=== PATIENT | female | born 1960 ===

== ENCOUNTER 2025-01-16 10:44 | Outpatient (REF) | payer OTHER, SELFPAY ==
--- OUTSIDE RECORDS SUMMARY | 2024-12-30 03:36 | XMS_ITS | Encounter Summary ---
Author Organization [facility] Address [address], [address] [place] [address] Care Team Providers Care Label Machine Operator Name Role Phone Omar Murrell ADVERTISING OPERATIONS COORDINATOR - SHEEP SORTER Primary Care Provider Reason for Visit * Auth/CertSpecialtyDiagnoses / ProceduresReferred By ContactReferred To Contact Diagnoses Abdominal pain [facility] [address] [place] [address] [facility] [address] [place] [address] Referral IDStatusReasonStart DateExpiration DateVisits RequestedVisits [id number] Encounter Details DateTypeDepartmentCare Team (Latest Contact Info)Wglrkvozccv16/14/2025 3:36 AM EDT - 01/12/2025 6:01 PM EDTHospital Encounter [facility] [address] [place] [address] Benton Edouard MD [address] [place] [address] Anish Georges MD [address] [place] [address] Rina Fritz MD [address] [place] [address] Narciso Weiss MD [address] [place] [address] Chadd Fung MD [address] [id number] Kiara Harper MD [address] [place] [address] Acute kidney injury superimposed on stage 3b chronic kidney disease (HCC) (Primary Dx); Abdominal pain, unspecified abdominal location; Essential hypertension; Intussusception of small intestine (HCC); Chronic renal impairment, stage 4 (severe) Discharge Disposition: Home or Self Care Social History Tobacco UseTypesPacks/DayYears UsedDateSmoking Tobacco: Every UffPflkznweej890.8 Started: 03/19/1979mokeless Tobacco: NeverAlcohol UseStandard Drinks/Week CommentsNot Currently0 (1 standard drink = 0.6 oz pure alcohol)AUDIT-CAnswerDate RecordedQ1: How often do you have a drink containing alcohol?Never09/29/2024Q2: How many drinks containing alcohol do you have on a typical day when you are drinking?Patient does not drink09/29/2024Q3: How often do you have six or more drinks on one occasion?Never09/29/2024PHQ-2AnswerDate RecordedPHQ-9 Total Score 1308PRAPARE - TransportationAnswerDate RecordedIn the past 12 months, has lack of transportation kept you from medical appointments or from getting medications?No09/29/2024In the past 12 months, has lack of transportation kept you from meetings, work, or from getting things needed for daily living?No 09/29/2024Housing Stability Vital SignAnswerDate RecordedIn the last 12 months, was there a time when you were not able to pay the mortgage or rent on time?No 12/30/2024In the past 12 months, how many times have you moved where you were living?t any time in the past 12 months, were you homeless or living in a half-way (including now)?No12/30/2024UDIT-CAnswerDate RecordedQ1: How often do you have a drink containing alcohol?Never12/10/2024Q2: How many drinks containing alcohol do you have on a typical day when you are drinking?Patient does not drink12/10/2024Q3: How often do you have six or more drinks on one occasion?Never12/10/2024Hunger Vital SignAnswerDate RecordedWithin the past 12 months, you worried that your food would run out before you got the money to buy more.Never true12/30/2024Within the past 12 months, the food you bought just didn't last and you didn't have money to get more.Never true12/30/2024PRAPARE - TransportationAnswerDate RecordedIn the past 12 months, has lack of transportation kept you from medical appointments or from getting medications?No 12/30/2024In the past 12 months, has lack of transportation kept you from meetings, work, or from getting things needed for daily living?No12/30/2024HC UtilitiesAnswerDate RecordedIn the past 12 months has the [employer], gas, oil, or water company threatened to shut off services in your home?No12/30/2024 Interpersonal Safety Domain Source: IP Abuse ScreeningAnswerDate Recorded Physical mmcikDqldmn20/14/2025Verbal wspicUqmjmh31/14/2025Emotional abuseDenies 12/30/2024Financial hidjaXfltjb00/14/2025Sexual ivnoqVnjfnf40/14/2025 CommentsNoSex and Gender InformationValueDate RecordedSex Assigned at BirthNot on fileLegal RanRhfnzu66/10/2013 4:15 PM ESTGender IdentityNot on fileSexual OrientationNot on filedocumented as of this encounter Last Filed Vital Signs Vital SignReadingTime TakenCommentsBlood Irldzzcs224/8201/12/2025 2:15 PM EDT Lybns486301/12/2025 2:15 PM JEYDcqutjegjfc00.7 ??C (98 ??F)01/12/2025 2:15 PM EDT Respiratory Rahy5108 2:15 PM EDTOxygen Alpfdduvqh61%01/12/2025 2:15 PM EDTInhaled Oxygen Concentration--Aeiubi41 kg (94 lb 12.8 oz)01/12/2025 5:37 AM NTZVdyjiz507.6 cm (5' 4 )12/30/2024 3:30 AM EDTBody Mass Index16.271 3:30 AM EDTdocumented in this encounter Discharge Summaries * Bianka Christiansen MD - 01/12/2025 6:00 PM EDT Images from the original note were not included. Resident Discharge Summary (Hospitalist) Patient: Maria Elena Garner 64 y.o. female : 1960 Account: [id number] Patient's PCP: Omar Murrell APRN - CNP Admit Date: 12/30/2024 Discharge Date: 01/12/2025 Admitting Physician: No admitting provider for patient encounter. Discharge Physician: Bianka Christiansen MD Outpatient Follow-up Rec's: Follow-up with your appointment with your primary care provider after discharge from the hospital To slate picker your oxygen and COPD supplies from home health Follow-up with nephrology at your appointment in [facility] on February 05 Start taking your Cardura at your new dose of 8 mg 3 times daily continue taking your Coreg at yournew dose of 25 mg twice daily Try to use as little of your pain medication as possible follow-up with primary for management of pain Hospital Course: Maria Elena Garner is a 64 y.o. female with PMHx COPD, hypertension, GERD, recent colectomy and end colostomy, PATRICK on CKD stage III on temporary hemodialysis admitted to [facility] on 12/30/2024 for abdominal pain. Patient was recently hospitalized for colectomy with left sided colostomyhad ATN postoperatively requiring hemodialysis Sunday on outpatient follow-up x-ray was notable for SBO patient did not immediately come to the hospital for care try to waited out athome. Was admitted for bowel obstruction and was taken to surgery for small bowel resection of the intestines intussusception. Patient completed a course of antibiotics for gram-negative bacteria ciprofloxacin and doxycycline, infectious disease nephrology and general surgery were consulted, the patient's renal function was improved was stable for discharge per nephrology and infectious disease and general surgery patient required large doses of oral and IV pain killers was weaned down to oral regimen and was discharged with a short 5-day course of oral pain killers with instructions to minimize her oral intake of pain medication. Patient is to follow-up with nephrology within 1 month and with primary care Discharge Diagnoses: Small bowel resection status post intussusception PATRICK on CKD stage III secondary to initial surgical procedure patient was given a course of IV fluids nephrology was consulted optimized for discharge Microcytic anemia secondary to chronic kidney disease received injection of erythropoietin while inpatient is to follow-up with nephrology outpatient Bilateral pleural effusions transudative secondary to hypertension Hypertension patient required increased antihypertensive while inpatient Cardura was increased 8 mg3 times daily Coreg was increased to 25 mg twice daily patient is to follow-up with primary care provider to titrate antihypertensives after discharge from hospital COPD not in acute exacerbation on baseline home O2 GERD continue home Pepcid HFpEF not in acute exacerbation Pericardial effusion no evidence of tamponade The patient was seen and examined on day of discharge and this discharge summary is in conjunction with any daily progress note from day of discharge. The patient is discharged in stable condition. Exam: Vitals: Vitals: 01/12/25 0604 01/12/25 0800 01/12/25 0942 01/12/25 1415 BP: (!) 159/77 (!) 143/82 Pulse: 72 72 Resp: 17 18 18 Temp: 98 ??F (36.7 ??C) 98 ??F (36.7 ??C) TempSrc: Oral Oral SpO2: 95% 95% 94% Weight: Height: Weight: Weight - Scale: 43 kg (94 lb 12.8 oz) General appearance: No apparent distress, well developed, appears stated age. Eyes: Pupils equal, round, and reactive to light. Conjunctivae/corneas clear. HENT: Head normal in appearance. External nares normal. Oral mucosa moist without lesions. Hearing grossly intact. Neck: Supple, with full range of motion. Trachea midline. No gross JVD appreciated. Respiratory: Normal respiratory effort. Clear to auscultation, bilaterally without rales or wheezesor rhonchi. Cardiovascular: Normal rate, regular rhythm with normal S1/S2 without murmurs. No lower extremity edema. Abdomen: Soft, non-tender, non-distended with normal bowel sounds. Musculoskeletal: There is no joint swelling or tenderness. Normal tone. No abnormal movements. Skin: Warm and dry. No rashes or lesions. Neurologic: No focal sensory/motor deficits in the upper and lower extremities. Cranial nerves: grossly non-focal 2-12. Psychiatric: Alert and oriented, normal insight and thought content. Capillary Refill: Brisk,< 3 seconds. Peripheral Pulses: +2 palpable, equal bilaterally. Labs: For convenience the most recent labs are provided: CBC: Lab Results Component Value Date/Time WBC 10.7 01/12/2025 06:18 AM HGB 8.7 01/12/2025 06:18 AM HCT 26.8 01/12/2025 06:18 AM PLT 342 01/12/2025 06:18 AM Renal: Lab Results Component Value Date/Time NA 137 01/12/2025 06:18 AM K 3.6 01/12/2025 06:18 AM CL 103 01/12/2025 06:18 AM CO2 23 01/12/2025 06:18 AM BUN 50 01/12/2025 06:18 AM CREATININE 1.9 01/12/2025 06:18 AM CALCIUM 8.8 01/12/2025 06:18 AM Liver: Lab Results Component Value Date/Time AST 20 01/07/2025 05:26 AM ALT 12 01/07/2025 05:26 AM Significant Diagnostic Studies Radiology: XR CHEST PORTABLE Final Result Stable small bilateral pleural effusions with under aeration of the left lung base. This report has been created using voice recognition software. It may contain minor errors which are inherent in voice recognition technology. Electronically signed by Dr. Bertha Montgomery XR ABDOMEN (KUB) (SINGLE AP VIEW) Final Result No acute abdominal disease. This report has been created using voice recognition software. It may contain minor errors which are inherent in voice recognition technology. Electronically signed by Dr. Frederick Gonzales XR CHEST PORTABLE Final Result 1. Small bilateral left or the right pleural effusions are seen. Dependent bibasilar left greater than right airspace opacities are also present which may present atelectasis or pneumonia. This report has been created using voice recognition software. It may contain minor errors which are inherent in voice recognition technology. Electronically signed by Dr. Pedro Diallo US THORACENTESIS Which side should the procedure be performed? Radiologist Recommendation (Bilateral) Final Result Status post right thoracentesis This report has been created using voice recognition software. It may contain minor errors which are inherent in voice recognition technology. Electronically signed by Dr. Pedro Diallo XR CHEST 1 VIEW Final Result 1. The heart size is borderline mildly enlarged. 2. There is improved aeration at the right lung following right-sided thoracentesis with no evidence for pneumothorax. Mild dependent right basilar airspace opacities are present which represent mild atelectasis or infiltrate. 3. There is a small left pleural effusion again seen with mild dependent left basilar airspace opacities. This report has been created using voice recognition software. It may contain minor errors which are inherent in voice recognition technology. Electronically signed by Dr. Pedro Diallo US RENAL LIMITED Final Result 1. Minimal pelviectasis on the right which appears improved from prior CT examination dated 01/04/2025 allowing for differences in imaging modality. This report has been created using voice recognition software. It may contain minor errors which are inherent in voice recognition technology. Electronically signed by Dr. Pedro Diallo CT ABDOMEN PELVIS WO CONTRAST Additional Contrast? Radiologist Recommendation Final Result 1. Moderate bilateral pleural effusions. Diffuse body wall edema. 2. Mild to moderate right hydronephrosis. 3. Large amount of ascites with pneumoperitoneum noted. The pertinent finding(s) was called to patient's nurse at 1414 hours on 01/04/[address] Gil. Verbal acknowledgment and readback was given. 4. Dilated and fluid-filled small bowel loops are seen. Findings can relate to ileus versus small bowel obstruction. This report has been created using voice recognition software. It may contain minor errors which are inherent in voice recognition technology. Electronically signed by Dr. Nerissa Gil IR FLUORO GUIDED CVA DEVICE PLMT/REPLACE/REMOVAL Final Result Status post successful tunneled Dialysis catheter removal. This report has been created using voice recognition software. It may contain minor errors which are inherent in voice recognition technology. Electronically signed by Dr. Frederick Gonzales XR NECK SOFT TISSUE Final Result No acute findings. This document has been electronically signed by: Noah Ricketts MD on 12/31/2024 11:08 PM Consults: IP CONSULT TO GENERAL SURGERY IP CONSULT TO NEPHROLOGY IP CONSULT TO SOCIAL WORK IP CONSULT TO INFECTIOUS DISEASES IP CONSULT TO HOME CARE NEEDS Disposition: Home Condition at Discharge: Stable Code Status: Full Code Patient Instructions: Discharge lab work: Weekly CBCs BMP 1 week after discharge Activity: activity as tolerated Diet: ADULT ORAL NUTRITION SUPPLEMENT; Breakfast, Lunch, Dinner; Standard High Calorie/High ProteinOral Supplement ADULT DIET; Regular; Low Sodium (2 gm); 2000 ml Follow-up visits: [facility] by [address] [facility] [id number] Omar Murrell, ADVERTISING OPERATIONS COORDINATOR - SHEEP SORTER [address] [place] [address] [address] [place] [phone] Go on 01/20/2025 post hospital follow up-Appt is at 2:40pm. Trish Kim DO [address] [place], [place] [id number] Schedule an appointment as soon as possible for a visit on 02/05/2025 Appointment is at 11am. Discharge Medications: Medication List PAUSE taking these medications furosemide 40 MG tablet Wait to take this until your doctor or other care provider tells you to start again. Commonly known as: LASIX Take 1 tablet by mouth daily START taking these medications chlorthalidone 50 MG tablet Commonly known as: HYGROTEN Take 1 tablet by mouth daily oxyCODONE-acetaminophen 5-325 MG per tablet Commonly known as: PERCOCET Take 1 tablet by mouth every 6 hours as needed for Pain for up to 5 days. Max Daily Amount: 4 tablets CHANGE how you take these medications carvedilol 25 MG tablet Commonly known as: COREG Take 1 tablet by mouth 2 times daily (with meals) What changed: how much to take doxazosin 2 MG tablet Commonly known as: CARDURA Take 4 tablets by mouth 2 times daily Hold if BP <110mmHg or HR <65 What changed: how much to take when to take this additional instructions CONTINUE taking these medications Acetaminophen Extra Strength 500 MG Tabs TAKE 1 TABLET BY MOUTH EVERY 6 HOURS NEEDED FOR PAIN albuterol sulfate HFA 108 (90 Base) MCG/ACT inhaler Commonly known as: PROVENTIL;VENTOLIN;PROAIR Inhale 2 puffs into the lungs every 6 hours as needed for Wheezing amLODIPine 10 MG tablet Commonly known as: NORVASC Take 1 tablet by mouth daily aspirin 81 MG EC tablet Commonly known as: Aspirin Low Dose Take 1 tablet by mouth daily atorvastatin 20 MG tablet Commonly known as: LIPITOR Take 1 tablet by mouth daily buPROPion 150 MG extended release tablet Commonly known as: WELLBUTRIN XL Take 1 tablet by mouth every morning cloNIDine 0.3 MG tablet Commonly known as: CATAPRES Take 1 tablet by mouth 3 times daily Compressor/Nebulizer Misc Use to give medication as directed docusate 100 MG Caps Commonly known as: COLACE, DULCOLAX Take 100 mg by mouth 2 times daily famotidine 20 MG tablet Commonly known as: PEPCID Take 1 tablet by mouth 2 times daily Handicap Placard Misc by Does not apply route Trouble walking more than 200ft. Need- 5 years lactulose 10 GM/15ML solution Commonly known as: CHRONULAC Take 15 mLs by mouth every evening ondansetron 4 MG disintegrating tablet Commonly known as: ZOFRAN-ODT Take 1 tablet by mouth 3 times daily as needed for Nausea or Vomiting polyethylene glycol 17 g packet Commonly known as: GLYCOLAX Take 1 packet by mouth daily senna 8.6 MG Tabs tablet Commonly known as: SENOKOT TAKE 2 TABLETS BY MOUTH NIGHTLY simethicone 80 MG chewable tablet Commonly known as: MYLICON Take 1 tablet by mouth 4 times daily as needed for Flatulence Symbicort 160-4.5 MCG/ACT Aero Generic drug: budesonide-formoterol Inhale 2 puffs into the lungs 2 times daily tiotropium 2.5 MCG/ACT Aers inhaler Commonly known as: Spiriva Respimat Inhale 2 puffs into the lungs daily traZODone 100 MG tablet Commonly known as: DESYREL Take 0.5 tablets by mouth nightly as needed for Sleep ASK your doctor about these medications hydrALAZINE 100 MG tablet Commonly known as: APRESOLINE Take 1 tablet by mouth every 8 hours losartan 50 MG tablet Commonly known as: COZAAR Take 1 tablet by mouth daily Where to Get Your Medications These medications were sent to [facility] - [place], [place] - [address] [phone] - F [phone] [place] [address] chlorthalidone 50 MG tablet You can get these medications from any pharmacy Bring a paper prescription for each of these medications oxyCODONE-acetaminophen 5-325 MG per tablet Information about where to get these medications is not yet available Ask your nurse or doctor about these medications carvedilol 25 MG tablet doxazosin 2 MG tablet Time Spent on discharge is 45 minutes in the examination, evaluation, counseling and review of medications and discharge plan. Thank you Omar Murrell, PARAMJIT - [employer] for the opportunity to be involved in this patient's care. Signed: Case was discussed with Attending, Dr. Harper Cosigned by Kiara Harper MD at 01/14/2025 7:08 PM EDT Associated attestation - Kiara Harper MD - 01/14/2025 7:08 PM EDT I saw and evaluated the patient independently of the medical record retrieval specialist and discussed with Dr. Christiansen. I agree with the findings and plan as documented in the following note. I agree with the Resident's physical exam, assessment and plan for treatment, with any exceptions listed below. Below is additional information based on my encounter and recommendations if any. Time Spent on discharge is more than 30 minutes in the examination, evaluation, counseling and review of medications and discharge plan. DOS 01/12/25 Electronically signed by Kiara Harper MD 01/14/2025 documented in this encounter Discharge Instructions * Discharge Instructions* Bianka Christiansen MD - 01/12/2025 12:15 PM EDT Please return to the ER or call you PCP if you experience any of the following: Abdominal pain chest pain, shortness of breath, fevers, chills, lightheadedness, or any other concerning symptoms. * Attachments The following attachments cannot be sent through Care Everywhere. * Bowel Obstruction (Hungarian) * Abdominal Pain (Hungarian) documented in this encounter Medications at Time of Discharge MedicationSigDispense QuantityRefillsLast FilledStart DateEnd Date doxazosin (CARDURA) 2 MG tablet Indications:Essential hypertensionTake 4 tablets by mouth 2 times daily Hold if BP <110mmHg or HR <65 720 tablet 01/12/2025 carvedilol (COREG) 25 MG tablet Take 1 tablet by mouth 2 times daily (with meals) 60 tablet chlorthalidone (HYGROTEN) 50 MG tablet Take 1 tablet by mouth daily 30 tablet oxyCODONE-acetaminophen (PERCOCET) 5-325 MG per tablet Indications:Intussusception of small intestine (HCC)Take 1 tablet by mouth every 6 hours as needed for Pain for up to 5 days. Max Daily Amount: 4 tablets 20 tablet simethicone (MYLICON) 80 MG chewable tablet Indications:Abdominal distensionTake 1 tablet by mouth 4 times daily as needed for Flatulence 180 tablet ondansetron (ZOFRAN-ODT) 4 MG disintegrating tablet Indications:Abdominal distensionTake 1 tablet by mouth 3 times daily as needed for Nausea or Vomiting 21 tablet 12/23/2024 polyethylene glycol (GLYCOLAX) 17 g packet Indications:Constipation, unspecified constipation typeTake 1 packet by mouth daily 527 g amLODIPine (NORVASC) 10 MG tablet Indications:Essential hypertensionTake 1 tablet by mouth daily 90 tablet 12/09/2024 aspirin (ASPIRIN LOW DOSE) 81 MG EC tablet Indications:Essential hypertensionTake 1 tablet by mouth daily 90 tablet 12/09/2024 atorvastatin (LIPITOR) 20 MG tablet Indications:DyslipidemiaTake 1 tablet by mouth daily 90 tablet 12/09/2024 buPROPion (WELLBUTRIN XL) 150 MG extended release tablet Indications:Chronic anxietyTake 1 tablet by mouth every morning 90 tablet 12/09/2024 famotidine (PEPCID) 20 MG tablet Indications:Gastroesophageal reflux disease, unspecified whether esophagitis presentTake 1 tablet by mouth 2 times daily 180 tablet 12/09/2024 lactulose (CHRONULAC) 10 GM/15ML solution Indications:Slow transit constipationTake 15 mLs by mouth every evening 473 mL albuterol sulfate HFA (PROVENTIL;VENTOLIN;PROAIR) 108 (90 Base) MCG/ACT inhaler Indications:COPD, mild (HCC),Dyspnea on exertionInhale 2 puffs into the lungs every 6 hours as needed for Wheezing 18 g losartan (COZAAR) 50 MG tablet Indications:Chronic obstructive pulmonary disease, unspecified COPD type (HCC), Shortness of breathTake 1 tablet by mouth daily 90 tablet senna (SENOKOT) 8.6 MG TABS tablet Indications:Constipation, unspecified constipation typeTAKE 2 TABLETS BY MOUTH NIGHTLY 60 tablet 11/18/2024 furosemide (LASIX) 40 MG tablet Take 1 tablet by mouth daily 90 tablet 11/03/2024 docusate (COLACE, DULCOLAX) 100 MG CAPS Indications:Constipation, unspecified constipation typeTake 100 mg by mouth 2 times daily 60 capsule traZODone (DESYREL) 100 MG tablet Take 0.5 tablets by mouth nightly as needed for Sleep 30 tablet 10/01/2024 cloNIDine (CATAPRES) 0.3 MG tablet Take 1 tablet by mouth 3 times daily 60 tablet tiotropium (SPIRIVA RESPIMAT) 2.5 MCG/ACT AERS inhaler Indications:COPD, mild (HCC)Inhale 2 puffs into the lungs daily 4 g SYMBICORT 160-4.5 MCG/ACT AERO Indications:COPD, mild (HCC)Inhale 2 puffs into the lungs 2 times daily 10.2 g hydrALAZINE (APRESOLINE) 100 MG tablet Take 1 tablet by mouth every 8 hours 90 tablet Acetaminophen Extra Strength 500 MG TABS TAKE 1 TABLET BY MOUTH EVERY 6 HOURS NEEDED FOR PAIN 120 tablet Handicap Placard MISC by Does not apply route Trouble walking more than 200ft. Need- 5 years 1 each 03/17/2024 Nebulizers (COMPRESSOR/NEBULIZER) MISC Indications:COPD, mild (HCC)Use to give medication as directed 1 each 4documented as of this encounter Progress Notes * Fallon Mack RN - 01/12/2025 5:57 PM EDT All discharge instructions given to patient and family with no further questions at this time. Patient discharged off unit via wheelchair. Chart contents placed in yellow bin. * Yeny Fischer OTA - 01/12/2025 2:23 PM EDT [facility] OCCUPATIONAL THERAPY MISSED TREATMENT NOTE STR ONC MED 5K [id number] Date: 01/12/2025 Patient Name: Maria Elena Garner CSN: [id number] : 1960 (64 y.o.) Gender: female Referring Practitioner: Chadd Fung MD Diagnosis: Intussusception of Small Intestine REASON FOR MISSED TREATMENT: Attempt 1: patient politely declined requesting PM, Attempt 2: patientdeclines at this time. Education provided regarding activity to return home and benefits however patient continues to decline. Will attempt next available time. Cosigned by Cathie Kim OT at 01/13/2025 6:24 AM EDT * Trish Kim DO - 01/12/2025 10:42 AM EDT [facility] Nephrology progress note 01/12/2025, 10:42 AM Pt Name: Maria Elena Garner Birthdate: 1960 Admit Date: 12/30/2024 3:36 AM Chief Complaint: Nephrology following for PATRICK secondary to ATN Subjective: Patient seen and examined. Feels ok. Bp improving. Objective: 24HR INTAKE/OUTPUT: Intake/Output Summary (Last 24 hours) at 01/12/2025 1042 Last data filed at 01/12/2025 0643 Gross per 24 hour Intake 310 ml Output 900 ml Net -590 ml Admission weight: 44.3 kg (97 lb 10.6 oz) Wt Readings from Last 3 Encounters: 01/12/25 43 kg (94 lb 12.8 oz) 12/19/24 41.6 kg (91 lb 11.4 oz) 12/13/24 44.5 kg (98 lb 1.7 oz) Vitals : Vitals: 01/12/25 0537 01/12/25 0604 01/12/25 0800 01/12/25 0942 BP: (!) 159/77 Pulse: 72 Resp: 17 18 Temp: 98 ??F (36.7 ??C) TempSrc: Oral SpO2: 95% 95% Weight: 43 kg (94 lb 12.8 oz) Height: Physical examination General Appearance: Well developed. No distress Mouth/Throat: Oral mucosa moist Neck: Supple, no JVD Lungs: Breath sounds: clear Heart:: S1,S2 heard Abdomen: Soft, non - tender Musculoskeletal:improved ankle edema Medications: Infusion: sodium chloride Meds: chlorthalidone 50 mg Oral Daily doxazosin 8 mg Oral 2 times per day hydrALAZINE 100 mg Oral 3 times per day polyethylene glycol 17 g Oral Daily cloNIDine 0.3 mg Oral TID nicotine 1 patch TransDERmal Q24H carvedilol 25 mg Oral BID WC epoetin kamryn-epbx 6,000 Units SubCUTAneous Once per day on Sunday sodium chloride flush 5-40 mL IntraVENous 2 times per day amLODIPine 10 mg Oral Daily atorvastatin 20 mg Oral Daily famotidine 20 mg Oral Daily budesonide-formoterol 2 puff Inhalation BID tiotropium 2 puff Inhalation Daily RT albuterol 2.5 mg Nebulization TID heparin (porcine) 5,000 Units SubCUTAneous BID naloxegol 12.5 mg Oral QAM AC Lab Data : CBC: Recent Labs 01/11/25 0547 01/12/25 0618 WBC 9.7 10.7 HGB 8.6* 8.7* HCT 26.6* 26.8* PLT 367 342 CMP: Recent Labs 01/10/25 0533 01/11/25 0547 01/12/25 0618 NA 133* 135 137 K 4.1 3.9 3.6 CL 100 100 103 CO2 22 23 23 BUN 48* 50* 50* CREATININE 2.4* 2.2* 1.9* GLUCOSE 102 111* 106 CALCIUM 8.3* 8.6 8.8 Hepatic: No results for input(s): LABALBU , AST , ALT , BILITOT , ALKPHOS in the last 72 hours. Invalid input(s): ALB Assessment and Plan: Renal -acute kidney injury secondary to ATN requiring dialysis Last HD was 12/26 creatinine had improved to 1.6. HD cath removed Creatinine fluctuating but overall stable At DC needs weekly bmps. See me 02/05 in [place] Renal fxn stable. Bp better Ok for DC From renal standpoint Mild hyponatremia : improved Essential hypertension:improving Small bowel intussusception s/p ex lap with small bowel resection Recent ischemic colitis s/p hartmans with end colostomy Anemia of renal dysfunction : BRYCE Acid-base status stable Pleural effusion s/p thoracentesis Meds reviewed and discussed with patient Trish Kim DO [facility] This report has been created using voice recognition software. It may contain minor errors which are inherent in voice recognition technology * Phylicia Green, RN - 01/12/2025 10:27 AM EDT Wound ostomy consulted for LLQ ostomy . Attempted to call primary RN for clarification of consult,no answer. Spoke to staff last week regarding consult stating patient wanted to by seen by ostomy nurse inpatient instead of outpatient since she was here . Explained that we cannot provide the outpatient services and that she should still keep appt with outpatient [facility] for ostomy follow up. Call wound ostomy if there is a different need for consult. Thank you. * Dilip Arias MD - 01/12/2025 9:38 AM EDT Progress note: Infectious diseases Patient - Maria Elena Garner, Age - 64 y.o. - 1960 Room Number - 5K-[id number] N - [id number] Date of Admission - 12/30/2024 3:36 AM SUBJECTIVE: She wants to go home. Denies any nausea or vomiting. OBJECTIVE VITALS height is 1.626 m (5' 4 ) and weight is 43 kg (94 lb 12.8 oz). Her oral temperature is 98 ??F (36.7??C). Her blood pressure is 159/77 (abnormal) and her pulse is 72. Her respiration is 18 and oxygensaturation is 95%. Wt Readings from Last 3 Encounters: 01/12/25 43 kg (94 lb 12.8 oz) 12/19/24 41.6 kg (91 lb 11.4 oz) 12/13/24 44.5 kg (98 lb 1.7 oz) I/O (24 Hours) Intake/Output Summary (Last 24 hours) at 01/12/2025 0938 Last data filed at 01/12/2025 0643 Gross per 24 hour Intake 310 ml Output 900 ml Net -590 ml General Appearance Awake, alert, oriented, chronically sick looking. HEENT - normocephalic, atraumatic, pale conjunctiva, anicteric sclera. Neck - Supple, no mass. Lungs - Bilateral air entry, Cardiovascular - Heart sounds are normal. Abdomen - soft, nontender, functioning colostomy Neurologic -oriented Skin - No bruising or bleeding Extremities - edema on both feet MEDICATIONS: chlorthalidone 50 mg Oral Daily doxazosin 8 mg Oral 2 times per day hydrALAZINE 100 mg Oral 3 times per day polyethylene glycol 17 g Oral Daily cloNIDine 0.3 mg Oral TID nicotine 1 patch TransDERmal Q24H carvedilol 25 mg Oral BID WC epoetin kamryn-epbx 6,000 Units SubCUTAneous Once per day on Sunday sodium chloride flush 5-40 mL IntraVENous 2 times per day amLODIPine 10 mg Oral Daily atorvastatin 20 mg Oral Daily famotidine 20 mg Oral Daily budesonide-formoterol 2 puff Inhalation BID tiotropium 2 puff Inhalation Daily RT albuterol 2.5 mg Nebulization TID heparin (porcine) 5,000 Units SubCUTAneous BID naloxegol 12.5 mg Oral QAM AC sodium chloride capsaicin, oxyCODONE-acetaminophen, mupirocin, sodium chloride flush, sodium chloride, ondansetron OR ondansetron, polyethylene glycol, traZODone LABS: CBC: Recent Labs 01/11/25 0547 01/12/25 0618 WBC 9.7 10.7 HGB 8.6* 8.7* PLT 367 342 BMP: Recent Labs 01/10/25 0533 01/11/25 0547 01/12/25 0618 NA 133* 135 137 K 4.1 3.9 3.6 CL 100 100 103 CO2 22 23 23 BUN 48* 50* 50* CREATININE 2.4* 2.2* 1.9* GLUCOSE 102 111* 106 Calcium: Recent Labs 01/12/25617 CALCIUM 8.8 CULTURES: UA: No results for input(s): SPECGRAV , PHUR , COLORU , CLARITYU , MUCUS , PROTEINU , BLOODU , RBCUA , WBCUA , BACTERIA , NITRU , GLUCOSEU , BILIRUBINUR , UROBILINOGEN , KETUA , LABCAST , LABCASTTY , AMORPHOS in the last 72 hours. Invalid input(s): CRYSTALS Micro: No results found for: BC Problem list of patient: Patient Active Problem List Diagnosis Code PAD (peripheral artery disease) I73.9 Chronic anxiety F41.9 Essential hypertension I10 Insomnia G47.00 COPD (chronic obstructive pulmonary disease) ([facility]) J44.9 Smoking greater than 30 pack years F17.210 Osteoarthritis of cervical spine M47.812 Dyslipidemia E78.5 Positive FIT (fecal immunochemical test) R19.5 Neuropathic pain M79.2 Chronic hip pain, bilateral M25.551, M25.552, G89.29 Fibromyalgia M79.7 Chest wall pain R07.89 Ruptured left breast implant T85.43XA Left upper arm pain M79.622 Axillary lymphadenopathy R59.0 Localized enlarged lymph nodes R59.0 Personal history of breast implant removal Z98.86 Dysthymia F34.1 Hypertensive emergency I16.1 Right otitis media H66.91 Acute renal insufficiency N28.9 Chronic diastolic HF (heart failure), NYHA class 3 ([facility]) I50.32 Hypertension I10 Uncontrolled hypertension I10 Chronic renal impairment N28.9 Severe malnutrition E43 Hypertensive urgency I16.0 Pericardial effusion, acute I30.9 Gastroesophageal reflux disease K21.9 Hyponatremia E87.1 Constipation K59.00 Abdominal discomfort R10.9 Hypervolemia E87.70 Abdominal distension R14.0 Generalized weakness R53.1 Congestive heart failure (HCC) I50.9 Intractable abdominal pain R10.9 Ischemic bowel disease K55.9 Leucocytosis D72.829 Smoker F17.200 PATRICK (acute kidney injury) N17.9 Acute ischemic colitis K55.039 Acute abdominal pain R10.9 Acute kidney injury superimposed on stage 3b chronic kidney disease (HCC) N17.9, N18.32 ATN (acute tubular necrosis) N17.0 S/P laparotomy Z98.890 S/P left colectomy Z90.49 Acute respiratory failure with hypoxia ([facility]) J96.01 Colostomy care ([facility]) Z43.3 Abdominal pain R10.9 Intussusception of small intestine ([facility]) K56.1 ASSESSMENT/PLAN Bowel intussusception s/p exploratory surgery and bowel resection. Pelvic abscess drained and treated She is feeling better and wants to go home Ok with discharge plan Call ID if there are issues. Will sign off Dilip Arias MD, 01/12/2025 9:38 AM * Bianka Christiansen MD - 01/11/2025 2:44 PM EDT Images from the original note were not included. Hospitalist Progress Note Internal Medicine Resident Patient: Maria Elena Garner 64 y.o. female Unit/Bed: [facility]04/004-A Admit Date: 12/30/2024 ASSESSMENT AND PLAN Active Problems SBO intussusception status post small bowel resection: NG tube removed 01/01, large amount of ascites with pneumoperitoneum noted on abdomen/pelvis, IV fluid culture showing Pseudomonas, Staph epidermidis, Klebsiella. General surgery has signed off. ID okay for discharge Pain control: oral Percocet for moderate and severe pain every 4 hours Regular diet Completed course of ciprofloxacin 500 mg daily and doxycycline 100 mg twice daily PATRICK on CKD: Creatinine 2.4. Baseline creatinine around 1.6 following HD. Secondary to ATN requiringhemodialysis. Nephrology following. Follow-up appointment February 05 Weekly BMP postdischarge until she can be seen by nephrology Chronic microcytic anemia: Secondary to chronic kidney disease. Hemoglobin 9.2. Near recent baseline. Nephrology following Retacrit MWF Continue to monitor daily CBC Transfuse if hemoglobin less than 7 Small bilateral lower pleural effusions: Incidental finding on CT abdomen/pelvis without scan on 01/04/2025 Diagnostic thoracentesis consistent with transudative process Seen to be smaller, stable on CXR 01/11 Mild hyponatremia: Sodium 133. Nephrology following. On fluid restriction. Hypertension: Resistant to multiple antihypertensive medications including Cardura, clonidine, amlodipine, carvedilol, hydralazine. Continue chlorthalidone 25 mg daily and Cardura 8 mg twice daily Disposition likely discharge in the morning Resolved Problems High anion gap metabolic acidosis Chronic Conditions (reviewed and stable unless otherwise stated) History of ischemic colitis: Secondary to colostomy 12/12/2024 Thrombocytosis: Platelets 399. Continue monitor daily CBC. COPD: Not in exacerbation. Continue home regimen. GERD continue Pepcid Heart failure with preserved ejection fraction: Not in acute exacerbation Chronic pericardial effusion with no evidence of tamponade LDA: []CVC / []PICC / []Midline / []Pittman / []Drains / []Mediport / [x]None Antibiotics: Ciprofloxacin, doxycycline Steroids: None Labs (still needed?): [x]Yes / []No IVF (still needed?): []Yes / [x]No Level of care: []Step Down / [x]Med-Surg Bed Status: [x]Inpatient / []Observation Telemetry: []Yes / [x]No PT/OT: [x]Yes / []No DVT Prophylaxis: [] Lovenox / [x] Heparin / [] SCDs / [] Already on Systemic Anticoagulation / [] None Expected discharge date: Pending Disposition: Home Code status: Full Code Chief Complaint: Abdominal pain Subjective (past 24 hours): Pain greatly improved on exam today HPI / Hospital Course: Maria Elena Garner is a 64 y.o. female with PMHx of COPD, hypertension, GERD, recent ischemic colitis s/p left colectomy and end colostomy, postop ATN with intrinsic PATRICK on CKD stage III on hemodialysis MWF who presents to [facility] as a direct admission from [facility] with a complaint of abdominal pain.Abdominal pain is localized to the lower abdomen, dull/achy in quality, initially rated 10/10 and improved with dilaudid while in patient.Patient was recently treated for ischemic colitis requiring left colectomy and left colostomy 12/11/2024 and subsequently developed postop ATN requiring hemodialysis MWF. She has been having worsening abdominal pain and distention since last week associated witha few bouts of nausea/vomiting nonbloody, nonbilious. As outpatient she had x-ray acute abdominal series completed 12/25 which revealed SBO and was instructed to come to ED for further evaluation Sunday on 12/26. Patient however not follow instructions, thinking it would pass on its own however now she has severe abdominal pain with bloating for which she presented to [facility], ED prior to admission to [facility]. Patient otherwise denies SOB, chest pain, fever/chills, headaches, vision changes. ED course: In the ED patient was hypertensive 166/89 and tachypneic 21. Labs revealed elevated creatinine 3.5, troponin 111->106, hemoglobin 11.2, lactate normal at 0.7. EKG revealed NSR. CXR revealed no acute cardiopulmonary process, small stable bilateral pleural effusions with bibasilar atelectasis. CT A/P revealed findings suggestive of pneumatosis intestinalis and pneumatosis coli, bowel ischemia cannot be excluded. Patient management pain meds including Dilaudid and antibiotics Zosyn, ultimately admitted for further management of pneumatosis intestinalis and pneumatosis coli with bowel ischemia not excluded. General Surgery Dr. Whitaker already following. 01/11: Patient transition to full oral pain control regimen tentative plans for discharge in the morning pending PT OT Active Medications: Infusion Medications sodium chloride Scheduled Medications chlorthalidone 50 mg Oral Daily doxazosin 8 mg Oral 2 times per day hydrALAZINE 100 mg Oral 3 times per day polyethylene glycol 17 g Oral Daily doxycycline hyclate 100 mg Oral 2 times per day cloNIDine 0.3 mg Oral TID nicotine 1 patch TransDERmal Q24H carvedilol 25 mg Oral BID epoetin kamryn-epbx 6,000 Units SubCUTAneous Once per day on Sunday sodium chloride flush 5-40 mL IntraVENous 2 times per day amLODIPine 10 mg Oral Daily atorvastatin 20 mg Oral Daily famotidine 20 mg Oral Daily budesonide-formoterol 2 puff Inhalation BID tiotropium 2 puff Inhalation Daily RT albuterol 2.5 mg Nebulization TID heparin (porcine) 5,000 Units SubCUTAneous BID naloxegol 12.5 mg Oral QAM AC PRN Meds: oxyCODONE-acetaminophen, mupirocin, sodium chloride flush, sodium chloride, ondansetron OR ondansetron, polyethylene glycol, traZODone Exam: BP (!) 160/90 Pulse 74 Temp 98.2 ??F (36.8 ??C) (Oral) Resp 15 Ht 1.626 m (5' 4 ) Wt 42 kg (92 lb 8 oz) SpO2 94% BMI 15.88 kg/m?? General: Chronically ill-appearing, thin Eyes: PERRL. Conjunctivae/corneas clear. HENT: Head normal appearing. Nares normal. Oral mucosa moist. Hearing intact. Neck: Supple, with full range of motion. Trachea midline. No gross JVD appreciated. Respiratory: Normal effort. Clear to auscultation, without rales or wheezes or rhonchi. Cardiovascular: Normal rate, regular rhythm with normal S1/S2 without murmurs. No lower extremity edema. Abdomen: Mild tenderness palpation in RLQ, left flank mildly edematous Musculoskeletal: No joint swelling or tenderness. Normal tone. No abnormal movements. Skin: Warm and dry. No rashes or lesions. Neurologic: No focal sensory/motor deficits in the upper or lower extremities. Psychiatric: Alert and oriented, normal insight and thought content. Capillary Refill: Brisk,< 3 seconds. Peripheral Pulses: +2 palpable, equal bilaterally. Labs/Radiology: See chart or assessment above. Case was discussed with Attending, Dr. Harper.. Cosigned by Kiara Harper MD at 01/14/2025 7:07 PM EDT Associated attestation - Kiara Harper MD - 01/14/2025 7:07 PM EDT I saw and evaluated the patient independently of the medical record retrieval specialist and discussed with Dr. Christiansen. I agree with the findings and plan as documented in the following note. I agree with the Resident's physical exam, assessment and plan for treatment, with any exceptions listed below. Below is additional information based on my encounter and recommendations if any. Time Spent is more than 35 minutes in the examination, evaluation, counseling and review of medications and plan. DOS 01/11/25 Electronically signed by Kiara Harper MD 01/14/2025 * Trish Kim DO - 01/11/2025 11:11 AM EDT [facility] Nephrology progress note 01/11/2025, 11:11 AM Pt Name: Maria Elena Garner Birthdate: 1960 Admit Date: 12/30/2024 3:36 AM Chief Complaint: Nephrology following for PATRICK secondary to ATN Subjective: Patient seen and examined. Feels ok. Still having bp issues. Objective: 24HR INTAKE/OUTPUT: Intake/Output Summary (Last 24 hours) at 01/11/2025 1111 Last data filed at 01/11/2025 0607 Gross per 24 hour Intake -- Output 1050 ml Net -1050 ml Admission weight: 44.3 kg (97 lb 10.6 oz) Wt Readings from Last 3 Encounters: 01/11/25 42 kg (92 lb 8 oz) 12/19/24 41.6 kg (91 lb 11.4 oz) 12/13/24 44.5 kg (98 lb 1.7 oz) Vitals : Vitals: 01/11/25 0406 01/11/25 0607 01/11/25 0830 01/11/25 0939 BP: (!) 160/90 Pulse: 74 76 Resp: 16 18 16 Temp: 98.2 ??F (36.8 ??C) TempSrc: Oral SpO2: 95% 94% Weight: 42 kg (92 lb 8 oz) Height: Physical examination General Appearance: Well developed. No distress Mouth/Throat: Oral mucosa moist Neck: Supple, no JVD Lungs: Breath sounds: clear Heart:: S1,S2 heard Abdomen: Soft, non - tender Musculoskeletal:ankle edema noted Medications: Infusion: sodium chloride Meds: chlorthalidone 50 mg Oral Daily doxazosin 8 mg Oral 2 times per day hydrALAZINE 100 mg Oral 3 times per day polyethylene glycol 17 g Oral Daily doxycycline hyclate 100 mg Oral 2 times per day cloNIDine 0.3 mg Oral TID nicotine 1 patch TransDERmal Q24H carvedilol 25 mg Oral BID WC epoetin kamryn-epbx 6,000 Units SubCUTAneous Once per day on Sunday sodium chloride flush 5-40 mL IntraVENous 2 times per day amLODIPine 10 mg Oral Daily atorvastatin 20 mg Oral Daily famotidine 20 mg Oral Daily budesonide-formoterol 2 puff Inhalation BID tiotropium 2 puff Inhalation Daily RT albuterol 2.5 mg Nebulization TID heparin (porcine) 5,000 Units SubCUTAneous BID naloxegol 12.5 mg Oral QAM AC Lab Data : CBC: Recent Labs 01/11/25 0547 WBC 9.7 HGB 8.6* HCT 26.6* PLT 367 CMP: Recent Labs 01/09/25 0722 01/10/25 0533 01/11/25 0547 NA 133* 133* 135 K 4.1 4.1 3.9 CL 102 100 100 CO2 20* 22 23 BUN 44* 48* 50* CREATININE 2.3* 2.4* 2.2* GLUCOSE 111* 102 111* CALCIUM 8.8 8.3* 8.6 Hepatic: No results for input(s): LABALBU , AST , ALT , BILITOT , ALKPHOS in the last 72 hours. Invalid input(s): ALB Assessment and Plan: Renal -acute kidney injury secondary to ATN requiring dialysis Last HD was 12/26 creatinine had improved to 1.6. HD cath removed Creatinine fluctuating but overall stable At DC needs weekly bmps. See me 02/05 in [place] Increase chlorthalidone to 50 mg daily Mild hyponatremia : improved Essential hypertension: remains elevated. Increase chlorthalidone to 50 mg daily. Cont low Na diet Small bowel intussusception s/p ex lap with small bowel resection Recent ischemic colitis s/p hartmans with end colostomy Anemia of renal dysfunction : BRYCE Acid-base status stable Pleural effusion s/p thoracentesis Meds reviewed and discussed with patient Trish Kim DO [facility] This report has been created using voice recognition software. It may contain minor errors which are inherent in voice recognition technology * Javier Mancini MD - 01/10/2025 4:10 PM EDT Images from the original note were not included. Hospitalist Progress Note Internal Medicine Resident Patient: Maria Elena Garner 64 y.o. female Unit/Bed: -04/004-A Admit Date: 12/30/2024 ASSESSMENT AND PLAN Active Problems SBO intussusception status post small bowel resection: NG tube removed 01/01, large amount of ascites with pneumoperitoneum noted on abdomen/pelvis, IV fluid culture showing Pseudomonas, Staph epidermidis, Klebsiella. General surgery has signed off. ID okay for discharge Pain control: 0.25 mg Dilaudid every 4 hours for severe pain and oral Percocet for moderate and severe pain every 4 hours Regular diet Ciprofloxacin 500 mg daily and doxycycline 100 mg twice daily per infectious disease, end date 01/11/2025 PATRICK on CKD: Creatinine 2.4. Baseline creatinine around 1.6 following HD. Secondary to ATN requiringhemodialysis. Nephrology following. Follow-up appointment February 05 Chronic microcytic anemia: Secondary to chronic kidney disease. Hemoglobin 9.2. Near recent baseline. Nephrology following Retacrit MWF Continue to monitor daily CBC Transfuse if hemoglobin less than 7 Small bilateral lower pleural effusions: Incidental finding on CT abdomen/pelvis without scan on 01/04/2025 Diagnostic thoracentesis consistent with transudative process Seen to be smaller, stable on CXR 01/11 Mild hyponatremia: Sodium 133. Nephrology following. On fluid restriction. Hypertension: Resistant to multiple antihypertensive medications including Cardura, clonidine, amlodipine, carvedilol, hydralazine. Continue chlorthalidone 25 mg daily and Cardura 8 mg twice daily Resolved Problems High anion gap metabolic acidosis Chronic Conditions (reviewed and stable unless otherwise stated) History of ischemic colitis: Secondary to colostomy 12/12/2024 Thrombocytosis: Platelets 399. Continue monitor daily CBC. COPD: Not in exacerbation. Continue home regimen. GERD continue Pepcid Heart failure with preserved ejection fraction: Not in acute exacerbation Chronic pericardial effusion with no evidence of tamponade LDA: []CVC / []PICC / []Midline / []Pittman / []Drains / []Mediport / [x]None Antibiotics: Ciprofloxacin, doxycycline Steroids: None Labs (still needed?): [x]Yes / []No IVF (still needed?): []Yes / [x]No Level of care: []Step Down / [x]Med-Surg Bed Status: [x]Inpatient / []Observation Telemetry: []Yes / [x]No PT/OT: [x]Yes / []No DVT Prophylaxis: [] Lovenox / [x] Heparin / [] SCDs / [] Already on Systemic Anticoagulation / [] None Expected discharge date: Pending Disposition: Pending Code status: Full Code Chief Complaint: Abdominal pain Subjective (past 24 hours): Patient was seen and evaluated at bedside. She complained of pain in the lower abdomen located primarily in the right lower quadrant with mild tenderness palpation. Will continue to monitor. CXR showing stable small bilateral pleural effusions. HPI / Hospital Course: Maria Elena Garner is a 64 y.o. female with PMHx of COPD, hypertension, GERD, recent ischemic colitis s/p left colectomy and end colostomy, postop ATN with intrinsic PATRICK on CKD stage III on hemodialysis MWF who presents to [facility] as a direct admission from [facility] with a complaint of abdominal pain.Abdominal pain is localized to the lower abdomen, dull/achy in quality, initially rated 10/10 and improved with dilaudid while in patient.Patient was recently treated for ischemic colitis requiring left colectomy and left colostomy 12/11/2024 and subsequently developed postop ATN requiring hemodialysis MWF. She has been having worsening abdominal pain and distention since last week associated witha few bouts of nausea/vomiting nonbloody, nonbilious. As outpatient she had x-ray acute abdominal series completed 12/25 which revealed SBO and was instructed to come to ED for further evaluation Sunday on 12/26. Patient however not follow instructions, thinking it would pass on its own however now she has severe abdominal pain with bloating for which she presented to [facility] ED prior to admission to [facility]. Patient otherwise denies SOB, chest pain, fever/chills, headaches, vision changes. ED course: In the ED patient was hypertensive 166/89 and tachypneic 21. Labs revealed elevated creatinine 3.5, troponin 111->106, hemoglobin 11.2, lactate normal at 0.7. EKG revealed NSR. CXR revealed no acute cardiopulmonary process, small stable bilateral pleural effusions with bibasilar atelectasis. CT A/P revealed findings suggestive of pneumatosis intestinalis and pneumatosis coli, bowel ischemia cannot be excluded. Patient management pain meds including Dilaudid and antibiotics Zosyn, ultimately admitted for further management of pneumatosis intestinalis and pneumatosis coli with bowel ischemia not excluded. General Surgery Dr. Whitaker already following. Active Medications: Infusion Medications sodium chloride Scheduled Medications doxazosin 8 mg Oral 2 times per day ciprofloxacin 500 mg Oral Daily chlorthalidone 25 mg Oral Daily hydrALAZINE 100 mg Oral 3 times per day polyethylene glycol 17 g Oral Daily doxycycline hyclate 100 mg Oral 2 times per day cloNIDine 0.3 mg Oral TID nicotine 1 patch TransDERmal Q24H carvedilol 25 mg Oral BID WC epoetin kamryn-epbx 6,000 Units SubCUTAneous Once per day on Sunday sodium chloride flush 5-40 mL IntraVENous 2 times per day amLODIPine 10 mg Oral Daily atorvastatin 20 mg Oral Daily famotidine 20 mg Oral Daily budesonide-formoterol 2 puff Inhalation BID tiotropium 2 puff Inhalation Daily RT albuterol 2.5 mg Nebulization TID heparin (porcine) 5,000 Units SubCUTAneous BID naloxegol 12.5 mg Oral QAM AC PRN Meds: HYDROmorphone, oxyCODONE-acetaminophen, mupirocin, sodium chloride flush, sodium chloride, ondansetron OR ondansetron, polyethylene glycol, traZODone Exam: BP (!) 164/76 Pulse 55 Temp 97.7 ??F (36.5 ??C) (Oral) Resp 12 Ht 1.626 m (5' 4 ) Wt 42.4kg (93 lb 8 oz) SpO2 100% BMI 16.05 kg/m?? General: Chronically ill-appearing, thin Eyes: PERRL. Conjunctivae/corneas clear. HENT: Head normal appearing. Nares normal. Oral mucosa moist. Hearing intact. Neck: Supple, with full range of motion. Trachea midline. No gross JVD appreciated. Respiratory: Normal effort. Clear to auscultation, without rales or wheezes or rhonchi. Cardiovascular: Normal rate, regular rhythm with normal S1/S2 without murmurs. No lower extremity edema. Abdomen: Mild tenderness palpation in RLQ, left flank mildly edematous Musculoskeletal: No joint swelling or tenderness. Normal tone. No abnormal movements. Skin: Warm and dry. No rashes or lesions. Neurologic: No focal sensory/motor deficits in the upper or lower extremities. Psychiatric: Alert and oriented, normal insight and thought content. Capillary Refill: Brisk,< 3 seconds. Peripheral Pulses: +2 palpable, equal bilaterally. Labs/Radiology: See chart or assessment above. Case was discussed with Attending, Dr. Harper.. Cosigned by Kiara Harper MD at 01/14/2025 7:06 PM EDT Associated attestation - Kiara Harper MD - 01/14/2025 7:06 PM EDT I saw and evaluated the patient independently of the medical record retrieval specialist and discussed with Dr. Mancini. I agree with the findings and plan as documented in the following note. I agree with the Resident's physical exam, assessment and plan for treatment, with any exceptions listed below. Below is additional information based on my encounter and recommendations if any. Will discontinue IV dilaudid. Discussed with the patient. Tolerating diet well. Time Spent is more than 45 minutes in the examination, evaluation, counseling and review of medications and plan. DOS 01/10/25 Electronically signed by Kiara Harper MD 01/14/2025 * Trish Kim DO - 01/10/2025 12:29 PM EDT [facility] Nephrology progress note 01/10/2025, 12:29 PM Pt Name: Maria Elena Garner Birthdate: 1960 Admit Date: 12/30/2024 3:36 AM Chief Complaint: Nephrology following for PATRICK secondary to ATN Subjective: Patient seen and examined. Bp remains elevated Objective: 24HR INTAKE/OUTPUT: Intake/Output Summary (Last 24 hours) at 01/10/2025 1229 Last data filed at 01/10/2025 1004 Gross per 24 hour Intake 300 ml Output 1075 ml Net -775 ml Admission weight: 44.3 kg (97 lb 10.6 oz) Wt Readings from Last 3 Encounters: 01/10/25 42.4 kg (93 lb 8 oz) 12/19/24 41.6 kg (91 lb 11.4 oz) 12/13/24 44.5 kg (98 lb 1.7 oz) Vitals : Vitals: 01/10/25 0544 01/10/25 0915 01/10/25 1001 01/10/25 1133 BP: (!) 191/90 (!) 179/85 Pulse: 83 81 Resp: 16 16 20 Temp: TempSrc: SpO2: 94% 94% Weight: Height: Physical examination General Appearance: Well developed. No distress Mouth/Throat: Oral mucosa moist Neck: Supple, no JVD Lungs: Breath sounds: clear Heart:: S1,S2 heard Abdomen: Soft, non - tender Musculoskeletal:ankle edema noted Medications: Infusion: sodium chloride Meds: doxazosin 8 mg Oral 2 times per day albumin human 25% 25 g IntraVENous Once ciprofloxacin 500 mg Oral Daily chlorthalidone 25 mg Oral Daily hydrALAZINE 100 mg Oral 3 times per day polyethylene glycol 17 g Oral Daily doxycycline hyclate 100 mg Oral 2 times per day cloNIDine 0.3 mg Oral TID nicotine 1 patch TransDERmal Q24H carvedilol 25 mg Oral BID WC epoetin kamryn-epbx 6,000 Units SubCUTAneous Once per day on Sunday sodium chloride flush 5-40 mL IntraVENous 2 times per day amLODIPine 10 mg Oral Daily atorvastatin 20 mg Oral Daily famotidine 20 mg Oral Daily budesonide-formoterol 2 puff Inhalation BID tiotropium 2 puff Inhalation Daily RT albuterol 2.5 mg Nebulization TID heparin (porcine) 5,000 Units SubCUTAneous BID naloxegol 12.5 mg Oral QAM AC Lab Data : CBC: Recent Labs 01/08/25 0456 WBC 8.7 HGB 9.2* HCT 28.4* PLT 399 CMP: Recent Labs 01/08/25 0456 01/09/25 0722 01/10/25 0533 NA 133* 133* 133* K 4.0 4.1 4.1 CL 99 102 100 CO2 21* 20* 22 BUN 40* 44* 48* CREATININE 2.2* 2.3* 2.4* GLUCOSE 104 111* 102 CALCIUM 8.3* 8.8 8.3* Hepatic: No results for input(s): LABALBU , AST , ALT , BILITOT , ALKPHOS in the last 72 hours. Invalid input(s): ALB Assessment and Plan: Renal -acute kidney injury secondary to ATN requiring dialysis Last HD was 12/26 creatinine had improved to 1.6. HD cath removed Creatinine fluctuating but overall stable At DC needs weekly bmps. See me 02/05 in [place] Mild hyponatremia : fluid restriction Essential hypertension: remains elevated. Chlorthalidone added yesterday. Increase Carduta to 8 mg bid. Add low sodium diet. If not improving will consider changing hydralazine to minoxidil Small bowel intussusception s/p ex lap with small bowel resection Recent ischemic colitis s/p hartmans with end colostomy Anemia of renal dysfunction : BRYCE Acid-base status stable Pleural effusion s/p thoracentesis Meds reviewed and discussed with patient Trish Kim DO [facility] This report has been created using voice recognition software. It may contain minor errors which are inherent in voice recognition technology * Bianka Christiansen MD - 01/09/2025 6:36 PM EDT Images from the original note were not included. Hospitalist Progress Note Internal Medicine Resident Patient: Maria Elena Garner 64 y.o. female Unit/Bed: [facility] Admit Date: 12/30/2024 ASSESSMENT AND PLAN Active Problems SBO intussusception status post small bowel resection: NGT removed 01/01, large amount of ascites with pneumoperitoneum noted on CT abdomen pelvis, culture of body fluid grew Pseudomonas, Staph epidermidis, Klebsiella. General surgery has signed off Pain control regimen titrated for anticipation of discharge on 0.25 mg Dilaudid every 4 hours for severe pain and oral Percocet for moderate and severe pain every 4 hours On adult diet, good stool per ostomy Patient has been transition to oral ciprofloxacin 500 mg twice daily per infectious disease Microcytic anemia: H&H holding stable Space CBC every 48 hours Bilateral lower thorax effusions: Incidental finding on CT abdomen and pelvis without scan on 01/04/2025 Diagnostic thoracentesis consistent with transudative process Hypertension: Patient's blood pressure remains elevated on multiple antihypertensive agents including Cardura, clonidine, amlodipine, carvedilol, hydralazine Blood pressure elevated today on exam on hypertensive regimen chlorthalidone 25 mg daily added and Cardura titrated to 4 mg twice daily PATRICK on CKD: Secondary to ATN required hemodialysis hemodialysis discontinued on 12/26 baseline creatinine 1.6, last HD 12/26 Patient is stable for discharge per nephrology to follow-up at her appointment February 05 Resolved Problems Hagma Chronic Conditions (reviewed and stable unless otherwise stated) History of ischemic colitis secondary to colon ostomy 12/12/2024 Thrombocytosis: Continue to monitor COPD no acute exacerbation continue home regimen GERD continue Pepcid Heart failure with preserved ejection fraction no acute exacerbation Chronic pericardial effusion no evidence of tamponade LDA: []CVC / []PICC / []Midline / [][place] / []Drains / []Mediport / [x]None Antibiotics: Yes Steroids: No Labs (still needed?): [x]Yes / []No IVF (still needed?): []Yes / [x]No Level of care: []Step Down / [x]Med-Surg Bed Status: [x]Inpatient / []Observation Telemetry: []Yes / [x]No PT/OT: [x]Yes / []No DVT Prophylaxis: [] Lovenox / [x] Heparin / [] SCDs / [] Already on Systemic Anticoagulation / [] None Expected discharge date: TBD Disposition: TBD Code status: Full Code Chief Complaint: Abdominal pain Subjective (past 24 hours): Blood pressures elevated overnight secondary to pain HPI / Hospital Course: Patient is a 64-year-old lady with past medical history significant for COPD, hypertension, ischemic colitis status post colectomy and colostomy, CKD stage III formally on hemodialysis. Patient presented to [facility] as a direct admission from [facility] with complaint of abdominal pain. Abdominal pain was localized to lower abdomen, described as dull aching in quality rated 10 out of 10 improved with opioid pain medication. Patient was treated initially for ischemic colitis requiring left colectomy and left colostomy on 12/11/2024. She subsequently developed postoperative ATN requiring hemodialysis. Since then she has been having worsening abdominal pain and distention with bouts of nausea vomiting. Outpatient abdominal x-ray on 1009 notable for SBO and was sent to the ED. However patient did not seek care at that time thinking it would pass on its own. 12/29 ex lap performed with general surgery with small bowel resection secondary to intussusception. 01/04: Patient elected to pursue conservative management rather than more surgery CT abdomen with contrast ordered 01/05: Patient remained hypertensive despite increased antihypertensive medications patient's Cardura increased to 3 mg twice daily 01/06: General surgery is signing off patient stable to advance diet as tolerated per their recommendations. Patient was advanced to a normal adult diet. Patient had an PATRICK and was started on IV fluids per nephrology recommendations. 01/07: Infectious disease okay for oral regimen of antibiotics, oral antibiotics are currently being held for concern of renal function will transition to oral antibiotics as renal status improves. Patient no longer on IV fluids per nephrology recommendation. 01/08 patient is status post diagnostic thoracentesis consistent with transudative process patient's blood pressure medication was uptitrated renal function is stable patient will be transitioned to oral antibiotics in anticipation for discharge tomorrow 01/09 patient's blood pressure continued to be elevated antihypertensive medication titrated patient's analgesics continue to be down titrated is not currently stable for discharge will reassess in the morning Active Medications: Infusion Medications sodium chloride Scheduled Medications ciprofloxacin 500 mg Oral Daily chlorthalidone 25 mg Oral Daily doxazosin 4 mg Oral 2 times per day hydrALAZINE 100 mg Oral 3 times per day polyethylene glycol 17 g Oral Daily doxycycline hyclate 100 mg Oral 2 times per day cloNIDine 0.3 mg Oral TID nicotine 1 patch TransDERmal Q24H carvedilol 25 mg Oral BID WC epoetin kamryn-epbx 6,000 Units SubCUTAneous Once per day on Sunday sodium chloride flush 5-40 mL IntraVENous 2 times per day amLODIPine 10 mg Oral Daily atorvastatin 20 mg Oral Daily famotidine 20 mg Oral Daily budesonide-formoterol 2 puff Inhalation BID tiotropium 2 puff Inhalation Daily RT albuterol 2.5 mg Nebulization TID heparin (porcine) 5,000 Units SubCUTAneous BID naloxegol 12.5 mg Oral QAM AC PRN Meds: HYDROmorphone, oxyCODONE-acetaminophen, mupirocin, sodium chloride flush, sodium chloride, ondansetron OR ondansetron, polyethylene glycol, traZODone Exam: BP (!) 172/81 Pulse 70 Temp 97.8 ??F (36.6 ??C) (Oral) Resp 16 Ht 1.626 m (5' 4 ) Wt 42.1kg (92 lb 14.4 oz) SpO2 96% BMI 15.95 kg/m?? General: No distress, appears stated age. Eyes: PERRL. Conjunctivae/corneas clear. HENT: Head normal appearing. Nares normal. Oral mucosa moist. Hearing intact. Neck: Supple, with full range of motion. Trachea midline. No gross JVD appreciated. Respiratory: Normal effort. Clear to auscultation, without rales or wheezes or rhonchi. Cardiovascular: Normal rate, regular rhythm with normal S1/S2 without murmurs. No lower extremity edema. Abdomen: Soft, non-tender, non-distended with normal bowel sounds. Musculoskeletal: No joint swelling or tenderness. Normal tone. No abnormal movements. Skin: Warm and dry. No rashes or lesions. Neurologic: No focal sensory/motor deficits in the upper or lower extremities. Cranial nerves: grossly non-focal 2-12. Psychiatric: Alert and oriented, normal insight and thought content. Capillary Refill: Brisk,< 3 seconds. Peripheral Pulses: +2 palpable, equal bilaterally. Labs/Radiology: See chart or assessment above. Case was discussed with Attending, Dr. Harper. Cosigned by Kiara Harper MD at 01/14/2025 7:04 PM EDT Associated attestation - Kiara Harper MD - 01/14/2025 7:04 PM EDT I saw and evaluated the patient independently of the medical record retrieval specialist and discussed with Dr. Christiansen. I agree with the findings and plan as documented in the following note. I agree with the Resident's physical exam, assessment and plan for treatment, with any exceptions listed below. Below is additional information based on my encounter and recommendations if any. Time Spent is more than 45 minutes in the examination, evaluation, counseling and review of medications and plan. DOS 01/09/25 Electronically signed by Kiara Harper MD 01/14/2025 * Cathie Kim OT - 01/09/2025 2:25 PM EDT [facility] INPATIENT OCCUPATIONAL THERAPY STRZ ONC MED 5K EVALUATION Discharge Recommendations: (Home with assist from daughter and home health) Equipment Recommendations: No continue to monitor pending progress Time In: 1425 Time Out: 1448 Timed Code Treatment Minutes: 13 Minutes Minutes: 23 Date: 01/09/2025 Patient Name: Maria Elena Garner, Gender: female : 1960 (64 y.o.) Referring Practitioner: Chadd Fung MD Diagnosis: Intussusception of small intestine (HCC) Additional Pertinent Hx: Per H & P: 64 y.o. female with PMHx of COPD, hypertension, GERD, recent ischemic colitis s/p left colectomy and end colostomy, postop ATN with intrinsic PATRICK on CKD stage III on hemodialysis MWF who presents to [facility] as a direct admission from [facility] with a complaint of abdominal pain. Abdominal pain is localized to the lower abdomen, dull/achy in quality, initially rated 10/10 and improved with dilaudid while in patient.Patient was recently treated for ischemic colitis requiring left colectomy and left colostomy 12/11/2024 and subsequently developed postop ATN requiring hemodialysis MWF. She has been having worsening abdominal pain and distention since last week associated with a few bouts of nausea/vomiting nonbloody, nonbilious. As outpatient she had x-ray acute abdominal series completed 12/25 which revealed SBO and was instructed to come to ED for further evaluation Sunday on 12/26. Patient however not follow instructions, thinking it would pass on its own however now she has severe abdominal pain with bloating for which she presented to [facility], ED prior to admission to [facility]. s/p EXPLORATORY LAPAROTOMY SMALL BOWEL RESECTION on 12/30/24. Restrictions/Precautions: Restrictions/Precautions: General Precautions, Fall Risk Position Activity Restriction Other Position/Activity Restrictions: colostomy Subjective Chart Reviewed: Yes, Orders, Progress Notes, History and Physical, Operative Notes Patient assessed for rehabilitation services?: Yes Family / Caregiver Present: Yes (daughter) Subjective: RN approved OT session. patient resting in bed with daughter present. patient hesitant to engage in therapy but agreeable with further explaination of OT role and benefit. at end of session patient refusing to not have oxygen although nurse okayed titration and oxygen maintaining above 90% at rest. RN made aware. patient also refusing gait belt with ambulation Pain: 09/25: abdominal pain Vitals: Oxygen: 1L at rest 96%, room air for session per nurse okay and maintained 90% and above but requested oxygen on at end of session Heart Rate: 70's Social/Functional History: Lives With: Daughter, Family (daughter and GI) Type of Home: House Home Layout: Two level, Able to Live on Main level with bedroom/bathroom Home Access: Stairs to enter with rails Entrance Stairs - Number of Steps: 1 Entrance Stairs - Rails: Both Home Equipment: Walker - Rolling Bathroom Shower/Tub: Tub/Shower unit Bathroom Toilet: Standard Bathroom Equipment: Grab bars in shower, Shower chair Receives Help From: Family, Home health (Anna Schrader ) Prior Level of Assist for ADLs: Independent Prior Level of Assist for Homemaking: Independent Homemaking Responsibilities: No Prior Level of Assist for Transfers: Independent Prior Level of Assist for Ambulation: Independent household ambulator, with or without device Has the patient had two or more falls in the past year or any fall with injury in the past year?: No Active Quality Nurse: No Patient's Quality Nurse Info: daughter has been driving since surgery Occupation: Retired Additional Comments: prior to hospialization patient independent and has been using walker. moved in with daughter recently and plans to retun to daughters home VISION:WNL HEARING: WNL COGNITION: Slow Processing, Decreased Insight, Decreased Problem Solving, and Decreased Safety Awareness RANGE OF MOTION: Bilateral Upper Extremity: WNL STRENGTH: Bilateral Upper Extremity: Impaired - deferred due to recent abdominal sx and patient reporting pain. Through functional tasks appears to be overall deconditioned Hand Dominance: Right SENSATION: WFL ADL: Footwear Management: Moderate Assistance, X 1, with set-up, with verbal cues , and with increased time for completion. Jose slipper socks EOB with figure four position, noted to have limited tolerance with activity due to pain and fatigue. Quickly terminated tasks. . Refused all additional ADLs IADL: Not Tested BALANCE: Sitting Balance: Stand By Assistance. Tolerated EOB for 4 minutes prior to ambulation Standing Balance: Contact Guard Assistance. Tolerated additional 3 minutes standing BED MOBILITY: Rolling to Left: Contact Guard Assistance, X 1 Supine to Sit: Minimal Assistance, X 1 Sit to Supine: Contact Guard Assistance, X 1 Scooting: Contact Guard Assistance, X 1 Initially patient requesting to use therapist hand, encouraged patient to complete task as independently as possible. TRANSFERS: Sit to Stand: Minimal Assistance, X 1, with increased time for completion, cues for hand placement,with verbal cues. Stand to Sit: Minimal Assistance, X 1, with increased time for completion, cues for hand placement,with verbal cues. Required encouragement to complete task as independently as possible. Attempted to educate on proper hand placement to improve ease in standing however patient not receptive to information provided and continued with her previous technique FUNCTIONAL MOBILITY: Assistive Device: Rolling Walker Assist Level: Contact Guard Assistance and X 1. Distance: to nurses station and back Required cues for walker placement and required several standing rest breaks with cues for deep breathing ADDITIONAL ACTIVITIES: Education: the benefits of improving functional ambulation and mobility, as well as encouragement for completing daily tasks as independent as possible Activity Tolerance: Patient tolerance of treatment: Fair treatment tolerance Functional Outcome Measures: None completed. AM-PAC Inpatient Daily Activity Raw Score: 16 AM-PAC Inpatient ADL T-Scale Score : 35.96 Modified [place]: Premorbid Functional Status: Not Applicable Current Functional Status: Not Applicable Education: Learners: Patient Plan of Care, Role of OT,ADL's, Energy Conservation, Home Safety, Importance of Increasing Activity, Fall Prevention, Assistive Device Safety, Pursed Lip Breathing, OT POC, Role of OT, and Education Related to Potential Risks and Complications Due to Impairment/Illness/Injury Assessment: Assessment: Maria Elena Garner is a 64 y.o. female that presents with below new performance deficits secondary to intussusception of small intestine . Pt is requiring increased assistance for ADLs, functional mobility, ADL transfers compared to baseline level of function. Skilled OT services is warranted to improve below performance deficits and progress pt towards PLOF. Without OT pt is at risk for falls, further decline in functional abilities, increased caregiver burden, increased risk for medical complication as a result of reduce mobility and inability to return to prior level of living. Performance deficits / Impairments: Decreased functional mobility , Decreased high-level IADLs, Decreased ADL status, Decreased endurance, Decreased strength, Decreased balance, Decreased safe awareness Prognosis: Fair REQUIRES OT FOLLOW-UP: Yes Decision Making: Medium Complexity Treatment Initiated: Treatment and education initiated within context of evaluation. Evaluation time included review of current medical information, gathering information related to past medical, social and functional history, completion of standardized testing, formal and informal observation of tasks, assessment of data and development of plan of care and goals. Treatment time included skilled education and facilitation of tasks to increase safety and independence with ADL's for improved functional independence and quality of life. Plan: Times Per Week: 5x Current Treatment Recommendations: Strengthening, Balance training, Functional mobility training, Endurance training, Patient/Caregiver education & training, Safety education & training, Equipment evaluation, education, & procurement, Self-Care / ADL. See long-term goal time frame for expected duration of plan of care. If no long-term goals established, a short length of stay is anticipated. Goals: Patient goals : go back home with daughter Short Term Goals Time Frame for Short Term Goals: until discharge Short Term Goal 1: patient will safely complete various functional transfers with supervision and LRAD to improve ease in toileting routine Short Term Goal 2: patient will complete full body dressing with superviison Short Term Goal 3: Patient will tolerate 6-9 minutes with no UE support while reaching OBS to complete sink side grooming with SBA Short Term Goal 4: Patient will demonstrate functional ambulation to household distances with item transportation in prep for showering. Shelter Goals Time Frame for Shelter Goals : none due to ELOS Following session, patient left in safe position in bed, with alarm, and call light within reach * Alie Avila RD, LD - 01/09/2025 1:43 PM EDT Nutrition Assessment Assessment Type: Reassess Initial Reason for visit: Length of Stay Malnutrition Screening Tool Score: 0 Unintentional weight loss FLOWER SHOP MANAGER: 0 to 1 pound (0 points) Eating poorly due to decreased appetite: No (0 points) Nutrition Intervention: Food and/or Nutrient Delivery: Recommend continue current diet as tolerated. Continue Ensure Plus TID (drinks Boost ONS service captain) - monitor renal function. Encouraged po, good nutrition at best efforts to promote healing. Encouraged small, frequent meals.Discussed ostomy/nutrition guidelines - education provided 12/18/24 admit; 01/07/25. Malnutrition Assessment: Academy/A.S.P.E.N Clinical Malnutrition Criteria Malnutrition Status: Severe malnutrition Context: Chronic Illness Findings of clinical characteristics of malnutrition: Energy Intake: 75% or less estimated energy requirements for 1 month or longer Weight Loss: No weight loss (per available EMR; ? 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 Strength: Not Performed Nutrition Assessment: Admission Diagnosis/ Nutrition Course: Admit w/ intussusception of small intestine; colostomy 12/11, ex lap w/ SB resection 12/30; receivedHD during recent admission - last HD 12/26- catheter removed Patient has a past medical history of Anxiety, Carpal tunnel syndrome, Chronic pain, CKD (chronic kidney disease), COPD (chronic obstructive pulmonary disease) (HCC), Depression, DJD (degenerative joint disease), Epilepsy (HCC), Fibromyalgia, Hypercholesteremia, Hyperlipidemia, Hypertension, Left upper arm pain, Lung mass, Osteoarthritis, Osteopenia, Rheumatoid arthritis (HCC), and Ruptured left breast implant. Patient has a past surgical history that includes Hysterectomy; Breast enhancement surgery; Cholecystectomy; Colonoscopy; Carpal tunnel release (Left, 04/02/2017); pr neuroplasty &/transpos median nrv carpal tunne (Left, 04/02/2017); Breast enhancement surgery (Bilateral, 10/19/2021); Breast surgery (Right, 07/18/2022); laparotomy (N/A, 12/11/2024); and laparotomy (N/A, 12/30/2024). Nutrition Related Findings: Pt. Report: 01/09-pt. Seen - reports good appetite and intake; acceptance of Ensures; denies any nausea; reports some belly discomfort belly is hard - states d/t all of this ; ostomy functioning-appears applesauce consistency; Renal following - will f/u as OP 01/07- pt. Seen - states eating ok during LOS; denies any nausea, reports some abdominal pain but no worse w/ eating; reports consuming ~2 meals/day and consumes 2 Boost ONS/day; note - decreased intake during past month or so d/t hospitalizations, surgeries; denies any trouble tolerating current texture of diet; received nutrition therapy for ostomy diet education 12/18/24; denies any questions -reinforced some basics; discussed use of ONS GI Status: 300 ml ostomy output Wound: Surgical Incision (12/11 ex lap, colostomy; 12/30/24: ex lap, SB resection) Pertinent Medications: Movantik, Glycolax, Pepcid, Zofran, Doxy, Cipro Pertinent Labs: Lab Results Component Value Date LABA1C 5.7 08/15/2021 LABA1C 5.2 11/17/2015 Recent Labs 01/07/25 0526 01/08/25 0456 01/09/25 0722 NA 135 133* 133* K 4.3 4.0 4.1 CL 104 99 102 GLUCOSE 107 104 111* BUN 36* 40* 44* CREATININE 2.2* 2.2* 2.3* Current Nutrition Intake & Therapies: Recent PO intake: 26-50%, 51-75% Recent Supplement Intake: (states acceptance) ADULT DIET; Regular ADULT ORAL NUTRITION SUPPLEMENT; Breakfast, Lunch, Dinner; Standard High Calorie/High Protein Oral Supplement Anthropometric Measures: Height: 162.6 cm (5' 4 ) [place] Body Weight (IBW): 120 lbs Admission Body Kayleen: 44.3 kg (97 lb 10.6 oz) (12/30 +1 edema) Current Body Weight: 42.1 kg (92 lb 14.4 oz) (01/09 +1 edema, standing scale) Current BMI: Body mass index is 15.95 kg/m??. Usual Body Weight: (per pt ~97#; per EMR: 09/10/24: 89# 5 oz, 10/07/24: 88# 10 oz, 12/09/24: 87# 6 oz) BMI Categories: Underweight (BMI less than 18.5) Estimated Daily Nutrient Needs: Energy (kcal/day): 3070-9098 kcals (30-35) Weight Used for energy calculation: Other (44) (44 kg) Protein (g/day): ~44 grams (1/kgm) -CKD - adjust as renal function allows Weight Used for protein calculation: Other (44) (44 kg) Nutrition Diagnosis: Severe malnutrition related to altered GI function, inadequate protein-energy intake as evidenced by criteria as identified in malnutrition assessment Nutrition Goal(s): Goal: PO intake 75% or greater, by next RD assessment Type of Goal: Type of Goal: Continue current goal Nutrition Monitoring/ Evaluation & Education: Will monitor nutritional needs during LOS & through interdisciplinary communication Nutrition Education/Counseling: Education/Counseling initiated Discharge Planning: Continue Oral Nutrition Supplement Alie Avila RD, LD * Trish Kim DO - 01/09/2025 9:17 AM EDT [facility] Nephrology progress note 01/09/2025, 9:18 AM Pt Name: Maria Elena Garner Birthdate: 1960 Admit Date: 12/30/2024 3:36 AM Chief Complaint: Nephrology following for PATRICK secondary to ATN Subjective: Patient seen and examined. Feels ok. Bp has been higher. Had some CP yesterday which has resolved. Objective: 24HR INTAKE/OUTPUT: Intake/Output Summary (Last 24 hours) at 01/09/2025 0918 Last data filed at 01/09/2025 0614 Gross per 24 hour Intake 537.12 ml Output 1125 ml Net -587.88 ml Admission weight: 44.3 kg (97 lb 10.6 oz) Wt Readings from Last 3 Encounters: 01/09/25 42.1 kg (92 lb 14.4 oz) 12/19/24 41.6 kg (91 lb 11.4 oz) 12/13/24 44.5 kg (98 lb 1.7 oz) Vitals : Vitals: 01/09/25 0314 01/09/25 0555 01/09/25 0600 01/09/25 0843 BP: (!) 170/83 (!) 171/84 Pulse: 65 Resp: 16 Temp: 97.5 ??F (36.4 ??C) TempSrc: Oral SpO2: 95% 95% Weight: 42.1 kg (92 lb 14.4 oz) Height: Physical examination General Appearance: Well developed. No distress Mouth/Throat: Oral mucosa moist Neck: Supple, no JVD Lungs: Breath sounds: clear Heart:: S1,S2 heard Abdomen: Soft, non - tender Musculoskeletal:ankle edema noted Medications: Infusion: sodium chloride Meds: ciprofloxacin 500 mg Oral Daily chlorthalidone 25 mg Oral Daily doxazosin 6 mg Oral Daily hydrALAZINE 100 mg Oral 3 times per day polyethylene glycol 17 g Oral Daily doxycycline hyclate 100 mg Oral 2 times per day cloNIDine 0.3 mg Oral TID nicotine 1 patch TransDERmal Q24H carvedilol 25 mg Oral BID epoetin kamryn-epbx 6,000 Units SubCUTAneous Once per day on Sunday sodium chloride flush 5-40 mL IntraVENous 2 times per day amLODIPine 10 mg Oral Daily atorvastatin 20 mg Oral Daily famotidine 20 mg Oral Daily budesonide-formoterol 2 puff Inhalation BID tiotropium 2 puff Inhalation Daily RT albuterol 2.5 mg Nebulization TID heparin (porcine) 5,000 Units SubCUTAneous BID naloxegol 12.5 mg Oral QAM AC Lab Data : CBC: Recent Labs 01/07/25 0526 01/08/25 0456 WBC 9.1 8.7 HGB 8.7* 9.2* HCT 27.6* 28.4* PLT 381 399 CMP: Recent Labs 01/07/25 0526 01/08/25 0456 01/09/25 0722 NA 135 133* 133* K 4.3 4.0 4.1 CL 104 99 102 CO2 22 21* 20* BUN 36* 40* 44* CREATININE 2.2* 2.2* 2.3* GLUCOSE 107 104 111* CALCIUM 8.5 8.3* 8.8 Hepatic: Recent Labs 01/07/25 0526 AST 20 ALT 12 BILITOT <0.2* ALKPHOS 80 Assessment and Plan: Renal -acute kidney injury secondary to ATN requiring dialysis Last HD was 12/26 creatinine had improved to 1.6. HD cath removed Creatinine fluctuating but overall stable Ok for DC from renal standpoint. Check weekly bmps. See me 02/05 in [place] Add chlorthalidone for bp Mild hyponatremia : fluid restriction Essential hypertension: add chlorthalidone Small bowel intussusception s/p ex lap with small bowel resection Recent ischemic colitis s/p hartmans with end colostomy Anemia of renal dysfunction : BRYCE Acid-base status stable Pleural effusion s/p thoracentesis Meds reviewed and discussed with patient Trish Kim DO [facility] This report has been created using voice recognition software. It may contain minor errors which are inherent in voice recognition technology * Dilip Arias MD - 01/09/2025 9:08 AM EDT Progress note: Infectious diseases Patient - Maria Elena Garner, Age - 64 y.o. - 1960 Room Number - 5K-04/[id number] [id number] - [id number] Date of Admission - 12/30/2024 3:36 AM SUBJECTIVE: No new issues OBJECTIVE VITALS height is 1.626 m (5' 4 ) and weight is 42.1 kg (92 lb 14.4 oz). Her oral temperature is 97.5 ??F (36.4 ??C). Her blood pressure is 171/84 (abnormal) and her pulse is 65. Her respiration is 16 and oxygen saturation is 95%. Wt Readings from Last 3 Encounters: 01/09/25 42.1 kg (92 lb 14.4 oz) 12/19/24 41.6 kg (91 lb 11.4 oz) 12/13/24 44.5 kg (98 lb 1.7 oz) I/O (24 Hours) Intake/Output Summary (Last 24 hours) at 01/09/2025 0908 Last data filed at 01/09/2025 0614 Gross per 24 hour Intake 537.12 ml Output 1125 ml Net -587.88 ml General Appearance Awake, alert, oriented, chronically sick looking. HEENT - normocephalic, atraumatic, pale conjunctiva, anicteric sclera Neck - Supple, no mass Lungs - Bilateral air entry, Cardiovascular - Heart sounds are normal. Abdomen - soft, distended, nontender, functioning colostomy Neurologic -oriented Skin - No bruising or bleeding Extremities - edema on both feet MEDICATIONS: doxazosin 6 mg Oral Daily hydrALAZINE 100 mg Oral 3 times per day polyethylene glycol 17 g Oral Daily doxycycline hyclate 100 mg Oral 2 times per day cefepime 1,000 mg IntraVENous Q24H cloNIDine 0.3 mg Oral TID nicotine 1 patch TransDERmal Q24H carvedilol 25 mg Oral BID epoetin kamryn-epbx 6,000 Units SubCUTAneous Once per day on Sunday sodium chloride flush 5-40 mL IntraVENous 2 times per day amLODIPine 10 mg Oral Daily atorvastatin 20 mg Oral Daily famotidine 20 mg Oral Daily budesonide-formoterol 2 puff Inhalation BID tiotropium 2 puff Inhalation Daily RT albuterol 2.5 mg Nebulization TID heparin (porcine) 5,000 Units SubCUTAneous BID naloxegol 12.5 mg Oral QAM AC sodium chloride HYDROmorphone, oxyCODONE-acetaminophen, mupirocin, sodium chloride flush, sodium chloride, ondansetron OR ondansetron, polyethylene glycol, traZODone LABS: CBC: Recent Labs 01/07/25 0526 01/08/25 0456 WBC 9.1 8.7 HGB 8.7* 9.2* PLT 381 399 BMP: Recent Labs 01/07/25 0526 01/08/25 0456 01/09/25 0722 NA 135 133* 133* K 4.3 4.0 4.1 CL 104 99 102 CO2 22 21* 20* BUN 36* 40* 44* CREATININE 2.2* 2.2* 2.3* GLUCOSE 107 104 111* Calcium: Recent Labs 01/09/25 0722 CALCIUM 8.8 CULTURES: UA: Recent Labs 01/07/25 1605 COLORU YELLOW Micro: No results found for: BC Problem list of patient: Patient Active Problem List Diagnosis Code PAD (peripheral artery disease) I73.9 Chronic anxiety F41.9 Essential hypertension I10 Insomnia G47.00 COPD (chronic obstructive pulmonary disease) ([facility]) J44.9 Smoking greater than 30 pack years F17.210 Osteoarthritis of cervical spine M47.812 Dyslipidemia E78.5 Positive FIT (fecal immunochemical test) R19.5 Neuropathic pain M79.2 Chronic hip pain, bilateral M25.551, M25.552, G89.29 Fibromyalgia M79.7 Chest wall pain R07.89 Ruptured left breast implant T85.43XA Left upper arm pain M79.622 Axillary lymphadenopathy R59.0 Localized enlarged lymph nodes R59.0 Personal history of breast implant removal Z98.86 Dysthymia F34.1 Hypertensive emergency I16.1 Right otitis media H66.91 Acute renal insufficiency N28.9 Chronic diastolic HF (heart failure), NYHA class 3 ([facility]) I50.32 Hypertension I10 Uncontrolled hypertension I10 Chronic renal impairment N28.9 Severe malnutrition E43 Hypertensive urgency I16.0 Pericardial effusion, acute I30.9 Gastroesophageal reflux disease K21.9 Hyponatremia E87.1 Constipation K59.00 Abdominal discomfort R10.9 Hypervolemia E87.70 Abdominal distension R14.0 Generalized weakness R53.1 Congestive heart failure (HCC) I50.9 Intractable abdominal pain R10.9 Ischemic bowel disease K55.9 Leucocytosis D72.829 Smoker F17.200 PATRICK (acute kidney injury) N17.9 Acute ischemic colitis K55.039 Acute abdominal pain R10.9 Acute kidney injury superimposed on stage 3b chronic kidney disease (HCC) N17.9, N18.32 ATN (acute tubular necrosis) N17.0 S/P laparotomy Z98.890 S/P left colectomy Z90.49 Acute respiratory failure with hypoxia (HCC) J96.01 Colostomy care ([facility]) Z43.3 Abdominal pain R10.9 Intussusception of small intestine ([facility]) K56.1 ASSESSMENT/PLAN Bowel intussusception s/p exploratory surgery and bowel resection. Pelvic abscess will change antibiotic to oral cipro. Already on oral doxycyline Ok with discharge plan Dilip Arias MD, 01/09/2025 9:08 AM * Chadd Fung MD - 01/08/2025 5:12 PM EDT Physician Progress Note PATIENT: MARIA ELENA GARNER CSN #: [id number] : 1960 ADMIT DATE: 12/30/2024 3:36 AM DISCH DATE: RESPONDING PROVIDER #: Chadd Fung MD QUERY TEXT: Please clarify the patient?s nutritional status: The clinical indicators include: -per H&P 12/30 direct admission from [facility] with a complaint of abdominal pain. -per IM PN 12/31 Small bowel intussusception -per Senior Product Integrity Engineer PN 01/07 Malnutrition Assessment: Academy/A.S.P.E.N Clinical Malnutrition Criteria Malnutrition Status: Severe malnutrition Context: Chronic Illness Findings of clinical characteristics of malnutrition: Energy Intake: 75% or less estimated energy requirements for 1 month or longer Weight Loss: No weight loss (per available EMR; ? if bedscale zeroed) Body Fat Loss: Severe body fat loss Triceps, Buccal region Muscle Mass Loss: Severe muscle mass loss Clavicles (pectoralis & deltoids) -per Senior Product Integrity Engineer PN 01/07 Send Ensure Plus TID (drinks Boost ONS service captain) Options provided: -- Protein calorie malnutrition severe -- Other - I will add my own diagnosis -- Disagree - Not applicable / Not valid -- Refer to Clinical Documentation Reviewer PROVIDER RESPONSE TEXT: This patient has severe protein calorie malnutrition. Query created by: Gómez Eddy on 01/08/2025 3:54 PM Electronically signed by: Chadd Fung MD 01/08/2025 5:10 PM * Bianka Christiansen MD - 01/08/2025 4:01 PM EDT Images from the original note were not included. Hospitalist Progress Note Internal Medicine Resident Patient: Maria Elena Garner 64 y.o. female Unit/Bed: [id number] Admit Date: 12/30/2024 ASSESSMENT AND PLAN Active Problems SBO intussusception status post small bowel resection: NGT removed 01/01, large amount of ascites with pneumoperitoneum noted on CT abdomen pelvis, culture of body fluid grew Pseudomonas, Staph epidermidis, Klebsiella. General surgery has signed off Pain control regimen titrated for anticipation of discharge on 0.25 mg Dilaudid every 4 hours for severe pain and oral Percocet for moderate and severe pain every 4 hours On adult diet, good stool per ostomy Tentative plan to transition to oral Cipro when renal status improves Microcytic anemia: H&H holding stable Space CBC every 48 hours Bilateral lower thorax effusions: Incidental finding on CT abdomen and pelvis without scan on 01/04/2025 Diagnostic thoracentesis consistent with transudative process Hypertension: Patient's blood pressure remains elevated on multiple antihypertensive agents including Cardura, clonidine, amlodipine, carvedilol, hydralazine Blood pressure elevated today on exam secondary to pain patient's Cardura uptitrated to 6 mg daily PATRICK on CKD: Secondary to ATN required hemodialysis hemodialysis discontinued on 12/26 baseline creatinine 1.6, last HD 12/26 Patient is stable for discharge per nephrology to follow-up at her appointment February 05 Resolved Problems Hagma Chronic Conditions (reviewed and stable unless otherwise stated) History of ischemic colitis secondary to colon ostomy 12/12/2024 Thrombocytosis: Continue to monitor COPD no acute exacerbation continue home regimen GERD continue Pepcid Heart failure with preserved ejection fraction no acute exacerbation Chronic pericardial effusion no evidence of tamponade LDA: []CVC / []PICC / []Midline / [][place] / []Drains / []Mediport / [x]None Antibiotics: Yes Steroids: No Labs (still needed?): [x]Yes / []No IVF (still needed?): []Yes / [x]No Level of care: []Step Down / [x]Med-Surg Bed Status: [x]Inpatient / []Observation Telemetry: []Yes / [x]No PT/OT: [x]Yes / []No DVT Prophylaxis: [] Lovenox / [x] Heparin / [] SCDs / [] Already on Systemic Anticoagulation / [] None Expected discharge date: TBD Disposition: TBD Code status: Full Code Chief Complaint: Abdominal pain Subjective (past 24 hours): Blood pressures elevated overnight secondary to pain HPI / Hospital Course: Patient is a 64-year-old lady with past medical history significant for COPD, hypertension, ischemic colitis status post colectomy and colostomy, CKD stage III formally on hemodialysis. Patient presented to [facility] as a direct admission from [facility] with complaint of abdominal pain. Abdominal pain was localized to lower abdomen, described as dull aching in quality rated 10 out of 10 improved with opioid pain medication. Patient was treated initially for ischemic colitis requiring left colectomy and left colostomy on 12/11/2024. She subsequently developed postoperative ATN requiring hemodialysis. Since then she has been having worsening abdominal pain and distention with bouts of nausea vomiting. Outpatient abdominal x-ray on 1009 notable for SBO and was sent to the ED. However patient did not seek care at that time thinking it would pass on its own. 12/29 ex lap performed with general surgery with small bowel resection secondary to intussusception. 01/04: Patient elected to pursue conservative management rather than more surgery CT abdomen with contrast ordered 01/05: Patient remained hypertensive despite increased antihypertensive medications patient's Cardura increased to 3 mg twice daily 01/06: General surgery is signing off patient stable to advance diet as tolerated per their recommendations. Patient was advanced to a normal adult diet. Patient had an PATRICK and was started on IV fluids per nephrology recommendations. 01/07: Infectious disease okay for oral regimen of antibiotics, oral antibiotics are currently being held for concern of renal function will transition to oral antibiotics as renal status improves. Patient no longer on IV fluids per nephrology recommendation. 01/08 patient is status post diagnostic thoracentesis consistent with transudative process patient's blood pressure medication was uptitrated renal function is stable patient will be transitioned to oral antibiotics in anticipation for discharge tomorrow Active Medications: Infusion Medications sodium chloride Scheduled Medications [START ON 01/09/2025] doxazosin 6 mg Oral Daily hydrALAZINE 100 mg Oral 3 times per day polyethylene glycol 17 g Oral Daily doxycycline hyclate 100 mg Oral 2 times per day cefepime 1,000 mg IntraVENous Q24H cloNIDine 0.3 mg Oral TID nicotine 1 patch TransDERmal Q24H carvedilol 25 mg Oral BID WC epoetin kamryn-epbx 6,000 Units SubCUTAneous Once per day on Sunday sodium chloride flush 5-40 mL IntraVENous 2 times per day amLODIPine 10 mg Oral Daily atorvastatin 20 mg Oral Daily famotidine 20 mg Oral Daily budesonide-formoterol 2 puff Inhalation BID tiotropium 2 puff Inhalation Daily RT albuterol 2.5 mg Nebulization TID heparin (porcine) 5,000 Units SubCUTAneous BID naloxegol 12.5 mg Oral QAM AC PRN Meds: HYDROmorphone, oxyCODONE-acetaminophen, mupirocin, sodium chloride flush, sodium chloride, ondansetron OR ondansetron, polyethylene glycol, traZODone Exam: BP (!) 165/87 Pulse 71 Temp 98 ??F (36.7 ??C) (Oral) Resp 16 Ht 1.626 m (5' 4 ) Wt 46.1 kg (101 lb 10.1 oz) SpO2 96% BMI 17.45 kg/m?? General: No distress, appears stated age. Eyes: PERRL. Conjunctivae/corneas clear. HENT: Head normal appearing. Nares normal. Oral mucosa moist. Hearing intact. Neck: Supple, with full range of motion. Trachea midline. No gross JVD appreciated. Respiratory: Normal effort. Clear to auscultation, without rales or wheezes or rhonchi. Cardiovascular: Normal rate, regular rhythm with normal S1/S2 without murmurs. No lower extremity edema. Abdomen: Soft, non-tender, non-distended with normal bowel sounds. Musculoskeletal: No joint swelling or tenderness. Normal tone. No abnormal movements. Skin: Warm and dry. No rashes or lesions. Neurologic: No focal sensory/motor deficits in the upper or lower extremities. Cranial nerves: grossly non-focal 2-12. Psychiatric: Alert and oriented, normal insight and thought content. Capillary Refill: Brisk,< 3 seconds. Peripheral Pulses: +2 palpable, equal bilaterally. Labs/Radiology: See chart or assessment above. Case was discussed with Attending, Dr. Fung. Cosigned by Chadd Fung MD at 01/08/2025 4:52 PM EDT Associated attestation - Chadd Fung MD - 01/08/2025 4:52 PM EDT I have examined and assessed the patient independently and discussed the findings and my opinion with the treating trainee. I have thoroughly read the note. I agree with the physical exam, assessmentand plan for treatment, with any exceptions listed below. EXCEPTIONS/ADDITIONAL COMMENTS: None; agree with details of exam and plan. Signed By: Chadd Fung M.D. ATTESTATION * Mae Smith - 01/08/2025 2:44 PM EDT Reported off to primary RN. Output charted by this student nurse under I&Os. Patient was drinking water out of her tumbler, therefore unable to measure intake accurately. Family is currently visiting with patient at this time. Call light is in reach, bed is in lowest position. Cosigned by Huong Coats RN at 01/08/2025 3:52 PM EDT * Lindsay Romero, FLOWER SHOP MANAGER - 01/08/2025 1:27 PM EDT [facility] INPATIENT PHYSICAL THERAPY DAILY NOTE [facility] ONC MED 5K - 5K-04/004-A Discharge Recommendations: Home. Outpatient PT recommended. Equipment Recommendations: No Time In: 1144 Time Out: 1154 Timed Code Treatment Minutes: 10 Minutes Minutes: 10 Date: 01/08/2025 Patient Name: Maria Elena Garner, Gender: female : 1960 (64 y.o.) Referring Practitioner: Chadd Fung MD Diagnosis: Intussusception of small intestine (HCC) Additional Pertinent Hx: 64-year-old female with past medical history of COPD, hypertension, recentischemic colitis status post left colectomy and colostomy, postop ATN with intrinsic PATRICK on CKD stage III on hemodialysis Sunday presents to [facility] as a direct admission from [facility] with a complaint of abdominal pain 01/03. Patient was recently treated for ischemic colitis requi ring left colectomy and left colostomy 12/11/2024 and subsequently developed postop ATN requiring hemodialysis Sunday. Since then, she has been having worsening abdominal pain and distention since last week and few bouts of nausea/vomiting nonbloody nonbilious. She had an outpatientabdominal x- ray completed 12/26 which revealed SBO and was instructed to come to ED for further evaluation on Sunday on 12/26. Patient did not follow instructions thinking it would pass on its own however now she has severe abdominal pain with bloating for which she presented to [facility] ED prior to admission to [facility]. EXPLORATORY LAPAROTOMY SMALL BOWEL RESECTION; 12/[address] Whitaker. Prior Level of Function: Lives With: Daughter, Family (daughter and GI) Type of Home: House Home Layout: Two level, Able to Live on Main level with bedroom/bathroom Home Access: Stairs to enter with rails Entrance Stairs - Number of Steps: 1 Entrance Stairs - Rails: Both Home Equipment: Walker - Rolling Receives Help From: Family, Home health (Anna Schrader ) Prior Level of Assist for ADLs: Independent Prior Level of Assist for Homemaking: Independent Prior Level of Assist for Transfers: Independent Active Quality Nurse: No Prior Level of Assist for Ambulation: Independent household ambulator, with or without device Has the patient had two or more falls in the past year or any fall with injury in the past year?: No Restrictions/Precautions: Restrictions/Precautions: General Precautions, Fall Risk SUBJECTIVE: RN approved session. Patient requesting to use BR upon arrival. When this therapist attempts to jose gait belt, pt states I don't need that. Pt impulsively removes O2 while sitting EOB.When instructed in standing from EOB, pt notes this doesn't help, I just need your hand. Pt not receptive of education this date and dictating care with session concluded following return from BR. PAIN: 10/26: notes pain in lungs from IR drain Vitals: Vitals not assessed per clinical judgement, see nursing flowsheet OBJECTIVE: Bed Mobility: Supine to Sit: Contact Guard Assistance, with head of bed raised, with rail Sit to Supine: Contact Guard Assistance, with head of bed raised, with rail Transfers: Sit to Stand: Contact Guard Assistance, cues for hand placement, with verbal cues Stand to Sit:Contact Guard Assistance, cues for hand placement, with verbal cues Ambulation: Contact Guard Assistance Distance: 10' x2 Surface: Level Tile Device: Rolling Walker Gait Deviations: Forward Flexed Posture, Slow Carine, Decreased Step Length Bilaterally, DecreasedGait Speed, Decreased Heel Strike Bilaterally, Decreased Foot Clearance Right, Decreased Foot Clearance Left, and Increased reliance on assistive device Stairs: Not Tested Balance: Dynamic Sitting Balance: Contact Guard Assistance Exercise: None Functional Outcome Measures: [facility] (6 CLICK) BASIC MOBILITY AM-PAC Inpatient Mobility Raw Score : 18 AM-PAC Inpatient T-Scale Score : 43.63 Modified [place]: Current Functional Status: Not Applicable ASSESSMENT: Assessment: Patient continues to demonstrate deficits in Strength, Endurance, and insight and wouldbenefit from continued skilled PT to address these impairments and return to PLOF. Body Structures, Functions, Activity Limitations Requiring Skilled Therapeutic Intervention: Decreased functional mobility , Decreased strength, Decreased endurance, Decreased balance, Increased pain Activity Tolerance: Patient tolerance of treatment:Fair. Plan: Current Treatment Recommendations: Strengthening, Balance training, Functional mobility training, Transfer training, Endurance training, Gait training, Stair training, Neuromuscular re-education, Safety education & training, Patient/Caregiver education & training, Therapeutic activities General Plan: (3-5x, GM) Education: Learners: Patient Patient Education: Plan of Care, Education Related to Diagnosis, Bed Mobility, Equipment Education,Transfers, Reviewed Prior Education, Gait, Use of Gait Belt, Up in Chair for All Meals, - Patient Requires Continued Education Goals: Patient Goals : Want to get walking again to return to OF Short Term Goals Time Frame for Short Term Goals: by discharge Short Term Goal 1: Pt will perform bed mobility with HOB flat and no rail with mod I to be able to get into/out of bed. Short Term Goal 2: Pt will perform prt-tv-[id number] transfer on varying surfaces with least-restricted assistive device for proper functional mobility. Short Term Goal 3: Pt will ambulate 200' feet with least restricted assistance device to improve ability to walk within home Short Term Goal 4: Pt will ascend/descend 1 step with least-restricted AD to be able to access homesafely. 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 She is oriented to self, time, place, and situation without the need of cues. Patient with clear and appropriate speech. No complaints of headache, nausea, numbness, or tingling. Bilateral tab builder with moderate strength. Pedal push/pull with moderate strength. No arm drift bilaterally. She wears eyeglasses at baseline, states glasses are at home. No complaints of vision changes. Face symmetrical. Mucous membranes pink, moist and intact. Patient is missing teeth and states upper & lower dentures are at home. Patientstates she currently lives with her daughter and other family members who help take care of her. She expresses happiness that she is able to be with her daughter and family often. Upon cardiac assessment, S1, S2 present, rhythm is regular. Patient is not currently on telemetry monitoring. No pacemaker. She does complain of shortness of breath, denies chest pain or back pain. Patient reports intermittent dizziness while resting in bed and during ambulation. She also states she has been having weakness and feeling generally fatigued. Respirations are equal and unlabored. Patient is tachypneic during my assessment with a respiration rate of 20. She complains of shortness of breath at rest and during ambulation. Patient is currently supported with 1L per minute of supplemental oxygen via nasal cannula. Patient states she is having discomfort in my left lung behind my breast . Right lung sounds are clear throughout, Left lung sounds are clear throughout on inspiration and diminished in left lower lobe on expiration. No wheezes or crackles heard from auscultation. Encouraged pt to breathe deeply in through her nose and exhale through her mouth. HOB is currently elevated to semi-fowlersposition per patient comfort level. Skin appears pale, warm and dry. Epidermis thin with loss of subcutaneous tissue. Skin in bilateral lower extremities is dry and flaky. Scab to left elbow that is open to air without drainage. Patient states she has been told that there is some redness on her sacrum. This nurse did not assess her posterior side due to returning to bed with PT/OT just prior to this student nurse coming into the room for assessment. This student nurse advised patient to press her call button when she would like to ambulate and this student nurse will plan to assess posterior side of patient at that time. Patient has a midline abdominal incision that is covered with an aquacel dressing. No shadow drainage visualized from abdominal dressing. Patient has a colostomy in the LLQ. Stoma is beefy red and producing stool. Colostomy bag burped and emptied by this student nurse. 50mL of soft brown stool was obtained from colostomy bag. Bowel sounds are hypoactive but present atthis time. Patient's abdomen is rounded and bloated, with tenderness on palpation around abdominal surgical sight. Patient appears more bloated on the right side compared to left. Patient is continent of urine, 275mL of non-odorous, clear yellow urine emptied out of hat in toilet. Patient has +3 bilateral lower extremity edema above the ankles. No weeping edema. Pedal pulses moderate (+2). Bilateral radial pulses strong (+3). Bed is in lowest position and call light in reach. Cosigned by Huong Coats, RN at 01/08/2025 3:52 PM EDT * Dilip Arias MD - 01/08/2025 10:08 AM EDT Progress note: Infectious diseases Patient - Maria Elena Garner, Age - 64 y.o. - 1960 Room Number - 5K-04/004-A N - [id number] [facility] # - [id number] Date of Admission - 12/30/2024 3:36 AM SUBJECTIVE: She had nausea OBJECTIVE VITALS height is 1.626 m (5' 4 ) and weight is 46.1 kg (101 lb 10.1 oz). Her oral temperature is 99 ??F (37.2 ??C). Her blood pressure is 185/90 (abnormal) and her pulse is 76. Her respiration is 16 and oxygen saturation is 95%. Wt Readings from Last 3 Encounters: 01/08/25 46.1 kg (101 lb 10.1 oz) 12/19/24 41.6 kg (91 lb 11.4 oz) 12/13/24 44.5 kg (98 lb 1.7 oz) I/O (24 Hours) Intake/Output Summary (Last 24 hours) at 01/08/2025 1008 Last data filed at 01/08/2025 0559 Gross per 24 hour Intake 607.52 ml Output 850 ml Net -242.48 ml General Appearance Awake, alert, oriented, chronically sick looking. HEENT - normocephalic, atraumatic, pale conjunctiva, anicteric sclera Neck - Supple, no mass Lungs - Bilateral air entry, Cardiovascular - Heart sounds are normal. Abdomen - soft, distended, nontender, functioning colostomy Neurologic -oriented Skin - No bruising or bleeding Extremities - edema on both feet MEDICATIONS: hydrALAZINE 100 mg Oral 3 times per day polyethylene glycol 17 g Oral Daily doxazosin 3 mg Oral Daily doxycycline hyclate 100 mg Oral 2 times per day cefepime 1,000 mg IntraVENous Q24H cloNIDine 0.3 mg Oral TID nicotine 1 patch TransDERmal Q24H carvedilol 25 mg Oral BID WC epoetin kamryn-epbx 6,000 Units SubCUTAneous Once per day on Sunday sodium chloride flush 5-40 mL IntraVENous 2 times per day amLODIPine 10 mg Oral Daily atorvastatin 20 mg Oral Daily famotidine 20 mg Oral Daily budesonide-formoterol 2 puff Inhalation BID tiotropium 2 puff Inhalation Daily RT albuterol 2.5 mg Nebulization TID heparin (porcine) 5,000 Units SubCUTAneous BID naloxegol 12.5 mg Oral QAM AC sodium chloride oxyCODONE-acetaminophen, HYDROmorphone OR HYDROmorphone, mupirocin, sodium chloride flush, sodium chloride, ondansetron OR ondansetron, polyethylene glycol, traZODone LABS: CBC: Recent Labs 01/06/25 0540 01/07/25 0526 01/08/25 0456 WBC 10.1 9.1 8.7 HGB 9.4* 8.7* 9.2* PLT 412* 381 399 BMP: Recent Labs 01/06/25 0540 01/07/25 0526 01/08/25 0456 NA 134* 135 133* K 4.3 4.3 4.0 CL 100 104 99 CO2 * BUN 34* 36* 40* CREATININE 2.5* 2.2* 2.2* GLUCOSE 93 107 104 Calcium: Recent Labs 01/08/25 0456 CALCIUM 8.3* CULTURES: UA: Recent Labs 01/07/25 1605 COLORU YELLOW Micro: No results found for: BC Problem list of patient: Patient Active Problem List Diagnosis Code PAD (peripheral artery disease) I73.9 Chronic anxiety F41.9 Essential hypertension I10 Insomnia G47.00 COPD (chronic obstructive pulmonary disease) ([facility]) J44.9 Smoking greater than 30 pack years F17.210 Osteoarthritis of cervical spine M47.812 Dyslipidemia E78.5 Positive FIT (fecal immunochemical test) R19.5 Neuropathic pain M79.2 Chronic hip pain, bilateral M25.551, M25.552, G89.29 Fibromyalgia M79.7 Chest wall pain R07.89 Ruptured left breast implant T85.43XA Left upper arm pain M79.622 Axillary lymphadenopathy R59.0 Localized enlarged lymph nodes R59.0 Personal history of breast implant removal Z98.86 Dysthymia F34.1 Hypertensive emergency I16.1 Right otitis media H66.91 Acute renal insufficiency N28.9 Chronic diastolic HF (heart failure), NYHA class 3 ([facility]) I50.32 Hypertension I10 Uncontrolled hypertension I10 Chronic renal impairment N28.9 Severe malnutrition E43 Hypertensive urgency I16.0 Pericardial effusion, acute I30.9 Gastroesophageal reflux disease K21.9 Hyponatremia E87.1 Constipation K59.00 Abdominal discomfort R10.9 Hypervolemia E87.70 Abdominal distension R14.0 Generalized weakness R53.1 Congestive heart failure (HCC) I50.9 Intractable abdominal pain R10.9 Ischemic bowel disease K55.9 Leucocytosis D72.829 Smoker F17.200 PATRICK (acute kidney injury) N17.9 Acute ischemic colitis K55.039 Acute abdominal pain R10.9 Acute kidney injury superimposed on stage 3b chronic kidney disease ([facility]) N17.9, N18.32 ATN (acute tubular necrosis) N17.0 S/P laparotomy Z98.890 S/P left colectomy Z90.49 Acute respiratory failure with hypoxia ([facility]) J96.01 Colostomy care ([facility]) Z43.3 Abdominal pain R10.9 Intussusception of small intestine ([facility]) K56.1 ASSESSMENT/PLAN Bowel intussusception s/p exploratory surgery and bowel resection. Pelvic abscess likely related to the previous surgery on treatment Pleural effusion s/p thoracentesis Continue current treatment. On cefepime and doxycyline Dilip Arias MD, 01/08/2025 10:08 AM * Emely Warner OT - 01/08/2025 10:02 AM EDT [facility] OCCUPATIONAL THERAPY MISSED TREATMENT NOTE [facility] ONC MED 5K 5K-04/004-A Date: 01/08/2025 Patient Name: Maria Elena Garner CSN: [id number] : 1960 (64 y.o.) Gender: female Referring Practitioner: Chadd Sierra MD REASON FOR MISSED TREATMENT: Patient Refused. ; RN approved session, patient seated up in bed upon OT arrival and just finished with RT and requesting to be allowed to pain and stated, I don't feel like it when edu on purpose/benefits of OT. OT to check back as able and time allows. * Trish Kim DO - 01/08/2025 7:38 AM EDT [facility] Nephrology progress note 01/08/2025, 7:38 AM Pt Name: Maria Elena Garner Birthdate: 1960 Admit Date: 12/30/2024 3:36 AM Chief Complaint: Nephrology following for PATRICK secondary to ATN Subjective: Patient seen and examined. She feels ok. No complaints. Objective: 24HR INTAKE/OUTPUT: Intake/Output Summary (Last 24 hours) at 01/08/2025 0738 Last data filed at 01/08/2025 0559 Gross per 24 hour Intake 617.52 ml Output 850 ml Net -232.48 ml Admission weight: 44.3 kg (97 lb 10.6 oz) Wt Readings from Last 3 Encounters: 01/07/25 44 kg (97 lb) 12/19/24 41.6 kg (91 lb 11.4 oz) 12/13/24 44.5 kg (98 lb 1.7 oz) Vitals : Vitals: 01/08/25 0100 01/08/25 0359 01/08/25 0411 01/08/25 0429 BP: (!) 163/74 (!) 189/91 Pulse: 64 73 Resp: 18 18 20 18 Temp: 97.9 ??F (36.6 ??C) 97.8 ??F (36.6 ??C) TempSrc: Oral Oral SpO2: 92% 93% Weight: Height: Physical examination General Appearance: Well developed. No distress Mouth/Throat: Oral mucosa moist Neck: Supple, no JVD Lungs: Breath sounds: clear Heart:: S1,S2 heard Abdomen: Soft, non - tender Musculoskeletal:ankle edema noted Medications: Infusion: sodium chloride Meds: hydrALAZINE 100 mg Oral 3 times per day polyethylene glycol 17 g Oral Daily doxazosin 3 mg Oral Daily doxycycline hyclate 100 mg Oral 2 times per day cefepime 1,000 mg IntraVENous Q24H cloNIDine 0.3 mg Oral TID nicotine 1 patch TransDERmal Q24H carvedilol 25 mg Oral BID WC epoetin kamryn-epbx 6,000 Units SubCUTAneous Once per day on Sunday sodium chloride flush 5-40 mL IntraVENous 2 times per day amLODIPine 10 mg Oral Daily atorvastatin 20 mg Oral Daily famotidine 20 mg Oral Daily budesonide-formoterol 2 puff Inhalation BID tiotropium 2 puff Inhalation Daily RT albuterol 2.5 mg Nebulization TID heparin (porcine) 5,000 Units SubCUTAneous BID naloxegol 12.5 mg Oral QAM AC Lab Data : CBC: Recent Labs 01/06/2540 01/07/2552501/08/25455 WBC 10.1 9.1 8.7 HGB 9.4* 8.7* 9.2* HCT 29.0* 27.6* 28.4* PLT 412* 381 399 CMP: Recent Labs 01/06/25 0540 01/07/25 0501/08/25455 NA 134* 135 133* K 4.3 4.3 4.0 CL 100 104 99 CO2 * BUN 34* 36* 40* CREATININE 2.5* 2.2* 2.2* GLUCOSE 93 107 104 CALCIUM 8.5 8.5 8.3* Hepatic: Recent Labs 01/07/25525 AST 20 ALT 12 BILITOT <0.2* ALKPHOS 80 Assessment and Plan: Renal -acute kidney injury secondary to ATN requiring dialysis Last HD was 12/26 creatinine had improved to 1.6. HD cath removed Creatinine stable at 2.2 Ok for DC From renal standpoint Placed order for weekly bmp See me in [place] office at discharge Feb 05 Mild hyponatremia Essential hypertension Small bowel intussusception s/p ex lap with small bowel resection Recent ischemic colitis s/p hartmans with end colostomy Anemia of renal dysfunction : BRYCE Acid-base status stable Pleural effusion s/p thoracentesis Meds reviewed and discussed with patient Trish Kim DO [facility] This report has been created using voice recognition software. It may contain minor errors which are inherent in voice recognition technology * Bianka Christiansen MD - 01/07/2025 3:51 PM EDT Images from the original note were not included. Hospitalist Progress Note Internal Medicine Resident Patient: Maria Elena Garner 64 y.o. female Unit/Bed: [address] [place] [address] Admit Date: 12/30/2024 ASSESSMENT AND PLAN Active Problems SBO intussusception status post small bowel resection: NGT removed 01/01, large amount of ascites with pneumoperitoneum noted on CT abdomen pelvis, culture of body fluid grew Pseudomonas, Staph epidermidis, Klebsiella. General surgery has signed off Pain control regimen hydromorphone, oxycodone, acetaminophen On adult diet, good stool per ostomy Tentative plan to transition to oral Cipro when renal status improves Microcytic anemia: H&H holding stable Space CBC every 48 hours Bilateral lower thorax effusions: Incidental finding on CT abdomen and pelvis without scan on 01/04/2025 Diagnostic thoracentesis per interventional radiology additional management pending results Hypertension: Patient's blood pressure remains elevated on multiple antihypertensive agents including Cardura, clonidine, amlodipine, carvedilol, hydralazine Blood pressure improved on exam today we will continue to monitor PATRICK on CKD: Secondary to ATN required hemodialysis hemodialysis discontinued on 12/26 baseline creatinine 1.6, last HD 12/26 IV fluids held per nephrology recommendation Continue to monitor electrolytes with morning labs Resolved Problems Hagma Chronic Conditions (reviewed and stable unless otherwise stated) History of ischemic colitis secondary to colon ostomy 12/12/2024 Thrombocytosis: Continue to monitor COPD no acute exacerbation continue home regimen GERD continue Pepcid Heart failure with preserved ejection fraction no acute exacerbation Chronic pericardial effusion no evidence of tamponade LDA: []CVC / []PICC / []Midline / []P[place]man / []Drains / []Mediport / [x]None Antibiotics: Yes Steroids: No Labs (still needed?): [x]Yes / []No IVF (still needed?): []Yes / [x]No Level of care: []Step Down / [x]Med-Surg Bed Status: [x]Inpatient / []Observation Telemetry: []Yes / [x]No PT/OT: [x]Yes / []No DVT Prophylaxis: [] Lovenox / [x] Heparin / [] SCDs / [] Already on Systemic Anticoagulation / [] None Expected discharge date: TBD Disposition: TBD Code status: Full Code Chief Complaint: Abdominal pain Subjective (past 24 hours): Good stool output per ostomy patient's pain control well-managed going for procedure with interventional radiology HPI / Hospital Course: Patient is a 64-year-old lady with past medical history significant for COPD, hypertension, ischemic colitis status post colectomy and colostomy, CKD stage III formally on hemodialysis. Patient presented to [facility] as a direct admission from [facility] with complaint of abdominal pain. Abdominal pain was localized to lower abdomen, described as dull aching in quality rated 10 out of 10 improved with opioid pain medication. Patient was treated initially for ischemic colitis requiring left colectomy and left colostomy on 12/11/2024. She subsequently developed postoperative ATN requiring hemodialysis. Since then she has been having worsening abdominal pain and distention with bouts of nausea vomiting. Outpatient abdominal x-ray on 1010 notable for SBO and was sent to the ED. However patient did not seek care at that time thinking it would pass on its own. 12/29 ex lap performed with general surgery with small bowel resection secondary to intussusception. 01/04: Patient elected to pursue conservative management rather than more surgery CT abdomen with contrast ordered 01/05: Patient remained hypertensive despite increased antihypertensive medications patient's Cardura increased to 3 mg twice daily 01/06: General surgery is signing off patient stable to advance diet as tolerated per their recommendations. Patient was advanced to a normal adult diet. Patient had an PATRICK and was started on IV fluids per nephrology recommendations. 01/07: Infectious disease okay for oral regimen of antibiotics, oral antibiotics are currently being held for concern of renal function will transition to oral antibiotics as renal status improves. Patient no longer on IV fluids per nephrology recommendation. Active Medications: Infusion Medications sodium chloride Scheduled Medications hydrALAZINE 100 mg Oral 3 times per day polyethylene glycol 17 g Oral Daily doxazosin 3 mg Oral Daily doxycycline hyclate 100 mg Oral 2 times per day cefepime 1,000 mg IntraVENous Q24H cloNIDine 0.3 mg Oral TID nicotine 1 patch TransDERmal Q24H carvedilol 25 mg Oral BID WC epoetin kamryn-epbx 6,000 Units SubCUTAneous Once per day on Sunday sodium chloride flush 5-40 mL IntraVENous 2 times per day amLODIPine 10 mg Oral Daily atorvastatin 20 mg Oral Daily famotidine 20 mg Oral Daily budesonide-formoterol 2 puff Inhalation BID tiotropium 2 puff Inhalation Daily RT albuterol 2.5 mg Nebulization TID heparin (porcine) 5,000 Units SubCUTAneous BID naloxegol 12.5 mg Oral QAM AC PRN Meds: oxyCODONE-acetaminophen, HYDROmorphone OR HYDROmorphone, mupirocin, sodium chloride flush, sodium chloride, ondansetron OR ondansetron, polyethylene glycol, traZODone Exam: BP (!) 151/75 Pulse 71 Temp 97.8 ??F (36.6 ??C) (Oral) Resp 18 Ht 1.626 m (5' 4 ) Wt 44 kg (97 lb) SpO2 92% BMI 16.65 kg/m?? General: No distress, appears stated age. Eyes: PERRL. Conjunctivae/corneas clear. HENT: Head normal appearing. Nares normal. Oral mucosa moist. Hearing intact. Neck: Supple, with full range of motion. Trachea midline. No gross JVD appreciated. Respiratory: Normal effort. Clear to auscultation, without rales or wheezes or rhonchi. Cardiovascular: Normal rate, regular rhythm with normal S1/S2 without murmurs. No lower extremity edema. Abdomen: Soft, non-tender, non-distended with normal bowel sounds. Musculoskeletal: No joint swelling or tenderness. Normal tone. No abnormal movements. Skin: Warm and dry. No rashes or lesions. Neurologic: No focal sensory/motor deficits in the upper or lower extremities. Cranial nerves: grossly non-focal 2-12. Psychiatric: Alert and oriented, normal insight and thought content. Capillary Refill: Brisk,< 3 seconds. Peripheral Pulses: +2 palpable, equal bilaterally. Labs/Radiology: See chart or assessment above. Case was discussed with Attending, Dr. Fung. Cosigned by Chadd Fung MD at 01/07/2025 4:24 PM EDT Associated attestation - Chadd Fung MD - 01/07/2025 4:24 PM EDT I have examined and assessed the patient independently and discussed the findings and my opinion with the treating trainee. I have thoroughly read the note. I agree with the physical exam, assessmentand plan for treatment, with any exceptions listed below. EXCEPTIONS/ADDITIONAL COMMENTS: None; agree with details of exam and plan. Pt encouraged to use po pain meds rather than dilaudid. Signed By: Chadd Fung M.D. ATTESTATION * Romulo Martinez Richardson - 01/07/2025 2:02 PM EDT Spiritual Health Progress Note [facility] Room # 5K-04/004-A Name: Maria Elena Garner Age: 64 y.o. Gender: female Jainism: Denominational Preferred Language: Hungarian Date: 01/07/25 Visit Time: Begin Time: (P) 0940 End Time : (P) 0950 Complexity of Encounter: (P) Moderate Visit Summary: The Display Designer Outside had an encounter with the 64 yr old patient, while rounding the unit 5K, I provided spiritual care to patient through conversation, I also came to assess the patient's spiritual needs present. The pt was admitted due to intussusception of small intestine. The Display Designer Outside provided prayer, emotional support and words of comfort. Display Designer Outside provided a listeningpresence and encouraged pt to share their beliefs and how they support him during their hospitalization. The patient was encouraged and didn't share any further spiritual needs at this time. Referral/Consult From: (P) Rounding Encounter Overview/Reason: (P) Spiritual/Emotional Needs Encounter Code: Crisis (if applicable): Service Provided For: (P) Patient Patient was available. Camelia, Belief, Meaning: Patient identifies as spiritual Family/Friends identifies as spiritual Rituals (if applicable) Importance and Influence: Patient has spiritual/personal beliefs that influence decisions regarding their health Family/Friends has spiritual/personal beliefs that influence decisions regarding the patient's health Community: Patient is connected with a spiritual community Family/Friends is connected with a spiritual community Assessment and Plan of Care: Emotions Expressed by Patient: Assessment: (P) Coping Interventions by Display Designer Outside: Intervention: (P) Prayer (assurance of)/Roland Result/ Response by Patient: Outcome: (P) Encouraged Patient Plan of Care: Chaplains are available upon request. Electronically signed by . Dr. Romulo Martinez, [facility] To reach a trestle mainternance laborer, please call- [phone] * iDlip Arias MD - 01/07/2025 12:26 PM EDT Progress note: Infectious diseases Patient - Maria Elena Garner, Age - 64 y.o. - 1960 Room Number - 5K-04/004-A Date of Admission - 12/30/2024 3:36 AM SUBJECTIVE: No new issues. She is tolerating oral feeding. OBJECTIVE VITALS height is 1.626 m (5' 4 ) and weight is 44 kg (97 lb). Her oral temperature is 98.2 ??F (36.8 ??C).Her blood pressure is 136/78 and her pulse is 74. Her respiration is 20 and oxygen saturation is 92%. Wt Readings from Last 3 Encounters: 01/07/25 44 kg (97 lb) 12/19/24 41.6 kg (91 lb 11.4 oz) 12/13/24 44.5 kg (98 lb 1.7 oz) I/O (24 Hours) Intake/Output Summary (Last 24 hours) at 01/07/2025 1226 Last data filed at 01/07/2025 1023 Gross per 24 hour Intake 10 ml Output 1050 ml Net -1040 ml General Appearance Awake, alert, oriented, chronically sick looking. HEENT - normocephalic, atraumatic, pale conjunctiva, anicteric sclera Neck - Supple, no mass Lungs - Bilateral air entry, no rhonchi, no wheeze Cardiovascular - Heart sounds are normal. Abdomen - soft, distended, nontender, functioning colostomy Neurologic -oriented Skin - No bruising or bleeding Extremities - No edema, no cyanosis, clubbing MEDICATIONS: hydrALAZINE 100 mg Oral 3 times per day polyethylene glycol 17 g Oral Daily doxazosin 3 mg Oral Daily doxycycline hyclate 100 mg Oral 2 times per day cefepime 1,000 mg IntraVENous Q24H cloNIDine 0.3 mg Oral TID nicotine 1 patch TransDERmal Q24H carvedilol 25 mg Oral BID WC epoetin kamryn-epbx 6,000 Units SubCUTAneous Once per day on Sunday sodium chloride flush 5-40 mL IntraVENous 2 times per day amLODIPine 10 mg Oral Daily atorvastatin 20 mg Oral Daily famotidine 20 mg Oral Daily budesonide-formoterol 2 puff Inhalation BID tiotropium 2 puff Inhalation Daily RT albuterol 2.5 mg Nebulization TID heparin (porcine) 5,000 Units SubCUTAneous BID naloxegol 12.5 mg Oral QAM AC sodium chloride oxyCODONE-acetaminophen, HYDROmorphone OR HYDROmorphone, mupirocin, sodium chloride flush, sodium chloride, ondansetron OR ondansetron, polyethylene glycol, traZODone LABS: CBC: Recent Labs 01/05/2562101/06/25 0540 01/07/25 0526 WBC 9.5 10.1 9.1 HGB 9.4* 9.4* 8.7* PLT 403* 412* 381 BMP: Recent Labs 01/05/25 0601/06/25 0540 01/07/25 05 NA 132* 134* 135 K 3.9 4.3 4.3 CL 99 100 104 CO2 BUN 31* 34* 36* CREATININE 2.1* 2.5* 2.2* GLUCOSE 99 93 107 Calcium: Recent Labs 01/07/25525 CALCIUM 8.5 Recent Labs 01/05/25621 LACTA 0.6 Lactic Acid: Recent Labs 01/05/25621 LACTA 0.6 Troponin: No results for input(s): CKTOTAL , CKMB , TROPONINI in the last 72 hours. BNP: No results for input(s): BNP in the last 72 hours. CULTURES: UA: Recent Labs 01/04/25 1315 PHUR 8.0 COLORU YELLOW PROTEINU 300* BLOODU TRACE* RBCUA 6-10* WBCUA 21-50* BACTERIA None Seen NITRU NEGATIVE GLUCOSEU 100* BILIRUBINUR NEGATIVE UROBILINOGEN 0.2 KETUA NEGATIVE Micro: No results found for: BC Problem list of patient: Patient Active Problem List Diagnosis Code PAD (peripheral artery disease) I73.9 Chronic anxiety F41.9 Essential hypertension I10 Insomnia G47.00 COPD (chronic obstructive pulmonary disease) ([facility]) J44.9 Smoking greater than 30 pack years F17.210 Osteoarthritis of cervical spine M47.812 Dyslipidemia E78.5 Positive FIT (fecal immunochemical test) R19.5 Neuropathic pain M79.2 Chronic hip pain, bilateral M25.551, M25.552, G89.29 Fibromyalgia M79.7 Chest wall pain R07.89 Ruptured left breast implant T85.43XA Left upper arm pain M79.622 Axillary lymphadenopathy R59.0 Localized enlarged lymph nodes R59.0 Personal history of breast implant removal Z98.86 Dysthymia F34.1 Hypertensive emergency I16.1 Right otitis media H66.91 Acute renal insufficiency N28.9 Chronic diastolic HF (heart failure), NYHA class 3 ([facility]) I50.32 Hypertension I10 Uncontrolled hypertension I10 Chronic renal impairment N28.9 Severe malnutrition E43 Hypertensive urgency I16.0 Pericardial effusion, acute I30.9 Gastroesophageal reflux disease K21.9 Hyponatremia E87.1 Constipation K59.00 Abdominal discomfort R10.9 Hypervolemia E87.70 Abdominal distension R14.0 Generalized weakness R53.1 Congestive heart failure (HCC) I50.9 Intractable abdominal pain R10.9 Ischemic bowel disease K55.9 Leucocytosis D72.829 Smoker F17.200 PATRICK (acute kidney injury) N17.9 Acute ischemic colitis K55.039 Acute abdominal pain R10.9 Acute kidney injury superimposed on stage 3b chronic kidney disease ([facility]) N17.9, N18.32 ATN (acute tubular necrosis) N17.0 S/P laparotomy Z98.890 S/P left colectomy Z90.49 Acute respiratory failure with hypoxia ([facility]) J96.01 Colostomy care ([facility]) Z43.3 Abdominal pain R10.9 Intussusception of small intestine ([facility]) K56.1 ASSESSMENT/PLAN Bowel intussusception s/p exploratory surgery and bowel resection. Pelvic abscess likely related to the previous surgery on treatment Continue current treatment. Okay with discharge plan. 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 Send Ensure Plus TID (drinks Boost ONS service captain) - monitor renal function. Encouraged po, good nutrition at best efforts to promote healing. Encouraged small, frequent meals.Discussed ostomy/nutrition guidelines - education provided 12/18/24 admit. Malnutrition Assessment: Academy/A.S.P.E.N Clinical Malnutrition Criteria Malnutrition Status: Severe malnutrition Context: Chronic Illness Findings of clinical characteristics of malnutrition: Energy Intake: 75% or less estimated energy requirements for 1 month or longer Weight Loss: No weight loss (per available EMR; ? 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 Strength: Not Performed Nutrition Assessment: Admission Diagnosis/ Nutrition Course: Admit w/ intussusception of small intestine; colostomy 12/11, ex lap w/ SB resection 12/30; receivedHD during recent admission - last HD 12/26- catheter removed Patient has a past medical history of Anxiety, Carpal tunnel syndrome, Chronic pain, CKD (chronic kidney disease), COPD (chronic obstructive pulmonary disease) ([facility]), Depression, DJD (degenerative joint disease), Epilepsy ([facility]), Fibromyalgia, Hypercholesteremia, Hyperlipidemia, Hypertension, Left upper arm pain, Lung mass, Osteoarthritis, Osteopenia, Rheumatoid arthritis (HCC), and Ruptured left breast implant. Patient has a past surgical history that includes Hysterectomy; Breast enhancement surgery; Cholecystectomy; Colonoscopy; Carpal tunnel release (Left, 04/02/2017); pr neuroplasty &/transpos median nrv carpal tunne (Left, 04/02/2017); Breast enhancement surgery (Bilateral, 10/19/2021); Breast surgery (Right, 07/18/2022); laparotomy (N/A, 12/11/2024); and laparotomy (N/A, 12/30/2024). Nutrition Related Findings: Pt. Report: 01/07- pt. Seen - states eating ok during LOS; denies any nausea, reports some abdominal pain but no worse w/ eating; reports consuming ~2 meals/day and consumes 2 Boost ONS/day; note - decreased intake during past month or so d/t hospitalizations, surgeries; denies any trouble tolerating current texture of diet; received nutrition therapy for ostomy diet education 12/18/24; denies any questions -reinforced some basics; discussed use of ONS GI Status: 450 ml ostomy output Wound: Surgical Incision (12/11 ex lap, colostomy; 12/30/24: ex lap, SB resection) Pertinent Medications: Movantik, Glycolax, Pepcid, Zofran, Doxy Pertinent Labs: Lab Results Component Value Date LABA1C 5.7 08/15/2021 LABA1C 5.2 11/17/2015 Recent Labs 01/05/25 0622 01/06/25 0540 01/07/25 0526 NA 132* 134* 135 K 3.9 4.3 4.3 CL 99 100 104 GLUCOSE 99 93 107 BUN 31* 34* 36* CREATININE 2.1* 2.5* 2.2* Current Nutrition Intake & Therapies: Recent PO intake: 0%, 51-75%, 76-100% Recent Supplement Intake: (initiated) ADULT DIET; Regular ADULT ORAL NUTRITION SUPPLEMENT; Breakfast, Lunch, Dinner; Standard High Calorie/High Protein Oral Supplement Anthropometric Measures: Height: 162.6 cm (5' 4 ) [place] Body Weight (IBW): 120 lbs Admission Body Kayleen: 44.3 kg (97 lb 10.6 oz) (12/30 +1 edema) Current Body Weight: 44 kg (97 lb) (01/07 bedscale, no edema) Current BMI: Body mass index is 16.65 kg/m??. Usual Body Weight: (per pt ~97#; per EMR: 09/10/24: 89# 5 oz, 10/07/24: 88# 10 oz, 12/09/24: 87# 6 oz) BMI Categories: Underweight (BMI less than 18.5) Estimated Daily Nutrient Needs: Energy (kcal/day): 0090-8987 kcals (30-35) Weight Used for energy calculation: Other (44) (44 kg) Protein (g/day): ~44 grams (1/kgm) -CKD - adjust as renal function allows Weight Used for protein calculation: Other (44) (44 kg) Nutrition Diagnosis: Severe malnutrition related to altered GI function, inadequate protein-energy intake as evidenced by criteria as identified in malnutrition assessment Nutrition Goal(s): Goal: PO intake 75% or greater, by next RD assessment Type of Goal: Type of Goal: New goal Nutrition Monitoring/ Evaluation & Education: Will monitor nutritional needs during LOS & through interdisciplinary communication Nutrition Education/Counseling: Education/Counseling initiated Discharge Planning: Continue Oral Nutrition Supplement Alie Avila RD, LD * Trish Kim DO - 01/07/2025 8:39 AM EDT [facility] Nephrology progress note 01/07/2025, 8:39 AM Pt Name: Maria Elena Garner Birthdate: 1960 Admit Date: 12/30/2024 3:36 AM Chief Complaint: Nephrology following for PATRICK secondary to ATN Subjective: Patient seen and examined. Feeling ok today. Going for thoracentesis Objective: 24HR INTAKE/OUTPUT: Intake/Output Summary (Last 24 hours) at 01/07/2025 0839 Last data filed at 01/07/2025 0829 Gross per 24 hour Intake 10 ml Output 950 ml Net -940 ml Admission weight: 44.3 kg (97 lb 10.6 oz) Wt Readings from Last 3 Encounters: 01/07/25 44 kg (97 lb) 12/19/24 41.6 kg (91 lb 11.4 oz) 12/13/24 44.5 kg (98 lb 1.7 oz) Vitals : Vitals: 01/07/25 0300 01/07/25 0446 01/07/25 0633 01/07/25 0815 BP: (!) 148/75 (!) 177/83 Pulse: 70 81 Resp: 18 18 20 Temp: 98.7 ??F (37.1 ??C) 98.2 ??F (36.8 ??C) TempSrc: Oral Oral SpO2: 92% 90% Weight: 44 kg (97 lb) Height: Physical examination General Appearance: Well developed. No distress Mouth/Throat: Oral mucosa moist Neck: Supple, no JVD Lungs: Breath sounds: clear Heart:: S1,S2 heard Abdomen: Soft, non - tender Musculoskeletal:ankle edema noted Medications: Infusion: sodium chloride Meds: hydrALAZINE 100 mg Oral 3 times per day polyethylene glycol 17 g Oral Daily doxazosin 3 mg Oral Daily doxycycline hyclate 100 mg Oral 2 times per day cefepime 1,000 mg IntraVENous Q24H cloNIDine 0.3 mg Oral TID nicotine 1 patch TransDERmal Q24H carvedilol 25 mg Oral BID WC epoetin kamryn-epbx 6,000 Units SubCUTAneous Once per day on Sunday sodium chloride flush 5-40 mL IntraVENous 2 times per day amLODIPine 10 mg Oral Daily atorvastatin 20 mg Oral Daily famotidine 20 mg Oral Daily budesonide-formoterol 2 puff Inhalation BID tiotropium 2 puff Inhalation Daily RT albuterol 2.5 mg Nebulization TID heparin (porcine) 5,000 Units SubCUTAneous BID naloxegol 12.5 mg Oral QAM AC Lab Data : CBC: Recent Labs 01/05/2562101/06/2553901/07/25525 WBC 9.5 10.1 9.1 HGB 9.4* 9.4* 8.7* HCT 28.5* 29.0* 27.6* PLT 403* 412* 381 CMP: Recent Labs 01/05/2562101/06/2553901/07/25525 NA 132* 134* 135 K 3.9 4.3 4.3 CL 99 100 104 CO2 BUN 31* 34* 36* CREATININE 2.1* 2.5* 2.2* GLUCOSE 99 93 107 CALCIUM 8.0* 8.5 8.5 Hepatic: Recent Labs 01/07/25525 AST 20 ALT 12 BILITOT <0.2* ALKPHOS 80 Assessment and Plan: Renal -acute kidney injury secondary to ATN requiring dialysis Last HD was 12/26 creatinine had improved to 1.6. HD cath removed Creatinine trended up some. Better today s/p IV fluids. Has some increased ankle swelling will stopIV fluids. Going for thoracentesis today Lytes: stable Essential hypertension:labile. Increase hydralazine to 10 mg tid Small bowel intussusception s/p ex lap with small bowel resection Recent ischemic colitis s/p hartmans with end colostomy Anemia of renal dysfunction : BRYCE Acid-base status stable Pleural effusion having thoracentesis today Meds reviewed and discussed with patient Trish Kim DO [facility] This report has been created using voice recognition software. It may contain minor errors which are inherent in voice recognition technology * Lainey Lentz RN - 01/06/2025 7:40 PM EDT 1330 - Patient encouraged to ambulate multiple times throughout shift. This RN has offered to help patient up and into chair. Patient declines at this time stating, maybe later. 1745 - This RN assisted patient to the bathroom. Patient stating she may take a walk later after dinner. This RN asked if she could assist patient in taking a walk after she goes to the bathroom while she is already getting up. Patient continues to decline at this time, stating maybe after dinner. * Lainey Lentz RN - 01/06/2025 6:45 PM EDT Patient educated in depth on importance of using oral pain medication instead of IV. Patient educated that she will not be able to go home on IV pain medication and that we need to start trying to wean down on the IV pain medication usage. Patient voices understanding. However, throughout this shift still utilizing IV dilaudid frequently. Patient consistently rating pain 8-9/10 despite pain medica tion administration. * Lainey Lentz RN - 01/06/2025 6:40 PM EDT Patient urinated approximately 150ml of clear yellow urine. This RN then bladder scanned patient toassess post void residual which showed approximately 64mL of urine in bladder. * Emily Whitaker MD - 01/06/2025 1:30 PM EDT Images from the original note were not included. Emily Whitaker MD for Dr. Radhames Walton covering for Dr. Emily Whitaker MD [facility] General Surgery Daily Progress Note Pt Name: Maria Elena Garner Date of 1960 Today's Date: 01/06/2025 ASSESSMENT Hospital day # 7 POD#6 Exp lap, small bowel resection for intussusception Intra abdoinal fluid postive to pseudomonas- present on admission History ischemic bowel PATRICK required dialysis has a past medical history of Anxiety, Carpal tunnel syndrome, Chronic pain, CKD (chronic kidney disease), COPD (chronic obstructive pulmonary disease) ([facility]), Depression, DJD (degenerative joint disease), Epilepsy ([facility]), Fibromyalgia, Hypercholesteremia, Hyperlipidemia, Hypertension, Left upper armpain, Lung mass, Osteoarthritis, Osteopenia, Rheumatoid arthritis ([facility]), and Ruptured left breast implant. PLAN CT imaging ordered per hospitalist. Will await results. Continue soft diet Nephrology following.Creatinine greater than 2.- Medical management per hospitalist. UA ordered. Bladder scan PRN. Pain & nausea control as needed - adjustments made per attending Pathology reviewed. Benign findings. Infectious disease following. Antibiotics per their recommendations. OK to advance diet as tolerated from surgical perspective. From surgical perspective patient doing well. Surgery to sign off, call if anything changes SUBJECTIVE Patient feels overall well, no complaints. Tolerating a diet and ostomy functioning CURRENT MEDICATIONS Scheduled Meds: polyethylene glycol 17 g Oral Daily [START ON 01/07/2025] doxazosin 3 mg Oral Daily doxycycline hyclate 100 mg Oral 2 times per day hydrALAZINE 75 mg Oral 3 times per day cefepime 1,000 mg IntraVENous Q24H cloNIDine 0.3 mg Oral TID nicotine 1 patch TransDERmal Q24H carvedilol 25 mg Oral BID WC epoetin kamryn-epbx 6,000 Units SubCUTAneous Once per day on Sunday sodium chloride flush 5-40 mL IntraVENous 2 times per day amLODIPine 10 mg Oral Daily atorvastatin 20 mg Oral Daily famotidine 20 mg Oral Daily budesonide-formoterol 2 puff Inhalation BID tiotropium 2 puff Inhalation Daily RT albuterol 2.5 mg Nebulization TID heparin (porcine) 5,000 Units SubCUTAneous BID naloxegol 12.5 mg Oral QAM AC Continuous Infusions: sodium chloride 75 mL/hr at 01/06/25 0824 sodium chloride PRN Meds:.oxyCODONE-acetaminophen, HYDROmorphone OR HYDROmorphone, mupirocin, sodium chloride flush, sodium chloride, ondansetron OR ondansetron, polyethylene glycol, traZODone OBJECTIVE CURRENT VITALS: height is 1.626 m (5' 4 ) and weight is 43.6 kg (96 lb 1.9 oz). Her oral temperature is 98.7 ??F (37.1 ??C). Her blood pressure is 167/88 (abnormal) and her pulse is 74. Her respiration is 18 and oxygen saturation is 92%. Temperature Range (24h):Temp: 98.7 ??F (37.1 ??C) Temp Av.3 ??F (36.8 ??C) Min: 97.5 ??F (36.4??C) Max: 99 ??F (37.2 ??C) BP Range (24h): Systolic (24hrs), Av , Min:134 , Max:167 Diastolic (24hrs), Av, Min:79, Max:88 Pulse Range (24h): Pulse Av.9 Min: 64 Max: 74 Respiration Range (24h): Resp Av.8 Min: 16 Max: 18 Current Pulse Ox (24h): SpO2: 92 % Pulse Ox Range (24h): SpO2 Av.1 % Min: 90 % Max: 96 % Oxygen Amount and Delivery: O2 Flow Rate (L/min): 1 L/min Incentive Spirometry Tx: Maximum Achieved Volume (mL): 2000 mL Physical Exam Constitutional: Appearance: Normal appearance. She is not ill-appearing (chronically). Eyes: Pupils: Pupils are equal, round, and reactive to light. Cardiovascular: Rate and Rhythm: Normal rate. Pulses: Normal pulses. Abdominal: Palpations: There is no mass. Tenderness: There is no abdominal tenderness. Hernia: No hernia is present. Comments: Decreased distension, incision clean and intact. Ostomy functioning. Neurological: Mental Status: She is alert and oriented to person, place, and time. In: 250 [P.O.:240; I.V.:10] Out: 200 [Urine:100] Date 01/06/25 0000 - 01/06/25 2359 Shift 0505-2633 [id number] 0789-1164 24 Hour Total INTAKE P.O.(mL/kg/hr) 240 240 Shift Total(mL/kg) 240(5.5) 240(5.5) OUTPUT Urine(mL/kg/hr) 100 100 Shift Total(mL/kg) 100(2.3) 100(2.3) Weight (kg) 43.6 43.6 43.6 43.6 LABS Recent Labs 01/04/25 0450 01/04/25205801/05/25 0622 01/06/25 0540 WBC 8.2 8.4 9.5 10.1 HGB 10.2* 8.8* 9.4* 9.4* HCT 31.1* 26.9* 28.5* 29.0* PLT 460* 390 403* 412* NA 134* -- 132* 134* K 3.6 -- 3.9 4.3 CL 98 -- 99 100 CO2 24 -- 24 25 BUN 30* -- 31* 34* CREATININE 1.6* -- 2.1* 2.5* CALCIUM 7.8* -- 8.0* 8.5 PATHOLOGY REPORT FINAL DIAGNOSIS: Part A: Small bowel, implant, biopsy: Benign simple cyst, compatible with mesothelial cyst. No evidence of malignancy present. Part B: Small bowel, excision: Gross findings compatible with intussusception. Benign small bowel mucosa with mild edema and focal mild acute serositis. No evidence of dysplasia or malignancy identified. * Trish Kim DO - 01/06/2025 1:10 PM EDT [facility] Nephrology progress note 01/06/2025, 1:10 PM Pt Name: Maria Elena Garner Birthdate: 1960 Admit Date: 12/30/2024 3:36 AM Chief Complaint: Nephrology following for PATRICK secondary to ATN Subjective: Patient seen and examined. She denied complaints. States she is voiding ok. Creatinine trending up. Objective: 24HR INTAKE/OUTPUT: Intake/Output Summary (Last 24 hours) at 01/06/2025 1310 Last data filed at 01/06/2025 0941 Gross per 24 hour Intake 240 ml Output 100 ml Net 140 ml Admission weight: 44.3 kg (97 lb 10.6 oz) Wt Readings from Last 3 Encounters: 01/06/25 43.6 kg (96 lb 1.9 oz) 12/19/24 41.6 kg (91 lb 11.4 oz) 12/13/24 44.5 kg (98 lb 1.7 oz) Vitals : Vitals: 01/06/25 0527 01/06/25 0730 01/06/25 0800 01/06/25 0802 BP: (!) 167/88 Pulse: 74 Resp: 18 18 Temp: 98.7 ??F (37.1 ??C) TempSrc: Oral SpO2: 95% 92% Weight: 43.6 kg (96 lb 1.9 oz) Height: Physical examination General Appearance: Well developed. No distress Mouth/Throat: Oral mucosa moist Neck: Supple, no JVD Lungs: Breath sounds: clear Heart:: S1,S2 heard Abdomen: Soft, non - tender Musculoskeletal: Edema -mild ankle edema Medications: Infusion: sodium chloride 75 mL/hr at 01/06/25 0824 sodium chloride Meds: polyethylene glycol 17 g Oral Daily [START ON 01/07/2025] doxazosin 3 mg Oral Daily doxycycline hyclate 100 mg Oral 2 times per day hydrALAZINE 75 mg Oral 3 times per day cefepime 1,000 mg IntraVENous Q24H cloNIDine 0.3 mg Oral TID nicotine 1 patch TransDERmal Q24H carvedilol 25 mg Oral BID WC epoetin kamryn-epbx 6,000 Units SubCUTAneous Once per day on Sunday sodium chloride flush 5-40 mL IntraVENous 2 times per day amLODIPine 10 mg Oral Daily atorvastatin 20 mg Oral Daily famotidine 20 mg Oral Daily budesonide-formoterol 2 puff Inhalation BID tiotropium 2 puff Inhalation Daily RT albuterol 2.5 mg Nebulization TID heparin (porcine) 5,000 Units SubCUTAneous BID naloxegol 12.5 mg Oral QAM AC Lab Data : CBC: Recent Labs 01/04/259 01/05/25 0622 01/06/25 0540 WBC 8.4 9.5 10.1 HGB 8.8* 9.4* 9.4* HCT 26.9* 28.5* 29.0* PLT 390 403* 412* CMP: Recent Labs 01/04/25 0450 01/05/25 0622 01/06/25 0540 NA 134* 132* 134* K 3.6 3.9 4.3 CL 98 99 100 CO2 24 24 25 BUN 30* 31* 34* CREATININE 1.6* 2.1* 2.5* GLUCOSE 118* 99 93 CALCIUM 7.8* 8.0* 8.5 Hepatic: No results for input(s): LABALBU , AST , ALT , BILITOT , ALKPHOS in the last 72 hours. Invalid input(s): ALB Assessment and Plan: Renal -acute kidney injury secondary to ATN requiring dialysis Last HD was 12/26 creatinine had improved to 1.6. HD cath removed Creatinine trending up Check PVR IVF started Renal US shows no hydronephrosis Mild hyponatremia :stable Essential hypertension: stable Small bowel intussusception s/p ex lap with small bowel resection Recent ischemic colitis s/p hartmans with end colostomy Anemia of renal dysfunction : BRYCE Acid-base status stable Meds reviewed and discussed with patient Trish Kim DO [facility] This report has been created using voice recognition software. It may contain minor errors which are inherent in voice recognition technology * Jaydon Orozco SPT - 01/06/2025 12:05 PM EDT [facility] INPATIENT PHYSICAL THERAPY EVALUATION [facility] MED 5K - 5K-04/004-A Discharge Recommendations: Outpatient PT Equipment Recommendations: No Time In: 1159 Time Out: 1228 Timed Code Treatment Minutes: 20 Minutes Minutes: 29 Date: 01/06/2025 Patient Name: Maria Elena Garner, Gender: female : 1960 (64 y.o.) Referring Practitioner: Chadd Fung MD Diagnosis: Intussusception of small intestine (HCC) Additional Pertinent Hx: 64-year-old female with past medical history of COPD, hypertension, recentischemic colitis status post left colectomy and colostomy, postop ATN with intrinsic PATRICK on CKD stage III on hemodialysis Sunday presents to [facility] as a direct admission from [facility] with a complaint of abdominal pain 01/03. Patient was recently treated for ischemic colitis requi ring left colectomy and left colostomy 12/11/2024 and subsequently developed postop ATN requiring hemodialysis Sunday. Since then, she has been having worsening abdominal pain and distention since last week and few bouts of nausea/vomiting nonbloody nonbilious. She had an outpatientabdominal x- ray completed 12/26 which revealed SBO and was instructed to come to ED for further evaluation on Sunday on 12/26. Patient did not follow instructions thinking it would pass on its own however now she has severe abdominal pain with bloating for which she presented to [facility] ED prior to admission to [facility]. EXPLORATORY LAPAROTOMY SMALL BOWEL RESECTION; 12/[address] Whitaker. Restrictions/Precautions: Restrictions/Precautions: General Precautions, Fall Risk Subjective: Chart Reviewed: Yes Patient assessed for rehabilitation services?: Yes Subjective: RN approved session. Pt pleasant and agreeable to therapy. General: Overall Orientation Status: Within Normal Limits Vision: Within Functional Limits Hearing: Within Functional Limits Pain: 10/26: R>L lower abdomen Vitals: Oxygen: assessed during ambulation; 83% following cessation of ambulation. Upon sitting, O2sat checked after 5 minutes and back up to 93% Social/Functional History: Lives With: Daughter, Family (daughter and GI) Type of Home: House Home Layout: Two level, Able to Live on Main level with bedroom/bathroom Home Access: Stairs to enter with rails Entrance Stairs - Number of Steps: 1 Entrance Stairs - Rails: Both Home Equipment: Walker - Rolling Receives Help From: Family, Home health ([facility] ) Prior Level of Assist for ADLs: Independent Prior Level of Assist for Homemaking: Independent Prior Level of Assist for Transfers: Independent Prior Level of Assist for Ambulation: Independent household ambulator, with or without device Has the patient had two or more falls in the past year or any fall with injury in the past year?: No Active Quality Nurse: No Occupation: Retired OBJECTIVE: Range of Motion: Bilateral Lower Extremity: WFL Strength: Bilateral Lower Extremity: Impaired - grossly deconditioned Balance: Static Sitting Balance: Stand By Assistance Static Standing Balance: Contact Guard Assistance, increased time in static standing before initiating ambulation Bed Mobility: Rolling to Left: Contact Guard Assistance, with head of bed raised, with rail, with verbal cues Supine to Sit: Contact Guard Assistance, with head of bed raised, with rail, with increased time for completion Transfers: Sit to Stand: Stand By Assistance, cues for hand placement, cues for alignment to surface and for safety with assistive device Stand to Sit:Stand By Assistance, cues for hand placement, to/from chair with arms, cues for alignment to surface and for safety with assistive device Ambulation: Stand By Assistance, with cues for safety Distance: 80' Surface: Level Tile Device: Rolling Walker Gait Deviations: Slow Carine, Decreased Step Length Bilaterally, Decreased Gait Speed, and Cues for proximity to assistive device Stairs: Not Tested Exercise: None Functional Outcome Measures: [facility] (6 CLICK) BASIC MOBILITY AM-[facility] Inpatient Mobility Raw Score : 18 AM-[facility] Inpatient T-Scale Score : 43.63 Modified [place]: Premorbid Functional Status: Not Applicable Current Functional Status: Not Applicable ASSESSMENT: Activity Tolerance: Patient tolerance of treatment:Good. Treatment Initiated: Treatment and education initiated within context of evaluation. Evaluation time included review of current medical information, gathering information related to past medical, social and functional history, completion of standardized testing, formal and informal observation of tasks, assessment of data and development of plan of care and goals. Treatment time included skilled education and facilitation of tasks to increase safety and independence with functional mobility forimproved independence and quality of life. Assessment: Body Structures, Functions, Activity Limitations Requiring Skilled Therapeutic Intervention: Decreased functional mobility , Decreased strength, Decreased endurance, Decreased balance, Increased pain Assessment: Pt presents to hospital s/p recent ischemic colitis status post left colectomy and colostomy and complaints of abdominal pain. At baseline, pt is independent with all ADLs with the use ofa RW. During eval, pt requires SBA with bed mobility, transfers, and ambulation. Pt notes fatigue with ambulation. Checked O2 sat during ambulation and read 83%. Upon sitting for 5 minutes, O2 sat improved to 93%. Pt requires cont. skilled PT to improve functional mobility, strength, endurance, balance, safety, reduce fall risk, and return to PLOF. Therapy Prognosis: Good Requires PT Follow-Up: Yes Patient Education: . Patient Education Education Given To: Patient Education Provided: Role of Therapy, Plan of Care, Mobility Training, Transfer Training Education Method: Verbal Barriers to Learning: None Education Outcome: Verbalized understanding, Demonstrated understanding Plan: Current Treatment Recommendations: Strengthening, Balance training, Functional mobility training, Transfer training, Endurance training, Gait training, Stair training, Neuromuscular re-education, Safety education & training, Patient/Caregiver education & training, Therapeutic activities General Plan: (3-5x, GM) Goals: Patient Goals : Want to get walking again to return to PLOF Short Term Goals Time Frame for Short Term Goals: by discharge Short Term Goal 1: Pt will perform bed mobility with HOB flat and no rail with mod I to be able to get into/out of bed. Short Term Goal 2: Pt will perform fmg-cr-mysih transfer on varying surfaces with least-restricted assistive device for proper functional mobility. Short Term Goal 3: Pt will ambulate 200' feet with least restricted assistance device to improve ability to walk within home Short Term Goal 4: Pt will ascend/descend 1 step with least-restricted AD to be able to access homesafely. Dusting And Brushing Machine Operator Goals Time Frame for Dusting And Brushing Machine Operator Goals : NA d/t short ELOS Following session, patient left in safe position in bed, with alarm, and call light within reach Tacos Johnson, licensed Therapist was present and directly responsible for all treatments provided by, Naseem Orozco SPT Cosigned by Tacos Johnson PT at 01/06/2025 2:45 PM EDT * Dorita Donovan OT - 01/06/2025 9:52 AM EDT [facility] OCCUPATIONAL THERAPY MISSED TREATMENT NOTE [facility] ONC MED 5K -A Date: 01/06/2025 Patient Name: Maria Elena Garner CSN: [id number] : 1960 (64 y.o.) Gender: female Referring Practitioner: Chadd Sierra MD REASON FOR MISSED TREATMENT: Pt requested later session reporting that she is getting ready to takea nap. Will check back in pm as time allows. * Bianka Christiansen MD - 01/06/2025 7:05 AM EDT Images from the original note were not included. Hospitalist Progress Note Internal Medicine Resident Patient: Maria Elena Garner 64 y.o. female Unit/Bed: [facility] Admit Date: 12/30/2024 ASSESSMENT AND PLAN Active Problems SBO intussusception status post small bowel resection: NGT removed 01/01, large amount of ascites with pneumoperitoneum noted on CT abdomen pelvis, culture of body fluid grew Pseudomonas, Staph epidermidis, Klebsiella. General surgery has signed off Pain control regimen hydromorphone, oxycodone, acetaminophen Advance diet as tolerated Tentative plan to transition to oral Cipro when renal status improves Microcytic anemia: H&H holding stable Daily CBC Hypertension: Patient's blood pressure remains elevated on multiple antihypertensive agents including Cardura, clonidine, amlodipine, carvedilol, hydralazine Plan increase Cardura to 3 mg reassess blood pressure in the morning PATRICK on CKD: Baseline creatinine 1.6, last HD 12/26 Plan continue IV fluids per nephrology recommendation Resolved Problems Hagma Chronic Conditions (reviewed and stable unless otherwise stated) History of ischemic colitis secondary to colon ostomy 12/12/2024 Thrombocytosis: Continue to monitor COPD no acute exacerbation continue home regimen GERD continue Pepcid Heart failure with preserved ejection fraction no acute exacerbation Chronic pericardial effusion no evidence of tamponade LDA: []CVC / []PICC / []Midline / []Pittman / []Drains / []Mediport / [x]None Antibiotics: Yes Steroids: No Labs (still needed?): [x]Yes / []No IVF (still needed?): []Yes / [x]No Level of care: []Step Down / [x]Med-Surg Bed Status: [x]Inpatient / []Observation Telemetry: []Yes / [x]No PT/OT: [x]Yes / []No DVT Prophylaxis: [] Lovenox / [x] Heparin / [] SCDs / [] Already on Systemic Anticoagulation / [] None Expected discharge date: TBD Disposition: TBD Code status: Full Code Chief Complaint: Abdominal pain Subjective (past 24 hours): Patient still has diffuse abdominal pain, is making stool per ostomy HPI / Hospital Course: Patient is a 64-year-old lady with past medical history significant for COPD, hypertension, ischemic colitis status post colectomy and colostomy, CKD stage III Active Medications: Infusion Medications sodium chloride sodium chloride Scheduled Medications polyethylene glycol 17 g Oral Daily doxycycline hyclate 100 mg Oral 2 times per day hydrALAZINE 75 mg Oral 3 times per day cefepime 1,000 mg IntraVENous Q24H doxazosin 2 mg Oral Daily cloNIDine 0.3 mg Oral TID nicotine 1 patch TransDERmal Q24H carvedilol 25 mg Oral BID WC epoetin kamryn-epbx 6,000 Units SubCUTAneous Once per day on Sunday sodium chloride flush 5-40 mL IntraVENous 2 times per day amLODIPine 10 mg Oral Daily atorvastatin 20 mg Oral Daily famotidine 20 mg Oral Daily budesonide-formoterol 2 puff Inhalation BID tiotropium 2 puff Inhalation Daily RT albuterol 2.5 mg Nebulization TID heparin (porcine) 5,000 Units SubCUTAneous BID naloxegol 12.5 mg Oral QAM AC PRN Meds: oxyCODONE-acetaminophen, HYDROmorphone OR HYDROmorphone, mupirocin, sodium chloride flush, sodium chloride, ondansetron OR ondansetron, polyethylene glycol, traZODone Exam: BP 134/79 Pulse 72 Temp 99 ??F (37.2 ??C) (Oral) Resp 18 Ht 1.626 m (5' 4 ) Wt 38 kg (83 lb 12.8 oz) SpO2 92% BMI 14.38 kg/m?? General: No distress, appears stated age. Eyes: PERRL. Conjunctivae/corneas clear. HENT: Head normal appearing. Nares normal. Oral mucosa moist. Hearing intact. Neck: Supple, with full range of motion. Trachea midline. No gross JVD appreciated. Respiratory: Normal effort. Clear to auscultation, without rales or wheezes or rhonchi. Cardiovascular: Normal rate, regular rhythm with normal S1/S2 without murmurs. No lower extremity edema. Abdomen: Soft, non-tender, non-distended with normal bowel sounds. Musculoskeletal: No joint swelling or tenderness. Normal tone. No abnormal movements. Skin: Warm and dry. No rashes or lesions. Neurologic: No focal sensory/motor deficits in the upper or lower extremities. Cranial nerves: grossly non-focal 2-12. Psychiatric: Alert and oriented, normal insight and thought content. Capillary Refill: Brisk,< 3 seconds. Peripheral Pulses: +2 palpable, equal bilaterally. Labs/Radiology: See chart or assessment above. Case was discussed with Attending, Dr. Fung. Cosigned by Chadd Fung MD at 01/06/2025 4:46 PM EDT Associated attestation - Chadd Fung MD - 01/06/2025 4:46 PM EDT I have examined and assessed the patient independently and discussed the findings and my opinion with the treating trainee. I have thoroughly read the note. I agree with the physical exam, assessmentand plan for treatment, with any exceptions listed below. EXCEPTIONS/ADDITIONAL COMMENTS: None; agree with details of exam and plan. Continue to monitor renal fx. Fluids started again. Nephrology following. Signed By: Chadd Fung M.D. ATTESTATION * Chadd Gray RPH - 01/05/2025 3:33 PM EDT Images from the original note were not included. Pharmacy Renal Adjustment Pharmacy renally adjusted the following medication(s) per P&T approved policy: cefepime Recent Labs 01/04/25 0450 01/05/25 0622 BUN 30* 31* CREATININE 1.6* 2.1* eGFR: Recent Labs 01/03/25 0733 01/04/25 0450 01/05/25 0622 LABGLOM 36* 36* 26* Estimated Creatinine Clearance: 16 mL/min (A) (based on SCr of 2.1 mg/dL (H)). Assessment: PATRICK Plan: Increase cefepime from 500 mg to 1000 mh q24h Last HD was 12/26. Dosing off of residual renal function. Pharmacy will continue to follow. Please call pharmacy with any questions. Chadd Gray RPH * Ruel Caldera DO - 01/05/2025 2:32 PM EDT Images from the original note were not included. Hospitalist Progress Note Internal Medicine Resident Patient: Maria Elena Garner 64 y.o. female Unit/Bed: [address] [place] [address] Admit Date: 12/30/2024 ASSESSMENT AND PLAN Active Problems Small bowel intussusception status post small bowel resection: Postop day 5. Sudden onset of acute severe abdominal pain at OSH. 01/01 NGT removed, 01/04 CT A/P: Large amount of ascites with pneumoperitoneum noted. Dilated and fluid- filled small bowel loops are seen. 01/04 body fluid culture grew Pseudomonas aeruginosa, Staph epidermidis, Klebsiella oxytoca Patient wishes to proceed with conservative treatment at this time per conversation with general surgery: Pain control 0.5, 1 mg hydromorphone, oxycodone acetaminophen 5-325 mg Consider transitioning IV to oral for pain meds Continue dysphagia soft diet Antibiotics per ID: Cefepime 500 mg, linezolid 600 mg first dose 01/03 for both Plan to transition to ciprofloxacin oral at discharge likely plan 10-day total course given poor Zosyn susceptibility Microcytic anemia: Mild decline in H&H following surgery. H&H remains largely stable with prior trend Trend CBC HTN: Norvasc, Coreg continued. Patient home Cardura 1mg daily, clonidine 0.3mg Amlodipine 10, carvedilol 25 twice daily, clonidine 0.3 3 times daily, doxazosin/Cardura 2 mg, hydralazine 50 3 times daily Resolved Problems PATRICK on CKD: Baseline creatinine 1.6, Last HD was 12/26 currently creatinine is improving Hemodialysis per nephro HAGMA Chronic Conditions (reviewed and stable unless otherwise stated) Elevated troponin: Troponin downtrending, suspect demand ischemia in setting of above. EKG without acute ST/T wave changes. Noted. History of ischemic colitis: Status post prior Gómez's/end colostomy placement 12/12/2024 Thrombocytosis: Continue to monitor Chronic hypoxic respiratory failure: On 1L nc baseline on previous discharge. Iso COPD, ESRD with volume overload. Weaned to RA COPD: Not acutely exacerbated Continue Symbicort, spiriva GERD: Pepcid Chronic diastolic heart failure: ECHO 12/01/24 with EF 65-70%, G2DD. PATRICK requiring HD per above. Nephrology following Dialysis per nephrology Chronic pericardial effusion: Noted on previous ECHO 12/01/24, no evidence of tamponade physiology LDA: []CVC / []PICC / []Midline / []Pittman / []Drains / []Mediport / [x]None Antibiotics: Cefepime 500 mg, linezolid 600 mg Steroids: None Labs (still needed?): [x]Yes / []No IVF (still needed?): []Yes / [x]No Level of care: []Step Down / [x]Med-Surg Bed Status: [x]Inpatient / []Observation Telemetry: []Yes / [x]No PT/OT: [x]Yes / []No DVT Prophylaxis: [] Lovenox / [x] Heparin / [] SCDs / [] Already on Systemic Anticoagulation / [] None Expected discharge date: TBD Disposition: TBD Code status: Full Code Chief Complaint: Abdominal pain Subjective (past 24 hours): Patient still complaining of a lot of abdominal pain. Rates 10 out of 10 this morning. Hydromorphone given as needed. HPI / Hospital Course: 64-year-old female with past medical history of COPD, hypertension, recent ischemic colitis status post left colectomy and colostomy, postop ATN with intrinsic PATRICK on CKD stage III on hemodialysis Sunday presents to [facility] as a direct admission from [facility] with a complaint of abdominal pain 01/03. Abdominal pain is localized to lower abdomen, dull/aching in quality initially rated a 10 out of 10 and improved with Dilaudid. Patient was recently treated for ischemic colitis requiring left colectomy and left colostomy 12/11/2024 and subsequently developed postop ATN requiringhemodialysis Sunday. Since then, she has been having worsening abdominal pain and d istention since last week and few bouts of nausea/vomiting nonbloody nonbilious. She had an outpatient abdominal x-ray completed 12/26 which revealed SBO and was instructed to come to ED for further evaluation on Sunday on 12/26. Patient did not follow instructions thinking it would pass on its ownhowever now she has severe abdominal pain with bloating for which she presented to [facility] ED prior to admission to [facility]. Patient otherwise denies shortness of breath, chest pain, headaches. ED course: In the ED patient was hypertensive 166/89 and tachypneic 21. Labs revealed elevated creatinine to 3.5, troponin 111->106, hemoglobin 11.2, lactate normal at 0.7. EKG revealed normal sinus rhythm. Chest x-ray showed revealed no acute cardiopulmonary process, small stable bilateral pleural effusions with right bilateral basilar atelectasis. CT abdomen pelvis reveals findings suggestive pneumotosis intestinalis and pneumatosis coli. Patient management including Dilaudid, and antibiotics including Zosyn were administered. Ultimately admitted for further management of pneumointestinalis and pneumatosis coli. General surgery is following. 12/29: Ex lap performed with small bowel resection secondary to intussusception 01/04: After talking with general surgery, patient decided to pursue conservative management ratherthan more surgery. Bladder scan revealed 10 cc of output. Repeat bladder scan in process. CT abdomen w/o contrast performed. Doxazosin/Cardura increased to 2 mg from 1 mg Active Medications: Infusion Medications sodium chloride Scheduled Medications doxycycline hyclate 100 mg Oral 2 times per day hydrALAZINE 75 mg Oral 3 times per day doxazosin 2 mg Oral Daily cefepime 500 mg IntraVENous Q24H cloNIDine 0.3 mg Oral TID nicotine 1 patch TransDERmal Q24H carvedilol 25 mg Oral BID WC epoetin kamryn-epbx 6,000 Units SubCUTAneous Once per day on Sunday sodium chloride flush 5-40 mL IntraVENous 2 times per day amLODIPine 10 mg Oral Daily atorvastatin 20 mg Oral Daily famotidine 20 mg Oral Daily budesonide-formoterol 2 puff Inhalation BID tiotropium 2 puff Inhalation Daily RT albuterol 2.5 mg Nebulization TID heparin (porcine) 5,000 Units SubCUTAneous BID naloxegol 12.5 mg Oral QAM AC PRN Meds: oxyCODONE-acetaminophen, HYDROmorphone OR HYDROmorphone, mupirocin, sodium chloride flush, sodium chloride, ondansetron OR ondansetron, polyethylene glycol, traZODone Exam: BP (!) 155/80 Pulse 63 Temp 97.5 ??F (36.4 ??C) (Oral) Resp 18 Ht 1.626 m (5' 4 ) Wt 38 kg (83 lb 12.8 oz) SpO2 92% BMI 14.38 kg/m?? General: No distress, appears stated age. Eyes: PERRL. Conjunctivae/corneas clear. HENT: Head normal appearing. Nares normal. Oral mucosa moist. Hearing intact. Neck: Supple, with full range of motion. Trachea midline. No gross JVD appreciated. Respiratory: Normal effort. Clear to auscultation, without rales or wheezes or rhonchi. Cardiovascular: Normal rate, regular rhythm with normal S1/S2 without murmurs. BLE edema 2+ Abdomen: Distention - mildly improved, ostomy without surrounding erythema/drainage Musculoskeletal: No joint swelling or tenderness. Normal tone. No abnormal movements. Skin: Warm and dry. No rashes or lesions. Neurologic: No focal sensory/motor deficits in the upper or lower extremities. Cranial nerves: grossly non-focal 2-12. Psychiatric: Alert and oriented, normal insight and thought content. Capillary Refill: Brisk,< 3 seconds. Peripheral Pulses: +2 palpable, equal bilaterally. Labs/Radiology: See chart or assessment above. Case was discussed with Attending, Chadd Naylor MD . Cosigned by Chadd Fung MD at 01/05/2025 3:10 PM EDT Associated attestation - Chadd Fung MD - 01/05/2025 3:10 PM EDT I have examined and assessed the patient independently and discussed the findings and my opinion with the treating trainee. I have thoroughly read the note. I agree with the physical exam, assessmentand plan for treatment, with any exceptions listed below. EXCEPTIONS/ADDITIONAL COMMENTS: None; agree with details of exam and plan. Creatinine appears to be trending up again; continue to monitor. Bilateral pleural effusions; consider thoracentesis. Signed By: Chadd Fung M.D. ATTESTATION * Emily Whitaker MD - 01/05/2025 1:27 PM EDT Images from the original note were not included. Emily Whitaker MD for Dr. Radhames Walton covering for Dr. Emily Whitaker MD [facility] General Surgery Daily Progress Note Pt Name: Maria Elena Garner Date of 1960 Today's Date: 01/05/2025 ASSESSMENT Hospital day # 6 POD#5 Exp lap, small bowel resection for intussusception Intra abdoinal fluid postive to pseudomonas- present on admission History ischemic bowel PATRICK required dialysis has a past medical history of Anxiety, Carpal tunnel syndrome, Chronic pain, CKD (chronic kidney disease), COPD (chronic obstructive pulmonary disease) ([facility]), Depression, DJD (degenerative joint disease), Epilepsy ([facility]), Fibromyalgia, Hypercholesteremia, Hyperlipidemia, Hypertension, Left upper armpain, Lung mass, Osteoarthritis, Osteopenia, Rheumatoid arthritis ([facility]), and Ruptured left breast implant. PLAN CT imaging ordered per hospitalist. Will await results. Continue soft diet Nephrology following. Last HD 12/26. Creat improving. Dialysis catheter removed 01/02. Medical management per hospitalist. UA ordered. Bladder scan PRN. Pain & nausea control as needed - adjustments made per attending Pathology reviewed. Benign findings. Infectious disease following. Antibiotics per their recommendations. Labs reviewed. Creat stable. WBC wnl. Ostomy functioning. Will await CT imaging for further evaluation and plan. SUBJECTIVE Patient seen she feels much better today, her ostomy continues to work, she continues to have regular bowel function and tolerating a diet. Denies any abdominal pain today. Patient states she wants to go home. She went and got ultrasound of her kidneys today for worsening renal failure. Hydronephrosis seen on the right side on imaging. CURRENT MEDICATIONS Scheduled Meds: doxycycline hyclate 100 mg Oral 2 times per day hydrALAZINE 75 mg Oral 3 times per day doxazosin 2 mg Oral Daily cefepime 500 mg IntraVENous Q24H cloNIDine 0.3 mg Oral TID nicotine 1 patch TransDERmal Q24H carvedilol 25 mg Oral BID epoetin kamryn-epbx 6,000 Units SubCUTAneous Once per day on Sunday sodium chloride flush 5-40 mL IntraVENous 2 times per day amLODIPine 10 mg Oral Daily atorvastatin 20 mg Oral Daily famotidine 20 mg Oral Daily budesonide-formoterol 2 puff Inhalation BID tiotropium 2 puff Inhalation Daily RT albuterol 2.5 mg Nebulization TID heparin (porcine) 5,000 Units SubCUTAneous BID naloxegol 12.5 mg Oral QAM AC Continuous Infusions: sodium chloride PRN Meds:.oxyCODONE-acetaminophen, HYDROmorphone OR HYDROmorphone, mupirocin, sodium chloride flush, sodium chloride, ondansetron OR ondansetron, polyethylene glycol, traZODone OBJECTIVE CURRENT VITALS: height is 1.626 m (5' 4 ) and weight is 38 kg (83 lb 12.8 oz). Her oral temperatureis 97.5 ??F (36.4 ??C). Her blood pressure is 155/80 (abnormal) and her pulse is 63. Her respiration is 18 and oxygen saturation is 92%. Temperature Range (24h):Temp: 97.5 ??F (36.4 ??C) Temp Av.9 ??F (36.6 ??C) Min: 97.5 ??F (36.4??C) Max: 98.4 ??F (36.9 ??C) BP Range (24h): Systolic (24hrs), Av , Min:141 , Max:159 Diastolic (24hrs), Av, Min:75, Max:81 Pulse Range (24h): Pulse Av.6 Min: 62 Max: 72 Respiration Range (24h): Resp Av.6 Min: 16 Max: 20 Current Pulse Ox (24h): SpO2: 92 % Pulse Ox Range (24h): SpO2 Av.9 % Min: 92 % Max: 94 % Oxygen Amount and Delivery: O2 Flow Rate (L/min): 1 L/min Incentive Spirometry Tx: Maximum Achieved Volume (mL): 2000 mL Physical Exam Constitutional: Appearance: Normal appearance. She is not ill-appearing (chronically). Eyes: Pupils: Pupils are equal, round, and reactive to light. Cardiovascular: Rate and Rhythm: Normal rate. Pulses: Normal pulses. Abdominal: Palpations: There is no mass. Tenderness: There is no abdominal tenderness. Hernia: No hernia is present. Comments: Decreased distension, incision clean and intact. Ostomy functioning. Neurological: Mental Status: She is alert and oriented to person, place, and time. In: 1226.1 [I.V.:10] Out: 200 Date 01/05/25 0000 - 01/05/25 2359 Shift 9660-6405 5477-6800 3420-5744 24 Hour Total INTAKE I.V.(mL/kg) 10(0.3) 10(0.3) IV Piggyback(mL/kg) 1216.1(32) 1216.1(32) Shift Total(mL/kg) 1216.1(32) 10(0.3) 1226.1(32.3) OUTPUT Stool(mL/kg) 100(2.6) 100(2.6) Shift Total(mL/kg) 100(2.6) 100(2.6) Weight (kg) 38 38 38 38 LABS Recent Labs 01/03/25 0733 01/04/25 0450 01/04/25205801/05/25 0622 WBC 8.1 8.2 8.4 9.5 HGB 10.0* 10.2* 8.8* 9.4* HCT 30.2* 31.1* 26.9* 28.5* PLT 491* 460* 390 403* NA 135 134* -- 132* K 4.1 3.6 -- 3.9 CL 100 98 -- 99 CO2 26 24 -- 24 BUN 32* 30* -- 31* CREATININE 1.6* 1.6* -- 2.1* CALCIUM 8.2* 7.8* -- 8.0* PATHOLOGY REPORT FINAL DIAGNOSIS: Part A: Small bowel, implant, biopsy: Benign simple cyst, compatible with mesothelial cyst. No evidence of malignancy present. Part B: Small bowel, excision: Gross findings compatible with intussusception. Benign small bowel mucosa with mild edema and focal mild acute serositis. No evidence of dysplasia or malignancy identified. * Trish Kim DO - 01/05/2025 10:06 AM EDT [facility] Nephrology progress note 01/05/2025, 10:06 AM Pt Name: Maria Elena Garner Birthdate: 1960 Admit Date: 12/30/2024 3:36 AM Chief Complaint: Nephrology following for PATRICK secondary to ATN Subjective: Patient seen and examined. She states her belly feels better. Imaging reviewed. Objective: 24HR INTAKE/OUTPUT: Intake/Output Summary (Last 24 hours) at 01/05/2025 1006 Last data filed at 01/05/2025 0949 Gross per 24 hour Intake 1226.12 ml Output 100 ml Net 1126.12 ml Admission weight: 44.3 kg (97 lb 10.6 oz) Wt Readings from Last 3 Encounters: 01/02/25 38 kg (83 lb 12.8 oz) 12/19/24 41.6 kg (91 lb 11.4 oz) 12/13/24 44.5 kg (98 lb 1.7 oz) Vitals : Vitals: 01/05/25 0650 01/05/25 0800 01/05/25 0921 01/05/25 0931 BP: (!) 158/78 (!) 159/81 Pulse: 62 62 67 Resp: Temp: 98.4 ??F (36.9 ??C) 97.5 ??F (36.4 ??C) TempSrc: Oral Oral SpO2: 93% 92% 94% Weight: Height: Physical examination General Appearance: Well developed. No distress Mouth/Throat: Oral mucosa moist Neck: Supple, no JVD Lungs: Breath sounds: clear Heart:: S1,S2 heard Abdomen: Soft, non - tender Musculoskeletal: Edema -mild ankle edema Medications: Infusion: sodium chloride Meds: doxycycline hyclate 100 mg Oral 2 times per day doxazosin 2 mg Oral Daily hydrALAZINE 50 mg Oral 3 times per day cefepime 500 mg IntraVENous Q24H cloNIDine 0.3 mg Oral TID nicotine 1 patch TransDERmal Q24H carvedilol 25 mg Oral BID epoetin kamryn-epbx 6,000 Units SubCUTAneous Once per day on Sunday sodium chloride flush 5-40 mL IntraVENous 2 times per day amLODIPine 10 mg Oral Daily atorvastatin 20 mg Oral Daily famotidine 20 mg Oral Daily budesonide-formoterol 2 puff Inhalation BID tiotropium 2 puff Inhalation Daily RT albuterol 2.5 mg Nebulization TID heparin (porcine) 5,000 Units SubCUTAneous BID naloxegol 12.5 mg Oral QAM AC Lab Data : CBC: Recent Labs 01/04/25 0450 01/04/25205801/05/25 06 WBC 8.2 8.4 9.5 HGB 10.2* 8.8* 9.4* HCT 31.1* 26.9* 28.5* PLT 460* 390 403* CMP: Recent Labs 01/03/25 0733 01/04/25 0450 01/05/25 0622 NA 135 134* 132* K 4.1 3.6 3.9 CL 100 98 99 CO2 26 24 24 BUN 32* 30* 31* CREATININE 1.6* 1.6* 2.1* GLUCOSE 114* 118* 99 CALCIUM 8.2* 7.8* 8.0* Hepatic: No results for input(s): LABALBU , AST , ALT , BILITOT , ALKPHOS in the last 72 hours. Invalid input(s): ALB Assessment and Plan: Renal -acute kidney injury secondary to ATN requiring dialysis Last HD was 12/26 creatinine has improved, HD cath removed. Creat 2.1 from 1.6 today Has anasarca noted on imaging with pleural effusions, ascites will give dose of bumex 1 mg IV Mild-moderate right hydronephrosis noted. ? Related to urinary retention. She is voiding ok now. Check renal US Mild hyponatremia :stable Essential hypertension: increase hydralazine to 75 mg tid Small bowel intussusception s/p ex lap with small bowel resection Recent ischemic colitis s/p hartmans with end colostomy Anemia of renal dysfunction : BRYCE Acid-base status stable Meds reviewed and discussed with patient Trish Kim DO [facility] This report has been created using voice recognition software. It may contain minor errors which are inherent in voice recognition technology * Dilip Arias MD - 01/05/2025 9:18 AM EDT Progress note: Infectious diseases Patient - Maria Elena Garner, Age - 64 y.o. - 1960 Room Number - 5K-04/004-A N - [id number] [facility] - [id number] Date of Admission - 12/30/2024 3:36 AM SUBJECTIVE: She is feeling better, no nausea or vomiting. OBJECTIVE VITALS height is 1.626 m (5' 4 ) and weight is 38 kg (83 lb 12.8 oz). Her oral temperature is 98.4 ??F (36.9 ??C). Her blood pressure is 158/78 (abnormal) and her pulse is 62. Her respiration is 16 and oxygen saturation is 93%. Wt Readings from Last 3 Encounters: 01/02/25 38 kg (83 lb 12.8 oz) 12/19/24 41.6 kg (91 lb 11.4 oz) 12/13/24 44.5 kg (98 lb 1.7 oz) I/O (24 Hours) Intake/Output Summary (Last 24 hours) at 01/05/2025 0918 Last data filed at 01/05/2025 0606 Gross per 24 hour Intake 1216.12 ml Output 100 ml Net 1116.12 ml General Appearance Awake, alert, oriented, not In acute distress HEENT - normocephalic, atraumatic, pale conjunctiva, anicteric sclera Neck - Supple, no mass Lungs - Bilateral good air entry, no rhonchi, no wheeze Cardiovascular - Heart sounds are normal. Abdomen - soft, distended, nontender, functioning colostomy Neurologic -oriented Skin - No bruising or bleeding Extremities - No edema, no cyanosis, clubbing MEDICATIONS: bumetanide 1 mg IntraVENous Once doxazosin 2 mg Oral Daily linezolid 600 mg IntraVENous Q12H hydrALAZINE 50 mg Oral 3 times per day cefepime 500 mg IntraVENous Q24H cloNIDine 0.3 mg Oral TID nicotine 1 patch TransDERmal Q24H carvedilol 25 mg Oral BID WC epoetin kamryn-epbx 6,000 Units SubCUTAneous Once per day on Sunday sodium chloride flush 5-40 mL IntraVENous 2 times per day amLODIPine 10 mg Oral Daily atorvastatin 20 mg Oral Daily famotidine 20 mg Oral Daily budesonide-formoterol 2 puff Inhalation BID tiotropium 2 puff Inhalation Daily RT albuterol 2.5 mg Nebulization TID heparin (porcine) 5,000 Units SubCUTAneous BID naloxegol 12.5 mg Oral QAM AC sodium chloride oxyCODONE-acetaminophen, HYDROmorphone OR HYDROmorphone, mupirocin, sodium chloride flush, sodium chloride, ondansetron OR ondansetron, polyethylene glycol, traZODone LABS: CBC: Recent Labs 01/04/25 0450 01/04/25 2059 01/05/25 0622 WBC 8.2 8.4 9.5 HGB 10.2* 8.8* 9.4* PLT 460* 390 403* BMP: Recent Labs 01/03/25 0733 01/04/25 0450 01/05/25 0622 NA 135 134* 132* K 4.1 3.6 3.9 CL 100 98 99 CO2 26 24 24 BUN 32* 30* 31* CREATININE 1.6* 1.6* 2.1* GLUCOSE 114* 118* 99 Calcium: Recent Labs 01/05/25 06 CALCIUM 8.0* Recent Labs 01/05/25 06 LACTA 0.6 Lactic Acid: Recent Labs 01/05/25 06 LACTA 0.6 Troponin: No results for input(s): CKTOTAL , CKMB , TROPONINI in the last 72 hours. BNP: No results for input(s): BNP in the last 72 hours. CULTURES: UA: Recent Labs 01/04/25 1315 PHUR 8.0 COLORU YELLOW PROTEINU 300* BLOODU TRACE* RBCUA 6-10* WBCUA 21-50* BACTERIA None Seen NITRU NEGATIVE GLUCOSEU 100* BILIRUBINUR NEGATIVE UROBILINOGEN 0.2 KETUA NEGATIVE Micro: No results found for: BC Problem list of patient: Patient Active Problem List Diagnosis Code PAD (peripheral artery disease) I73.9 Chronic anxiety F41.9 Essential hypertension I10 Insomnia G47.00 COPD (chronic obstructive pulmonary disease) ([facility]) J44.9 Smoking greater than 30 pack years F17.210 Osteoarthritis of cervical spine M47.812 Dyslipidemia E78.5 Positive FIT (fecal immunochemical test) R19.5 Neuropathic pain M79.2 Chronic hip pain, bilateral M25.551, M25.552, G89.29 Fibromyalgia M79.7 Chest wall pain R07.89 Ruptured left breast implant T85.43XA Left upper arm pain M79.622 Axillary lymphadenopathy R59.0 Localized enlarged lymph nodes R59.0 Personal history of breast implant removal Z98.86 Dysthymia F34.1 Hypertensive emergency I16.1 Right otitis media H66.91 Acute renal insufficiency N28.9 Chronic diastolic HF (heart failure), NYHA class 3 ([facility]) I50.32 Hypertension I10 Uncontrolled hypertension I10 Chronic renal impairment N28.9 Severe malnutrition E43 Hypertensive urgency I16.0 Pericardial effusion, acute I30.9 Gastroesophageal reflux disease K21.9 Hyponatremia E87.1 Constipation K59.00 Abdominal discomfort R10.9 Hypervolemia E87.70 Abdominal distension R14.0 Generalized weakness R53.1 Congestive heart failure (HCC) I50.9 Intractable abdominal pain R10.9 Ischemic bowel disease K55.9 Leucocytosis D72.829 Smoker F17.200 PATRICK (acute kidney injury) N17.9 Acute ischemic colitis K55.039 Acute abdominal pain R10.9 Acute kidney injury superimposed on stage 3b chronic kidney disease ([facility]) N17.9, N18.32 ATN (acute tubular necrosis) N17.0 S/P laparotomy Z98.890 S/P left colectomy Z90.49 Acute respiratory failure with hypoxia ([facility]) J96.01 Colostomy care ([facility]) Z43.3 Abdominal pain R10.9 Colonic intussusception ([facility]) K56.1 ASSESSMENT/PLAN Bowel intussusception s/p exploratory surgery and bowel resection Pelvic abscess likely related to the previous surgery Antibiotic can be transitioned to oral cipro and doxy for one wk Dilip Arias MD, 01/05/2025 9:18 AM * Shara Huddleston, LADONNA - 01/05/2025 3:40 AM EDT Patient educated on how to use incentive spirometer. Patient verbalized understanding and demonstrated proper use. Emphasized importance and usage of device, with coughing and deep breathing every 2 hours while awake. * Ruel Caldera DO - 01/04/2025 6:01 PM EDT Images from the original note were not included. Hospitalist Progress Note Internal Medicine Resident Patient: Maria Elena Garner 64 y.o. female Unit/Bed: -004-A Admit Date: 12/30/2024 ASSESSMENT AND PLAN Active Problems Small bowel intussusception status post small bowel resection: Postop day 5. Sudden onset of acute severe abdominal pain at OSH. 01/01 NGT removed, 01/04 CT A/P: Large amount of ascites with pneumoperitoneum noted. Dilated and fluid- filled small bowel loops are seen. 01/04 body fluid culture grew Pseudomonas aeruginosa, Staph epidermidis, Klebsiella oxytoca Patient wishes to proceed with conservative treatment at this time per conversation with general surgery: Pain control 0.5, 1 mg hydromorphone, oxycodone acetaminophen 5-325 mg Continue dysphagia soft diet Antibiotics per ID: Cefepime 500 mg, linezolid 600 mg first dose 01/03 for both Plan to transition to ciprofloxacin oral at discharge likely plan 10-day total course given poor Zosyn susceptibility Microcytic anemia: Mild decline in H&H following surgery. H&H remains largely stable with prior trend Trend CBC HTN: Norvasc, Coreg continued. Patient home Cardura 1mg daily, clonidine 0.3mg Amlodipine 10, carvedilol 25 twice daily, clonidine 0.3 3 times daily, doxazosin/Cardura 2 mg, hydralazine 50 3 times daily Resolved Problems PATRICK on CKD: Baseline creatinine 1.6, Last HD was 12/26 currently creatinine is improving Hemodialysis per nephro HAGMA Chronic Conditions (reviewed and stable unless otherwise stated) Elevated troponin: Troponin downtrending, suspect demand ischemia in setting of above. EKG without acute ST/T wave changes. Noted. History of ischemic colitis: Status post prior Gómez's/end colostomy placement 12/12/2024 Thrombocytosis: Continue to monitor Chronic hypoxic respiratory failure: On 1L nc baseline on previous discharge. Iso COPD, ESRD with volume overload. Weaned to RA COPD: Not acutely exacerbated Continue Symbicort, spiriva GERD: Pepcid Chronic diastolic heart failure: ECHO 12/01/24 with EF 65-70%, G2DD. PATRICK requiring HD per above. Nephrology following Dialysis per nephrology Chronic pericardial effusion: Noted on previous ECHO 12/01/24, no evidence of tamponade physiology LDA: []CVC / []PICC / []Midline / []P[place]man / []Drains / []Mediport / [x]None Antibiotics: Cefepime 500 mg, linezolid 600 mg Steroids: None Labs (still needed?): [x]Yes / []No IVF (still needed?): []Yes / [x]No Level of care: []Step Down / [x]Med-Surg Bed Status: [x]Inpatient / []Observation Telemetry: []Yes / [x]No PT/OT: [x]Yes / []No DVT Prophylaxis: [] Lovenox / [x] Heparin / [] SCDs / [] Already on Systemic Anticoagulation / [] None Expected discharge date: TBD Disposition: TBD Code status: Full Code Chief Complaint: Abdominal pain Subjective (past 24 hours): Patient is experiencing a lot of abdominal pain, worsening yesterday evening. Continued bloating and pain in lower abdomen. Having difficulty with urination. HPI / Hospital Course: 64-year-old female with past medical history of COPD, hypertension, recent ischemic colitis status post left colectomy and colostomy, postop ATN with intrinsic PATRICK on CKD stage III on hemodialysis Sunday presents to [facility] as a direct admission from [facility] with a complaint of abdominal pain 01/03. Abdominal pain is localized to lower abdomen, dull/aching in quality initially rated a 10 out of 10 and improved with Dilaudid. Patient was recently treated for ischemic colitis requiring left colectomy and left colostomy 12/11/2024 and subsequently developed postop ATN requiringhemodialysis Sunday. Since then, she has been having worsening abdominal pain and d istention since last week and few bouts of nausea/vomiting nonbloody nonbilious. She had an outpatient abdominal x-ray completed 12/26 which revealed SBO and was instructed to come to ED for further evaluation on Sunday on 12/26. Patient did not follow instructions thinking it would pass on its ownhowever now she has severe abdominal pain with bloating for which she presented to [facility] ED prior to admission to [facility]. Patient otherwise denies shortness of breath, chest pain, headaches. ED course: In the ED patient was hypertensive 166/89 and tachypneic 21. Labs revealed elevated creatinine to 3.5, troponin 111->106, hemoglobin 11.2, lactate normal at 0.7. EKG revealed normal sinus rhythm. Chest x-ray showed revealed no acute cardiopulmonary process, small stable bilateral pleural effusions with right bilateral basilar atelectasis. CT abdomen pelvis reveals findings suggestive pneumotosis intestinalis and pneumatosis coli. Patient management including Dilaudid, and antibiotics including Zosyn were administered. Ultimately admitted for further management of pneumointestinalis and pneumatosis coli. General surgery is following. 12/29: Ex lap performed with small bowel resection secondary to intussusception 01/04: After talking with general surgery, patient decided to pursue conservative management ratherthan more surgery. Bladder scan revealed 10 cc of output. Repeat bladder scan in process. CT abdomen w/o contrast performed. Doxazosin/Cardura increased to 2 mg from 1 mg Active Medications: Infusion Medications sodium chloride Scheduled Medications [START ON 01/05/2025] doxazosin 2 mg Oral Daily linezolid 600 mg IntraVENous Q12H hydrALAZINE 50 mg Oral 3 times per day cefepime 500 mg IntraVENous Q24H cloNIDine 0.3 mg Oral TID nicotine 1 patch TransDERmal Q24H carvedilol 25 mg Oral BID epoetin kamryn-epbx 6,000 Units SubCUTAneous Once per day on Sunday sodium chloride flush 5-40 mL IntraVENous 2 times per day amLODIPine 10 mg Oral Daily atorvastatin 20 mg Oral Daily famotidine 20 mg Oral Daily budesonide-formoterol 2 puff Inhalation BID tiotropium 2 puff Inhalation Daily RT albuterol 2.5 mg Nebulization TID heparin (porcine) 5,000 Units SubCUTAneous BID naloxegol 12.5 mg Oral QAM AC PRN Meds: oxyCODONE-acetaminophen, HYDROmorphone OR HYDROmorphone, mupirocin, sodium chloride flush, sodium chloride, ondansetron OR ondansetron, polyethylene glycol, traZODone Exam: BP (!) 142/80 Pulse 72 Temp 98 ??F (36.7 ??C) (Oral) Resp 16 Ht 1.626 m (5' 4 ) Wt 38 kg (83 lb 12.8 oz) SpO2 93% BMI 14.38 kg/m?? General: No distress, appears stated age. Eyes: PERRL. Conjunctivae/corneas clear. HENT: Head normal appearing. Nares normal. Oral mucosa moist. Hearing intact. Neck: Supple, with full range of motion. Trachea midline. No gross JVD appreciated. Respiratory: Normal effort. Clear to auscultation, without rales or wheezes or rhonchi. Cardiovascular: Normal rate, regular rhythm with normal S1/S2 without murmurs. BLE edema 2+ Abdomen: Distention - mildly improved, ostomy without surrounding erythema/drainage Musculoskeletal: No joint swelling or tenderness. Normal tone. No abnormal movements. Skin: Warm and dry. No rashes or lesions. Neurologic: No focal sensory/motor deficits in the upper or lower extremities. Cranial nerves: grossly non-focal 2-12. Psychiatric: Alert and oriented, normal insight and thought content. Capillary Refill: Brisk,< 3 seconds. Peripheral Pulses: +2 palpable, equal bilaterally. Labs/Radiology: See chart or assessment above. Case was discussed with Attending, Narciso Middleton MD . Cosigned by Narciso Weiss MD at 01/05/2025 7:19 AM EDT * Evon Cardenas, ADVERTISING OPERATIONS COORDINATOR - SHEEP SORTER - 01/04/2025 3:17 PM EDT Per chart, patient with history of recent ischemic colitis with exploratory laparotomy with Gómez's procedure with end colostomy completed by Dr. Jefferson on 12/11/24 however subsequently transferred to [facility] for dialysis requirement with discharge on 12/19/2024. Unfortunately patient came back to the hospital on 12/29 secondary to abdominal bloating after dialysis with CT scan revealing pneumatosis intestinalis. She was then taken to the operating room with Dr. Whitaker for exploratory laparotomy with small bowel resection secondary to intussusception. Today, patient was evaluated by surgical team however secondary to worsening abdominal pain, CT imaging was ordered per hospitalist. She reports that her abdominal pain has worsened since yesterday evening. She reports continued bloating and pain to lower abdomen. She reports some nausea however novomiting. CT abdomen pelvis was completed per medicine team revealing bilateral moderate pleural effusions, large amount of ascites/fluid intra-abdominally as well as pneumoperitoneum. To room to evaluate patient, nurse at bedside obtaining vital signs which are temperature of 98, pulse 72, respirations 16, BP 142/80, SpO2 93% on room air. She reports 10 out of 10 abdominal pain. She has Aquacel dressing overlying midline incision and end colostomy to her left abdomen. Some mild gas, stool within the ostomy pouch. Abdomen is soft however lower abdominal tenderness with some mild guarding however would not classify any concerns for peritoneal signs. Discussed CT imaging with patient and concerns. Discussed with patient that Dr. Walton, general surgeon to review imaging and further evaluate patient. Above discussed with Dr. Radhames Walton DO. * Evgeny Glasgow MD - 01/04/2025 12:41 PM EDT [facility] Nephrology progress note 01/04/2025, 12:41 PM Pt Name: Maria Elena Garner Birthdate: 1960 Admit Date: 12/30/2024 3:36 AM Chief Complaint: Nephrology following for PATRICK secondary to ATN Subjective: Patient seen and examined No chest pain or shortness of breath Feels okay Objective: 24HR INTAKE/OUTPUT: Intake/Output Summary (Last 24 hours) at 01/04/2025 1241 Last data filed at 01/04/2025 0610 Gross per 24 hour Intake 240 ml Output 950 ml Net -710 ml Admission weight: 44.3 kg (97 lb 10.6 oz) Wt Readings from Last 3 Encounters: 01/02/25 38 kg (83 lb 12.8 oz) 12/19/24 41.6 kg (91 lb 11.4 oz) 12/13/24 44.5 kg (98 lb 1.7 oz) Vitals : Vitals: 01/04/25 1041 01/04/25 1111 01/04/25 1145 01/04/25 1157 BP: (!) 145/72 Pulse: 71 Resp: 16 16 16 Temp: TempSrc: SpO2: Weight: Height: Physical examination General Appearance: Well developed. No distress Mouth/Throat: Oral mucosa moist Neck: Supple, no JVD Lungs: Breath sounds: clear Heart:: S1,S2 heard Abdomen: Soft, non - tender Musculoskeletal: Edema -no significant edema Medications: Infusion: sodium chloride Meds: [START ON 01/05/2025] doxazosin 2 mg Oral Daily doxazosin 1 mg Oral NOW linezolid 600 mg IntraVENous Q12H hydrALAZINE 50 mg Oral 3 times per day cefepime 500 mg IntraVENous Q24H cloNIDine 0.3 mg Oral TID nicotine 1 patch TransDERmal Q24H carvedilol 25 mg Oral BID WC epoetin kamryn-epbx 6,000 Units SubCUTAneous Once per day on Sunday sodium chloride flush 5-40 mL IntraVENous 2 times per day amLODIPine 10 mg Oral Daily atorvastatin 20 mg Oral Daily famotidine 20 mg Oral Daily budesonide-formoterol 2 puff Inhalation BID tiotropium 2 puff Inhalation Daily RT albuterol 2.5 mg Nebulization TID heparin (porcine) 5,000 Units SubCUTAneous BID naloxegol 12.5 mg Oral QAM AC Lab Data : CBC: Recent Labs 01/02/25 0531 01/03/25 0733 01/04/25 0450 WBC 8.5 8.1 8.2 HGB 9.4* 10.0* 10.2* HCT 28.7* 30.2* 31.1* PLT 442* 491* 460* CMP: Recent Labs 01/02/25 0531 01/03/25 0733 01/04/25 0450 NA 133* 135 134* K 3.4* 4.1 3.6 CL 97* 100 98 CO2 25 26 24 BUN 32* 32* 30* CREATININE 1.9* 1.6* 1.6* GLUCOSE 76 114* 118* CALCIUM 8.1* 8.2* 7.8* MG 1.6 -- -- Hepatic: No results for input(s): LABALBU , AST , ALT , BILITOT , ALKPHOS in the last 72 hours. Invalid input(s): ALB Assessment and Plan: Renal -acute kidney injury secondary to ATN requiring dialysis Last HD was 12/26 currently creatinine is improving making urine dialysis catheter is removed Creatinine stable around 1.6 may be developing a new baseline Mild hyponatremia and hypokalemia appears to be better Essential hypertension Patient ischemic colitis Anemia of renal dysfunction stable show anticipate further improvement Acid-base status stable Meds reviewed and discussed with patient Evgeny Glasgow MD [facility] This report has been created using voice recognition software. It may contain minor errors which are inherent in voice recognition technology * Tacos Shannon APRN - CNP - 01/04/2025 11:10 AM EDT Images from the original note were not included. PARAMJIT NIEVES SHEEP SORTER for Dr. Radhames Walton covering for MD MACKENZIE Vieyra DR GENERAL SURGERY General Surgery Daily Progress Note Pt Name: Maria Elena Garner Date of 1960 Today's Date: 01/04/2025 ASSESSMENT Hospital day # 5 POD#5 Exp lap, small bowel resection for intussusception Intra abdoinal fluid postive to pseudomonas- present on admission History ischemic bowel PATRICK required dialysis has a past medical history of Anxiety, Carpal tunnel syndrome, Chronic pain, CKD (chronic kidney disease), COPD (chronic obstructive pulmonary disease) ([facility]), Depression, DJD (degenerative joint disease), Epilepsy ([facility]), Fibromyalgia, Hypercholesteremia, Hyperlipidemia, Hypertension, Left upper armpain, Lung mass, Osteoarthritis, Osteopenia, Rheumatoid arthritis (HCC), and Ruptured left breast implant. PLAN CT imaging ordered per hospitalist. Will await results. Continue soft diet Nephrology following. Last HD 12/26. Creat improving. Dialysis catheter removed 01/02. Medical management per hospitalist. UA ordered. Bladder scan PRN. Pain & nausea control as needed - adjustments made per attending Pathology reviewed. Benign findings. Infectious disease following. Antibiotics per their recommendations. Labs reviewed. Creat stable. WBC wnl. Ostomy functioning. Will await CT imaging for further evaluation and plan. SUBJECTIVE Patient seen. Resting in bed. Going down for CT imaging. VS reviewed. No fevers. On room air. States lower abdominal pain. Having trouble urinating. Bladder scan demonstrated 300 cc but straight cathonly provided 10 mls. Has tolerated diet. Some nausea but no vomiting. Taking Dilaudid for pain. CURRENT MEDICATIONS Scheduled Meds: linezolid 600 mg IntraVENous Q12H hydrALAZINE 50 mg Oral 3 times per day cefepime 500 mg IntraVENous Q24H cloNIDine 0.3 mg Oral TID doxazosin 1 mg Oral Daily nicotine 1 patch TransDERmal Q24H carvedilol 25 mg Oral BID WC epoetin kamryn-epbx 6,000 Units SubCUTAneous Once per day on Sunday sodium chloride flush 5-40 mL IntraVENous 2 times per day amLODIPine 10 mg Oral Daily atorvastatin 20 mg Oral Daily famotidine 20 mg Oral Daily budesonide-formoterol 2 puff Inhalation BID tiotropium 2 puff Inhalation Daily RT albuterol 2.5 mg Nebulization TID heparin (porcine) 5,000 Units SubCUTAneous BID naloxegol 12.5 mg Oral QAM AC Continuous Infusions: sodium chloride PRN Meds:.oxyCODONE-acetaminophen, mupirocin, sodium chloride flush, sodium chloride, ondansetron OR ondansetron, polyethylene glycol, traZODone, HYDROmorphone OR HYDROmorphone OBJECTIVE CURRENT VITALS: height is 1.626 m (5' 4 ) and weight is 38 kg (83 lb 12.8 oz). Her oral temperatureis 98.8 ??F (37.1 ??C). Her blood pressure is 178/89 (abnormal) and her pulse is 85. Her respiration is 16 and oxygen saturation is 95%. Temperature Range (24h):Temp: 98.8 ??F (37.1 ??C) Temp Av.4 ??F (36.9 ??C) Min: 98 ??F (36.7 ??C) Max: 98.8 ??F (37.1 ??C) BP Range (24h): Systolic (24hrs), Av , Min:148 , Max:183 Diastolic (24hrs), Av, Min:65, Max:89 Pulse Range (24h): Pulse Av.6 Min: 70 Max: 85 Respiration Range (24h): Resp Av.8 Min: 12 Max: 22 Current Pulse Ox (24h): SpO2: 95 % Pulse Ox Range (24h): SpO2 Av.3 % Min: 93 % Max: 100 % Oxygen Amount and Delivery: O2 Flow Rate (L/min): 1 L/min Incentive Spirometry Tx: Physical Exam Constitutional: Appearance: Normal appearance. She is ill-appearing (chronically). Eyes: Pupils: Pupils are equal, round, and reactive to light. Cardiovascular: Rate and Rhythm: Normal rate. Pulses: Normal pulses. Abdominal: Palpations: There is no mass. Tenderness: There is abdominal tenderness in the suprapubic area. Hernia: No hernia is present. Comments: Decreased distension, incision clean and intact. Ostomy functioning. Neurological: Mental Status: She is alert and oriented to person, place, and time. In: 480 [P.O.:480] Out: 950 [Urine:750] Date 01/04/25 0000 - 01/04/252358 Shift 3182-3594 4239-2659 1070-7544 24 Hour Total INTAKE Shift Total(mL/kg) OUTPUT Urine(mL/kg/hr) 600(2) 600 Shift Total(mL/kg) 600(15.8) 600(15.8) Weight (kg) 38 38 38 38 LABS Recent Labs 01/02/25 0531 01/03/25 0733 01/04/25 0450 WBC 8.5 8.1 8.2 HGB 9.4* 10.0* 10.2* HCT 28.7* 30.2* 31.1* PLT 442* 491* 460* NA 133* 135 134* K 3.4* 4.1 3.6 CL 97* 100 98 CO2 25 26 24 BUN 32* 32* 30* CREATININE 1.9* 1.6* 1.6* MG 1.6 -- -- CALCIUM 8.1* 8.2* 7.8* PATHOLOGY REPORT FINAL DIAGNOSIS: Part A: Small bowel, implant, biopsy: Benign simple cyst, compatible with mesothelial cyst. No evidence of malignancy present. Part B: Small bowel, excision: Gross findings compatible with intussusception. Benign small bowel mucosa with mild edema and focal mild acute serositis. No evidence of dysplasia or malignancy identified. * Radhames Rey RN - 01/04/2025 7:08 AM EDT Patient complained of increasing pressure in bladder. Straight cath per order. Only 10 ml output. Possibly scanning the fluid collection instead of bladder. * Balbir Larson DO - 01/03/2025 12:59 PM EDT Images from the original note were not included. Balbir Larson DO for MD MACKENZIE Cordero DR GENERAL SURGERY General Surgery Daily Progress Note Pt Name: Maria Elena Garner Date of 1960 Today's Date: 01/03/2025 Chief complaint: feeling better ASSESSMENT Hospital day # 4 POD 4 ex lap, small bowel resection for intussusception Intra abdoinal fluid postive to pseudomonas- present on admission History ischemic bowel ESRD on dialysis has a past medical history of Anxiety, Carpal tunnel syndrome, Chronic pain, CKD (chronic kidney disease), COPD (chronic obstructive pulmonary disease) ([facility]), Depression, DJD (degenerative joint disease), Epilepsy ([facility]), Fibromyalgia, Hypercholesteremia, Hyperlipidemia, Hypertension, Left upper armpain, Lung mass, Osteoarthritis, Osteopenia, Rheumatoid arthritis ([facility]), and Ruptured left breast implant. PLAN IV hydration NG tube has been discontinued Continue soft diet Pathology pending Infectious disease has been consulted for pelvic abscesses. Currently on Cefepime, they added Zyvox Hopeful discharge home tomorrow SUBJECTIVE Patient seen and examined. No acute events overnight. Has tolerated diet. + Flatus, + BM CURRENT MEDICATIONS Scheduled Meds: linezolid 600 mg IntraVENous Q12H hydrALAZINE 50 mg Oral 3 times per day cefepime 500 mg IntraVENous Q24H cloNIDine 0.3 mg Oral TID doxazosin 1 mg Oral Daily nicotine 1 patch TransDERmal Q24H carvedilol 25 mg Oral BID WC epoetin kamryn-epbx 6,000 Units SubCUTAneous Once per day on Sunday sodium chloride flush 5-40 mL IntraVENous 2 times per day amLODIPine 10 mg Oral Daily atorvastatin 20 mg Oral Daily famotidine 20 mg Oral Daily budesonide-formoterol 2 puff Inhalation BID tiotropium 2 puff Inhalation Daily RT albuterol 2.5 mg Nebulization TID heparin (porcine) 5,000 Units SubCUTAneous BID naloxegol 12.5 mg Oral QAM AC Continuous Infusions: sodium chloride PRN Meds:.HYDROcodone 5 mg - acetaminophen, mupirocin, sodium chloride flush, sodium chloride, ondansetron OR ondansetron, polyethylene glycol, traZODone, HYDROmorphone OR HYDROmorphone OBJECTIVE CURRENT VITALS: height is 1.626 m (5' 4 ) and weight is 38 kg (83 lb 12.8 oz). Her oral temperatureis 97.9 ??F (36.6 ??C). Her blood pressure is 150/76 (abnormal) and her pulse is 76. Her respiration is 18 and oxygen saturation is 93%. Temperature Range (24h):Temp: 97.9 ??F (36.6 ??C) Temp Av.3 ??F (36.8 ??C) Min: 97.7 ??F (36.5??C) Max: 99.2 ??F (37.3 ??C) BP Range (24h): Systolic (24hrs), Av , Min:140 , Max:173 Diastolic (24hrs), Av, Min:76, Max:94 Pulse Range (24h): Pulse Av.8 Min: 72 Max: 88 Respiration Range (24h): Resp Av.8 Min: 16 Max: 20 Current Pulse Ox (24h): SpO2: 93 % Pulse Ox Range (24h): SpO2 Av.1 % Min: 90 % Max: 95 % Oxygen Amount and Delivery: O2 Flow Rate (L/min): 1 L/min Incentive Spirometry Tx: Physical Exam Constitutional: Appearance: Normal appearance. Eyes: Pupils: Pupils are equal, round, and reactive to light. Cardiovascular: Rate and Rhythm: Normal rate. Pulses: Normal pulses. Abdominal: Palpations: There is no mass. Hernia: No hernia is present. Comments: Decreased distension, incision clean and intact. Neurological: Mental Status: She is alert and oriented to person, place, and time. In: 766.4 [P.O.:720; I.V.:5] Out: 500 [Urine:200] LABS Recent Labs 01/01/25 0515 01/02/25 0531 01/03/25 0733 WBC 9.4 8.5 8.1 HGB 9.4* 9.4* 10.0* HCT 29.4* 28.7* 30.2* PLT 453* 442* 491* NA 134* 133* 135 K 3.6 3.4* 4.1 CL 96* 97* 100 CO2 23 25 26 BUN 35* 32* 32* CREATININE 2.6* 1.9* 1.6* MG -- 1.6 -- CALCIUM 8.1* 8.1* 8.2* No results for input(s): INR in the last 72 hours. Invalid input(s): PT , PTT No results for input(s): AST , ALT , BILITOT , BILIDIR , AMYLASE , LIPASE , LDH , LACTA inthe last 72 hours. No results for input(s): TROPONINT in the last 72 hours. * Evgeny Glasgow MD - 01/03/2025 12:06 PM EDT [facility] Nephrology progress note 01/03/2025, 12:06 PM Pt Name: Maria Elena Garner Birthdate: 1960 Admit Date: 12/30/2024 3:36 AM Chief Complaint: Nephrology following for PATRICK secondary to ATN Subjective: Patient seen and examined No chest pain or shortness of breath Feels okay Objective: 24HR INTAKE/OUTPUT: Intake/Output Summary (Last 24 hours) at 01/03/2025 1206 Last data filed at 01/02/20252045 Gross per 24 hour Intake 5 ml Output 300 ml Net -295 ml Admission weight: 44.3 kg (97 lb 10.6 oz) Wt Readings from Last 3 Encounters: 01/02/25 38 kg (83 lb 12.8 oz) 12/19/24 41.6 kg (91 lb 11.4 oz) 12/13/24 44.5 kg (98 lb 1.7 oz) Vitals : Vitals: 01/03/25 0412 01/03/25 0745 01/03/25 0832 01/03/25 0908 BP: (!) 173/94 Pulse: 88 Resp: Temp: 97.9 ??F (36.6 ??C) TempSrc: Oral SpO2: 95% 93% Weight: Height: Physical examination General Appearance: Well developed. No distress Mouth/Throat: Oral mucosa moist Neck: Supple, no JVD Lungs: Breath sounds: clear Heart:: S1,S2 heard Abdomen: Soft, non - tender Musculoskeletal: Edema -no significant edema Medications: Infusion: sodium chloride Meds: linezolid 600 mg IntraVENous Q12H hydrALAZINE 50 mg Oral 3 times per day cefepime 500 mg IntraVENous Q24H cloNIDine 0.3 mg Oral TID doxazosin 1 mg Oral Daily nicotine 1 patch TransDERmal Q24H carvedilol 25 mg Oral BID WC epoetin kamryn-epbx 6,000 Units SubCUTAneous Once per day on Sunday sodium chloride flush 5-40 mL IntraVENous 2 times per day amLODIPine 10 mg Oral Daily atorvastatin 20 mg Oral Daily famotidine 20 mg Oral Daily budesonide-formoterol 2 puff Inhalation BID tiotropium 2 puff Inhalation Daily RT albuterol 2.5 mg Nebulization TID heparin (porcine) 5,000 Units SubCUTAneous BID naloxegol 12.5 mg Oral QAM AC Lab Data : CBC: Recent Labs 01/01/25 0515 01/02/25 0531 01/03/25 0733 WBC 9.4 8.5 8.1 HGB 9.4* 9.4* 10.0* HCT 29.4* 28.7* 30.2* PLT 453* 442* 491* CMP: Recent Labs 01/01/25 0515 01/02/25 0531 01/03/25 0733 NA 134* 133* 135 K 3.6 3.4* 4.1 CL 96* 97* 100 CO2 23 25 26 BUN 35* 32* 32* CREATININE 2.6* 1.9* 1.6* GLUCOSE 79 76 114* CALCIUM 8.1* 8.1* 8.2* MG -- 1.6 -- Hepatic: No results for input(s): LABALBU , AST , ALT , BILITOT , ALKPHOS in the last 72 hours. Invalid input(s): ALB Assessment and Plan: Renal -acute kidney injury secondary to ATN requiring dialysis Last HD was 12/26 currently creatinine is improving making urine dialysis catheter is removed Closely monitor Mild hyponatremia and hypokalemia appears to be better Essential hypertension Patient ischemic colitis Anemia of renal dysfunction stable show anticipate further improvement Acid-base status stable Meds reviewed and discussed with patient Evgeny Glasgow MD [facility] This report has been created using voice recognition software. It may contain minor errors which are inherent in voice recognition technology * Narciso Weiss MD - 01/03/2025 7:30 AM EDT [place] Hospitalist PROGRESS NOTE dictated by Narciso Weiss MD on 01/03/2025 Patient ID: Maria Elena Garner is 64 y.o. and presently in room 5K-04/004-A : 1960 Admit date: 12/30/2024 Primary Care Physician: Omar Murrell APRN - CNP Patient Care Team: Omar Murrell APRN - CNP as PCP - General (Family Medicine) Omar Murrell APRN - CNP as PCP - Empaneled Provider Admitting Physician: Anish Georges MD Code Status: Full Code Maria Elena Garner is a 64 y.o. female who presented with No chief complaint on file. Room: [address] [place] [address]A Admit date: 12/30/2024 Chief Complaint: Abdominal pain History Of Present Illness: Maria Elena Garner is a 64 y.o. female with PMHx of COPD, hypertension, GERD, recent ischemic colitis s/p left colectomy and end colostomy, postop ATN with intrinsic PATRICK on CKD stage III on hemodialysis MWF who presents to [facility] as a direct admission from [facility] with a complaint of abdominal pain. Abdominal pain is localized to the lower abdomen, dull/achy in quality,initially rated 10/10 and improved with dilaudid while in patient.Patient was recently treated for ischemic colitis requiring left colectomy and left colostomy 12/11/2024 and subsequently developed postop ATN requiring hemodialysis MWF. She has been having worsening abdominal pain and distention since last week associated with a few bouts of nausea/vomiting nonbloody, nonbilious. [facility] which revealed SBO and was instructed to come to EDfor further evaluation Sunday on 12/26. Patient however not follow instructions, thinking it would pass on its own however now she has severe abdominal pain with bloating for which she presented to [facility] ED prior to admission to [facility]. Patient otherwise denies SOB, chest pain, fever/chills, headaches, vision changes. ED course: In the ED patient was hypertensive 166/89 and tachypneic 21. Labs revealed elevated creatinine 3.5, troponin 111->106, hemoglobin 11.2, lactate normal at 0.7. EKG revealed NSR. CXR revealed no acute cardiopulmonary process, small stable bilateral pleural effusions with bibasilar atelectasis. CT A/P revealed findings suggestive of pneumatosis intestinalis and pneumatosis coli, bowel ischemia cannot be excluded. Patient management pain meds including Dilaudid and antibiotics Zosyn, ultimately admitted for further management of pneumatosis intestinalis and pneumatosis coli with bowel ischemia not excluded. General Surgery Dr. Whitakre already following. 01/03/2025: Patient with history of chronic respiratory failure on 1 L O2 nasal cannula tolerating diet post small bowel resection for small bowel intussusception. Patient has some postop abdominal discomfort. Denies chest pain, shortness of breath or cough. Presently on cefepime. Body fluid from abdomen positive for Pseudomonas aeruginosa, Staphylococcus epidermidis and Klebsiella oxytoca. Dr. Salas, ID consulted added Zyvox pending culture report forthe pelvic abscess. WBC normal at 8.1. Hemoglobin stable at 10.1. GFR improved at 36, BUN 32 and creatinine 1.6. Potassium normalized at 4.1. Per Sandra Martinez RN patient thinks Percocet causing stomach upset so changed to [place]. Disposition: [] Home with [facility] (Home Health Care) Assessment: Principal Problem: Abdominal pain Active Problems: Ischemic bowel disease PATRICK (acute kidney injury) ATN (acute tubular necrosis) Colonic intussusception (HCC) Resolved Problems: * No resolved hospital problems. * Elevated troponins 107/106 on 12/30 Small bowel intussusception: post ex-lap/small bowel resection. Sudden onset of acute severe abdominal pain at OSH. CTAP performed consistent with pneumatosis concerning for ischemic bowel. Transferred to [facility] due to dialysis need. NGT removed 01/01/25 Hx ischemic colitis: S/p prior Gómez's/end colostomy placement 12/12/24 OSH Elevated troponin: Suspect demand ischemia iso above. EKG without acute ST/T wave changes. No CP. Microcytic anemia: Noted, mild decline in H&H following surgery. #PATRICK on CKD: Secondary to post-op ATN. Requiring HD, though last 12/26/24. TDC removal 01/02/25 HAGMA: Resolved. Bicarb tabs stopped per nephrology Chronic hypoxic respiratory failure: 1L nc baseline on previous discharge. COPD: Not acutely exacerbated #GERD: Pepcid Chronic diastolic heart failure: ECHO 12/01/24 with EF 65-70%. G2 DD. Chronic pericardial effusion: Noted on previous ECHO 12/01/24, no evidence of tamponade HTN Exploratory lap with small bowel resection 12/30/2024. Plan: On cefepime and Zyvox per ID. ID consulted. Nephrology following. Surgery following. ADULT DIET; Dysphagia - Soft and Bite Sized Continuous Infusions: sodium chloride linezolid, 600 mg, Q12H hydrALAZINE, 50 mg, 3 times per day cefepime, 500 mg, Q24H cloNIDine, 0.3 mg, TID doxazosin, 1 mg, Daily nicotine, 1 patch, Q24H carvedilol, 25 mg, BID WC epoetin kamryn-epbx, 6,000 Units, Once per day on Sunday sodium chloride flush, 5-40 mL, 2 times per day amLODIPine, 10 mg, Daily atorvastatin, 20 mg, Daily famotidine, 20 mg, Daily budesonide-formoterol, 2 puff, BID tiotropium, 2 puff, Daily RT albuterol, 2.5 mg, TID heparin (porcine), 5,000 Units, BID naloxegol, 12.5 mg, QAM AC Code Status: Full Code Heparin sc for pharmacologic DVT prophylaxis. IP CONSULT TO GENERAL SURGERY IP CONSULT TO NEPHROLOGY IP CONSULT TO SOCIAL WORK IP CONSULT TO INFECTIOUS DISEASES /O (24Hr): Intake/Output Summary (Last 24 hours) at 01/03/2025 1305 Last data filed at 01/02/2025 2046 Gross per 24 hour Intake 5 ml Output 300 ml Net -295 ml Patient Vitals for the past 96 hrs (Last 3 readings): Weight 01/02/25 0400 38 kg (83 lb 12.8 oz) 01/02/25 0255 38 kg (83 lb 12.8 oz) 01/01/25 0400 37.6 kg (83 lb) Admission weight: 44.3 kg (97 lb 10.6 oz) Wt Readings from Last 3 Encounters: 01/02/25 38 kg (83 lb 12.8 oz) 12/19/24 41.6 kg (91 lb 11.4 oz) 12/13/24 44.5 kg (98 lb 1.7 oz) (encounters) Vitals: 01/03/25 0745 01/03/25 0832 01/03/25 0908 01/03/25 1251 BP: (!) 173/94 (!) 150/76 Pulse: 88 76 Resp: 18 18 Temp: 97.9 ??F (36.6 ??C) TempSrc: Oral SpO2: 95% 93% Weight: Height: CBC: Recent Labs 01/01/25 0515 01/02/25 0531 01/03/25 0733 WBC 9.4 8.5 8.1 RBC 3.68* 3.66* 3.86* HGB 9.4* 9.4* 10.0* HCT 29.4* 28.7* 30.2* MCV 79.9* 78.4* 78.2* MCH 25.5* 25.7* 25.9* MCHC 32.0* 32.8 33.1 PLT 453* 442* 491* MPV 8.9* 8.6* 8.9* MAG: Recent Labs 01/02/25 0531 MG 1.6 CMP: Recent Labs 01/01/25 0515 01/02/25 0531 01/03/25 0733 NA 134* 133* 135 K 3.6 3.4* 4.1 CL 96* 97* 100 CO2 23 25 26 BUN 35* 32* 32* CREATININE 2.6* 1.9* 1.6* GLUCOSE 79 76 114* CALCIUM 8.1* 8.1* 8.2* No results for input(s): LIPASE , AMYLASE in the last 72 hours. Phosphorus: No results for input(s): PHOS in the last 72 hours. Folate and B12: Lab Results Component Value Date [id number] > 2000 (H) 12/31/2024 , Lab Results Component Value Date FOLATE 15.4 12/31/2024 Thyroid Studies: Lab Results Component Value Date TSH 0.55 09/10/2024 D-Dimer: Lab Results Component Value Date DDIMER 0.83 (H) 05/17/2022 Lactic acid: No components found for: LACT Troponin T No results for input(s): TROPHS in the last 72 hours. Patient Active Problem List Diagnosis PAD (peripheral artery disease) Chronic anxiety Essential hypertension Insomnia COPD (chronic obstructive pulmonary disease) ([facility]) Smoking greater than 30 pack years Osteoarthritis of cervical spine Dyslipidemia Positive FIT (fecal immunochemical test) Neuropathic pain Chronic hip pain, bilateral Fibromyalgia Chest wall pain Ruptured left breast implant Left upper arm pain Axillary lymphadenopathy Localized enlarged lymph nodes Personal history of breast implant removal Dysthymia Hypertensive emergency Right otitis media Acute renal insufficiency Chronic diastolic HF (heart failure), NYHA class 3 ([facility]) Hypertension Uncontrolled hypertension Chronic renal impairment Severe malnutrition Hypertensive urgency Pericardial effusion, acute Gastroesophageal reflux disease Hyponatremia Constipation Abdominal discomfort Hypervolemia Abdominal distension Generalized weakness Congestive heart failure (HCC) Intractable abdominal pain Ischemic bowel disease Leucocytosis Smoker PATRICK (acute kidney injury) Acute ischemic colitis Acute abdominal pain Acute kidney injury superimposed on stage 3b chronic kidney disease (HCC) ATN (acute tubular necrosis) S/P laparotomy S/P left colectomy Acute respiratory failure with hypoxia (HCC) Colostomy care (HCC) Abdominal pain Colonic intussusception (HCC) PAST MEDICAL HISTORY has a past medical history of Anxiety, Carpal tunnel syndrome, Chronic pain, CKD (chronic kidney disease), COPD (chronic obstructive pulmonary disease) (HCC), Depression, DJD (degenerative joint disease), Epilepsy (HCC), Fibromyalgia, Hypercholesteremia, Hyperlipidemia, Hypertension, Left upper armpain, Lung mass, Osteoarthritis, Osteopenia, Rheumatoid arthritis (HCC), and Ruptured left breast implant. SURGICAL HISTORY has a past surgical history that includes Hysterectomy; Breast enhancement surgery; Cholecystectomy; Colonoscopy; Carpal tunnel release (Left, 04/02/2017); pr neuroplasty &/transpos median nrv carpal tunne (Left, 04/02/2017); Breast enhancement surgery (Bilateral, 10/19/2021); Breast surgery (Right, 07/18/2022); laparotomy (N/A, 12/11/2024); and laparotomy (N/A, 12/30/2024). CURRENT MEDICATIONS linezolid, 600 mg, Q12H hydrALAZINE, 50 mg, 3 times per day cefepime, 500 mg, Q24H cloNIDine, 0.3 mg, TID doxazosin, 1 mg, Daily nicotine, 1 patch, Q24H carvedilol, 25 mg, BID WC epoetin kamryn-epbx, 6,000 Units, Once per day on Sunday sodium chloride flush, 5-40 mL, 2 times per day amLODIPine, 10 mg, Daily atorvastatin, 20 mg, Daily famotidine, 20 mg, Daily budesonide-formoterol, 2 puff, BID tiotropium, 2 puff, Daily RT albuterol, 2.5 mg, TID heparin (porcine), 5,000 Units, BID naloxegol, 12.5 mg, QAM AC Continuous Infusions: sodium chloride PRN: HYDROcodone 5 mg - acetaminophen, 1 tablet, Q4H PRN mupirocin, , PRN sodium chloride flush, 5-40 mL, PRN sodium chloride, , PRN ondansetron, 4 mg, Q8H PRN Or ondansetron, 4 mg, Q6H PRN polyethylene glycol, 17 g, Daily PRN traZODone, 50 mg, Nightly PRN HYDROmorphone, 0.5 mg, Q3H PRN Or HYDROmorphone, 1 mg, Q3H PRN HOME MEDICATIONS Medications Prior to Admission: simethicone (MYLICON) 80 MG chewable tablet, Take 1 tablet by mouth4 times daily as needed for Flatulence ondansetron (ZOFRAN-ODT) 4 MG disintegrating tablet, Take 1 tablet by mouth 3 times daily as neededfor Nausea or Vomiting carvedilol (COREG) 25 MG tablet, Take 0.5 tablets by mouth 2 times daily (with meals) polyethylene glycol (GLYCOLAX) 17 g packet, Take 1 packet by mouth daily doxazosin (CARDURA) 2 MG tablet, Take 0.5 tablets by mouth daily amLODIPine (NORVASC) 10 MG tablet, Take 1 tablet by mouth daily aspirin (ASPIRIN LOW DOSE) 81 MG EC tablet, Take 1 tablet by mouth daily atorvastatin (LIPITOR) 20 MG tablet, Take 1 tablet by mouth daily buPROPion (WELLBUTRIN XL) 150 MG extended release tablet, Take 1 tablet by mouth every morning famotidine (PEPCID) 20 MG tablet, Take 1 tablet by mouth 2 times daily lactulose (CHRONULAC) 10 GM/15ML solution, Take 15 mLs by mouth every evening albuterol sulfate HFA (PROVENTIL;VENTOLIN;PROAIR) 108 (90 Base) MCG/ACT inhaler, Inhale 2 puffs into the lungs every 6 hours as needed for Wheezing senna (SENOKOT) 8.6 MG TABS tablet, TAKE 2 TABLETS BY MOUTH NIGHTLY docusate (COLACE, DULCOLAX) 100 MG CAPS, Take 100 mg by mouth 2 times daily traZODone (DESYREL) 100 MG tablet, Take 0.5 tablets by mouth nightly as needed for Sleep cloNIDine (CATAPRES) 0.3 MG tablet, Take 1 tablet by mouth 3 times daily tiotropium (SPIRIVA RESPIMAT) 2.5 MCG/ACT AERS inhaler, Inhale 2 puffs into the lungs daily SYMBICORT 160-4.5 MCG/ACT AERO, Inhale 2 puffs into the lungs 2 times daily Acetaminophen Extra Strength 500 MG TABS, TAKE 1 TABLET BY MOUTH EVERY 6 HOURS NEEDED FOR PAIN Handicap Placard MISC, by Does not apply route Trouble walking more than 200ft. Need- 5 years [Paused] losartan (COZAAR) 50 MG tablet, Take 1 tablet by mouth daily (Patient not taking: No sig reported) [Paused] furosemide (LASIX) 40 MG tablet, Take 1 tablet by mouth daily (Patient not taking: No sig reported) [Paused] hydrALAZINE (APRESOLINE) 100 MG tablet, Take 1 tablet by mouth every 8 hours (Patient not taking: No sig reported) Nebulizers (COMPRESSOR/NEBULIZER) MISC, Use to give medication as directed ALLERGIES is allergic to environmental/seasonal. Allergies Allergen Reactions Environmental/Seasonal Cough SOCIAL HISTORY reports that she has been smoking cigarettes. She started smoking about 45 years ago. She has a 45.2 pack-year smoking history. She has never used smokeless tobacco. She reports that she does not currently use alcohol. She reports that she does not use drugs. Body mass index is 14.38 kg/m??. Pulse Ox: SpO2 Av.1 % Min: 90 % Max: 95 % Supplemental O2: O2 Flow Rate (L/min): 1 L/min Oxygen Therapy SpO2: 93 % Pulse Oximeter Device Mode: Intermittent Pulse Oximeter Device Location: Right, Finger Oximetry Probe Site Changed: Yes O2 Device: None (Room air) O2 Flow Rate (L/min): 1 L/min FiO2 : 24 % Skin Assessment: Clean, dry, & intact Vitals reviewed. H&N: normocephalic, anicteric, no conjunctivitis, no exophthalmos, nose and ears appear normal,trachea mid line, no stridor, Chest: fairly good air entry, no wheezes, Heart: normal heart sounds, regular rate and rhythm, no gallops or rubs, Abdomen: BS present, non-tender, no masses or organomegaly detected, Extremities: no peripheral edema, no cyanosis. no oncholysis. Skin: no rash, no jaundice, [employer]: grossly normal without cranial nerve deficits, no abnormal coordination or tone, Psychiatric: LABS: ABGs: No results for input(s): PHART , PO2ART , [id number] , EXC6FOD , BEART , [id number] , [id number] in the last 72 hours. CBC: Recent Labs 01/01/2551401/02/2553001/03/2533 WBC 9.4 8.5 8.1 RBC 3.68* 3.66* 3.86* HGB 9.4* 9.4* 10.0* HCT 29.4* 28.7* 30.2* MCV 79.9* 78.4* 78.2* MCH 25.5* 25.7* 25.9* MCHC 32.0* 32.8 33.1 PLT 453* 442* 491* MPV 8.9* 8.6* 8.9* MAG: Recent Labs 01/02/25530 MG 1.6 CMP: Recent Labs 01/01/2551401/02/2553001/03/2533 NA 134* 133* 135 K 3.6 3.4* 4.1 CL 96* 97* 100 CO2 23 25 26 BUN 35* 32* 32* CREATININE 2.6* 1.9* 1.6* GLUCOSE 79 76 114* CALCIUM 8.1* 8.1* 8.2* No results for input(s): LIPASE , AMYLASE in the last 72 hours. Phosphorus: No results for input(s): PHOS in the last 72 hours. Albumin: No results for input(s): LABALBU in the last 72 hours. UA:No results for input(s): SPECGRAV , PHUR , COLORU , CLARITYU , MUCUS , PROTEINU , BLOODU , RBCUA , WBCUA , BACTERIA , NITRU , GLUCOSEU , BILIRUBINUR , UROBILINOGEN , KETUA , LABCAST , LABCASTTY , AMORPHOS in the last 72 hours. Invalid input(s): CRYSTALS Micro: No results found for: BC No results for input(s): INR in the last 72 hours. Lab Results Component Value Date DDIMER 0.83 (H) 05/17/2022 No results found for: BNP troponins Lab Results Component Value Date TROPONINI NOT REPORTED 08/26/2013 D Dimer: No results for input(s): DDIMER in the last 72 hours. Troponin T No results for input(s): TROPONINT in the last 72 hours. ProBNP No results found for requested labs within last 30 days. ProBNP Invalid input(s): PRO-BNP Lactic acid:Invalid input(s): LACTIC ACID PT/INR: No results for input(s): PROTIME , INR in the last 72 hours. APTT: No results for input(s): APTT in the last 72 hours. ESR: Lab Results Component Value Date SEDRATE 23 09/12/2024 CRP: Lab Results Component Value Date CRP <3.0 02/15/2022 Folate and B12: Lab Results Component Value Date [id number] > 2000 (H) 12/31/2024 , Lab Results Component Value Date FOLATE 15.4 12/31/2024 Thyroid Studies: Lab Results Component Value Date TSH 0.55 09/10/2024 D-Dimer: Lab Results Component Value Date DDIMER 0.83 (H) 05/17/2022 Lactic acid: No components found for: LACT Troponin T No results for input(s): TROPHS in the last 72 hours. Troponins: No components found for: TROP Lab Results Component Value Date TROPONINI NOT REPORTED 08/26/2013 No results found for requested labs within last 30 days. Cardiac Enzymes: No results found for requested labs within last 30 days. Lab Results Component Value Date CKMB 1.6 01/15/2016 ProBNP: No components found for: NTBNP Urine Sodium: No components found for: MICHEL Urine Potassium: Lab Results Component Value Date/Time KUR 30.2 12/13/2024 10:08 AM Urine Chloride: Lab Results Component Value Date/Time CLUR 69 12/13/2024 10:08 AM Urine Osmolarity: Lab Results Component Value Date/Time OSMOU 359 09/29/2024 07:48 PM Urine Protein: No results found for: TPU Urine Creatinine: No results found for: LABCREA Urine Eosinophils: No components found for: UEOS Thyroid Studies: No results found for: T4 No results found for: T3 Lab Results Component Value Date/Time TSH 0.55 09/10/2024 03:53 PM Lab Results Component Value Date TSH 0.55 09/10/2024 HbA1c No components found for: [facility]1CC Lipids: Lab Results Component Value Date HDL 84 08/15/2021 LDL 81 08/15/2021 VLDL NOT REPORTED 03/15/2020 CRP: Lab Results Component Value Date CRP <3.0 02/15/2022 ESR: Lab Results Component Value Date SEDRATE 23 09/12/2024 Folate and B12: Lab Results Component Value Date ALYWLPKN23 > 2000 (H) 12/31/2024 , Lab Results Component Value Date FOLATE 15.4 12/31/2024 Blood Culture: No results for input(s): BC , BLOODCULT2 , ORG in the last 72 hours. GRAM STAIN No results for input(s): LABGRAM , LABANAE , ORG , WNDABS in the last 72 hours. Resp Culture Brief : No results found for: CULTRESP Body Fluid : No results found for: BFCX MRSA : No results found for: MRSAC Urine Culture Brief : Lab Results Component Value Date/Time LABURIN No growth-preliminary No growth 12/14/2024 03:00 AM Organism Brief : Lab Results Component Value Date/Time ORG Pseudomonas aeruginosa 12/30/2024 01:35 PM ORG Staphylococcus epidermidis 12/30/2024 01:35 PM ORG Klebsiella oxytoca 12/30/2024 01:35 PM IR FLUORO GUIDED CVA DEVICE PLMT/REPLACE/REMOVAL Result Date: 01/02/2025 TUNNELED DIALYSIS CATHETER REMOVAL: CLINICAL INFORMATION: Renal function improved. No longer needs dialysis. PERFORMED BY: Specials technologist Mima Cutler CATHETER: 15.5 Haitian Titan, tunneled dialysis catheter, 28 CM. INSERTION SITE: Right internal jugular vein ESTIMATED BLOOD LOSS: Minimal TE CHNIQUE: Signed informed consent was obtained prior to performing this procedure. The exposed portion of the catheter and surrounding skin were prepped and draped in sterile fashion. Following local anesthesia and utilizing aseptic technique, the cuff of the catheter was released from the subcutaneous tunnel by blunt dissection. The catheter was then removed and hemostasis was obtained with manual pressure. A small amount of antibiotic ointment was applied to the wound site along with a sterileOpSite dressing. The patient tolerated the procedure well. Status post successful tunneled Dialysis catheter removal. This report has been created using voice recognition software. It may contain minor errors which are inherent in voice recognition technology. Electronically signed by Dr. Frederick LORA NECK SOFT TISSUE Result Date: 12/31/2024 1 views soft tissue neck Comparison: None provided Findings No acute fractures or dislocation. Normal epiglottis. Prevertebral soft tissues within normal limits. No definite radiodense foreign body identified. Presumed nasogastric tube is in place. Extensive multilevel cervical spine arthropathy. No acute findings. This document has been electronically signed by: Noah Ricketts MD on 12/31/2024 11:[address] ABDOMEN PELVIS WO CONTRAST Additional Contrast? None Result Date: 12/29/2024 EXAMINATION: CT OF THE ABDOMEN AND PELVIS WITHOUT CONTRAST 12/29/2024 9:34 pm TECHNIQUE: CT of the abdomen and pelvis was performed without the administration of intravenous contrast. Multiplanar reformatted images are provided for review. Automated exposure control, iterative reconstruction, and/or weight based adjustment of the mA/kV was utilized to reduce the radiation dose to as low as reasonably achievable. COMPARISON: None. HISTORY: ORDERING SYSTEM PROVIDED HISTORY: Abdominal pain TECHNOLOGIST PROVIDED HISTORY: Abdominal pain Decision Support Exception - unselect if not a suspected or confirmed emergency medical condition->Emergency Medical Condition (MA) FINDINGS: Lower Chest: Karla re emphysematous lung bases. Subsegmental atelectasis and scarring within the lung bases. Small bilateral pleural effusions. Moderate pericardial effusion. Central line tip terminating within the right atrium. Liver: Unremarkable. Gallbladder and biliary system: Postsurgical change of cholecystectomy. Spleen: Unremarkable. Pancreas: Unremarkable. Adrenal glands: Unremarkable. : Advanced a symmetric atrophy of the left kidney. Unremarkable urinary bladder. Presumed postsurgical change of sigmoidectomy with Christen's pouch in the left lower quadrant ileostomy. Multiple fluid-filled dilated small bowel loops throughout the abdomen containing air-fluid level and moderate appearance of the bowel some of which demonstrates curvilinear lucency along the wall. Findings are suspicious for pneumatosis intestinalis. Linear lucency is also present within the right and transverse colon, suggestive of pneumatosis coli. GI/Bowel: Visualized lower esophagus is unremarkable. Moderate distended stomach containing air-fluid level. Small bowel is unremarkable. Large bowel is unremarkable. Aorta and major vessels: Severe atherosclerotic calcification of the tortuous infrarenal aorta and bilateral common iliac arteries Mesentery and retroperitoneum: Unremarkable. Lymph nodes: Unremarkable. Ascites: None. Bones/Soft Tissues: No aggressive bone lesions. No acute fracture or malalignment. Findings suggestive of pneumatosis intestinalis and pneumatosis coli. Bowel ischemia cannot be excluded. XR CHEST 1 VIEW Result Date: 12/29/2024 EXAM: 1 VIEW(S) XRAY OF THE CHEST 12/29/2024 09:33:39 PM COMPARISON: 12/25/2024 CLINICAL HISTORY: chest pain. FINDINGS: LINES, TUBES AND DEVICES: Right dialysis catheter in place. LUNGS AND PLEURA: Bibasilar atelectasis. Small stable bilateral pleural effusions. No pulmonary edema. No pneumothorax.HEART AND MEDIASTINUM: No acute abnormality of the cardiac and mediastinal silhouettes. BONES AND SOFT TISSUES: Surgical clips in right axillary region. No acute osseous abnormality. 1. No acute cardiopulmonary process. 2. Small stable bilateral pleural effusions with bibasilar atelectasis. XR ACUTE ABD SERIES CHEST 1 VW Result Date: 12/25/2024 EXAM: UPRIGHT AND SUPINE XRAY VIEWS OF THE ABDOMEN AND SUPINE AND ERECT VIEW(S) OF THE CHEST 12/25/2024 05:18:42 PM COMPARISON: None available. CLINICAL HISTORY: Abdominal distension. FINDINGS: LUNGSAND PLEURA: Small bilateral pleural effusions. No consolidation or pulmonary edema. No pneumothorax. HEART AND MEDIASTINUM: Right-sided dual-lumen central venous catheter. No acute abnormality of thecardiac and mediastinal silhouettes. BOWEL: Dilated small bowel with multiple air-fluid levels. No bowel obstruction. PERITONEUM AND SOFT TISSUES: Right axillary surgical clips. Cholecystectomy clips. No abnormal calcifications. No free air. BONES: No acute osseous abnormality. 1. Small bowel obstruction. 2. Small bilateral pleural effusions. IR FLUORO GUIDED CVA DEVICE PLMT/REPLACE/REMOVAL Result Date: 12/18/2024 TEMPORARY TO TUNNELED DIALYSIS CATHETER EXCHANGE: PERFORMED BY: Frederick Gonzales M.D. CLINICAL INFORMATION: Renal failure. APPROACH: Right internal jugular vein. INDWELLING CATHETER: 14 Haitian Hemo-Cath, non-tunneled dialysis catheter, 20 CM. NEW CATHETER:. 15.5 Haitian Titan tunneled dialysis catheter, 28 CM CATHETER TIP: Right atrium. SEDATION: Versed 1 mg; dilaudid 1 mg, IV; the patient was sedated during this procedure, and monitored with EKG and pulse ox monitoring devices by a registered nurse. [id number] time with patient 30 minutes. ESTIMATED BLOOD LOSS: Minimal FLUOROSCOPY TIME: 10seconds FLUOROSCOPIC IMAGES: 2 REFERENCE AIR KERMA: 1 mGy PROCEDURE: Signed informed consent was obt ained prior to performing this procedure. The patient was sedated, as indicated above. The patient came to the department with a temporary non-tunneled dialysis catheter in place. The exposed portionof the catheter and the surrounding skin were prepped and draped in a sterile fashion, utilizing MAXIMAL STERILE BARRIER TECHNIQUE. The skin was infiltrated along the anterior chest wall in preparation for formation of a subcutaneous tunnel. A small 1.5 CM skin incision was then made at the inferior end of the tunnel and a new dialysis catheter was passed through the tunnel, attached to a tunneling device with the exit point being the entrance site of the indwelling temporary dialysis catheter.The temporary dialysis catheter was then removed over a stiff angled Glidewire, with fluoroscopic guidance, and replaced with a 16 Haitian peel-away sheath the new dialysis catheter was then passed through the peel-away sheath which was then removed. . The skin was closed with interrupted Vicryl suture. An antibacterial Biopatch was inserted at the catheter exit site followed by application of a st erile OpSite dressing. The hub of the catheter was sutured to the skin with 2-0 Vicryl suture and afluoroscopic spot film of the chest was obtained to document appropriate catheter position. The lumens of the catheter were flushed with saline and positive pressure catheter were applied. Status post removal of the indwelling non-tunneled dialysis catheter and replacement with a new tunneled dialysis catheter, as outlined above. This report has been created using voice recognition software. It may contain minor errors which are inherent in voice recognition technology. Electronically signed by Dr. Frederick Gonzales XR ABDOMEN (KUB) (SINGLE AP VIEW) Result Date: 12/14/2024 PROCEDURE: XR ABDOMEN (KUB) (SINGLE AP VIEW) CLINICAL INFORMATION: Postoperative ileus TECHNIQUE: Mobile AP supine abdominal radiograph COMPARISON: None FINDINGS: Bowel gas pattern is nonobstructive.A nasogastric tube overlies the left abdomen, likely in the stomach. There are metallic clips in the right upper abdomen. Phleboliths are noted in the pelvis. Degenerative changes in the thoracolumbar spine are poorly visualized. There are metallic skin rani. Nonobstructive bowel gas pattern. This report has been created using voice recognition software. It may contain minor errors which are inherent in voice recognition technology. Electronically signed by Dr. Samuel Lentz XR CHEST PORTABLE Result Date: 12/14/2024 PROCEDURE: XR CHEST PORTABLE CLINICAL INFORMATION: Hypoxia, pleural effusions TECHNIQUE: Mobile AP chest radiograph. COMPARISON: None FINDINGS: A nasogastric tube courses into the left upper abdomen.The tip is not visible on the submitted image. There is mild enlargement of the cardiac silhouette.Atherosclerotic calcifications are present in the thoracic aorta. The bilateral costophrenic anglesare blunted. Hazy opacities are present at the bilateral lung bases. Bones are osteopenic. Degenerative and scoliotic changes in the thoracic spine are poorly visualized. There are metallic clips in the right axilla. 1. Small bilateral pleural effusions with adjacent atelectasis/infiltrate. 2. Mild cardiomegaly. This report has been created using voice recognition software. It may contain minor errors which areinherent in voice recognition technology. Electronically signed by Dr. Samuel Lentz IR FLUORO GUIDED CVA DEVICE PLMT/REPLACE/REMOVAL Result Date: 12/14/2024 NON-TUNNELED DIALYSIS CATHETER INSERTION: CLINICAL INFORMATION: Renal failure PERFORMED BY: Rishi Ignacio M.D. APPROACH : Right Internal Jugular Vein, ultrasound guidance, micropuncture technique. DIALYSIS CATHETER: 14 Haitian Hemocath, 20 cm in length. DIALYSIS CATHETER TIP: Right Atrium FLUOROSCOPY TIME: 0.1 minutes FLUOROSCOPIC IMAGES: 1 PROCEDURE: Signed informed consent was obtained prior to performing this procedure. The patient was not sedated during this procedure but was monitored with EKG and pulse-ox monitoring devices by a registered nurse. Following local anesthesia and utilizing MAXIMAL STERILE BARRIER TECHNIQUE, the vein listed above was punctured with a micropuncture ne edle, utilizing ultrasound guidance, an image was obtained confirming needle position and vessel patency.. A .018 wire was passed through this needle, followed by insertion of a 4 Haitian dilator. Following guide wire and catheter exchange, a percutaneous tract was dilated to a 14 Haitian size. Then,the temporary dialysis catheter was advanced over an .035 guide wire, with fluoroscopic guidance, with the tip at the location as specified above. This was all performed with fluoroscopic guidance. The hub of the catheter was then sutured to the skin with 3-0 silk suture. An antibacterial Biopatch was applied to the catheter exit site along with a sterile OpSite dressing. Status post successful nontunneled dialysis catheter insertion. This report has been created using voice recognition software. It may contain minor errors which are inherent in voice recognition technology. Electronically signed by Dr Rishi Ignacio CT ABDOMEN PELVIS WO CONTRAST Additional Contrast? None Result Date: 12/12/2024 EXAMINATION: CT OF THE ABDOMEN AND PELVIS WITHOUT CONTRAST 12/12/2024 8:53 pm TECHNIQUE: CT of the abdomen and pelvis was performed without the administration of intravenous contrast. Multiplanar reformatted images are provided for review. Automated exposure control, iterative reconstruction, and/orweight based adjustment of the mA/kV was utilized to reduce the radiation dose to as low as reasonably achievable. COMPARISON: Renal ultrasound from today. CT abdomen December 09, 2024. HISTORY: ORDERING SYSTEM PROVIDED HISTORY: renal ultrasound results. TECHNOLOGIST PROVIDED HISTORY: renal ultrasound results. FINDINGS: Lower Chest: Moderate bilateral pleural effusions. Cardiomegaly and calcific coronary artery disease. Moderate pericardial effusion. Bibasilar airspace disease. Organs: Midlineskin rani anterior abdominal wall incision. Left lower quadrant ostomy.. Subcutaneous gas anterior pelvic wall and abdominal wall. The liver, spleen, pancreas, and adrenals appear normal. Gallbladder surgically absent. Moderate ascites especially in the pelvis. Kidneys appear normal. Bladder decompressed with a Pittman catheter. GI/Bowel: Enteric tube in the stomach. Air-fluid levels small and large bowel. Appendix normal. Pelvis: Moderate free fluid. Peritoneum/Retroperitoneum: The abdominal aorta and iliac arteries are normal in caliber. There is no pathologic adenopathy. Calcified plaque along the aorta and its branches. Bones/Soft Tissues: Moderate levoconvex scoliosis. Spondylosis. 1. Moderate bilateral pleural effusions. 2. Cardiomegaly and calcific coronary artery disease. 3. Moderate pericardial effusion. 4. Bibasilar airspace disease. 5. Moderate ascites especially in the pelvis. 6. Air-fluid levels small and large bowel. 7. Left lower quadrant ostomy. 8. Subcutaneous gasanterior pelvic wall and abdominal wall. 9. Moderate levoconvex scoliosis. 10. Spondylosis. 11. Cholecystectomy. 12. Enteric tube in the stomach. 13. Bladder decompressed with a Pittman catheter. 14. Calcified plaque along the aorta and its branches. US RENAL LIMITED Result Date: 12/12/2024 EXAMINATION: ULTRASOUND OF THE KIDNEYS 12/12/2024 2:46 pm COMPARISON: CT scan abdomen pelvis dated December 09, 2024 HISTORY: ORDERING SYSTEM PROVIDED HISTORY: PATRICK post-op TECHNOLOGIST PROVIDED HISTORY: PATRICK post-op FINDINGS: The right kidney measures 9 x 4 x 4.9 cm and the left kidney measures 8 x 3.8 x 3.1 cm. The right kidney demonstrates normal echogenicity. Left kidney is hyperechoic in appearance, with poor differentiation of the corticomedullary parenchyma. Small amount of left perinephric fluid is present. Previously noted left intrarenal calculus is not well visualized. No hydronephrosis is present. Abdominal ascites is incidentally noted, noted previously. Relatively small left kidney compared to the right, with hyperechoic left renal parenchyma, and poor corticomedullary differentiation. Small amount of left perinephric fluid. Findings may be related to pyelonephritis or hemorrhage. Dedicated CT imaging of the kidneys recommended for further evaluation, as this does appear to be an interval change compared to the recent CT scan. No hydronephrosis is present. Report was marked to be called urgently to the healthcare provider XR ABDOMEN FOR NG/OG/NE TUBE PLACEMENT Result Date: 12/11/2024 EXAMINATION: ONE SUPINE XRAY VIEW(S) OF THE ABDOMEN 12/11/2024 9:36 pm COMPARISON: KUB 12/11/2024. HISTORY: ORDERING SYSTEM PROVIDED HISTORY: NG PLACEMENT, PATIENT IN RECOVERY TECHNOLOGIST PROVIDED HISTORY: NG PLACEMENT, PATIENT IN RECOVERY Portable?->Yes FINDINGS: The tip and side port of the ent chadd tube are in the gastric body. Status post cholecystectomy. Interval laparotomy. Mild bibasilaratelectasis. No acute osseous abnormality identified. The tip and side port of the enteric tube are in the gastric body. XR ABDOMEN (KUB) (SINGLE AP VIEW) Result Date: 12/11/2024 EXAMINATION: ONE SUPINE XRAY VIEW(S) OF THE ABDOMEN 12/11/2024 2:26 am COMPARISON: 12/10/2024, 12/09/2024 HISTORY: ORDERING SYSTEM PROVIDED HISTORY: abdominal pain, decreased bowel sounds TECHNOLOGISTPROVIDED HISTORY: abdominal pain, decreased bowel sounds FINDINGS: Small bowel distension and moderate gaseous distension the colon again noted. Overall findings appear without significant change. Noacute findings identified in the lung bases. No significant change in small bowel distension and moderate gaseous distension of the colon. XR ABDOMEN (2 VIEWS) Result Date: 12/10/2024 EXAMINATION: TWO XRAY VIEWS OF THE ABDOMEN 12/10/2024 8:47 am COMPARISON: Abdominal radiographs performed 12/08/2024. HISTORY: ORDERING SYSTEM PROVIDED HISTORY: abdominal pain TECHNOLOGIST PROVIDED HISTORY: abdominal pain FINDINGS: There is a dilated air-filled colon. There is no free air. There areno suspicious calcifications. There is no acute osseous abnormality. The surrounding soft tissues are unremarkable. Dilated air-filled colon of uncertain etiology. A degree of obstruction cannot be excluded. CT ABDOMEN PELVIS WO CONTRAST Additional Contrast? None Result Date: 12/09/2024 EXAMINATION: CT OF THE ABDOMEN AND PELVIS WITHOUT CONTRAST 12/09/2024 8:42 pm TECHNIQUE: CT of the abdomen and pelvis was performed without the administration of intravenous contrast. Multiplanar reformatted images are provided for review. Automated exposure control, iterative reconstruction, and/orweight based adjustment of the mA/kV was utilized to reduce the radiation dose to as low as reasonably achievable. COMPARISON: 09/18/2019 HISTORY: ORDERING SYSTEM PROVIDED HISTORY: abd pain and distension, hx of chronic constipation, no stool in rectal vault on KATHARINA, concern for obstruction TECHNOLOGIST PROVIDED HISTORY: abd pain and distension, hx of chronic constipation, no stool in rectal vaulton KATHARINA, concern for obstruction Decision Support Exception - unselect if not a suspected or confirmed emergency medical condition->Emergency Medical Condition (MA) FINDINGS: Lower Chest: Small pericardial effusion. Small hiatal hernia. Organs: The liver, gallbladder, spleen, adrenals, and right kidney are unremarkable. There is a punctate nonobstructing left renal calculus. GI/Bowel: There is d istension of the colon with air-fluid levels. Featureless sigmoid colon. Pelvis: The urinary bladder is partially filled. The uterus is absent. Peritoneum/Retroperitoneum: Small volume free fluid. Noextraluminal gas. No evidence of lymphadenopathy. Aorta is normal in caliber. Bones/Soft Tissues: No acute abnormality of the visualized osseous structures. There is multilevel degenerative disc disease with vacuum phenomenon. Diffuse decreased bone density. 1. Distended colon with air-fluid levels and featureless sigmoid colon. Findings are concerning forcolitis. 2. Small volume free fluid. 3. Small pericardial effusion. 4. Small hiatal hernia. 5. Punctate nonobstructing left renal calculus. XR ABDOMEN (KUB) (SINGLE AP VIEW) Result Date: 12/09/2024 EXAM: 1 VIEW XRAY OF THE ABDOMEN 12/08/2024 01:13:00 PM COMPARISON: 10/27/2024 CLINICAL HISTORY: Slow transit constipation. Recent history of ileus. FINDINGS: BOWEL: Nonobstructive bowel gas pattern.Large amount of stool within rectum and sigmoid colon. SOFT TISSUES: Surgical clips in right upper quadrant from cholecystectomy. Atherosclerosis of abdominal aorta and iliac arteries. No opaque urinary calculi. BONES: Levoscoliosis and degenerative changes in lumbar spine. 1. Large stool burden in the rectum and sigmoid colon, consistent with constipation. This note was dictated using M*Modal Fluency Direct so please excuse any grammatical or syntax errors as no guarantees can be provided that every mistake has been identified and corrected by editing. * Emily Whitaker MD - 01/02/2025 1:08 PM EDT Images from the original note were not included. Emily Whitaker MD [facility] General Surgery Daily Progress Note Pt Name: Maria Elena Garner Date of 1960 Today's Date: 01/02/2025 Chief complaint: feeling better ASSESSMENT Hospital day # 3 POD 3 ex lap, small bowel resection for intussusception Intra abdoinal fluid postive to pseudomonas- present on admission History ischemic bowel ESRD on dialysis has a past medical history of Anxiety, Carpal tunnel syndrome, Chronic pain, CKD (chronic kidney disease), COPD (chronic obstructive pulmonary disease) ([facility]), Depression, DJD (degenerative joint disease), Epilepsy ([facility]), Fibromyalgia, Hypercholesteremia, Hyperlipidemia, Hypertension, Left upper armpain, Lung mass, Osteoarthritis, Osteopenia, Rheumatoid arthritis ([facility]), and Ruptured left breast implant. PLAN IV hydration Clamp NG today Soft diet today Pathology pending Hopeful to d/c this weekend SUBJECTIVE Maria Elena is doing ok, overall she is feeling much better. Pain controlled and ostomy working CURRENT MEDICATIONS Scheduled Meds: hydrALAZINE 50 mg Oral 3 times per day cloNIDine 0.3 mg Oral TID doxazosin 1 mg Oral Daily nicotine 1 patch TransDERmal Q24H carvedilol 25 mg Oral BID WC epoetin [id number] 6,000 Units SubCUTAneous Once per day on Sunday sodium chloride flush 5-40 mL IntraVENous 2 times per day piperacillin-tazobactam 3,375 mg IntraVENous Q12H amLODIPine 10 mg Oral Daily atorvastatin 20 mg Oral Daily famotidine 20 mg Oral Daily budesonide-formoterol 2 puff Inhalation BID tiotropium 2 puff Inhalation Daily RT albuterol 2.5 mg Nebulization TID heparin (porcine) 5,000 Units SubCUTAneous BID naloxegol 12.5 mg Oral QAM AC Continuous Infusions: sodium chloride PRN Meds:.mupirocin, oxyCODONE-acetaminophen OR oxyCODONE-acetaminophen, sodium chloride flush,sodium chloride, ondansetron OR ondansetron, polyethylene glycol, acetaminophen OR acetaminophen, traZODone, HYDROmorphone OR HYDROmorphone OBJECTIVE CURRENT VITALS: height is 1.626 m (5' 4 ) and weight is 38 kg (83 lb 12.8 oz). Her oral temperatureis 98.6 ??F (37 ??C). Her blood pressure is 141/84 (abnormal) and her pulse is 72. Her respiration is 16 and oxygen saturation is 93%. Temperature Range (24h):Temp: 98.6 ??F (37 ??C) Temp Av ??F (36.7 ??C) Min: 97.7 ??F (36.5 ??C) Max: 98.6 ??F (37 ??C) BP Range (24h): Systolic (24hrs), Av , Min:134 , Max:175 Diastolic (24hrs), Av, Min:72, Max:90 Pulse Range (24h): Pulse Av.9 Min: 70 Max: 78 Respiration Range (24h): Resp Av.9 Min: 16 Max: 18 Current Pulse Ox (24h): SpO2: 93 % Pulse Ox Range (24h): SpO2 Av.4 % Min: 88 % Max: 99 % Oxygen Amount and Delivery: O2 Flow Rate (L/min): 1 L/min Incentive Spirometry Tx: Physical Exam Constitutional: Appearance: Normal appearance. Eyes: Pupils: Pupils are equal, round, and reactive to light. Cardiovascular: Rate and Rhythm: Normal rate. Pulses: Normal pulses. Abdominal: Palpations: There is no mass. Hernia: No hernia is present. Comments: Decreased distension, incision clean and intact. Neurological: Mental Status: She is alert and oriented to person, place, and time. In: 2184.7 [P.O.:2020] Out: 1450 [Urine:1200] Date 01/02/25 0000 - 01/02/252358 Shift 5389-1955 3799-2267 6117-9347 24 Hour Total INTAKE P.O.(mL/kg/hr) 500(1.6) 720 1220 IV Piggyback(mL/kg) 38.8(1) 41.4(1.1) 80.2(2.1) Shift Total(mL/kg) 538.8(14.2) 761.4(20) 1300.2(34.2) OUTPUT Urine(mL/kg/hr) 250(0.8) 200 450 Emesis/NG output(mL/kg) 0(0) 0(0) Other(mL/kg) 0(0) 0(0) Stool(mL/kg) 150(3.9) 150(3.9) Blood(mL/kg) 0(0) 0(0) Shift Total(mL/kg) 400(10.5) 200(5.3) 600(15.8) Weight (kg) 38 38 38 38 LABS Recent Labs 12/31/24 0430 01/01/25 0515 01/02/25 0531 WBC 10.4 9.4 8.5 HGB 9.2* 9.4* 9.4* HCT 28.7* 29.4* 28.7* PLT 404* 453* 442* NA 135 134* 133* K 4.7 3.6 3.4* CL 101 96* 97* CO2 16* 23 25 BUN 32* 35* 32* CREATININE 3.2* 2.6* 1.9* MG -- -- 1.6 CALCIUM 7.8* 8.1* 8.1* No results for input(s): INR in the last 72 hours. Invalid input(s): PT , PTT No results for input(s): AST , ALT , BILITOT , BILIDIR , AMYLASE , LIPASE , LDH , LACTA inthe last 72 hours. No results for input(s): TROPONINT in the last 72 hours. * Rina Fritz MD - 01/02/2025 12:41 PM EDT Images from the original note were not included. Hospitalist Progress Note Patient: Maria Elena Garner 64 y.o. female : 1960 Unit/Bed:[address] [place] [address]A Date of Admission: 12/30/2024 ASSESSMENT AND PLAN Active Problems #Small bowel intussusception: POD2 ex-lap/small bowel resection. Sudden onset of acute severe abdominal pain at OSH. CTAP performed consistent with pneumatosis concerning for ischemic bowel. Prior surgical history noted per below. Transferred to [facility] due to dialysis need. -General surgery following -Pain control per surgical service -Empiric abx continued - likely plan on 7-10 day course - will discuss with surgery -Cx: pseudomonas, Klebsiella, staph epidermidis -Sensitivity to Zosyn intermediate, will transition to Cefepime with renal dosing -Plan transition to ciprofloxacin PO at discharge - likely plan 10 day total course given poor Zosyn susceptibility -NGT removed 01/01/25 -Continued with diet advancement - soft/bite-sized #Hx ischemic colitis: S/p prior Gómez's/end colostomy placement 12/12/24 OSH #Elevated troponin: Suspect demand ischemia iso above. EKG without acute ST/T wave changes. No CP on exam #Microcytic anemia: Noted, mild decline in H&H following surgery. H&H largely remains stable with prior trend. -Trend CBC #PATRICK on CKD: Secondary to post-op ATN. Requiring iHD, though last 12/26/24 -Nephrology consulted/following -Loop diuretics per nephro for augmentation -TDC removal 01/02/25 #HAGMA: Resolved. Bicarb tabs stopped per nephrology #Thrombocytosis: noted, suspect reactive iso above -Monitor #Chronic hypoxic respiratory failure: On 1L nc baseline on previous discharge. Iso COPD, ESRD with volume overload. -Weaned to RA #COPD: Not acutely exacerbated -Continue Symbicort, spiriva #GERD: Pepcid #Chronic diastolic heart failure: ECHO 12/01/24 with EF 65-70%, G2DD. PATRICK requiring HD per above. Nephrology following -Dialysis per nephrology -IV Bumex started per nephrology #Chronic pericardial effusion: Noted on previous ECHO 12/01/24, no evidence of tamponade physiology #HTN: Norvasc, Coreg continued. Patient home Cardura 1mg daily, clonidine 0.3mg tid held on admission -Continued on Coreg 25mg bid, Norvasc 10mg daily -Home clonidine 0.3mg tid, Cardura 1mg daily re-started LDA: []CVC / []PICC / []Midline / []Pittman / []Drains / []Mediport / []None Antibiotics: Zosyn Steroids: No Labs (still needed?): []Yes / []No IVF (still needed?): []Yes / []No Level of care: [x]Step Down / []Med-Surg Bed Status: [x]Inpatient / []Observation Telemetry: [x]Yes / []No PT/OT: [x]Yes / []No DVT Prophylaxis: [] Lovenox / [x] Heparin / [] SCDs / [] Already on Systemic Anticoagulation / [] None Expected discharge date: TBD Disposition: TBD Code status: Full Code Chief Complaint: Abdominal pain Subjective (past 24 hours): Patient seen and examined this AM. NAEON. Doing well overall. Denies significant CP, SOB. Abdominal pain remains. Medications: Infusion Medications sodium chloride Scheduled Medications hydrALAZINE 50 mg Oral 3 times per day cloNIDine 0.3 mg Oral TID doxazosin 1 mg Oral Daily nicotine 1 patch TransDERmal Q24H carvedilol 25 mg Oral BID WC epoetin kamryn-epbx 6,000 Units SubCUTAneous Once per day on Sunday sodium chloride flush 5-40 mL IntraVENous 2 times per day piperacillin-tazobactam 3,375 mg IntraVENous Q12H amLODIPine 10 mg Oral Daily atorvastatin 20 mg Oral Daily famotidine 20 mg Oral Daily budesonide-formoterol 2 puff Inhalation BID tiotropium 2 puff Inhalation Daily RT albuterol 2.5 mg Nebulization TID heparin (porcine) 5,000 Units SubCUTAneous BID naloxegol 12.5 mg Oral QAM AC PRN Meds: mupirocin, oxyCODONE-acetaminophen OR oxyCODONE-acetaminophen, sodium chloride flush,sodium chloride, ondansetron OR ondansetron, polyethylene glycol, acetaminophen OR acetaminophen, traZODone, HYDROmorphone OR HYDROmorphone Exam: BP (!) 141/84 Pulse 72 Temp 98.6 ??F (37 ??C) (Oral) Resp 16 Ht 1.626 m (5' 4 ) Wt 38 kg (83 lb 12.8 oz) SpO2 93% BMI 14.38 kg/m?? General: No distress, appears stated age. Eyes: PERRL. Conjunctivae/corneas clear. HENT: Head normal appearing. Nares normal. Oral mucosa moist. Hearing intact. Neck: Supple, with full range of motion. Trachea midline. No gross JVD appreciated. Respiratory: Normal effort. Clear to auscultation, without rales or wheezes or rhonchi. Cardiovascular: Normal rate, regular rhythm with normal S1/S2 without murmurs. BLE edema improving Abdomen: Soft - significantly improved distention, ostomy without surrounding erythema/drainage Musculoskeletal: No joint swelling or tenderness. Normal tone. No abnormal movements. Skin: Warm and dry. No rashes or lesions. Neurologic: No focal sensory/motor deficits in the upper or lower extremities. Cranial nerves: grossly non-focal 2-12. Psychiatric: Alert and oriented, normal insight and thought content. Capillary Refill: Brisk,< 3 seconds. Peripheral Pulses: +2 palpable, equal bilaterally. Labs/Radiology: See chart or assessment above. * Leona Briones RN - 01/02/2025 9:52 AM EDT 1025 Pt in specials radiology for tunneled dialysis catheter removal. Discussed procedure with pt and pt verbalizes understanding. 1031 Right neck/chest prepped and draped. 1038 Tunneled dialysis catheter removed and pressure applied till bleeding stopped. 1041 Incision right chest approximated with suture. 1043 Bactroban ointment applied to site on right chest with 4 x 4 and op-site dressing. Site without redness, swelling or hematoma. 1046 Report called to Oumou DOUGHERTY. 1059 Pt transferred to 3B per bed. * Trish Kim DO - 01/02/2025 9:32 AM EDT [facility] Nephrology progress note 01/02/2025, 9:32 AM Pt Name: Maria Elena Garner Birthdate: 1960 Admit Date: 12/30/2024 3:36 AM Chief Complaint: Nephrology following for ATN - on dialysis. Subjective: Patient was seen and examined this morning. No complaints. Bp improving. On clear liquids. Objective: 24HR INTAKE/OUTPUT: Intake/Output Summary (Last 24 hours) at 01/02/2025 0932 Last data filed at 01/02/2025 0841 Gross per 24 hour Intake 1903.23 ml Output 1050 ml Net 853.23 ml I/O last 3 completed shifts: In: 1523.2 [P.O.:1400; IV Piggyback:123.2] Out: 2375 [Urine:1625; Emesis/NG output:500; Stool:250] I/O this shift: In: 480 [P.O.:480] Out: - Admission weight: 44.3 kg (97 lb 10.6 oz) Wt Readings from Last 3 Encounters: 01/02/25 38 kg (83 lb 12.8 oz) 12/19/24 41.6 kg (91 lb 11.4 oz) 12/13/24 44.5 kg (98 lb 1.7 oz) Vitals : Vitals: 01/02/25 0400 01/02/25 0540 01/02/25 0640 01/02/25 0900 BP: (!) 144/78 (!) 164/83 (!) 167/85 Pulse: 78 Resp: Temp: 98.3 ??F (36.8 ??C) TempSrc: Oral SpO2: 94% Weight: 38 kg (83 lb 12.8 oz) Height: Physical examination General Appearance: alert and cooperative with exam, appears comfortable, no distress Mouth/Throat: Oral mucosa moist Neck: No JVD Lungs: diminished, no rales Heart: S1, S2 heard GI: soft, +ostomy Extremities: improved leg edema Medications: Infusion: sodium chloride Meds: cloNIDine 0.3 mg Oral TID doxazosin 1 mg Oral Daily hydrALAZINE 25 mg Oral 3 times per day nicotine 1 patch TransDERmal Q24H carvedilol 25 mg Oral BID WC epoetin kamryn-epbx 6,000 Units SubCUTAneous Once per day on Sunday sodium chloride flush 5-40 mL IntraVENous 2 times per day piperacillin-tazobactam 3,375 mg IntraVENous Q12H amLODIPine 10 mg Oral Daily atorvastatin 20 mg Oral Daily famotidine 20 mg Oral Daily budesonide-formoterol 2 puff Inhalation BID tiotropium 2 puff Inhalation Daily RT albuterol 2.5 mg Nebulization TID heparin (porcine) 5,000 Units SubCUTAneous BID naloxegol 12.5 mg Oral QAM AC Meds prn: oxyCODONE-acetaminophen OR oxyCODONE-acetaminophen, sodium chloride flush, sodium chloride, ondansetron OR ondansetron, polyethylene glycol, acetaminophen OR acetaminophen, traZODone, HYDROmorphone OR HYDROmorphone Lab Data : CBC: Recent Labs 12/31/24 0430 01/01/25 0515 01/02/25 0531 WBC 10.4 9.4 8.5 HGB 9.2* 9.4* 9.4* HCT 28.7* 29.4* 28.7* PLT 404* 453* 442* CMP: Recent Labs 12/31/24 0430 01/01/25 0515 01/02/25 0531 NA 135 134* 133* K 4.7 3.6 3.4* CL 101 96* 97* CO2 16* 23 25 BUN 32* 35* 32* CREATININE 3.2* 2.6* 1.9* GLUCOSE 68* 79 76 CALCIUM 7.8* 8.1* 8.1* MG -- -- 1.6 Hepatic: No results for input(s): LABALBU , AST , ALT , BILITOT , ALKPHOS in the last 72 hours. Invalid input(s): ALB Assessment and Plan: PATRICK due to post-op ATN. Last HD was Tuesday 12/26 Creatinine improving. Urine output improved Renal fxn recovering. Will hold HD. Can remove TDC when able. Metabolic acidosis: better.will stop bicarb HTN: increase hydralazine to 50 mg tid Small bowel intussusception s/p ex lap with small bowel resection Recent ischemic colitis s/p hartmans with end colostomy Anemia in CKD: BRYCE COPD Tobacco use D/W patient and RN Trish Kim DO [facility] This report has been created using voice recognition software. It may contain minor errors which are inherent in voice recognition technology * Emily Whitaker MD - 01/01/2025 5:14 PM EDT Images from the original note were not included. Emily Whitaker MD [facility] General Surgery Daily Progress Note Pt Name: Maria Elena Garner Date of 1960 Today's Date: 01/01/2025 Chief complaint: feeling better ASSESSMENT Hospital day # 2 POD 2 ex lap, small bowel resection for intussusception Intra abdoinal fluid postive to pseudomonas- present on admission History ischemic bowel ESRD on dialysis has a past medical history of Anxiety, Carpal tunnel syndrome, Chronic pain, CKD (chronic kidney disease), COPD (chronic obstructive pulmonary disease) (HCC), Depression, DJD (degenerative joint disease), Epilepsy (HCC), Fibromyalgia, Hypercholesteremia, Hyperlipidemia, Hypertension, Left upper armpain, Lung mass, Osteoarthritis, Osteopenia, Rheumatoid arthritis (HCC), and Ruptured left breast implant. PLAN IV hydration Clamp NG today Clears today Pathology pending SUBJECTIVE Maria Elena is doing ok, she states she feels better. Having flatus and bowel function thru stoma CURRENT MEDICATIONS Scheduled Meds: cloNIDine 0.3 mg Oral TID doxazosin 1 mg Oral Daily hydrALAZINE 25 mg Oral 3 times per day sodium bicarbonate 650 mg Oral BID carvedilol 25 mg Oral BID WC epoetin kamryn-epbx 6,000 Units SubCUTAneous Once per day on Sunday sodium chloride flush 5-40 mL IntraVENous 2 times per day piperacillin-tazobactam 3,375 mg IntraVENous Q12H amLODIPine 10 mg Oral Daily atorvastatin 20 mg Oral Daily famotidine 20 mg Oral Daily budesonide-formoterol 2 puff Inhalation BID tiotropium 2 puff Inhalation Daily RT albuterol 2.5 mg Nebulization TID heparin (porcine) 5,000 Units SubCUTAneous BID naloxegol 12.5 mg Oral QAM AC Continuous Infusions: sodium chloride PRN Meds:.oxyCODONE-acetaminophen OR oxyCODONE-acetaminophen, sodium chloride flush, sodium chloride, ondansetron OR ondansetron, polyethylene glycol, acetaminophen OR acetaminophen, traZODone, HYDROmorphone OR HYDROmorphone OBJECTIVE CURRENT VITALS: height is 1.626 m (5' 4 ) and weight is 37.6 kg (83 lb). Her oral temperature is 97.8 ??F (36.6 ??C). Her blood pressure is 143/72 (abnormal) and her pulse is 70. Her respiration is 16 and oxygen saturation is 90%. Temperature Range (24h):Temp: 97.8 ??F (36.6 ??C) Temp Av.9 ??F (36.6 ??C) Min: 97.5 ??F (36.4??C) Max: 98.4 ??F (36.9 ??C) BP Range (24h): Systolic (24hrs), Av , Min:134 , Max:180 Diastolic (24hrs), Av, Min:72, Max:100 Pulse Range (24h): Pulse Av.1 Min: 70 Max: 93 Respiration Range (24h): Resp Av.7 Min: 16 Max: 20 Current Pulse Ox (24h): SpO2: 90 % Pulse Ox Range (24h): SpO2 Av % Min: 88 % Max: 97 % Oxygen Amount and Delivery: O2 Flow Rate (L/min): 1 L/min Incentive Spirometry Tx: Physical Exam Constitutional: Appearance: Normal appearance. Eyes: Pupils: Pupils are equal, round, and reactive to light. Cardiovascular: Rate and Rhythm: Normal rate. Pulses: Normal pulses. Abdominal: Palpations: There is no mass. Hernia: No hernia is present. Comments: Decreased distension, incision clean and intact. Neurological: Mental Status: She is alert and oriented to person, place, and time. In: 382.8 [P.O.:250] Out: 4850 [Urine:2100] Date 01/01/25 0000 - 01/01/252358 Shift [id number] 0406-7435 24 Hour Total INTAKE P.O.(mL/kg/hr) 100(0.3) 150(0.5) 250 IV Piggyback(mL/kg) 83.6(2.2) 83.6(2.2) Shift Total(mL/kg) 100(2.7) 233.6(6.2) 333.6(8.9) OUTPUT Urine(mL/kg/hr) 550(1.8) 400(1.3) 950 Emesis/NG output(mL/kg) 500(13.3) 500(13.3) Stool(mL/kg) 0(0) 0(0) Shift Total(mL/kg) 1050(27.9) 400(10.6) 1450(38.5) Weight (kg) 37.6 37.6 37.6 37.6 LABS Recent Labs 12/30/24 0738 12/31/24 0430 01/01/25 0515 WBC 7.8 10.4 9.4 HGB 9.8* 9.2* 9.4* HCT 31.2* 28.7* 29.4* PLT 413* 404* 453* NA 134* 135 134* K 4.7 4.7 3.6 CL 96* 101 96* CO2 23 16* 23 BUN 28* 32* 35* CREATININE 3.7* 3.2* 2.6* CALCIUM 8.7 7.8* 8.1* Recent Labs 12/29/24 2200 INR 1.0 Recent Labs 12/29/24 2200 AST 18 ALT 11 BILITOT 0.4 LIPASE 33 LACTA 0.7 No results for input(s): TROPONINT in the last 72 hours. * Frank Dubon - 01/01/2025 2:29 PM EDT Spiritual Health Progress Note [facility] Room # [id number] Name: Maria Elena Garner Age: 64 y.o. Gender: female Jainism: Denominational Preferred Language: Hungarian Date: 01/01/25 Visit Time: Begin Time: (P) 1137 End Time : (P) 1144 Complexity of Encounter: (P) Moderate Visit Summary: Display Designer Outside met with patient (Maria Elena), a 64 year old female admitted to for abdominal pain.This visit is in response to IDT spiritual rounds to provide spiritual support. Patient shared with me she had surgery and came down with some infection. Receiving medication to clear infection which seems to be working. Patient is spiritual and said her Episcopalian camelia is giving her hope and strength. Patient also shared with me that her social support include her two daughters and son. She said her grandchildren give her meanings and purpose. Patient is hopeful to get welland return home. Patient asked for trestle mainternance laborer to pray for her speedy recovery and prayer is offered in response. Display Designer Outside plan of care include a follow up for continue support or per patient's request. Referral/Consult From: (P) Rounding Encounter Overview/Reason: (P) Initial Encounter Encounter Code: Crisis (if applicable): Service Provided For: (P) Patient Patient was available. Camelia, Belief, Meaning: Patient identifies as spiritual is connected with a camelia tradition or spiritual practice has beliefs or practices that help with coping during difficult times camelia/ spirituality is a source of strength Family/Friends No family/friends present Rituals (if applicable) Importance and Influence: Patient has spiritual/personal beliefs that influence decisions regarding their health Family/Friends No family/friends present Community: Patient indicated that they feel well-supported Family/Friends is connected with a spiritual community Assessment and Plan of Care: Emotions Expressed by Patient: Assessment: (P) Calm, Coping, Hopeful Interventions by Display Designer Outside: Intervention: (P) Nurtured Hope, Active listening, Discussed meaning/purpose, Discussed illness injury and it???s impact, Discussed relationship with God, Prayer (assurance of)/Roland Result/ Response by Patient: Outcome: (P) Encouraged, Engaged in conversation, Expressed Gratitude Patient Plan of Care: Emotions Expressed by Spouse/Family/Friends: calm hopeful relieved gratitude Display Designer Outside Interventions with Spouse/ Family/Friends include: active listening explored meaning/ purpose prayer provided ministry of presence Spouse/Family/Friends Plan of Care: Spiritual care available upon referral. Electronically signed by .Rev. Frank Dubon M.Div., D.Div., [place], [place] (o) [phone] (cell) * Sofya Sadler - 01/01/2025 11:46 AM EDT Patient resting comfortably in bed. Patient expresses she would like to be left along for a little bit to take a nap. Call light in reach. Reported off to LADONNA Johnson. Viktoriya EPSTEIN, RSC Cosigned by Flor Winston, LADONNA at 01/01/2025 11:49 AM EDT * Trish Kim DO - 01/01/2025 11:30 AM EDT [facility] Nephrology progress note 01/01/2025, 11:30 AM Pt Name: Maria Elena Garner Birthdate: 1960 Admit Date: 12/30/2024 3:36 AM Chief Complaint: Nephrology following for ATN - on dialysis. Subjective: Patient was seen and examined this morning. She had 1500 mL urine output past 24 hours. Bp has been a bit higher. Objective: 24HR INTAKE/OUTPUT: Intake/Output Summary (Last 24 hours) at 01/01/2025 1130 Last data filed at 01/01/2025 1057 Gross per 24 hour Intake 187.8 ml Output 3075 ml Net -2887.2 ml I/O last 3 completed shifts: In: 176 [P.O.:100; IV Piggyback:76] Out: 4700 [Urine:1650; Emesis/NG output:3050] I/O this shift: In: 83.6 [IV Piggyback:83.6] Out: 400 [Urine:400] Admission weight: 44.3 kg (97 lb 10.6 oz) Wt Readings from Last 3 Encounters: 01/01/25 37.6 kg (83 lb) 12/19/24 41.6 kg (91 lb 11.4 oz) 12/13/24 44.5 kg (98 lb 1.7 oz) Vitals : Vitals: 01/01/25 0835 01/01/25 1016 01/01/25 1046 01/01/25 1100 BP: (!) 147/85 Pulse: 77 Resp: Temp: 97.5 ??F (36.4 ??C) TempSrc: Oral SpO2: 95% Weight: Height: Physical examination General Appearance: alert and cooperative with exam, appears comfortable, no distress Mouth/Throat: Oral mucosa moist Neck: No JVD Lungs: diminished, no rales Heart: S1, S2 heard GI: soft, +ostomy Extremities: 1+ leg edema Medications: Infusion: sodium chloride Meds: cloNIDine 0.3 mg Oral TID doxazosin 1 mg Oral Daily hydrALAZINE 25 mg Oral 3 times per day bumetanide 1 mg IntraVENous Once sodium bicarbonate 650 mg Oral BID potassium chloride 20 mEq Oral Once carvedilol 25 mg Oral BID WC epoetin kamryn-epbx 6,000 Units SubCUTAneous Once per day on Sunday sodium chloride flush 5-40 mL IntraVENous 2 times per day piperacillin-tazobactam 3,375 mg IntraVENous Q12H amLODIPine 10 mg Oral Daily atorvastatin 20 mg Oral Daily famotidine 20 mg Oral Daily budesonide-formoterol 2 puff Inhalation BID tiotropium 2 puff Inhalation Daily RT albuterol 2.5 mg Nebulization TID heparin (porcine) 5,000 Units SubCUTAneous BID naloxegol 12.5 mg Oral QAM AC Meds prn: oxyCODONE-acetaminophen OR oxyCODONE-acetaminophen, sodium chloride flush, sodium chloride, ondansetron OR ondansetron, polyethylene glycol, acetaminophen OR acetaminophen, traZODone, HYDROmorphone OR HYDROmorphone Lab Data : CBC: Recent Labs 12/30/24 0738 12/31/24 0430 01/01/25 0515 WBC 7.8 10.4 9.4 HGB 9.8* 9.2* 9.4* HCT 31.2* 28.7* 29.4* PLT 413* 404* 453* CMP: Recent Labs 12/30/24 0738 12/31/24 0430 01/01/25 0515 NA 134* 135 134* K 4.7 4.7 3.6 CL 96* 101 96* CO2 23 16* 23 BUN 28* 32* 35* CREATININE 3.7* 3.2* 2.6* GLUCOSE 93 68* 79 CALCIUM 8.7 7.8* 8.1* Hepatic: Recent Labs 12/29/24 2200 AST 18 ALT 11 BILITOT 0.4 ALKPHOS 100 Assessment and Plan: PATRICK due to post-op ATN. Last HD was Sunday Her creatinine is improving. Seems to be recovering from her ATN. Will continue to hold HD and monitor Give another dose of bumex today with kcl 20 meq Metabolic acidosis: better. On bicarb will reduce dose HTN: add po hydralazine Small bowel intussusception s/p ex lap with small bowel resection Recent ischemic colitis s/p hartmans with end colostomy Anemia in CKD: BRYCE COPD Tobacco use D/W patient and RN Trish Kim DO [facility] This report has been created using voice recognition software. It may contain minor errors which are inherent in voice recognition technology * Sofya Sadler - 01/01/2025 10:27 AM EDT Patient refused to ambulate and get cleaned up this morning. Patient stated she wanted to wait for her daughter to come before she got cleaned up. Blaise Sadler , [facility] Cosigned by Flor Winston RN at 01/01/2025 11:49 AM EDT * Loulou De La O RN - 01/01/2025 8:35 AM EDT 0835: This Rn at bedside for medication administration. Patient is upset with this nurse because this nurse will not give her IV dilaudid and oral oxycodone at the same time. Education provided to this patient why these medications cannot be given at once. Patient continues to be upset. Rn addressed she will discuss with providers regarding more options for pain control. 0939: Hospitalist at bedside. Orders given to remove pittman. Updates were given to the hospitalist regarding pain control, urine output., NG clamping, and bowel sounds. Orders pending at this time. 1022: This Rn is at bedside to reassess pain. Patient is upset at this time because You were weresupposed to be here 5 minutes ago with my pain medications . This Rn explained to this patient these medications are not scheduled, the are PRN. This nurse also re addressed per the provider these med ications are to be staggered and not administered at the same time. Ambulation and Ice have also been offered. Patient states I dont need a lecture. Just give me my pain medications and get out . 1200: Spoke with Dr. Whitaker. Patient may advance to a clear liquid diet. NG tube may come out if the patient is able to tolerate clear liquids with no nausea or vomiting. Notified nutrition of dietorder change. * Sofya Sadler - 01/01/2025 8:12 AM EDT Report taken from LADONNA Sue. Patient stated pain 11/26, will inform primary RN. Otherwise, pt comfortable with call light in reach. Blaise Sadler , [facility] Cosigned by Flor Winston RN at 01/01/2025 8:42 AM EDT * Rina Fritz MD - 01/01/2025 7:13 AM EDT Images from the original note were not included. Hospitalist Progress Note Patient: Maria Elena Garner 64 y.o. female : 1960 Unit/Bed:[address] [place] [address]-A Date of Admission: 12/30/2024 ASSESSMENT AND PLAN Active Problems #Small bowel intussusception: POD2 ex-lap/small bowel resection. Sudden onset of acute severe abdominal pain at OSH. CTAP performed consistent with pneumatosis concerning for ischemic bowel. Prior surgical history noted per below. Transferred to [facility] due to dialysis need. -General surgery following -Pain control -Empiric abx continued #Hx ischemic colitis: S/p prior Gómez's/end colostomy placement 12/12/24 OSH #Elevated troponin: Suspect demand ischemia iso above. EKG without acute ST/T wave changes. No CP on exam #Microcytic anemia: Noted, mild decline in H&H following surgery. H&H largely remains stable with prior trend. -Trend CBC #PATRICK on CKD: Secondary to post-op ATN. Requiring iHD, though last 12/26/24 -Nephrology consulted/following -Loop diuretics per nephro for augmentation #HAGMA: Bicarb tabs started per nephrology #Thrombocytosis: noted, suspect reactive iso above -Monitor #Chronic hypoxic respiratory failure: On 1L nc baseline on previous discharge. Iso COPD, ESRD with volume overload. -Currently, patient maintained on home 1L nc #COPD: Not acutely exacerbated -Continue Symbicort, spiriva #GERD: Pepcid #Chronic diastolic heart failure: ECHO 12/01/24 with EF 65-70%, G2DD. PATRICK requiring HD per above. Nephrology following -Dialysis per nephrology -IV Bumex started per nephrology #Chronic pericardial effusion: Noted on previous ECHO 12/01/24, no evidence of tamponade physiology #HTN: Norvasc, Coreg continued. Patient home Cardura 1mg daily, clonidine 0.3mg tid held on admission -Continued on Coreg 25mg bid, Norvasc 10mg daily -Home clonidine 0.3mg tid, Cardura 1mg daily re-started LDA: []CVC / []PICC / []Midline / []Pittman / []Drains / []Mediport / []None Antibiotics: Zosyn Steroids: No Labs (still needed?): []Yes / []No IVF (still needed?): []Yes / []No Level of care: [x]Step Down / []Med-Surg Bed Status: [x]Inpatient / []Observation Telemetry: [x]Yes / []No PT/OT: [x]Yes / []No DVT Prophylaxis: [] Lovenox / [x] Heparin / [] SCDs / [] Already on Systemic Anticoagulation / [] None Expected discharge date: TBD Disposition: TBD Code status: Full Code Chief Complaint: Abdominal pain Subjective (past 24 hours): Patient seen and examined this AM. Doing well overall. Afebrile. UOP improved. NAEON Medications: Infusion Medications sodium chloride sodium chloride Scheduled Medications cloNIDine 0.3 mg Oral TID doxazosin 1 mg Oral Daily hydrALAZINE 25 mg Oral 3 times per day sodium bicarbonate 1,300 mg Oral BID carvedilol 25 mg Oral BID WC epoetin kamryn-epbx 6,000 Units SubCUTAneous Once per day on Sunday sodium chloride flush 5-40 mL IntraVENous 2 times per day piperacillin-tazobactam 3,375 mg IntraVENous Q12H amLODIPine 10 mg Oral Daily atorvastatin 20 mg Oral Daily famotidine 20 mg Oral Daily budesonide-formoterol 2 puff Inhalation BID tiotropium 2 puff Inhalation Daily RT albuterol 2.5 mg Nebulization TID sodium chloride flush 5-40 mL IntraVENous 2 times per day heparin (porcine) 5,000 Units SubCUTAneous BID naloxegol 12.5 mg Oral QAM AC PRN Meds: oxyCODONE-acetaminophen OR oxyCODONE-acetaminophen, sodium chloride flush, sodium chloride, ondansetron OR ondansetron, polyethylene glycol, acetaminophen OR acetaminophen, traZODone, sodium chloride flush, sodium chloride, HYDROmorphone OR HYDROmorphone Exam: BP (!) 180/100 Pulse 87 Temp 98.1 ??F (36.7 ??C) (Oral) Resp 19 Ht 1.626 m (5' 4 ) Wt 37.6 kg (83 lb) SpO2 96% BMI 14.25 kg/m?? General: No distress, appears stated age. Eyes: PERRL. Conjunctivae/corneas clear. HENT: Head normal appearing. Nares normal. Oral mucosa moist. Hearing intact. Neck: Supple, with full range of motion. Trachea midline. No gross JVD appreciated. Respiratory: Normal effort. Clear to auscultation, without rales or wheezes or rhonchi. Cardiovascular: Normal rate, regular rhythm with normal S1/S2 without murmurs. BLE edema 2+ Abdomen: Distention - mildly improved, ostomy without surrounding erythema/drainage Musculoskeletal: No joint swelling or tenderness. Normal tone. No abnormal movements. Skin: Warm and dry. No rashes or lesions. Neurologic: No focal sensory/motor deficits in the upper or lower extremities. Cranial nerves: grossly non-focal 2-12. Psychiatric: Alert and oriented, normal insight and thought content. Capillary Refill: Brisk,< 3 seconds. Peripheral Pulses: +2 palpable, equal bilaterally. Labs/Radiology: See chart or assessment above. * Loulou De La O RN - 12/31/2024 6:55 PM EDT Patient is tearful at this time. She is upset regarding her NPO status. Hospitalist did allow ice chips today, however patient is still upset regarding POC. This nurse messaged the Sx electronic resources librarian who recommends not to advance diet at this time. Patient continues to have hypoactive bowel sounds, she is not passing gas, no stool in her colostomy, and she continues to have moderate output through the NGtube. Patient also has c/o continuing abdominal pain and nausea with pain medications, clamping, and unclamping NG tube. Sx team updated with these observations. * Emily Whitaker MD - 12/31/2024 1:24 PM EDT Images from the original note were not included. Emily Whitaker MD [facility] General Surgery Daily Progress Note Pt Name: Maria Elena Garner Date of 1960 Today's Date: 12/31/2024 Chief complaint: feeling better ASSESSMENT Hospital day # 1 POD 1 ex lap, small bowel resection for intussusception History ischemic bowel ESRD on dialysis has a past medical history of Anxiety, Carpal tunnel syndrome, Chronic pain, CKD (chronic kidney disease), COPD (chronic obstructive pulmonary disease) ([facility]), Depression, DJD (degenerative joint disease), Epilepsy ([facility]), Fibromyalgia, Hypercholesteremia, Hyperlipidemia, Hypertension, Left upper armpain, Lung mass, Osteoarthritis, Osteopenia, Rheumatoid arthritis (HCC), and Ruptured left breast implant. PLAN IV hydration Clamp NG today Wait for return of bowel fucntion Pathology pending SUBJECTIVE Maria Elena is doing ok, she states she feels better. No flatus or bowel function. CURRENT MEDICATIONS Scheduled Meds: sodium bicarbonate 1,300 mg Oral BID carvedilol 25 mg Oral BID WC epoetin kamryn-epbx 6,000 Units SubCUTAneous Once per day on Sunday sodium chloride flush 5-40 mL IntraVENous 2 times per day piperacillin-tazobactam 3,375 mg IntraVENous Q12H amLODIPine 10 mg Oral Daily atorvastatin 20 mg Oral Daily famotidine 20 mg Oral Daily budesonide-formoterol 2 puff Inhalation BID tiotropium 2 puff Inhalation Daily RT albuterol 2.5 mg Nebulization TID sodium chloride flush 5-40 mL IntraVENous 2 times per day heparin (porcine) 5,000 Units SubCUTAneous BID naloxegol 12.5 mg Oral QAM AC Continuous Infusions: sodium chloride sodium chloride PRN Meds:.sodium chloride flush, sodium chloride, ondansetron OR ondansetron, polyethylene glycol, acetaminophen OR acetaminophen, traZODone, sodium chloride flush, sodium chloride, HYDROmorphone OR HYDROmorphone OBJECTIVE CURRENT VITALS: height is 1.626 m (5' 4 ) and weight is 49.9 kg (110 lb 0.2 oz). Her oral temperature is 99.4 ??F (37.4 ??C). Her blood pressure is 175/83 (abnormal) and her pulse is 96. Her respiration is 16 and oxygen saturation is 94%. Temperature Range (24h):Temp: 99.4 ??F (37.4 ??C) Temp Av.3 ??F (36.8 ??C) Min: 97.4 ??F (36.3??C) Max: 99.4 ??F (37.4 ??C) BP Range (24h): Systolic (24hrs), Av , Min:139 , Max:175 Diastolic (24hrs), Av, Min:65, Max:92 Pulse Range (24h): Pulse Av.7 Min: 69 Max: 96 Respiration Range (24h): Resp Av.1 Min: 14 Max: 20 Current Pulse Ox (24h): SpO2: 94 % Pulse Ox Range (24h): SpO2 Av.5 % Min: 93 % Max: 98 % Oxygen Amount and Delivery: O2 Flow Rate (L/min): 1 L/min (wears 1 lpm at home) Incentive Spirometry Tx: Physical Exam Constitutional: Appearance: Normal appearance. Eyes: Pupils: Pupils are equal, round, and reactive to light. Cardiovascular: Rate and Rhythm: Normal rate. Pulses: Normal pulses. Abdominal: Palpations: There is no mass. Hernia: No hernia is present. Comments: Decreased distension, incision clean and intact. Neurological: Mental Status: She is alert and oriented to person, place, and time. In: 1284.2 [I.V.:1000] Out: 5355 [Urine:605] Date 12/31/24 - 12/31/242358 Shift [id number] 9321-2468 1262-9947 24 Hour Total INTAKE P.O.(mL/kg/hr) 0 0 IV Piggyback(mL/kg) 4.4(0.1) 45.9(0.9) 50.4(1) Shift Total(mL/kg) 4.4(0.1) 45.9(0.9) 50.4(1) OUTPUT Urine(mL/kg/hr) 150(0.4) 325 475 Emesis/NG output(mL/kg) 300(6) 1250(25.1) 1550(31.1) Other(mL/kg) 0(0) 0(0) Stool(mL/kg) 0(0) 0(0) Blood(mL/kg) 0(0) 0(0) Shift Total(mL/kg) 450(9) 1575(31.6) 2025(40.6) Weight (kg) 49.9 49.9 49.9 49.9 LABS Recent Labs 12/29/24 2200 12/30/24 0738 12/31/24 0430 WBC 7.7 7.8 10.4 HGB 11.2* 9.8* 9.2* HCT 34.2* 31.2* 28.7* PLT 389 413* 404* NA 133* 134* 135 K 4.4 4.7 4.7 CL 97* 96* 101 CO2 21 23 16* BUN 23 28* 32* CREATININE 3.5* 3.7* 3.2* CALCIUM 9.2 8.7 7.8* Recent Labs 12/29/242199 INR 1.0 Recent Labs 12/29/242199 AST 18 ALT 11 BILITOT 0.4 LIPASE 33 LACTA 0.7 No results for input(s): TROPONINT in the last 72 hours. * Trish Kim, DO - 12/31/2024 12:13 PM EDT [facility] Nephrology progress note 12/31/2024, 12:13 PM Pt Name: Maria Elena Garner Birthdate: 1960 Admit Date: 12/30/2024 3:36 AM Chief Complaint: Nephrology following for ATN - on dialysis. Subjective: Patient was seen and examined this morning. She is s/p ex lap with small bowel resection due to intussusception. Feels better today. She has pittman in place, had 150 mL urine output overnight. Objective: 24HR INTAKE/OUTPUT: Intake/Output Summary (Last 24 hours) at 12/31/2024 1213 Last data filed at 12/31/2024 1205 Gross per 24 hour Intake 1183.68 ml Output 5325 ml Net -4141.32 ml I/O last 3 completed shifts: In: 1238.2 [I.V.:1000; IV Piggyback:238.2] Out: 3780 [Urine:280; Emesis/NG output:300; Other:3200] I/O this shift: In: 45.9 [IV Piggyback:45.9] Out: 1575 [Urine:325; Emesis/NG output:1250] Admission weight: 44.3 kg (97 lb 10.6 oz) Wt Readings from Last 3 Encounters: 12/31/24 49.9 kg (110 lb 0.2 oz) 12/19/24 41.6 kg (91 lb 11.4 oz) 12/13/24 44.5 kg (98 lb 1.7 oz) Vitals : Vitals: 12/31/24 0400 12/31/24 0745 12/31/24 0936 12/31/24 1137 BP: (!) 175/84 (!) 175/83 Pulse: 89 96 Resp: 16 16 16 16 Temp: 98.7 ??F (37.1 ??C) 99.4 ??F (37.4 ??C) TempSrc: Oral Oral SpO2: 98% 94% Weight: Height: Physical examination General Appearance: alert and cooperative with exam, appears comfortable, no distress Mouth/Throat: Oral mucosa moist Neck: No JVD Lungs: diminished, no rales Heart: S1, S2 heard GI: soft, +ostomy Extremities: 1+ leg edema Medications: Infusion: sodium chloride sodium chloride Meds: sodium bicarbonate 1,300 mg Oral BID carvedilol 25 mg Oral BID WC sodium chloride flush 5-40 mL IntraVENous 2 times per day piperacillin-tazobactam 3,375 mg IntraVENous Q12H amLODIPine 10 mg Oral Daily atorvastatin 20 mg Oral Daily famotidine 20 mg Oral Daily budesonide-formoterol 2 puff Inhalation BID tiotropium 2 puff Inhalation Daily RT albuterol 2.5 mg Nebulization TID sodium chloride flush 5-40 mL IntraVENous 2 times per day heparin (porcine) 5,000 Units SubCUTAneous BID naloxegol 12.5 mg Oral QAM AC Meds prn: sodium chloride flush, sodium chloride, ondansetron OR ondansetron, polyethylene glycol, acetaminophen OR acetaminophen, traZODone, sodium chloride flush, sodium chloride, HYDROmorphone OR HYDROmorphone Lab Data : CBC: Recent Labs 12/29/24219912/30/24 0738 12/31/24 0430 WBC 7.7 7.8 10.4 HGB 11.2* 9.8* 9.2* HCT 34.2* 31.2* 28.7* PLT 389 413* 404* CMP: Recent Labs 12/29/24219912/30/24 0738 12/31/24 0430 NA 133* 134* 135 K 4.4 4.7 4.7 CL 97* 96* 101 CO2 21 23 16* BUN 23 28* 32* CREATININE 3.5* 3.7* 3.2* GLUCOSE 91 93 68* CALCIUM 9.2 8.7 7.8* Hepatic: Recent Labs 12/29/24 2200 AST 18 ALT 11 BILITOT 0.4 ALKPHOS 100 Assessment and Plan: PATRICK due to post-op ATN. Last HD was Sunday Her creatinine today is actually better. Will hold HD and monitor Add po bicarb. Give dose of bumex to augment urine output Metabolic acidosis: add po bicarb HTN: increase coreg to 25 mg bid Small bowel intussusception s/p ex lap with small bowel resection Recent ischemic colitis s/p hartmans with end colostomy Anemia in CKD: add BRYCE COPD Tobacco use D/W patient and RN Trish Kim DO [facility] This report has been created using voice recognition software. It may contain minor errors which are inherent in voice recognition technology * Rina Fritz MD - 12/31/2024 7:32 AM EDT Images from the original note were not included. Hospitalist Progress Note Patient: Maria Elena Garner 64 y.o. female : 1960 Unit/Bed:[address] [place] [address]-A Date of Admission: 12/30/2024 ASSESSMENT AND PLAN Active Problems #Small bowel intussusception: POD1 ex-lap/small bowel resection. Sudden onset of acute severe abdominal pain at OSH. CTAP performed consistent with pneumatosis concerning for ischemic bowel. Prior surgical history noted per below. Transferred to [facility] due to dialysis need. -General surgery following -Pain control -Empiric abx continued -NGT intermittent suction per surgery #Hx ischemic colitis: S/p prior Gómez's/end colostomy placement 12/12/24 OSH #Elevated troponin: Suspect demand ischemia iso above. EKG without acute ST/T wave changes. No CP on exam #Microcytic anemia: Noted, mild decline in H&H following surgery. H&H largely remains stable with prior trend. -Trend CBC #PATRICK on CKD: Secondary to post-op ATN. Currently on HD -Nephrology consulted/following #HAGMA: Bicarb tabs started per nephrology #Thrombocytosis: noted, suspect reactive iso above -Monitor #Chronic hypoxic respiratory failure: On 1L nc baseline on previous discharge. Iso COPD, ESRD with volume overload. -Currently, patient maintained on home 1L nc #COPD: Not acutely exacerbated -Continue Symbicort, spiriva #GERD: Pepcid #Chronic diastolic heart failure: ECHO 12/01/24 with EF 65-70%, G2DD. PATRICK requiring HD per above. Nephrology following -Dialysis per nephrology -IV Bumex started per nephrology #Chronic pericardial effusion: Noted on previous ECHO 12/01/24, no evidence of tamponade physiology #HTN: Norvasc, Coreg continued. Patient home Cardura 1mg daily, clonidine 0.3mg tid held on admission -Monitor pressures, re-institute home meds as needed LDA: []CVC / []PICC / []Midline / []Pittman / []Drains / []Mediport / []None Antibiotics: Zosyn Steroids: No Labs (still needed?): []Yes / []No IVF (still needed?): []Yes / []No Level of care: [x]Step Down / []Med-Surg Bed Status: [x]Inpatient / []Observation Telemetry: [x]Yes / []No PT/OT: [x]Yes / []No DVT Prophylaxis: [] Lovenox / [x] Heparin / [] SCDs / [] Already on Systemic Anticoagulation / [] None Expected discharge date: TBD Disposition: TBD Code status: Full Code Chief Complaint: Abdominal pain Subjective (past 24 hours): Patient seen and examined this AM. Doing well overall. Mild abdominal discomfort. NG remains in place. No HD today. Denies CP, SOB, fevers, chills. Medications: Infusion Medications sodium chloride sodium chloride Scheduled Medications sodium bicarbonate 1,300 mg Oral BID bumetanide 1 mg IntraVENous Once sodium chloride flush 5-40 mL IntraVENous 2 times per day piperacillin-tazobactam 3,375 mg IntraVENous Q12H amLODIPine 10 mg Oral Daily atorvastatin 20 mg Oral Daily carvedilol 12.5 mg Oral BID WC famotidine 20 mg Oral Daily budesonide-formoterol 2 puff Inhalation BID tiotropium 2 puff Inhalation Daily RT albuterol 2.5 mg Nebulization TID sodium chloride flush 5-40 mL IntraVENous 2 times per day heparin (porcine) 5,000 Units SubCUTAneous BID naloxegol 12.5 mg Oral QAM AC PRN Meds: sodium chloride flush, sodium chloride, ondansetron OR ondansetron, polyethylene glycol, acetaminophen OR acetaminophen, traZODone, sodium chloride flush, sodium chloride, HYDROmorphone OR HYDROmorphone Exam: BP (!) 158/87 Pulse 81 Temp 99 ??F (37.2 ??C) (Oral) Resp 16 Ht 1.626 m (5' 4 ) Wt 49.9 kg (110 lb 0.2 oz) SpO2 96% BMI 18.88 kg/m?? General: No distress, appears stated age. Eyes: PERRL. Conjunctivae/corneas clear. HENT: Head normal appearing. Nares normal. Oral mucosa moist. Hearing intact. Neck: Supple, with full range of motion. Trachea midline. No gross JVD appreciated. Respiratory: Normal effort. Clear to auscultation, without rales or wheezes or rhonchi. Cardiovascular: Normal rate, regular rhythm with normal S1/S2 without murmurs. BLE edema 2+ Abdomen: Distention, ostomy without surrounding erythema/drainage, mild TTP Musculoskeletal: No joint swelling or tenderness. Normal tone. No abnormal movements. Skin: Warm and dry. No rashes or lesions. Neurologic: No focal sensory/motor deficits in the upper or lower extremities. Cranial nerves: grossly non-focal 2-12. Psychiatric: Alert and oriented, normal insight and thought content. Capillary Refill: Brisk,< 3 seconds. Peripheral Pulses: +2 palpable, equal bilaterally. Labs/Radiology: See chart or assessment above. * Tacos Owens RN - 12/30/2024 2:19 PM EDT Patient was brought to PACU with tank top, underwear, and heart monitor at the end of the bed. Debby DOUGHERTY is aware of patient belongings at the end of patients bed. * Debby Soler RN - 12/30/2024 2:05 PM EDT 1405 Patient arrived to PACU. Patient arouses to voice and follows commands. Abdominal dressing CDIwith no drainage present. Ice pack applied. Colostomy bag intact. NG tube in right nare intact at 60 cm and verified by OR staff. Pittman catheter draining and patent. Patient complains of pain 8/10. Patient denies nausea. Respirations even and unlabored. VSS. 1407 Patient medicated by COMMERCIAL CREDIT ANALYST at this time. 1415 Patient complains of pain 8/10. Patient medicated with 0.5 mg of Dilaudid at this time. 1420 Patient complains of pain 8/10. Patient medicated with 0.5 mg of Dilaudid at this time. 1425 Patient complains of pain 8/10. Patient medicated with 0.5 mg of Dilaudid at this time. 1430 Patient complains of pain 8/10. Patient medicated with 0.5 mg of Dilaudid at this time. 1440 Patient complains of nausea. 0.625 mg of Droperidol given at this time. 1450 Patient complains of pain 8/10. Patient medicated with 50 mcg of Fentanyl at this time. 1455 Patient complains of pain 8/10. Patient medicated with 50 mcg of Fentanyl at this time. 1505 Patient resting in bed with eyes closed, but arouses to voice. Patient states pain still an 8/10, however, patient drifts back to sleep and appears in minimal distress. Patient not medicated at this time and educated on non- pharmaceutical pain interventions. Respirations even and unlabored. VSS. 1510 Report called to Sofya Weaver RN. 1515 Patient meets criteria to discharge from PACU at this time. 1520 RN called and updated patient's daughter, Aniya, at this time. 1525 Patient transported to [facility] in stable condition with all belongings. Patient's personal blanket, clothing, and 3B telemetry box and cords at the end of the patient's bed. * Laura Rome - 12/30/2024 11:35 AM EDT Report given back to primary Oumou DOUGHERTY. Patient is resting in bed, call light within reach. BPoly JIMENEZ/. Cosigned by Flor Winston RN at 12/30/2024 11:38 AM EDT * Laura Rome - 12/30/2024 7:30 AM EDT Received report from primary Oumou DOUGHERTY. Patient is resting in bed, call light and bedside table iswithin reach. B. Latricia JIMENEZ/. Cosigned by Flor Winston RN at 12/30/2024 11:01 AM EDT * Radha Fung [facility] - 12/30/2024 5:55 AM EDT Images from the original note were not included. Pharmacy Renal Adjustment Pharmacy renally adjusted the following medication(s) per P&T approved policy: famotidine Recent Labs 12/29/24 2200 BUN 23 CREATININE 3.5* eGFR: Recent Labs 12/29/24 2200 LABGLOM 14* Estimated Creatinine Clearance: 12 mL/min (A) (based on SCr of 3.5 mg/dL (H)). Assessment: ESRD on HD Plan: Decrease famotidine from 20mg BID to 20mg daily Please call pharmacy with any questions. Radha Fung [facility], BCPS, BCGP 12/30/2024 5:55 AM * Radha Fung [facility] - 12/30/2024 4:50 AM EDT Images from the original note were not included. Pharmacy Note - Extended Infusion Beta-Lactam Dose Adjustment Piperacillin/Tazobactam 3375 mg q6h intermittent infusion ordered for the treatment of Pneumatosis Coli/Intestinalis concern for perforation or translocation of bacteria. Per [facility] Extended Infusion Beta-Lactam Policy, this will be changed to 4500 mg loading dose followed by 3375 mg q12h extended inf usion Estimated Creatinine Clearance: Estimated Creatinine Clearance: 12 mL/min (A) (based on SCr of 3.5 mg/dL (H)). Dialysis Status, PATRICK, CKD: CKD stage 3 BMI: Body mass index is 16.76 kg/m??. Rationale for Adjustment: Dose adjusted per [facility] Extended Infusion Policy based on renal function and indication. The above medication is renally eliminated and demonstrates time-dependent effects onbacterial eradication. Extended-infusion dosing strategy aims to enhance microbiologic and clinicalefficacy. Pharmacy will monitor renal function daily and adjust dose as necessary. Please call with any questions. Thank you, Radha Fung [facility], BCPS, BCGP 12/30/2024 4:50 AM * Loulou Manrique RN - 12/30/2024 12:06 AM EDT Maria Elena Garner is a 64 y.o. female from [facility] ED with Dr Dalton requesting transfer. Maria Elena has a PMHx of COPD, GERD, HTN, post-op ATN resulting in hemodialysis. Maria Elena had bowel surgery 4 weeks ago due to bowel obstruction, resulting in a new colostomy. Patient arrived to [facility] ED with c/o severe abdominal pain, bloating, and not passing gas or stool as normally. Creatinine 3.5, Na+ 133, lactic 0.7, WBC 7.7, high sensitivity troponin 111. EKG reported as no acute findings. 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 Bowel ischemia cannot be excluded. Dr Emily Whitaker consulted, and asks that medicine admit. Most recent VS: 97.5F, HR 65, RR 22, BP 183/90, SpO2 93% 0.5L NC. Patient has received Dilaudid 1 mg, Dilaudid 0.5 mg, Morphine 4 mg, and Zofran. Accepted in transfer under Dorita Hickey NP/Dr Edouard, to a stepdown level of care. documented in this encounter Plan of Treatment DateTypeDepartmentCare Team (Latest Contact Info)Qzovnhfgebe30/04/2025 2:40 PM ESTOffice Visit [facility] [address] [place] [address] [address] [place] [address] Omar Murrell ADVERTISING OPERATIONS COORDINATOR - SHEEP [employer]TER [address] [place] [address] [address] [place] [address] d/c [facility] 10:00 AM ESTHospital Encounter [facility] [address] [facility] [address] [place] [address] Emily Silva ADVERTISING OPERATIONS COORDINATOR - SHEEP SORTER [address] [facility] [place], [place] [id number] 01/27/2025 11:20 AM ESTOffice Visit [facility] of [facility] [address] [place] [address] Mae Membreno, ADVERTISING OPERATIONS COORDINATOR - SHEEP SORTER [address] [place] [address] [place] [address] 6 week02/05/2025 11:00 AM ESTOffice Visit [facility] [address] [place] [address] Trish Kim, DO [address] [place] [address] Hospital follow up per Dr Kim10/29/2025 2:00 PM EDTOffice Visit [facility] [address] [place] [address] [address] [place] [address] Omar Murrell, ADVERTISING OPERATIONS COORDINATOR - SHEEP SORTER [address] [facility] [address] [place] [address] follow upNameTypePriorityAssociated DiagnosesDate/TimeSurgical PathologyLab Dghaawl9012/30/2024 1:36 PM EDTNameTypePriorityAssociated DiagnosesOrder Schedule Surgical PathologyLabRoutineOnce for 1 Occurrences starting 12/30/2024 until 12/30/2024asic Metabolic PanelLabRoutine Acute kidney injury superimposed on stage 3b chronic kidney disease (HCC) Once a week for 4 Occurrences starting 01/08/2025 until 01/08/2026BCLabRoutine Acute kidney injury superimposed on stage 3b chronic kidney disease (HCC) Expected: 01/15/2025, Expires: 01/08/2026Iron SaturationLabRoutine Acute kidney injury superimposed on stage 3b chronic kidney disease (HCC) Expected: 01/15/2025, Expires: 01/08/2026FerritinLabRoutine Acute kidney injury superimposed on stage 3b chronic kidney disease (HCC) Expected: 01/15/2025, Expires: 01/08/2026BCLabRoutine Chronic renal impairment, stage 4 (severe) Once a week for 5 Occurrences starting 01/12/2025 until 01/11/2026documented as of this encounter Procedures Procedure NamePriorityDate/TimeAssociated DiagnosisCommentsANION GAPRoutine 01/12/2025 6:18 AM EDT GLOMERULAR FILTRATION RATE, SDSDXXCUITftyozn58/27/2025 6:18 AM EDT CLRPiybesy58/27/2025 6:18 AM EDT BASIC METABOLIC EFZKEMgaddda69/27/2025 6:18 AM EDT IP WOUND CARE/OSTOMY NURSE EVAL AND WGXGDPihlqcx50/26/2025 9:46 PM EDTANION GAP Erayhzf7701/11/2025 5:47 AM EDT GLOMERULAR FILTRATION RATE, SQHQTVUMDIcvzpog92/26/2025 5:47 AM EDT CHFTpnbjpl44/26/2025 5:47 AM EDT BASIC METABOLIC UQQFDNsbilmo64/26/2025 5:47 AM EDT XR CHEST ADZECJKRBhhnusp01/25/2025 10:06 AM EDT ANION ZBHXiigdky70/25/2025 5:33 AM EDT GLOMERULAR FILTRATION RATE, GMNQRVIUPPpchbef15/25/2025 5:33 AM EDT BASIC METABOLIC VBMGSRbrumtx82/25/2025 5:33 AM EDT XR ABDOMEN (KUB) (SINGLE AP VIEW)Ygeaoqi1401/09/2025 3:57 PM EDT IP WOUND CARE/OSTOMY NURSE EVAL AND BVLTHCllxnmi11/24/2025 9:23 AM EDTANION GAP Ydoyhpq4801/09/2025 7:22 AM EDT GLOMERULAR FILTRATION RATE, OBXKNHDOTFhmzwwi57/24/2025 7:22 AM EDT BASIC METABOLIC PCTMCKcfufpv55/24/2025 7:22 AM EDT EKG 12-VGWELjeqzzk74/23/2025 10:10 PM EDT XR CHEST NMVCPHDAUgvdict36/23/2025 12:43 PM EDT ANION YFYPxpjogg12/23/2025 4:56 AM EDT GLOMERULAR FILTRATION RATE, JMXSROIUVDcvsewk39/23/2025 4:56 AM EDT DSLUnveqws00/23/2025 4:56 AM EDT BASIC METABOLIC XYZBLOzpmdai39/23/2025 4:56 AM EDT US OLSBXHWOBZNPKLjxvaqb20/22/2025 4:35 PM EDT XR CHEST 1 VZFYTXVL62/22/2025 4:32 PM EDT CULTURE, BODY FLUID (WITH GRAM STAIN)Pzpqvaz6401/07/2025 4:05 PM EDT CELL COUNT WITH DIFFERENTIAL, BODY VWVNYTauxpuf94/22/2025 4:05 PM EDT PROTEIN, BODY PFUMWOfnsgtn85/22/2025 4:05 PM EDT LACTATE DEHYDROGENASE, BODY OQYVABhlyiqs53/22/2025 4:05 PM EDT GLUCOSE, BODY QMDNGBkphlnx04/22/2025 4:05 PM EDT ALBUMIN, PIWTKUezyyex92/22/2025 4:05 PM EDT PH, BODY WSQGATzempma90/22/2025 4:05 PM EDT ANION TILDgietea39/22/2025 5:26 AM EDT GLOMERULAR FILTRATION RATE, JYVCMXPXKFhmhysn60/22/2025 5:26 AM EDT UNZWosqyos20/22/2025 5:26 AM EDT HEPATIC FUNCTION GZARMJavaqkn33/22/2025 5:26 AM EDT BASIC METABOLIC GQWLPRufuuus64/22/2025 5:26 AM EDT ANION OFVOwdcxqw05/21/2025 5:40 AM EDT GLOMERULAR FILTRATION RATE, ANEZGQDIFZkhwlzc90/21/2025 5:40 AM EDT CBC WITH AUTO YHHAPTPZXIZUOzufxiq28/21/2025 5:40 AM EDT PROTEIN, YJDFQHtzuvuw26/21/2025 5:40 AM EDT LACTATE DEHYDROGENASEAdd-On01/06/2025 5:40 AM EDT HGTODQWTzqiedg65/21/2025 5:40 AM EDT BASIC METABOLIC YMWDXQtaczlc53/21/2025 5:40 AM EDT US RENAL KXXPKJKNdmynpb39/20/2025 11:38 AM EDT ANION OOPMarruyh54/20/2025 6:22 AM EDT GLOMERULAR FILTRATION RATE, XNIRMHDHRAoynlyr83/20/2025 6:22 AM EDT BFACwfpygf55/20/2025 6:22 AM EDT LACTIC IXHJUquvnku37/20/2025 6:22 AM EDT BASIC METABOLIC FODGVLlqza19/20/2025 6:22 AM EDT EKG RHYTHM BLZLTUbquuog83/19/2025 9:20 PM EDT UGDKsszt16/19/2025 8:59 PM EDT LACTIC VLWRHzkyn26/19/2025 8:59 PM EDT LACTIC HRMGDAML47/19/2025 3:12 PM EDT CULTURE, REFLEXED, CCQZXNtfapyb24/19/2025 1:15 PM EDT URINE WITH REFLEXED CUAWVPziwisl41/19/2025 1:[address] ABDOMEN PELVIS WO AIRPMIZPTzdqflv87/19/2025 10:14 AM EDT ANION YBHMcdpcnn59/19/2025 4:50 AM EDT GLOMERULAR FILTRATION RATE, DNTZFGBIRZrewomx03/19/2025 4:50 AM EDT GZVKzgtlek91/19/2025 4:50 AM EDT BASIC METABOLIC PLNWXWxuhyhs15/19/2025 4:50 AM EDT ANION OYGBddtekj97/18/2025 7:33 AM EDT GLOMERULAR FILTRATION RATE, FRLEWBGCWQvguvqd71/18/2025 7:33 AM EDT PNKBsmvtve34/18/2025 7:33 AM EDT BASIC METABOLIC LWDFVAfnmifq79/18/2025 7:33 AM EDT IR FLUORO GUIDED CVA DEVICE PLACEMENT (AKA CVAD)Bwxpnns3301/02/2025 10:53 AM EDT EKG RHYTHM ZESHIMjavypf54/17/2025 7:57 AM EDT EKG RHYTHM KJJVTAhdrehg75/17/2025 7:03 AM EDT ANION CFUIvhgzoo34/17/2025 5:31 AM EDT GLOMERULAR FILTRATION RATE, MCEXONVCUEnxzoql01/17/2025 5:31 AM EDT YXIPciesyy51/17/2025 5:31 AM EDT WWRLHOFEQRfeipop50/17/2025 5:31 AM EDT CALCIUM, QNXPUJDChaexpu03/17/2025 5:31 AM EDT BASIC METABOLIC EVBUJTmuztqc80/17/2025 5:31 AM EDT EKG RHYTHM FAWSNUvdyghz51/16/2025 2:05 PM EDT EKG RHYTHM QOPKXVicngzf54/16/2025 8:03 AM EDT ANION KHZLgstlka81/16/2025 5:15 AM EDT GLOMERULAR FILTRATION RATE, BZFCPOSDHZtbzkia42/16/2025 5:15 AM EDT LDSWkszzrb20/16/2025 5:15 AM EDT BASIC METABOLIC HXTIQLteiieb99/16/2025 5:15 AM EDT EKG RHYTHM ZBTZHBcueycj12/16/2025 5:04 AM EDT XR NECK SOFT ADACDJPHHK44/15/2025 10:38 PM EDT VITAMIN B12 & FOLATEAdd-On12/31/2024 2:08 PM EDT EKG RHYTHM ENUKBVuptysn18/15/2025 2:03 PM EDT EKG RHYTHM PPGJDKaeidxs25/15/2025 7:59 AM EDT ANION XESYlbgvok52/15/2025 4:30 AM EDT GLOMERULAR FILTRATION RATE, LVXSNLCXFKwqztvz95/15/2025 4:30 AM EDT NIGTskqenj65/15/2025 4:30 AM EDT BASIC METABOLIC QYKWJPcyypxj45/15/2025 4:30 AM EDT EKG RHYTHM YVJXVWlzdfxy18/14/2025 8:00 PM EDT CULTURE, ANAEROBIC AND TRIEXYKYfriicd37/14/2025 1:35 PM EDT Abdominal pain, unspecified abdominal location LAPAROTOMY VTHDQOYOPEL00/14/2025 12:24 PM EDT Abdominal pain, unspecified abdominal location IQCSLLTBPdfni79/14/2025 9:02 AM EDT ANION NVZYsoulws47/14/2025 7:38 AM EDT GLOMERULAR FILTRATION RATE, VMTVAOZOJFbochwp35/14/2025 7:38 AM EDT XAZFBSALGpxhplc43/14/2025 7:38 AM EDT FUSXzvdmuw35/14/2025 7:38 AM EDT BASIC METABOLIC OMZJCYshbiwx51/14/2025 7:38 AM EDT SURGICAL JMZBVQXLJRwdxqhm59/14/2025 7:17 AM EDT Abdominal pain, unspecified abdominal location documented in this encounter Results * (ABNORMAL) Glomerular Filtration Rate, Estimated (01/12/2025 6:18 AM EDT) ComponentValueRef RangeTest MethodAnalysis TimePerformed AtPathologist SignatureEst, Glorichardson Filt Rate29(A)>60 ml/min/1.81m75301/12/2025 7:29 AM [facility] LABComment: Pediatric calculator link https://www.kidney.org/professionals/kdoqi/gfr_calculatorped Effective Dec 19, 2021 These results are not intended for use in patients <18 years of age. eGFR results are calculated without a race factor using the 2020 CKD-EPI equation. ??Careful clinical correlation is recommended, particularly when comparing to results calculated using previous equations. The CKD-EPI equation is less accurate in patients with extremes of muscle mass, extra-renal metabolism of creatinine, excessive creatine ingestion, or following therapy that affects renal tubular secretion. Performed at [facility] [address] [place] [address] Specimen (Source)Anatomical Location / LateralityCollection Method / Volume Collection TimeReceived Time01/12/2025 6:18 AM EDT1 6:18 AM EDT Narrative Authorizing ProviderResult TypeResult StatusNassim L Louail MDCHEMISTRY ORDERABLESFinal ResultPerforming OrganizationAddressCity/State/ZIP CodePhone Number [facility] [address] [place] [address], [facility] [phone] [facility] [address] [place] [address], [facility] [phone] * Anion Gap (01/12/2025 6:18 AM EDT)ComponentValueRef RangeTest MethodAnalysis TimePerformed AtPathologist SignatureAnion Gap11.08.0 - 16.0 meq/L1 7:29 AM [facility] LABComment: ANION GAP = Sodium -(Chloride + CO2) Performed at [facility] [address] [place] [address] Specimen (Source)Anatomical Location / LateralityCollection Method / Volume Collection TimeReceived Time01/12/2025 6:18 AM EDT1 6:56 AM EDT Narrative Authorizing ProviderResult TypeResult StatusNassim L Louail MDCHEMISTRY ORDERABLESFinal ResultPerforming OrganizationAddressty/State/ZIP CodePhone Number [facility] [address] [place] [address], [facility] [phone] [facility] [address] [place] [address], [facility] [phone] * (ABNORMAL) CBC (01/12/2025 6:18 AM EDT)ComponentValueRef RangeTest Method Analysis TimePerformed AtPathologist UhxrybchmZYC94.74.8 - 10.8 thou/mm3 01/12/2025 7:01 AM [facility] LABRBC3.29(L) 4.20 - 5.40 mill/mm301/12/2025 7:01 AM [facility] LABHemoglobin8.7(L)12.0 - 16.0 gm/dl01/12/2025 7:01 AM [facility] LRXNnyyxohcxc91.8(L)37.0 - 47.0 %01/12/2025 7:01 AM [facility] POATIY24.581.0 - 99.0 fL 01/12/2025 7:01 AM [facility] PTBVHA84.426.0 - 33.0 pg01/12/2025 7:01 AM [facility] MCHC32.532.2 - 35.5 gm/dl01/12/2025 7:01 AM [facility] LABRDW-CV21.0(H)11.5 - 14.5 %01/12/2025 7:01 AM [facility] LABRDW-SD50.4(H)35.0 - 45.0 fL01/12/2025 7:01 AM [facility] DFYBolyobzse404636 - 400 thou/mm3 01/12/2025 7:01 AM [facility] LABMPV8.7(L)9.4 - 12.4 fL01/12/2025 7:01 AM [facility] Comment:[place] [address] Specimen (Source)Anatomical Location / LateralityCollection Method / Volume Collection TimeReceived TimeBloodBLOOD SPECIMEN / Lnrwmhu5701/12/2025 6:18 AM EDT1 6:56 AM EDT Narrative Authorizing ProviderResult TypeResult StatusNassirichardson Mancini MDHEMATOLOGY ORDERABLESFinal ResultPerforming OrganizationAddressCity/State/ZIP CodePhone Number [facility] [address] [place] [address], [facility] [phone] [facility] [address] [place] [address], [facility] [phone] * (ABNORMAL) Basic Metabolic Panel (01/12/2025 6:18 AM EDT)ComponentValueRef RangeTest MethodAnalysis TimePerformed AtPathologist QwhpwgpdwLmjjef368982 - 145 meq/L1 7:17 AM [facility] Potassium3.63.5 - 5.2 meq/L1 7:17 AM [facility] GYTEichbqnf14553 - 111 meq/L1 7:17 AM [facility] HYBHT61174 - 29 meq/L1 7:29 AM [facility] LYTXxijhmo74352 - 109 mg/dL01/12/2025 7:29 AM [facility] WRRHAW79(H)8 - 23 mg/dL 01/12/2025 7:29 AM [facility] LABCreatinine 1.9(H)0.5 - 0.9 mg/dL01/12/2025 7:29 AM [facility] LABCalcium8.88.5 - 10.5 mg/dL01/12/2025 7:29 AM [facility] LABComment:Performed at [facility] [address] [place] [id number] (Source)Anatomical Location / Laterality Collection Method / VolumeCollection TimeReceived TimeBloodBLOOD SPECIMEN / Srqmjmw3201/12/2025 6:18 AM EDT1 6:56 AM EDT Narrative Authorizing ProviderResult TypeResult StatusNassim L Louail MDCHEMISTRY ORDERABLESFinal ResultPerforming OrganizationAddressCity/State/ZIP CodePhone Number [facility] [address] [place] [address], [facility] [phone] [facility] [address] [place] [address], [facility] [phone] * (ABNORMAL) Glomerular Filtration Rate, Estimated (01/11/2025 5:47 AM EDT) ComponentValueRef RangeTest MethodAnalysis TimePerformed AtPathologist SignatureEst, Glom Filt Rate25(A)>60 ml/min/1.61g80001/11/2025 6:59 AM [facility] LABComment: Pediatric calculator link https://www.kidney.org/professionals/kdoqi/gfr_calculatorped Effective Dec 19, 2021 These results are not intended for use in patients <18 years of age. eGFR results are calculated without a race factor using the 2020 CKD-EPI equation. ??Careful clinical correlation is recommended, particularly when comparing to results calculated using previous equations. The CKD-EPI equation is less accurate in patients with extremes of muscle mass, extra-renal metabolism of creatinine, excessive creatine ingestion, or following therapy that affects renal tubular secretion. Performed at [facility] [address] [place] [address] Specimen (Source)Anatomical Location / LateralityCollection Method / Volume Collection TimeReceived Time01/11/2025 5:47 AM EDT1 5:47 AM EDT Narrative Authorizing ProviderResult TypeResult StatusNassim L Louail MDCHEMISTRY ORDERABLESFinal ResultPerforming OrganizationAddressCity/State/ZIP CodePhone Number [facility] [address] [place] [address], [facility] [phone] [facility] [address] [place] [address], [facility] [phone] * Anion Gap (01/11/2025 5:47 AM EDT)ComponentValueRef RangeTest MethodAnalysis TimePerformed AtPathologist SignatureAnion Gap12.08.0 - 16.0 meq/L1 6:59 AM [facility] LABComment: ANION GAP = Sodium -(Chloride + CO2) Performed at [facility] [address] [place] [address] Specimen (Source)Anatomical Location / LateralityCollection Method / Volume Collection TimeReceived Time01/11/2025 5:47 AM EDT1 6:25 AM EDT Narrative Authorizing ProviderResult TypeResult StatusNassim L Louail MDCHEMISTRY ORDERABLESFinal ResultPerforming OrganizationAddressCity/State/ZIP CodePhone Number [facility] [address] [place] [address], [facility] [phone] [facility] [address] [place] [address], [facility] [phone] * (ABNORMAL) CBC (01/11/2025 5:47 AM EDT)ComponentValueRef RangeTest Method Analysis TimePerformed AtPathologist SignatureWBC9.74.8 - 10.8 thou/mm3 01/11/2025 6:29 AM [facility] LABRBC3.25(L) 4.20 - 5.40 mill/mm301/11/2025 6:29 AM [facility] LABHemoglobin8.6(L)12.0 - 16.0 gm/dl01/11/2025 6:29 AM [facility] NWBIbkzxaaeyv06.6(L)37.0 - 47.0 %01/11/2025 6:29 AM [facility] MJXODJ59.881.0 - 99.0 fL 01/11/2025 6:29 AM [facility] DROMNZ16.526.0 - 33.0 pg01/11/2025 6:29 AM [facility] MCHC32.332.2 - 35.5 gm/dl01/11/2025 6:29 AM [facility] LABRDW-CV20.2(H)11.5 - 14.5 %01/11/2025 6:29 AM [facility] LABRDW-SD50.4(H)35.0 - 45.0 fL01/11/2025 6:29 AM [facility] CWPNuswemosw046544 - 400 thou/mm3 01/11/2025 6:29 AM [facility] LABMPV9.1(L)9.4 - 12.4 fL01/11/2025 6:29 AM [facility] Comment:Performed at [facility] [address] [place] [address] Specimen (Source)Anatomical Location / LateralityCollection Method / Volume Collection TimeReceived TimeBloodBLOOD SPECIMEN / Tqojyzl7501/11/2025 5:47 AM EDT1 6:25 AM EDT Narrative Authorizing ProviderResult TypeResult StatusNasreal Mancini MDHEMATOLOGY ORDERABLESFinal ResultPerforming OrganizationAddressCity/State/ZIP CodePhone Number [facility] [address] [place] [address] [facility] [address] [place] [address] * (ABNORMAL) Basic Metabolic Panel (01/11/2025 5:47 AM EDT)ComponentValueRef RangeTest MethodAnalysis TimePerformed AtPathologist LkworespvPnyucw070873 - 145 meq/L1 6:48 AM [facility] Potassium3.93.5 - 5.2 meq/L1 6:48 AM [facility] CVQCfzbhzqn33189 - 111 meq/L1 6:48 AM [facility] FXWOP62373 - 29 meq/L1 6:59 AM [facility] XRGOzghzio243(H)74 - 109 mg/dL01/11/2025 6:59 AM [facility] ALUTEH99(H)8 - 23 mg/dL 01/11/2025 6:59 AM [facility] LABCreatinine 2.2(H)0.5 - 0.9 mg/dL01/11/2025 6:59 AM [facility] LABCalcium8.68.5 - 10.5 mg/dL01/11/2025 6:59 AM [facility] LABComment:Performed at [facility] [address] [place], [place] [address]Specimen (Source)Anatomical Location / Laterality Collection Method / VolumeCollection TimeReceived TimeBloodBLOOD SPECIMEN / Oftvuwj9101/11/2025 5:47 AM EDT1 6:25 AM EDT Narrative Authorizing ProviderResult TypeResult StatusNassim L Louail MDCHEMISTRY ORDERABLESFinal ResultPerforming OrganizationAddressCity/State/ZIP CodePhone Number [facility] [address] [place] [address], [facility] [phone] [facility] [address] [place] [address], [facility] [phone] * XR CHEST PORTABLE (01/10/2025 10:06 AM EDT)Anatomical RegionLateralityModality ChestComputed RadiographySpecimen (Source)Anatomical Location / Laterality Collection Method / VolumeCollection TimeReceived Time01/10/2025 12:20 PM EDT Impressions 01/10/2025 12:21 PM EDT Stable small bilateral pleural effusions with under aeration of the left lung base. This report has been created using voice recognition software. It may contain minor errors which are inherent in voice recognition technology. Electronically signed by Dr. Bertha Montgomery Narrative 01/10/2025 12:21 PM EDT PROCEDURE: XR CHEST PORTABLE CLINICAL INFORMATION: bilateral pleural effusions. COMPARISON: Chest x-ray 01/08/2025. TECHNIQUE: AP upright view of the chest. FINDINGS: The heart size is normal. The mediastinum is not widened. There is blunting of both costophrenic angles consistent with small bilateral pleural effusions. There is under aeration of the left lung base which can indicate left lower lobe atelectasis/partial collapse. The mid and upper lung zones are well inflated and appear unchanged. The pulmonary vascularity is normal. Procedure Note Bertha Montgomery MD - 01/10/2025 PROCEDURE: XR CHEST PORTABLE CLINICAL INFORMATION: bilateral pleural effusions. COMPARISON: Chest x-ray 01/08/2025. TECHNIQUE: AP upright view of the chest. FINDINGS: The heart size is normal. The mediastinum is not widened. There isblunting of both costophrenic angles consistent with small bilateral pleuraleffusions. There is under aeration of the left lung base which can indicate leftlower lobe atelectasis/partial collapse. The mid and upper lung zones are wellinflated and appear unchanged. The pulmonary vascularity is normal. IMPRESSION: Stable small bilateral pleural effusions with under aeration of the left lung base. This report has been created using voice recognition software. It maycontain minor errors which are inherent in voice recognition technology. Electronically signed by Dr. Bertha Montgomery Authorizing ProviderResult TypeResult StatusNassim Jody Mancini MDIMG DIAGNOSTIC IMAGING ORDERABLESFinal Result * (ABNORMAL) Glomerular Filtration Rate, Estimated (01/10/2025 5:33 AM EDT) ComponentValueRef RangeTest MethodAnalysis TimePerformed AtPathologist SignatureEst, Glom Filt Rate22(A)>60 ml/min/1.54h20701/10/2025 6:26 AM [facility] LABComment: Pediatric calculator link https://www.kidney.org/professionals/kdoqi/gfr_calculatorped Effective Dec 19, 2021 These results are not intended for use in patients <18 years of age. eGFR results are calculated without a race factor using the 2020 CKD-EPI equation. ??Careful clinical correlation is recommended, particularly when comparing to results calculated using previous equations. The CKD-EPI equation is less accurate in patients with extremes of muscle mass, extra-renal metabolism of creatinine, excessive creatine ingestion, or following therapy that affects renal tubular secretion. Performed at [facility] [address] [place] [address] Specimen (Source)Anatomical Location / LateralityCollection Method / Volume Collection TimeReceived Time01/10/2025 5:33 AM EDT1 5:33 AM EDT Narrative Authorizing ProviderResult TypeResult StatusBoone Helena Bazaritorstenn DOCHEMISTRY ORDERABLESFinal ResultPerforming OrganizationAddressCity/State/ZIP CodePhone Number [facility] [address] [place] [address], [facility] [phone] [facility] [address] [place] [address], [facility] [phone] * Anion Gap (01/10/2025 5:33 AM EDT)ComponentValueRef RangeTest MethodAnalysis TimePerformed AtPathologist SignatureAnion Gap11.08.0 - 16.0 meq/L1 6:26 AM [facility] LABComment: ANION GAP = Sodium -(Chloride + CO2) Performed at [facility] [address] [place] [address] Specimen (Source)Anatomical Location / LateralityCollection Method / Volume Collection TimeReceived Time01/10/2025 5:33 AM EDT1 5:52 AM EDT Narrative Authorizing ProviderResult TypeResult StatusBoone Helena Hemmelmayin DOCHEMISTRY ORDERABLESFinal ResultPerforming OrganizationAddressCity/State/ZIP CodePhone Number [facility] [address] [place] [address], [facility] [phone] [facility] [address] [place] [address], [facility] [phone] * (ABNORMAL) Basic Metabolic Panel (01/10/2025 5:33 AM EDT)ComponentValueRef RangeTest MethodAnalysis TimePerformed AtPathologist FxsxwhtyePspkcw083(L)135 - 145 meq/L1 6:15 AM [facility] Potassium4.13.5 - 5.2 meq/L1 6:15 AM [facility] OSTFqtldigi67490 - 111 meq/L1 6:15 AM [facility] EAISE85601 - 29 meq/L1 6:26 AM [facility] TFTBjuzirw40457 - 109 mg/dL01/10/2025 6:26 AM [facility] DAPRAO28(H)8 - 23 mg/dL 01/10/2025 6:26 AM [facility] LABCreatinine 2.4(H)0.5 - 0.9 mg/dL01/10/2025 6:26 AM [facility] LABCalcium8.3(L)8.5 - 10.5 mg/dL01/10/2025 6:26 AM [facility] LABComment:Performed at [facility] [address] [place], [place] [address]Specimen (Source)Anatomical Location / Laterality Collection Method / VolumeCollection TimeReceived TimeBloodBLOOD SPECIMEN / Rpspwwb4401/10/2025 5:33 AM EDT1 5:52 AM EDT Narrative Authorizing ProviderResult TypeResult StatusJill E Hemmelgarn DOCHEMISTRY ORDERABLESFinal ResultPerforming OrganizationAddressCity/State/ZIP CodePhone Number [facility] [address] [place] [address], [facility] [phone] [facility] [address] [place] [address] * XR ABDOMEN (KUB) (SINGLE AP VIEW) (01/09/2025 3:57 PM EDT)Anatomical Region LateralityModalityAbdomenComputed RadiographySpecimen (Source)Anatomical Location / LateralityCollection Method / VolumeCollection TimeReceived Time 01/09/2025 4:24 PM EDT Impressions 01/09/2025 4:25 PM EDT No acute abdominal disease. This report has been created using voice recognition software. ??It may contain minor errors which are inherent in voice recognition technology. Electronically signed by Dr. Frederick Gonzales Narrative 01/09/2025 4:25 PM EDT PROCEDURE: XR ABDOMEN (KUB) (SINGLE AP VIEW) CLINICAL INFORMATION: Abdominal distention COMPARISON: 12/14/2024 TECHNIQUE: A single supine image of the abdomen was obtained. FINDINGS: There is an ostomy in the left mid abdomen. No abnormally dilated bowel loops are seen. Suture lines are seen in the right lower quadrant from prior surgery. Also evidence for prior cholecystectomy. Moderate thoracolumbar levorotoscoliosis which has worsened since prior study, consistent with muscle spasm. There are a few phleboliths in the pelvis. Procedure Note Frederick Gonzales MD - 01/09/2025 PROCEDURE: XR ABDOMEN (KUB) (SINGLE AP VIEW) CLINICAL INFORMATION: Abdominal distention COMPARISON: 12/14/2024 TECHNIQUE: A single supine image of the abdomen was obtained. FINDINGS: There is an ostomy in the left mid abdomen. No abnormally dilated bowelloops are seen. Suture lines are seen in the right lower quadrant from priorsurgery. Also evidence for prior cholecystectomy. Moderate thoracolumbar levorotoscoliosis which has worsened since prior study, consistent withmuscle spasm. There are a few phleboliths in the pelvis. IMPRESSION: No acute abdominal disease. This report has been created using voice recognition software. It maycontain minor errors which are inherent in voice recognition technology. Electronically signed by Dr. Frederick Gonzales Authorizing ProviderResult TypeResult StatusKiara Harper MDPedro DIAGNOSTIC IMAGING ORDERABLESFinal Result * (ABNORMAL) Glomerular Filtration Rate, Estimated (01/09/2025 7:22 AM EDT) ComponentValueRef RangeTest MethodAnalysis TimePerformed AtPathologist SignatureEst, Glom Filt Rate23(A)>60 ml/min/1.19i93201/09/2025 8:21 AM [facility] LABComment: Pediatric calculator link https://www.kidney.org/professionals/kdoqi/gfr_calculatorped Effective Dec 19, 2021 These results are not intended for use in patients <18 years of age. eGFR results are calculated without a race factor using the 2020 CKD-EPI equation. ??Careful clinical correlation is recommended, particularly when comparing to results calculated using previous equations. The CKD-EPI equation is less accurate in patients with extremes of muscle mass, extra-renal metabolism of creatinine, excessive creatine ingestion, or following therapy that affects renal tubular secretion[place] [address] Specimen (Source)Anatomical Location / LateralityCollection Method / Volume Collection TimeReceived Time01/09/2025 7:22 AM EDT1 7:22 AM EDT Narrative Authorizing ProviderResult TypeResult StatusEric B Kenton MDCHEMISTRY ORDERABLES Final ResultPerforming OrganizationAddressCity/State/ZIP CodePhone Number [facility] [address] [place] [address], [facility] [phone] [facility] [address] [place] [address], [facility] [phone] * Anion Gap (01/09/2025 7:22 AM EDT)ComponentValueRef RangeTest MethodAnalysis TimePerformed AtPathologist SignatureAnion Gap11.08.0 - 16.0 meq/L1 8:21 AM [facility] LABComment: ANION GAP = Sodium -(Chloride + CO2) Performed at [facility] [address] [place] [address] Specimen (Source)Anatomical Location / LateralityCollection Method / Volume Collection TimeReceived Time01/09/2025 7:22 AM EDT1 7:46 AM EDT Narrative Authorizing ProviderResult TypeResult StatusEric B Kenton MDCHEMISTRY ORDERABLES Final ResultPerforming OrganizationAddressCity/State/ZIP CodePhone Number [facility] [address] [place] [address], [facility] [phone] [facility] [address] [place] [address], [facility] [phone] * (ABNORMAL) Basic Metabolic Panel (01/09/2025 7:22 AM EDT)ComponentValueRef RangeTest MethodAnalysis TimePerformed AtPathologist XlkqaoqpbUhrnmw618(L)135 - 145 meq/L1 8:13 AM [facility] Potassium4.13.5 - 5.2 meq/L1 8:13 AM [facility] PHPMbewlztc30738 - 111 meq/L1 8:13 AM [facility] JZFHF107(L)22 - 29 meq/L1 8:21 AM EDT [facility] ZEWFpispcw363(H)74 - 109 mg/dL 01/09/2025 8:21 AM [facility] QKCFTP45(H)8 - 23 mg/dL01/09/2025 8:22 AM [facility] Creatinine2.3(H)0.5 - 0.9 mg/dL01/09/2025 8:21 AM [facility] LABCalcium8.88.5 - 10.5 mg/dL01/09/2025 8:21 AM [facility] LABComment:Performed at [facility] [address] [place], [place] [address]Ezijgsod (Source)Anatomical Location / LateralityCollection Method / VolumeCollection TimeReceived TimeBLOOD SPECIMEN / Bwybnqw2001/09/2025 7:22 AM EDT1 7:46 AM EDT Narrative Authorizing ProviderResult TypeResult StatusEric B Fung MDCHEMISTRY ORDERABLES Final ResultPerforming OrganizationAddressCity/State/ZIP CodePhone Number [facility] [address] [place] [address], [facility] [phone] [facility] [address] [place] [address], [facility] [phone] * EKG 12 Lead (01/08/2025 10:10 PM EDT)ComponentValueRef RangeTest Method Analysis TimePerformed AtPathologist SignatureVentricular Ezph56ESSRIVX STR MUSEAtrial Lzne32UYSBEQP STR MUSEP-R Fqzspczj606srGHPW STR MUSEQRS Jbuwaoab806 msWCOH STR MUSEQ-T Wyupzydo642xoGNQH STR MUSEQTc Calculation (Bazett)444msWCOH STR MUSEP Ypyb16trrtqddJTQP STR MUSER Zlpd25xuapdbbIPWZ STR MUSET Axis75 degreesWCOH STR MUSESpecimen (Source)Anatomical Location / Laterality Collection Method / VolumeCollection TimeReceived Time01/08/2025 10:10 PM EDT 01/09/2025 5:15 PM EDT Narrative [facility] STR MUSE - 01/09/2025 5:15 PM EDT Normal sinus rhythm Minimal voltage criteria for LVH, may be normal variant ( Troy product ) Anteroseptal infarct , age undetermined Abnormal ECG No previous ECGs available Confirmed by DAMARI PERRIN ([id number]) on 01/09/2025 5:15:39 PM Procedure Note Unknown, Provider - 01/09/2025 Normal sinus rhythm Minimal voltage criteria for LVH, may be normal variant ( Troy product) Anteroseptal infarct , age undetermined Abnormal ECG No previous ECGs available Confirmed by DAMARI PERRIN ([id number]) on 01/09/2025 5:15:39 PM Authorizing ProviderResult TypeResult StatusEric B Kenton SANTILLANECPedro ORDERABLESFinal ResultPerforming OrganizationAddressCity/State/ZIP CodePhone Number [facility] STR MUSE * XR CHEST PORTABLE (01/08/2025 12:43 PM EDT)Anatomical RegionLateralityModality ChestComputed RadiographySpecimen (Source)Anatomical Location / Laterality Collection Method / VolumeCollection TimeReceived Time01/08/2025 12:51 PM EDT Impressions 01/08/2025 12:53 PM EDT 1. Small bilateral left or the right pleural effusions are seen. Dependent bibasilar left greater than right airspace opacities are also present which may present atelectasis or pneumonia. This report has been created using voice recognition software. ??It may contain minor errors which are inherent in voice recognition technology. Electronically signed by Dr. Pedro Diallo Narrative 01/08/2025 12:53 PM EDT PROCEDURE: XR CHEST PORTABLE CLINICAL INFORMATION: S/p R thoracentesis, L pleural effusion COMPARISON: 01/07/2025 TECHNIQUE: AP mobile chest FINDINGS: The heart size is normal. There are small bilateral left greater than right pleural effusions. Dependent bibasilar left greater than right airspace opacities are also present which may present mild compressive atelectasis or pneumonia. No pneumothorax is seen. No acute osseous findings are demonstrated. Procedure Note Lucio Diallo MD - 01/08/2025 PROCEDURE: XR CHEST PORTABLE CLINICAL INFORMATION: S/p R thoracentesis, L pleural effusion COMPARISON: 01/07/2025 TECHNIQUE: AP mobile chest FINDINGS: The heart size is normal. There are small bilateral left greater thanright pleural effusions. Dependent bibasilar left greater than right airspace opacities are also present which may present mild compressive atelectasisor pneumonia. No pneumothorax is seen. No acute osseous findings aredemonstrated. IMPRESSION: 1. Small bilateral left or the right pleural effusions are seen.Dependent bibasilar left greater than right airspace opacities are also presentwhich may present atelectasis or pneumonia. This report has been created using voice recognition software. It maycontain minor errors which are inherent in voice recognition technology. Electronically signed by Dr. Pedro Diallo Authorizing ProviderResult TypeResult StatusNassim Jody Mancini [facility] ORDERABLESFinal Result * (ABNORMAL) Glomerular Filtration Rate, Estimated (01/08/2025 4:56 AM EDT) ComponentValueRef RangeTest MethodAnalysis TimePerformed AtPathologist SignatureEst, Glom Filt Rate25(A)>60 ml/min/1.21c14801/08/2025 6:17 AM [facility] LABComment: Pediatric calculator link https://www.kidney.org/professionals/kdoqi/gfr_calculatorped Effective Dec 19, 2021 These results are not intended for use in patients <18 years of age. eGFR results are calculated without a race factor using the 2020 CKD-EPI equation. ??Careful clinical correlation is recommended, particularly when comparing to results calculated using previous equations. The CKD-EPI equation is less accurate in patients with extremes of muscle mass, extra-renal metabolism of creatinine, excessive creatine ingestion, or following therapy that affects renal tubular secretion[place] [address] Specimen (Source)Anatomical Location / LateralityCollection Method / Volume Collection TimeReceived Time01/08/2025 4:56 AM EDT1 4:56 AM EDT Narrative Authorizing ProviderResult TypeResult StatusEric B Kenton MDCHEMISTRY ORDERABLES Final ResultPerforming OrganizationAddressCity/State/ZIP CodePhone Number [facility] [address] [place] [address], [facility] [phone] [facility] [address] [place] [address], [facility] [phone] * Anion Gap (01/08/2025 4:56 AM EDT)ComponentValueRef RangeTest MethodAnalysis TimePerformed AtPathologist SignatureAnion Gap13.08.0 - 16.0 meq/L1 6:17 AM [facility] LABComment: ANION GAP = Sodium -(Chloride + CO2) Performed at [facility] [address] [place] [address] Specimen (Source)Anatomical Location / LateralityCollection Method / Volume Collection TimeReceived Time01/08/2025 4:56 AM EDT1 5:36 AM EDT Narrative Authorizing ProviderResult TypeResult StatusEric B Kenton MDCHEMISTRY ORDERABLES Final ResultPerforming OrganizationAddressCity/State/ZIP CodePhone Number [facility] [address] [place], [place] [address]R[place] [phone] [facility] [address] [place] [address], [facility] [phone] * (ABNORMAL) CBC (01/08/2025 4:56 AM EDT)ComponentValueRef RangeTest Method Analysis TimePerformed AtPathologist SignatureWBC8.74.8 - 10.8 thou/mm3 01/08/2025 6:01 AM [facility] LABRBC3.54(L) 4.20 - 5.40 mill/mm301/08/2025 6:01 AM [facility] LABHemoglobin9.2(L)12.0 - 16.0 gm/dl01/08/2025 6:01 AM [facility] YWCXqkhfkmxya28.4(L)37.0 - 47.0 %01/08/2025 6:01 AM [facility] SLWHAF45.2(L)81.0 - 99.0 fL 01/08/2025 6:01 AM [facility] AXURGZ68.026.0 - 33.0 pg01/08/2025 6:01 AM [facility] MCHC32.432.2 - 35.5 gm/dl01/08/2025 6:01 AM [facility] LABRDW-CV18.6(H)11.5 - 14.5 %01/08/2025 6:01 AM [facility] LABRDW-SD48.4(H)35.0 - 45.0 fL01/08/2025 6:01 AM [facility] LMDZqxbfgjmf198539 - 400 thou/mm3 01/08/2025 6:01 AM [facility] LABMPV8.8(L)9.4 - 12.4 fL01/08/2025 6:01 AM [facility] Comment:Performed at [facility] [address] [place] [address] Specimen (Source)Anatomical Location / LateralityCollection Method / Volume Collection TimeReceived TimeBloodBLOOD SPECIMEN / Gpndgmx3501/08/2025 4:56 AM EDT1 5:36 AM EDT Narrative Authorizing ProviderResult TypeResult StatusNadebi Christiansen MDHEMATOLOGY ORDERABLESFinal ResultPerforming OrganizationAddressCity/State/ZIP CodePhone Number [facility] [address] [place] [address], [facility] [phone] [facility] [address] [place] [address], [facility] [phone] * (ABNORMAL) Basic Metabolic Panel (01/08/2025 4:56 AM EDT)ComponentValueRef RangeTest MethodAnalysis TimePerformed AtPathologist PsslvduaiNfwhef749(L)135 - 145 meq/L1 6:05 AM [facility] Potassium4.03.5 - 5.2 meq/L1 6:05 AM [facility] BFHDnyulvjk9960 - 111 meq/L1 6:05 AM [facility] TELPD326(L)22 - 29 meq/L1 6:17 AM [facility] LOFEmgvfiw76867 - 109 mg/dL01/08/2025 6:17 AM [facility] TOCFAF80(H)8 - 23 mg/dL 01/08/2025 6:17 AM [facility] LABCreatinine 2.2(H)0.5 - 0.9 mg/dL01/08/2025 6:17 AM [facility] LABCalcium8.3(L)8.5 - 10.5 mg/dL01/08/2025 6:17 AM [facility] LABComment:Performed at [facility] [address] [place], [place] [address]Qjyargwz (Source)Anatomical Location / Laterality Collection Method / VolumeCollection TimeReceived TimeBLOOD SPECIMEN / Unknown 01/08/2025 4:56 AM EDT1 5:36 AM EDT Narrative Authorizing ProviderResult TypeResult StatusEric B Fung MDCHEMISTRY ORDERABLES Final ResultPerforming OrganizationAddressCity/State/ZIP CodePhone Number [facility] [address] [place] [address], [facility] [phone] [facility] [address] [place] [id number] [place] [address] * US THORACENTESIS Which side should the procedure be performed? Radiologist Recommendation (Bilateral) (01/07/2025 4:35 PM EDT)Anatomical RegionLaterality ModalityLungUltrasoundSpecimen (Source)Anatomical Location / Laterality Collection Method / VolumeCollection TimeReceived Time01/07/2025 4:44 PM EDT Impressions 01/07/2025 4:45 PM EDT Status post right thoracentesis This report has been created using voice recognition software. ??It may contain minor errors which are inherent in voice recognition technology. Electronically signed by Dr. Pedro Diallo Narrative 01/07/2025 4:45 PM EDT THORACENTESIS WITH ULTRASOUND GUIDANCE: PERFORMED BY: Lucio Diallo M.D. CLINICAL INFORMATION: Pleural effusion APPROACH: Right posterior intercostal PROCEDURE: Signed informed consent was obtained prior to performing this procedure. The thorax was initially evaluated sonographically to determine appropriate puncture site. The skin was marked, prepped, and draped in a sterile fashion. Following local anesthesia and utilizing aseptic technique, a 5 Haitian one-step catheter was successfully inserted into the pleural effusion at the position indicated above. Pleural fluid in the amount was above was then aspirated and the needle was removed. The patient tolerated the procedure well. A post procedure chest radiograph will be obtained. Physician performing procedure: Dr. Diallo Informed consent signed: yes Local Anesthetic: 2% lidocaine Specimen volume: 73 ml Catheter: 10 cm 5 Haitian catheter Aspirated pleural fluid volume: 0.3 liters Aspirated pleural fluid color: yellow Procedure Note Lucio Diallo MD - 01/07/2025 THORACENTESIS WITH ULTRASOUND GUIDANCE: PERFORMED BY: Lucio Diallo M.D. CLINICAL INFORMATION: Pleural effusion APPROACH: Right posterior intercostal PROCEDURE: Signed informed consent was obtained prior to performing this procedure. The thorax was initially evaluated sonographically to determineappropriate puncture site. The skin was marked, prepped, and draped in a sterilefashion. Following local anesthesia and utilizing aseptic technique, a 5 Frenchone-step catheter was successfully inserted into the pleural effusion at theposition indicated above. Pleural fluid in the amount was above was then aspiratedand the needle was removed. The patient tolerated the procedure well. A post procedure chest radiograph will be obtained. Physician performing procedure: Dr. Diallo Informed consent signed: yes Local Anesthetic: 2% lidocaine Specimen volume: 73 ml Catheter: 10 cm 5 Haitian catheter Aspirated pleural fluid volume: 0.3 liters Aspirated pleural fluid color: yellow IMPRESSION: Status post right thoracentesis This report has been created using voice recognition software. It maycontain minor errors which are inherent in voice recognition technology. Electronically signed by Dr. Pedro Diallo Authorizing ProviderResult TypeResult StatusNayeem Cande Christiansen [facility] ORDERABLES Final Result * XR CHEST 1 VIEW (01/07/2025 4:32 PM EDT)Anatomical RegionLateralityModality ChestComputed RadiographySpecimen (Source)Anatomical Location / Laterality Collection Method / VolumeCollection TimeReceived Time01/07/2025 4:33 PM EDT Impressions 01/07/2025 4:35 PM EDT 1. The heart size is borderline mildly enlarged. 2. There is improved aeration at the right lung following right-sided thoracentesis with no evidence for pneumothorax. Mild dependent right basilar airspace opacities are present which represent mild atelectasis or infiltrate. 3. There is a small left pleural effusion again seen with mild dependent left basilar airspace opacities. This report has been created using voice recognition software. ??It may contain minor errors which are inherent in voice recognition technology. Electronically signed by Dr. Pedro Diallo Narrative 01/07/2025 4:35 PM EDT PROCEDURE: XR CHEST 1 VIEW CLINICAL INFORMATION: s/p right thora COMPARISON: 12/06/2024 TECHNIQUE: AP chest FINDINGS: The heart size is borderline mildly enlarged. There is improved aeration at the right lung following right-sided thoracentesis with no evidence for pneumothorax. Mild dependent right basilar airspace opacities are present which represent mild atelectasis or infiltrate. There is a small left pleural effusion again seen with mild dependent left basilar airspace opacities. Procedure Note Lucio Diallo MD - 01/07/2025 PROCEDURE: XR CHEST 1 VIEW CLINICAL INFORMATION: s/p right thora COMPARISON: 12/06/2024 TECHNIQUE: AP chest FINDINGS: The heart size is borderline mildly enlarged. There is improved aerationat the right lung following right-sided thoracentesis with no evidence for pneumothorax. Mild dependent right basilar airspace opacities are presentwhich represent mild atelectasis or infiltrate. There is a small left pleural effusion again seen with mild dependentleft basilar airspace opacities. IMPRESSION: 1. The heart size is borderline mildly enlarged. 2. There is improved aeration at the right lung following right-sided thoracentesis with no evidence for pneumothorax. Mild dependent rightbasilar airspace opacities are present which represent mild atelectasis orinfiltrate. 3. There is a small left pleural effusion again seen with mild dependentleft basilar airspace opacities. This report has been created using voice recognition software. It maycontain minor errors which are inherent in voice recognition technology. Electronically signed by Dr. Pedro Diallo Authorizing ProviderResult TypeResult StatusRaymond Helena Diallo [facility] ORDERABLESFinal Result * Glucose, Body Fluid (01/07/2025 4:05 PM EDT)ComponentValueRef RangeTest Method Analysis TimePerformed AtPathologist SignatureGlucose, Xwfqo480ec/dl01/07/2025 6:54 PM EDPREMIER [facility] LABComment: The reference range and the method performance specifications have not been established for body fluids. The test result must be integrated into the clinical context for interpretation. Performed at [facility] [address] [place] [address] Specimen (Source)Anatomical Location / LateralityCollection Method / Volume Collection TimeReceived TimeSPECIMEN FROM PLEURA OBTAINED BY THORACENTESIS / Lpgzxgo6501/07/2025 4:05 PM EDT1 6:27 PM EDT Narrative Authorizing ProviderResult TypeResult StatusBianka Christiansen MDBODY FLUIDS AND STOOLS ORDERABLESFinal ResultPerforming OrganizationAddressCity/State/ZIP Code Phone Number [facility] [address] [place] [address], [facility] [phone] [facility] [address] [place] [address], [facility] [phone] * Albumin, Body Fluid (01/07/2025 4:05 PM EDT)ComponentValueRef RangeTest Method Analysis TimePerformed AtPathologist SignatureAlbumin, Fluid1.0gm/dl01/07/2025 6:54 PM EDPREMI[facility] LABComment: The reference range and the method performance specifications have not been established for body fluids. The test result must be integrated into the clinical context for interpretation. Performed at [facility] [address] [place] [address] Specimen (Source)Anatomical Location / LateralityCollection Method / Volume Collection TimeReceived TimeSPECIMEN FROM PLEURA OBTAINED BY THORACENTESIS / Ajzxown5201/07/2025 4:05 PM EDT1 6:27 PM EDT Narrative Authorizing ProviderResult TypeResult Lorri Christiansen MDBODY FLUIDS AND STOOLS ORDERABLESFinal ResultPerforming OrganizationAddressCity/State/ZIP Code Phone Number [facility] [address] [place] [address], [facility] [phone] [facility] [address] [place] [address], [facility] [phone] * Cell Count with Differential, Body Fluid (01/07/2025 4:05 PM EDT)Component ValueRef RangeTest MethodAnalysis TimePerformed AtPathologist Signature YiybenwbLJMAQDX77/22/2025 6:42 PM [facility] LABColor, YTPZINCF53/22/2025 6:42 PM [facility] LABCharacter, Body FluidSL.HAZY1 6:42 PM [facility] LABTotal Volume Received Body Fluid70.0ml01/07/2025 6:42 PM [facility] LABTotal Nucleated cells Body Ajnuz492 - 500 /cumm1 7:05 PM [facility] LABComment: Pleural Fluid with <1000 Nucleated cells/uL has been associated with transudates while >1000 Nucleated cells/uL may be seen in exudates. Body Fluid RBC< 2000/cumm1 7:09 PM [facility] LABPolymorphonuclear Cells Body Fluid0.0%01/07/2025 7:49 PM [facility] LABComment: POLYMORPHONUCLEAR CELLS = NEUTROPHILS + EOSINOPHILS + BASOPHILS Mononuclear Cells Body Fluid0.0%01/07/2025 7:49 PM [facility] LABComment:MONONUCLEAR CELLS = LYMPHOCYTES + MONOCYTESMesothelial Cells Body Fluid1+01/07/2025 7:49 PM [facility] LABPathologist HsekgqRDG31/23/2025 7:52 AM [facility] LABComment:No malignant cells seen.Lymphocytes, Body Fluid21% 01/07/2025 7:49 PM [facility] LABSEGMENTED NEUTROPHILS, BODY FLUID20%01/07/2025 7:49 PM [facility] LABMonocyte Count, Fluid58%01/07/2025 7:49 PM [facility] LABEos, Fluid1%01/07/2025 7:49 PM [facility] LABComment:Performed at [facility] [address] [place] [id number] (Source)Anatomical Location / Laterality Collection Method / VolumeCollection TimeReceived TimeSPECIMEN FROM PLEURA OBTAINED BY THORACENTESIS / Byfqeec7201/07/2025 4:05 PM EDT1 6:27 PM EDT Narrative Authorizing ProviderResult TypeResult StatusBianka Christiansen MDBODY FLUIDS AND STOOLS ORDERABLESFinal ResultPerforming OrganizationAddressCity/State/ZIP Code Phone Number [facility] [address] [place] [address], [facility] [phone] [facility] [address] [place] [address], [facility] [phone] * Protein, Body Fluid (01/07/2025 4:05 PM EDT)ComponentValueRef RangeTest Method Analysis TimePerformed AtPathologist SignatureProtein, Fluid1.6gm/dl01/07/2025 6:54 PM [facility] LABComment: The reference range and the method performance specifications have not been established for body fluids. The test result must be integrated into the clinical context for interpretation. Performed at [facility] [address] [place] [address] Specimen (Source)Anatomical Location / LateralityCollection Method / Volume Collection TimeReceived TimeSPECIMEN FROM PLEURA OBTAINED BY THORACENTESIS / Rnvqmia9801/07/2025 4:05 PM EDT1 6:27 PM EDT Narrative Authorizing ProviderResult TypeResult StatusBianka Christiansen MDBODY FLUIDS AND STOOLS ORDERABLESFinal ResultPerforming OrganizationAddressCity/State/ZIP Code Phone Number [facility] [address] [place] [address], [facility] [phone] [facility] [address] [place] [address], [facility] [phone] * Lactate Dehydrogenase, Body Fluid (01/07/2025 4:05 PM EDT)ComponentValueRef RangeTest MethodAnalysis TimePerformed AtPathologist SignatureLD, Skbyh53S/L 01/07/2025 6:54 PM [facility] LABComment: The reference range and the method performance specifications have not been established for body fluids. The test result must be integrated into the clinical context for interpretation. Performed at [facility] [address] [place] [address] Specimen (Source)Anatomical Location / LateralityCollection Method / Volume Collection TimeReceived TimeSPECIMEN FROM PLEURA OBTAINED BY THORACENTESIS / Didspxm5101/07/2025 4:05 PM EDT1 6:27 PM EDT Narrative Authorizing ProviderResult TypeResult StatusBianka Christiansen MDBODY FLUIDS AND STOOLS ORDERABLESFinal ResultPerforming OrganizationAddressCity/State/ZIP Code Phone Number [facility] [address] [place] [address], [facility] [phone] [facility] [address] [place] [address], [facility] [phone] * Culture, Body Fluid (with Gram Stain) (01/07/2025 4:05 PM EDT)ComponentValue Ref RangeTest MethodAnalysis TimePerformed AtPathologist SignatureBody Fluid Culture, SterileNo growth-preliminary No growth BACTERIAL SUSCEPTIBILITY PANEL [facility] LABAnaerobic CultureNo growth-preliminary No growth BACTERIAL SUSCEPTIBILITY PANEL [facility] LABGram Stain ResultRare segmented neutrophils observed. No bacteria seen. performed on cytospun specimen BACTERIAL SUSCEPTIBILITY PANEL [facility] LABSpecimen (Source)Anatomical Location / LateralityCollection Method / VolumeCollection TimeReceived TimeBody Fluid PLEURAL FLUID SPECIMEN / Udwozcf4901/07/2025 4:05 PM EDT1 6:28 PM EDT Narrative [facility] - 01/12/2025 9:31 AM EDT Source: pleural fluid Site: Current Antibiotics: not stated Authorizing ProviderResult TypeResult StatusBianka Christiansen MDMICROBIOLOGY - GENERAL ORDERABLESFinal ResultPerforming OrganizationAddressCity/State/ZIP Code Phone Number [facility] [address] [place] [address], [facility] [phone] * pH, Body Fluid (01/07/2025 4:05 PM EDT)ComponentValueRef RangeTest Method Analysis TimePerformed AtPathologist SignaturepH, Fluid7.6101/07/2025 6:45 PM [facility] LABComment: The reference range and the method performance specifications have not been established for body fluids. The test result must be integrated into the clinical context for interpretation. Performed at [facility] [address] [place] [address] Specimen (Source)Anatomical Location / LateralityCollection Method / Volume Collection TimeReceived TimeSPECIMEN FROM PLEURA OBTAINED BY THORACENTESIS / Ttldgnc2501/07/2025 4:05 PM EDT1 6:27 PM EDT Narrative Authorizing ProviderResult TypeResult StatusNayegaudencio Christiansen MDBODY FLUIDS AND STOOLS ORDERABLESFinal ResultPerforming OrganizationAddressCity/State/ZIP Code Phone Number [facility] [address] [place] [address], [facility] [phone] [facility] [address] [place] [address], [facility] [phone] * (ABNORMAL) Glomerular Filtration Rate, Estimated (01/07/2025 5:26 AM EDT) ComponentValueRef RangeTest MethodAnalysis TimePerformed AtPathologist SignatureEst, Glom Filt Rate25(A)>60 ml/min/1.81r80501/07/2025 6:41 AM [facility] LABComment: Pediatric calculator link https://www.kidney.org/professionals/kdoqi/gfr_calculatorped Effective Dec 19, 2021 These results are not intended for use in patients <18 years of age. eGFR results are calculated without a race factor using the 2020 CKD-EPI equation. ??Careful clinical correlation is recommended, particularly when comparing to results calculated using previous equations. The CKD-EPI equation is less accurate in patients with extremes of muscle mass, extra-renal metabolism of creatinine, excessive creatine ingestion, or following therapy that affects renal tubular secretion. Performed at [facility] [address] [place] [address] Specimen (Source)Anatomical Location / LateralityCollection Method / Volume Collection TimeReceived Time01/07/2025 5:26 AM EDT1 5:26 AM EDT Narrative Authorizing ProviderResult TypeResult StatusEric B Fung MDCHEMISTRY ORDERABLES Final ResultPerforming OrganizationAddressCity/State/ZIP CodePhone Number [facility] [address] [place] [address], [facility] [phone] [facility] [address] [place] [address], [facility] [phone] * Anion Gap (01/07/2025 5:26 AM EDT)ComponentValueRef RangeTest MethodAnalysis TimePerformed AtPathologist SignatureAnion Gap9.08.0 - 16.0 meq/L1 6:41 AM [facility]: ANION GAP = Sodium -(Chloride + CO2) Performed at [facility] [address] [place] [address] Specimen (Source)Anatomical Location / LateralityCollection Method / Volume Collection TimeReceived Time01/07/2025 5:26 AM EDT1 6:02 AM EDT Narrative Authorizing ProviderResult TypeResult StatusEric B Fung MDCHEMISTRY ORDERABLES Final ResultPerforming OrganizationAddressCity/State/ZIP CodePhone Number [facility] [address] [place] [address], [facility] [phone] [facility] [address] [place] [address], [facility] [phone] * (ABNORMAL) CBC (01/07/2025 5:26 AM EDT)ComponentValueRef RangeTest Method Analysis TimePerformed AtPathologist SignatureWBC9.14.8 - 10.8 thou/mm3 01/07/2025 6:16 AM [facility] LABRBC3.34(L) 4.20 - 5.40 mill/mm301/07/2025 6:16 AM [facility] LABHemoglobin8.7(L)12.0 - 16.0 gm/dl01/07/2025 6:16 AM [facility] BJGBqjihivwsc17.6(L)37.0 - 47.0 %01/07/2025 6:16 AM [facility] AABWOQ48.681.0 - 99.0 fL 01/07/2025 6:16 AM [facility] MMYVNG48.026.0 - 33.0 pg01/07/2025 6:16 AM [facility] MCHC31.5(L)32.2 - 35.5 gm/dl01/07/2025 6:16 AM [facility] LABRDW-CV17.9(H)11.5 - 14.5 %01/07/2025 6:16 AM [facility] LABRDW-SD49.8(H)35.0 - 45.0 fL01/07/2025 6:16 AM [facility] EXQWovvbamag123027 - 400 thou/mm3 01/07/2025 6:16 AM [facility] LABMPV8.8(L)9.4 - 12.4 fL01/07/2025 6:16 AM [facility] Comment:Performed at [facility] [address] Specimen (Source)Anatomical Location / LateralityCollection Method / Volume Collection TimeReceived TimeBloodBLOOD SPECIMEN / Vsvzkvi7001/07/2025 5:26 AM EDT1 6:02 AM EDT Narrative Authorizing ProviderResult TypeResult StatusNayegaudencio Christiansen MDHEMATOLOGY ORDERABLESFinal ResultPerforming OrganizationAddressCity/State/ZIP CodePhone Number [facility] [address] [place] [address], [facility] [phone] [facility] [address] [place] [address], [facility] [phone] * (ABNORMAL) Hepatic Function Panel (01/07/2025 5:26 AM EDT)ComponentValueRef RangeTest MethodAnalysis TimePerformed AtPathologist SignatureAlbumin2.8(L)3.4 - 4.9 g/dL01/07/2025 6:41 AM [facility] Total Bilirubin<0.2(L)0.3 - 1.2 mg/dL01/07/2025 6:41 AM [facility] LABBilirubin, Direct<0.10.0 - 0.2 mg/dL01/07/2025 6:40 AM [facility] LABAlkaline Hpcrrcnrwuu0142 - 126 U/L1 6:41 AM [facility] IYMXLK92 10 - 35 U/L1 6:41 AM [facility] XUR7631 - 35 U/L1 6:41 AM [facility] LABTotal Protein5.7(L)6.4 - 8.3 g/dL01/07/2025 6:41 AM [facility] LABComment:Performed at [facility] [address] [place], [place] [address]Rvepaatj (Source)Anatomical Location / Laterality Collection Method / VolumeCollection TimeReceived TimeBloodBLOOD SPECIMEN / Lecdbfj9301/07/2025 5:26 AM EDT1 6:02 AM EDT Narrative Authorizing ProviderResult TypeResult StatusNayeem Z Moulana MDCHEMISTRY ORDERABLESFinal ResultPerforming OrganizationAddressCity/State/ZIP CodePhone Number [facility] [address] [place] [address], [facility] [phone] [facility] [address] [place] [address], [facility] [phone] * (ABNORMAL) Basic Metabolic Panel (01/07/2025 5:26 AM EDT)ComponentValueRef RangeTest MethodAnalysis TimePerformed AtPathologist CanxuonsaSxgcqx639974 - 145 meq/L1 6:30 AM [facility] Potassium4.33.5 - 5.2 meq/L1 6:30 AM [facility] MZTJknxqjrc42451 - 111 meq/L1 6:30 AM [facility] EAGYP65656 - 29 meq/L1 6:41 AM [facility] GXUKdmiwdh79318 - 109 mg/dL01/07/2025 6:41 AM [facility] ZPFVVC56(H)8 - 23 mg/dL 01/07/2025 6:41 AM [facility] LABCreatinine 2.2(H)0.5 - 0.9 mg/dL01/07/2025 6:41 AM [facility] LABCalcium8.58.5 - 10.5 mg/dL01/07/2025 6:41 AM [facility] LABComment:Performed at [facility] [address] [place], [place] [address]Wlehvxjb (Source)Anatomical Location / Laterality Collection Method / VolumeCollection TimeReceived TimeBLOOD SPECIMEN / Unknown 01/07/2025 5:26 AM EDT1 6:02 AM EDT Narrative Authorizing ProviderResult TypeResult StatusEric B Fung MDCHEMISTRY ORDERABLES Final ResultPerforming OrganizationAddressCity/State/ZIP CodePhone Number [facility] [address] [place] [address], [facility] [phone] [facility] [address] [place] [address], [facility] [phone] * (ABNORMAL) Protein, Total (01/06/2025 5:40 AM EDT)ComponentValueRef RangeTest MethodAnalysis TimePerformed AtPathologist SignatureTotal Protein5.8(L)6.4 - 8.3 g/dL01/06/2025 2:58 PM [facility] Comment:Performed at [facility] [address] [place] [address] Specimen (Source)Anatomical Location / LateralityCollection Method / Volume Collection TimeReceived Time01/06/2025 5:40 AM EDT1 2:37 PM EDT Narrative Authorizing ProviderResult TypeResult StatusNayeem Cande Christiansen MDCHEMISTRY ORDERABLESFinal ResultPerforming OrganizationAddressCity/State/ZIP CodePhone Number [facility] [address] [place] [address], [facility] [phone] [facility] [address] [place] [address], [facility] [phone] * (ABNORMAL) Albumin (01/06/2025 5:40 AM EDT)ComponentValueRef RangeTest Method Analysis TimePerformed AtPathologist SignatureAlbumin3.0(L)3.4 - 4.9 g/dL 01/06/2025 2:58 PM [facility] LABComment: Performed at [facility] [address] [place] [address]Pcmdeezu (Source)Anatomical Location / LateralityCollection Method / VolumeCollection TimeReceived Time01/06/2025 5:40 AM EDT1 2:37 PM EDT Narrative Authorizing ProviderResult TypeResult StatusNayeem Cande Christiansen MDCHEMISTRY ORDERABLESFinal ResultPerforming OrganizationAddressCity/State/ZIP CodePhone Number [facility] [address] [place] [address], [facility] [phone] [facility] [address] [place] [address], [facility] [phone] * Lactate Dehydrogenase (01/06/2025 5:40 AM EDT)ComponentValueRef RangeTest MethodAnalysis TimePerformed AtPathologist EvyvfqfzvCB354061 - 214 U/L 01/06/2025 3:09 PM [facility] LABComment: Performed at [place], [place] [address]Specimen (Source)Anatomical Location / LateralityCollection Method / VolumeCollection TimeReceived TimeBLOOD SPECIMEN / Jirvfxe9501/06/2025 5:40 AM EDT1 2:37 PM EDT Narrative Authorizing ProviderResult TypeResult StatusNayeem Z Moulana MDCHEMISTRY ORDERABLESFinal ResultPerforming OrganizationAddressCity/State/ZIP CodePhone Number [facility] [address] [place] [address], [facility] [phone] [facility] [address] [place] [address], [facility] [phone] * (ABNORMAL) Glomerular Filtration Rate, Estimated (01/06/2025 5:40 AM EDT) ComponentValueRef RangeTest MethodAnalysis TimePerformed AtPathologist SignatureEst, Glom Filt Rate21(A)>60 ml/min/1.32a72101/06/2025 6:39 AM [facility] LABComment: Pediatric calculator link https://www.kidney.org/professionals/kdoqi/gfr_calculatorped Effective Dec 19, 2021 These results are not intended for use in patients <18 years of age. eGFR results are calculated without a race factor using the 2020 CKD-EPI equation. ??Careful clinical correlation is recommended, particularly when comparing to results calculated using previous equations. The CKD-EPI equation is less accurate in patients with extremes of muscle mass, extra-renal metabolism of creatinine, excessive creatine ingestion, or following therapy that affects renal tubular secretion. Performed at [facility] [address] [place] [address] Specimen (Source)Anatomical Location / LateralityCollection Method / Volume Collection TimeReceived Time01/06/2025 5:40 AM EDT1 5:40 AM EDT Narrative Authorizing ProviderResult TypeResult StatusRuel Almanzar Vrid DOCHEMISTRY ORDERABLES Final ResultPerforming OrganizationAddressCity/State/ZIP CodePhone Number [facility] [address] [place] [address], [facility] [phone] [facility] [address] [place] [address], [facility] [phone] * Anion Gap (01/06/2025 5:40 AM EDT)ComponentValueRef RangeTest MethodAnalysis TimePerformed AtPathologist SignatureAnion Gap9.08.0 - 16.0 meq/L1 6:39 AM [facility] LABComment: ANION GAP = Sodium -(Chloride + CO2) Performed at [facility] [address] [place] [address] Specimen (Source)Anatomical Location / LateralityCollection Method / Volume Collection TimeReceived Time01/06/2025 5:40 AM EDT1 6:02 AM EDT Narrative Authorizing ProviderResult TypeResult StatusRuel Almanzar Vrid DOCHEMISTRY ORDERABLES Final ResultPerforming OrganizationAddressCity/State/ZIP CodePhone Number [facility] [address] [place] [address], [facility] [phone] [facility] [address] [place] [address], [facility] [phone] * (ABNORMAL) CBC with Auto Differential (01/06/2025 5:40 AM EDT)ComponentValue Ref RangeTest MethodAnalysis TimePerformed AtPathologist IhdbygkneDDP82.14.8 - 10.8 thou/mm301/06/2025 6:25 AM [facility] LABRBC3.62(L)4.20 - 5.40 mill/mm301/06/2025 6:25 AM [facility] LABHemoglobin9.4(L)12.0 - 16.0 gm/dl01/06/2025 6:25 AM [facility] RRGHwtvzpdqcv65.0(L)37.0 - 47.0 % 01/06/2025 6:25 AM [facility] XOEBCO43.1(L) 81.0 - 99.0 fL01/06/2025 6:25 AM [facility] LNDEWU03.026.0 - 33.0 pg01/06/2025 6:25 AM [facility] ORGNNJW49.432.2 - 35.5 gm/dl01/06/2025 6:25 AM [facility] LABRDW-CV17.0(H)11.5 - 14.5 %01/06/2025 6:25 AM [facility] LABRDW-SD47.3(H)35.0 - 45.0 fL 01/06/2025 6:25 AM [facility] KZWEdbaiehpy123 (H)130 - 400 thou/mm301/06/2025 6:25 AM [facility] LABMPV8.8(L)9.4 - 12.4 fL01/06/2025 6:25 AM [facility] LABSeg Tkzwxrspsng27.2%01/06/2025 6:25 AM [facility] LABLymphocytes7.8%01/06/2025 6:25 AM [facility] LABMonocytes %8.1%01/06/2025 6:25 AM [facility] LABEosinophils4.3%01/06/2025 6:25 AM [facility] LABBasophils0.8%01/06/2025 6:25 AM [facility] LABImmature Granulocytes %2.8% 01/06/2025 6:25 AM [facility] LABNeutrophils Absolute7.71.8 - 7.7 thou/mm301/06/2025 6:25 AM [facility] LABLymphocytes Absolute0.8(L)1.0 - 4.8 thou/mm301/06/2025 6:25 AM [facility] LABMonocytes Absolute0.80.4 - 1.3 thou/mm301/06/2025 6:25 AM [facility] Eosinophils Absolute0.40.0 - 0.4 thou/mm301/06/2025 6:25 AM [facility] LABBasophils Absolute0.10.0 - 0.1 thou/mm301/06/2025 6:25 AM [facility] LABImmature Grans (Abs) 0.28(H)0.00 - 0.07 thou/mm301/06/2025 6:25 AM [facility] LABnRBC0/100 wbc01/06/2025 6:25 AM [facility] LABComment:Performed at [facility] [address] [place], [place] [address]Nqzmzhiw (Source)Anatomical Location / LateralityCollection Method / VolumeCollection TimeReceived TimeBLOOD SPECIMEN / Xgqhevc9301/06/2025 5:40 AM EDT1 6:02 AM EDT Narrative Authorizing ProviderResult TypeResult StatusKavin N Vrid DOHEMATOLOGY ORDERABLES Final ResultPerforming OrganizationAddressCity/State/ZIP CodePhone Number [facility] [address] [place] [address], [facility] [phone] [facility] [address] [place] [address], [facility] [phone] * (ABNORMAL) Basic Metabolic Panel (01/06/2025 5:40 AM EDT)ComponentValueRef RangeTest MethodAnalysis TimePerformed AtPathologist FuolwmcunAuzklx196(L)135 - 145 meq/L1 6:24 AM [facility] Potassium4.33.5 - 5.2 meq/L1 6:24 AM [facility] DUNTaykqmxw45805 - 111 meq/L1 6:24 AM [facility] VLZAQ07014 - 29 meq/L1 6:39 AM [facility] CLMBygxqbd9284 - 109 mg/dL01/06/2025 6:39 AM [facility] DLYFYX28(H)8 - 23 mg/dL 01/06/2025 6:39 AM [facility] LABCreatinine 2.5(H)0.5 - 0.9 mg/dL01/06/2025 6:39 AM [facility] LABCalcium8.58.5 - 10.5 mg/dL01/06/2025 6:39 AM [facility] LABComment:Performed at [facility] [address] [place], [place] [address]Specimen (Source)Anatomical Location / Laterality Collection Method / VolumeCollection TimeReceived TimeBLOOD SPECIMEN / Unknown 01/06/2025 5:40 AM EDT1 6:02 AM EDT Narrative Authorizing ProviderResult TypeResult StatusKavin N Vrid DOCHEMISTRY ORDERABLES Final ResultPerforming OrganizationAddressCity/State/ZIP CodePhone Number [facility] [address] [place] [address], [facility] [phone] [facility] [address] [place] [address], [facility] [phone] * US RENAL LIMITED (01/05/2025 11:38 AM EDT)Anatomical RegionLateralityModality AbdomenUltrasoundSpecimen (Source)Anatomical Location / LateralityCollection Method / VolumeCollection TimeReceived Time01/05/2025 1:02 PM EDT Impressions 01/05/2025 1:06 PM EDT 1. Minimal pelviectasis on the right which appears improved from prior CT examination dated 01/04/2025 allowing for differences in imaging modality. This report has been created using voice recognition software. ??It may contain minor errors which are inherent in voice recognition technology. Electronically signed by Dr. Pedro Montiel 01/05/2025 1:06 PM EDT PROCEDURE: US RENAL LIMITED CLINICAL INFORMATION: evaluate hydronephrosis COMPARISON: No prior study. TECHNIQUE: Transverse and longitudinal grayscale and color flow ultrasound images were obtained. FINDINGS: There is minimal pelviectasis noted on the right with the right renal pelvis measuring approximately 9 mm in AP dimension. This is improved when compared to prior CT examination dated 01/04/2025 allowing for differences in imaging modality. No left-sided hydronephrosis is seen. The ureteral jets are seen bilaterally. Patient declined voiding. RIGHT KIDNEY - 8.8 x 4.5 x 4.4 cm Cortical Thickness - 1.1 cm ?? LEFT KIDNEY - 7.2 x 3.9 x 3.3 cm Cortical Thickness - 1.1 cm ?? URINARY BLADDER Pre-Void - 77.7 mL Procedure Note Lucio Diallo MD - 01/05/2025 PROCEDURE: US RENAL LIMITED CLINICAL INFORMATION: evaluate hydronephrosis COMPARISON: No prior study. TECHNIQUE: Transverse and longitudinal grayscale and color flowultrasound images were obtained. FINDINGS: There is minimal pelviectasis noted on the right with the right renalpelvis measuring approximately 9 mm in AP dimension. This is improved whencompared to prior CT examination dated 01/04/2025 allowing for differences inimaging modality. No left-sided hydronephrosis is seen. The ureteral jets are seen bilaterally. Patient declined voiding. RIGHT KIDNEY - 8.8 x 4.5 x 4.4 cm Cortical Thickness - 1.1 cm ?? LEFT KIDNEY - 7.2 x 3.9 x 3.3 cm Cortical Thickness - 1.1 cm ?? URINARY BLADDER Pre-Void - 77.7 mL IMPRESSION: 1. Minimal pelviectasis on the right which appears improved from priorCT examination dated 01/04/2025 allowing for differences in imagingmodality. This report has been created using voice recognition software. It maycontain minor errors which are inherent in voice recognition technology. Electronically signed by Dr. Pedro Diallo Authorizing ProviderResult TypeResult Francisca Kim [facility] ORDERABLESFinal Result * (ABNORMAL) Glomerular Filtration Rate, Estimated (01/05/2025 6:22 AM EDT) ComponentValueRef RangeTest MethodAnalysis TimePerformed AtPathologist SignatureEst, Glorichardson Filt Rate26(A)>60 ml/min/1.16i23801/05/2025 7:14 AM [facility] LABComment: Pediatric calculator link https://www.kidney.org/professionals/kdoqi/gfr_calculatorped Effective Dec 19, 2021 These results are not intended for use in patients <18 years of age. eGFR results are calculated without a race factor using the 2020 CKD-EPI equation. ??Careful clinical correlation is recommended, particularly when comparing to results calculated using previous equations. The CKD-EPI equation is less accurate in patients with extremes of muscle mass, extra-renal metabolism of creatinine, excessive creatine ingestion, or following therapy that affects renal tubular secretion. Performed at [facility] [address] [place] [address] Specimen (Source)Anatomical Location / LateralityCollection Method / Volume Collection TimeReceived Time01/05/2025 6:22 AM EDT1 6:22 AM EDT Narrative Authorizing ProviderResult TypeResult Albina Almanzar Vrid DOCHEMISTRY ORDERABLES Final ResultPerforming OrganizationAddressCity/State/ZIP CodePhone Number [facility] [address] [place] [address], [facility] [phone] [facility] [address] [place] [address], [facility] [phone] * Anion Gap (01/05/2025 6:22 AM EDT)ComponentValueRef RangeTest MethodAnalysis TimePerformed AtPathologist SignatureAnion Gap9.08.0 - 16.0 meq/L1 7:14 AM [facility] LABComment: ANION GAP = Sodium -(Chloride + CO2) Performed at [facility] [address] [place] [address] Specimen (Source)Anatomical Location / LateralityCollection Method / Volume Collection TimeReceived Time01/05/2025 6:22 AM EDT1 6:38 AM EDT Narrative Authorizing ProviderResult TypeResult StatusKavin N Vrid DOCHEMISTRY ORDERABLES Final ResultPerforming OrganizationAddressCity/State/ZIP CodePhone Number [facility] [address] [place] [address], [facility] [phone] [facility] [address] [place] [address], [facility] [phone] * (ABNORMAL) Basic Metabolic Panel (01/05/2025 6:22 AM EDT)ComponentValueRef RangeTest MethodAnalysis TimePerformed AtPathologist IddtktswyHwqonv752(L)135 - 145 meq/L1 7:02 AM [facility] Potassium3.93.5 - 5.2 meq/L1 7:02 AM [facility] BTXFrjmsxed2905 - 111 meq/L1 7:02 AM [facility] NYJAA32852 - 29 meq/L1 7:14 AM [facility] URYBboillc7540 - 109 mg/dL01/05/2025 7:14 AM [facility] AMBQCL42(H)8 - 23 mg/dL 01/05/2025 7:14 AM [facility] LABCreatinine 2.1(H)0.5 - 0.9 mg/dL01/05/2025 7:14 AM [facility] LABCalcium8.0(L)8.5 - 10.5 mg/dL01/05/2025 7:13 AM [facility] LABComment:Performed at [facility] [address] [place], [place] [address]Specimen (Source)Anatomical Location / Laterality Collection Method / VolumeCollection TimeReceived TimeBloodBLOOD SPECIMEN / Onuezlw6501/05/2025 6:22 AM EDT1 6:38 AM EDT Narrative Authorizing ProviderResult TypeResult StatusKavin N Vrid DOCHEMISTRY ORDERABLES Final ResultPerforming OrganizationAddressCity/State/ZIP CodePhone Number [facility] [address] [place] [address] [facility] [address] [place] [address] * (ABNORMAL) CBC (01/05/2025 6:22 AM EDT)ComponentValueRef RangeTest Method Analysis TimePerformed AtPathologist SignatureWBC9.54.8 - 10.8 thou/mm3 01/05/2025 6:41 AM [facility] LABRBC3.56(L) 4.20 - 5.40 mill/mm301/05/2025 6:41 AM [facility] LABHemoglobin9.4(L)12.0 - 16.0 gm/dl01/05/2025 6:41 AM [facility] YIRCfckqakidp79.5(L)37.0 - 47.0 %01/05/2025 6:41 AM [facility] NPWBAE63.1(L)81.0 - 99.0 fL 01/05/2025 6:41 AM [facility] TIGIQO61.426.0 - 33.0 pg01/05/2025 6:41 AM [facility] MCHC33.032.2 - 35.5 gm/dl01/05/2025 6:41 AM [facility] LABRDW-CV16.7(H)11.5 - 14.5 %01/05/2025 6:41 AM [facility] LABRDW-SD47.5(H)35.0 - 45.0 fL01/05/2025 6:41 AM [facility] BMIHtaremwvn784(H)130 - 400 thou/mm301/05/2025 6:41 AM [facility] LABMPV 8.8(L)9.4 - 12.4 fL01/05/2025 6:41 AM [facility] LABComment:Performed at [facility] [address] [place], [place] [address]Specimen (Source)Anatomical Location / LateralityCollection Method / VolumeCollection TimeReceived TimeBloodBLOOD SPECIMEN / Bdcnsgu6701/05/2025 6:22 AM EDT1 6:38 AM EDT Narrative Authorizing ProviderResult TypeResult StatusKavin N Vrid DOHEMATOLOGY ORDERABLES Final ResultPerforming OrganizationAddressCity/State/ZIP CodePhone Number [facility] [address] [place] [address] [facility] [address] [place] [address], [facility] [phone] * Lactic Acid (01/05/2025 6:22 AM EDT)ComponentValueRef RangeTest Method Analysis TimePerformed AtPathologist SignatureLactic Acid0.60.5 - 2.2 mmol/L 01/05/2025 7:30 AM [facility] LABComment: Performed at [facility] [address] [place] [address]Huykjkur (Source)Anatomical Location / LateralityCollection Method / VolumeCollection TimeReceived TimeBloodBLOOD SPECIMEN / Brseouv7301/05/2025 6:22 AM EDT1 6:38 AM EDT Narrative Authorizing ProviderResult TypeResult StatusEvon Cardenas ADVERTISING OPERATIONS COORDINATOR - CNPCHEMISTRY ORDERABLESFinal ResultPerforming OrganizationAddressCity/State/ZIP CodePhone Number [facility] [address] [place] [address], [facility] [phone] [facility] [address] [place] [address] * EKG Rhythm Strip (01/04/2025 9:20 PM EDT)Specimen (Source)Anatomical Location / LateralityCollection Method / VolumeCollection TimeReceived Time01/04/2025 9:20 PM EDT Narrative [facility] - 01/04/2025 9:30 PM EDT Authorizing ProviderResult TypeResult StatusUnknown Provider ResultECG ORDERABLESFinal ResultPerforming OrganizationAddressCity/State/ZIP CodePhone Number [facility] * Lactic Acid (01/04/2025 8:59 PM EDT)ComponentValueRef RangeTest MethodAnalysis TimePerformed AtPathologist SignatureLactic Acid0.80.5 - 2.2 mmol/L1 9:37 PM [facility] LABComment:Performed at [facility] [address] [place] [id number] (Source) Anatomical Location / LateralityCollection Method / VolumeCollection Time Received TimeBloodBLOOD SPECIMEN / Znznuwm8701/04/2025 8:59 PM EDT1 9:11 PM EDT Narrative Authorizing ProviderResult TypeResult StatusEvon Cardenas ADVERTISING OPERATIONS COORDINATOR - CNPCHEMISTRY ORDERABLESFinal ResultPerforming OrganizationAddressCity/State/ZIP CodePhone Number [facility] [address] [place] [address], [facility] [phone] [facility] [address] [place] [address], [facility] [phone] * (ABNORMAL) CBC (01/04/2025 8:59 PM EDT)ComponentValueRef RangeTest Method Analysis TimePerformed AtPathologist SignatureWBC8.44.8 - 10.8 thou/mm3 01/04/2025 9:18 PM [facility] LABRBC3.38(L) 4.20 - 5.40 mill/mm301/04/2025 9:18 PM [facility] LABHemoglobin8.8(L)12.0 - 16.0 gm/dl01/04/2025 9:18 PM [facility] WCBPbubvvuyqg79.9(L)37.0 - 47.0 %01/04/2025 9:18 PM [facility] KKYLGP78.6(L)81.0 - 99.0 fL 01/04/2025 9:18 PM [facility] FTBYAD62.026.0 - 33.0 pg01/04/2025 9:18 PM [facility] MCHC32.732.2 - 35.5 gm/dl01/04/2025 9:18 PM [facility] LABRDW-CV16.8(H)11.5 - 14.5 %01/04/2025 9:18 PM [facility] LABRDW-SD47.3(H)35.0 - 45.0 fL01/04/2025 9:18 PM [facility] LDZIqjczdlrs773991 - 400 thou/mm3 01/04/2025 9:18 PM [facility] LABMPV8.7(L)9.4 - 12.4 fL01/04/2025 9:18 PM [facility] Comment:Performed at [facility] [address] [place] [address] Specimen (Source)Anatomical Location / LateralityCollection Method / Volume Collection TimeReceived TimeBloodBLOOD SPECIMEN / Cwluxto5301/04/2025 8:59 PM EDT1 9:11 PM EDT Narrative Authorizing ProviderResult TypeResult StatusHanjuice Jody Cardenas ADVERTISING OPERATIONS COORDINATOR - CNPHEMATOLOGY ORDERABLESFinal ResultPerforming OrganizationAddressCity/State/ZIP CodePhone Number [facility] [address] [place] [address], [facility] [phone] [facility] [address] [place] [address], [facility] [phone] * Lactic Acid (01/04/2025 3:12 PM EDT)ComponentValueRef RangeTest MethodAnalysis TimePerformed AtPathologist SignatureLactic Acid0.90.5 - 2.2 mmol/L1 3:41 PM [facility] LABComment:Performed at [facility] [address] [place] [address]Ihlpelmc (Source) Anatomical Location / LateralityCollection Method / VolumeCollection Time Received TimeBloodBLOOD SPECIMEN / Ovijwof1601/04/2025 3:12 PM EDT1 3:18 PM EDT Narrative Authorizing ProviderResult TypeResult StatusMolinda Shannon ADVERTISING OPERATIONS COORDINATOR - CNPCHEMISTRY ORDERABLESFinal ResultPerforming OrganizationAddressCity/State/ZIP CodePhone Number [facility] [address] [place] [address], [facility] [phone] [facility] [address] [place] [address], [facility] [phone] * Culture, Reflexed, Urine (01/04/2025 1:15 PM EDT)ComponentValueRef RangeTest MethodAnalysis TimePerformed AtPathologist SignatureUrine Culture ReflexNo growth-preliminary No growth BACTERIAL SUSCEPTIBILITY PANEL TUNG [facility] LABSpecimen (Source)Anatomical Location / LateralityCollection Method / VolumeCollection TimeReceived TimeURINE SPECIMEN / Wttnrdj5401/04/2025 1:15 PM EDT1 2:30 PM EDT Narrative [facility] - 01/06/2025 6:35 AM EDT Source: urine, clean catch Site: clean void Current Antibiotics: not stated Authorizing ProviderResult TypeResult StatusMohammad A Abhishek MDMICROBIOLOGY - GENERAL ORDERABLESFinal ResultPerforming OrganizationAddressCity/State/ZIP Code Phone Number [facility] [address] [place] [address], [facility] [phone] * (ABNORMAL) Urine with Reflexed Micro (01/04/2025 1:15 PM EDT)ComponentValueRef RangeTest MethodAnalysis TimePerformed AtPathologist SignatureGlucose, Ur100 (A)NEGATIVE mg/dl01/04/2025 2:11 PM [facility] LABBilirubin, GotfvUPDAIERDOTTBOJHC69/19/2025 2:11 PM [facility] LABKetones, DiutjPSLMNRBWTTQXQTVJ87/19/2025 2:11 PM [facility] LABSpecific [place], UA1.0091.002 - 1.4150401/04/2025 2:11 PM [facility] Blood, UrineTRACE(A)DBBJFGEF48/19/2025 2:11 PM [facility] LABpH, Urine8.05.0 - 9.010 2:11 PM [facility] LABProtein, UA300(A)TKSUOMRK45/19/2025 2:11 PM EDT [facility] LABUrobilinogen, Urine0.20.0 - 1.0 eu/dl01/04/2025 2:11 PM [facility] Nitrite, PhsirRHEPEGZGAYNEAYNG49/19/2025 2:11 PM [facility] LABLeukocyte Esterase, UrineTRACE(A)NJFKGAXR64/19/2025 2:11 PM [facility] LABColor, UAYELLOWSTRAW-YELLOW 01/04/2025 2:11 PM [facility] LABCharacter, UrineCLEARCLEAR-SL CLOUD01/04/2025 2:11 PM [facility] LABRBC, UA6-10(A)0-2/hpf /hpf01/04/2025 2:27 PM [facility] LABWBC, UA21-50(A)0-4/hpf /hpf01/04/2025 2:27 PM [facility] LABEpithelial Cells, UA6-10(A)0- 5/hpf /hpf01/04/2025 3:03 PM [facility] Bacteria, UANone SeenFEW/NONE SEEN /hpf01/04/2025 2:27 PM [facility] LABCasts UANONE SEEN0-5/lpf /lpf10 3:03 PM [facility] LABComment:Performed at [facility] [address] [place], [place] [address]Owhkhrex (Source)Anatomical Location / LateralityCollection Method / VolumeCollection TimeReceived Time 01/04/2025 1:15 PM EDT1 1:29 PM EDT Narrative Authorizing ProviderResult TypeResult StatusMohammad A Abhishek MDCHEMISTRY ORDERABLESFinal ResultPerforming OrganizationAddressCity/State/ZIP CodePhone Number [facility] [address] [place] [address], [facility] [phone] [facility] [address] [place] [address], [facility] [phone] * CT ABDOMEN PELVIS WO CONTRAST Additional Contrast? Radiologist Recommendation (01/04/2025 10:14 AM EDT)Anatomical RegionLateralityModalityAbdomen, Pelvis, HipComputed TomographySpecimen (Source)Anatomical Location / Laterality Collection Method / VolumeCollection TimeReceived Time01/04/2025 2:00 PM EDT Impressions 01/04/2025 2:15 PM EDT 1. Moderate bilateral pleural effusions. Diffuse body wall edema. 2. Mild to moderate right hydronephrosis. 3. Large amount of ascites with pneumoperitoneum noted. The pertinent finding(s) was called to patient's nurse at 1414 hours on 01/04/[address] Gil. Verbal acknowledgment and readback was given. 4. Dilated and fluid-filled small bowel loops are seen. Findings can relate to ileus versus small bowel obstruction. This report has been created using voice recognition software. ??It may contain minor errors which are inherent in voice recognition technology. Electronically signed by Dr. Nerissa Gil Narrative 01/04/2025 2:15 PM EDT PROCEDURE: CT ABDOMEN PELVIS WO CONTRAST CLINICAL INFORMATION: lower abdominal pain COMPARISON: No prior study. TECHNIQUE: Helical CT acquisition of the abdomen and pelvis was performed without intravenous contrast. Multiplanar reformats are provided. All CT scans at this facility use dose modulation, iterative reconstruction, and/or weight based dosing when appropriate to reduce the radiation dose to as low as reasonably achievable. FINDINGS: The noncontrast CT limits the evaluation for solid organ pathology, vascular pathology, and lymphadenopathy. LOWER THORAX: ??Moderate bilateral pleural effusion. Mild to moderate pericardial effusion. Mild cardiomegaly. HEPATOBILIARY: No focal hepatic mass. ??Unremarkable hepatic surface morphology. The gallbladder is surgically absent. PANCREAS AND SPLEEN: ??Moderate atrophy of the pancreas. No peripancreatic abnormality. ??The spleen is not enlarged RETROPERITONEUM: Right renomegaly. Mild to moderate right hydronephrosis. The adrenal glands are not enlarged BOWEL AND PERITONEUM: Large amount of ascites. Pneumoperitoneum is noted. A left lower quadrant ostomy is seen. Stool fills the colon. ??No bowel obstruction or acute inflammatory bowel process. ??. VASCULAR: Aortoiliac calcifications. . The abdominal aorta is not aneurysmal. ?? LYMPH NODES: No significantly enlarged lymph nodes are seen. BONES: Degenerative changes of the thoracolumbar spine. Scoliosis PELVIS: The dilated loops of small bowel seen centrally. Diffuse body wall edema.. The bladder is unremarkable. The uterus is surgically absent. Procedure Note Nerissa Gil MD - 01/04/2025 PROCEDURE: CT ABDOMEN PELVIS WO CONTRAST CLINICAL INFORMATION: lower abdominal pain COMPARISON: No prior study. TECHNIQUE: Helical CT acquisition of the abdomen and pelvis was performed without intravenous contrast. Multiplanar reformats are provided. All CT scans at this facility use dose modulation, iterativereconstruction, and/or weight based dosing when appropriate to reduce the radiation doseto as low as reasonably achievable. FINDINGS: The noncontrast CT limits the evaluation for solid organ pathology,vascular pathology, and lymphadenopathy. LOWER THORAX: Moderate bilateral pleural effusion. Mild to moderatepericardial effusion. Mild cardiomegaly. HEPATOBILIARY: No focal hepatic mass. Unremarkable hepatic surfacemorphology. The gallbladder is surgically absent. PANCREAS AND SPLEEN: Moderate atrophy of the pancreas. Noperipancreatic abnormality. The spleen is not enlarged RETROPERITONEUM: Right renomegaly. Mild to moderate right hydronephrosis.The adrenal glands are not enlarged BOWEL AND PERITONEUM: Large amount of ascites. Pneumoperitoneum is noted.A left lower quadrant ostomy is seen. Stool fills the colon. No bowelobstruction or acute inflammatory bowel process. . VASCULAR: Aortoiliac calcifications. . The abdominal aorta is notaneurysmal. LYMPH NODES: No significantly enlarged lymph nodes are seen. BONES: Degenerative changes of the thoracolumbar spine. Scoliosis PELVIS: The dilated loops of small bowel seen centrally. Diffuse bodywall edema.. The bladder is unremarkable. The uterus is surgically absent. IMPRESSION: 1. Moderate bilateral pleural effusions. Diffuse body wall edema. 2. Mild to moderate right hydronephrosis. 3. Large amount of ascites with pneumoperitoneum noted. The pertinentfinding(s) was called to patient's nurse at 1414 hours on 01/04/[address] Gil.Verbal acknowledgment and readback was given. 4. Dilated and fluid-filled small bowel loops are seen. Findings canrelate to ileus versus small bowel obstruction. This report has been created using voice recognition software. It maycontain minor errors which are inherent in voice recognition technology. Electronically signed by Dr. Nerissa Gil Authorizing ProviderResult TypeResult StatusMohamabiola Garcia Abhishek MDIMG CT ORDERABLES Final Result * (ABNORMAL) Glomerular Filtration Rate, Estimated (01/04/2025 4:50 AM EDT) ComponentValueRef RangeTest MethodAnalysis TimePerformed AtPathologist SignatureEst, Glom Filt Rate36(A)>60 ml/min/1.52k11501/04/2025 5:52 AM EDPREMIER [facility] LABComment: Pediatric calculator link https://www.kidney.org/professionals/kdoqi/gfr_calculatorped Effective Dec 19, 2021 These results are not intended for use in patients <18 years of age. eGFR results are calculated without a race factor using the 2020 CKD-EPI equation. ??Careful clinical correlation is recommended, particularly when comparing to results calculated using previous equations. The CKD-EPI equation is less accurate in patients with extremes of muscle mass, extra-renal metabolism of creatinine, excessive creatine ingestion, or following therapy that affects renal tubular secretion. Performed at [facility] [address] [place] [address] Specimen (Source)Anatomical Location / LateralityCollection Method / Volume Collection TimeReceived Time01/04/2025 4:50 AM EDT1 4:50 AM EDT Narrative Authorizing ProviderResult TypeResult StatusRina Fritz MDCHEMISTRY ORDERABLESFinal ResultPerforming OrganizationAddressCity/State/ZIP CodePhone Number [facility] [address] [place] [address], [facility] [phone] [facility] [address] [place] [address] * Anion Gap (01/04/2025 4:50 AM EDT)ComponentValueRef RangeTest MethodAnalysis TimePerformed AtPathologist SignatureAnion Gap12.08.0 - 16.0 meq/L1 5:52 AM [facility] LABComment: ANION GAP = Sodium -(Chloride + CO2) Performed at [facility] [address] [place] [address] Specimen (Source)Anatomical Location / LateralityCollection Method / Volume Collection TimeReceived Time01/04/2025 4:50 AM EDT1 5:16 AM EDT Narrative Authorizing ProviderResult TypeResult StatusSeth Guillozet MDCHEMISTRY ORDERABLESFinal ResultPerforming OrganizationAddressCity/State/ZIP CodePhone Number [facility] [address] [place] [address], [facility] [phone] [facility] [address] [place] [address] * (ABNORMAL) CBC (01/04/2025 4:50 AM EDT)ComponentValueRef RangeTest Method Analysis TimePerformed AtPathologist SignatureWBC8.24.8 - 10.8 thou/mm3 01/04/2025 5:23 AM [facility] LABRBC3.98(L) 4.20 - 5.40 mill/mm301/04/2025 5:23 AM [facility] RCQSyyllvdrkz71.2(L)12.0 - 16.0 gm/dl01/04/2025 5:23 AM [facility] EIHGtfutxnlmh32.1(L)37.0 - 47.0 %01/04/2025 5:23 AM [facility] MLFURX15.1(L)81.0 - 99.0 fL 01/04/2025 5:23 AM [facility] XGVCTF45.6(L) 26.0 - 33.0 pg01/04/2025 5:23 AM [facility] IVRTMEP49.832.2 - 35.5 gm/dl01/04/2025 5:23 AM [facility] LABRDW-CV16.5(H)11.5 - 14.5 %01/04/2025 5:23 AM [facility] LABRDW-SD46.3(H)35.0 - 45.0 fL01/04/2025 5:23 AM [facility] AEVMteevbbas609(H)130 - 400 thou/mm301/04/2025 5:23 AM [facility] LABMPV 8.7(L)9.4 - 12.4 fL01/04/2025 5:23 AM [facility] LABComment:Performed at [facility] [address] [place], [place] [address]Specimen (Source)Anatomical Location / LateralityCollection Method / VolumeCollection TimeReceived TimeBloodBLOOD SPECIMEN / Uebtehv7201/04/2025 4:50 AM EDT1 5:16 AM EDT Narrative Authorizing ProviderResult TypeResult StatusSetmaryann Fritz MDHEMATOLOGY ORDERABLESFinal ResultPerforming OrganizationAddressCity/State/ZIP CodePhone Number [facility] [address] [place] [address] [facility] [address] [place] [address], [facility] [phone] * (ABNORMAL) Basic Metabolic Panel (01/04/2025 4:50 AM EDT)ComponentValueRef RangeTest MethodAnalysis TimePerformed AtPathologist JdiqzyksaLztner893(L)135 - 145 meq/L1 5:39 AM [facility] Potassium3.63.5 - 5.2 meq/L1 5:39 AM [facility] NAICqsxzpud4787 - 111 meq/L1 5:[address] [facility] LAGEK[address] - 29 meq/L1 5:52 AM [facility] OXJLocbdgr554(H)74 - 109 mg/dL01/04/2025 5:52 AM [facility] PVMMAB79(H)8 - 23 mg/dL 01/04/2025 5:52 AM [facility] LABCreatinine 1.6(H)0.5 - 0.9 mg/dL01/04/2025 5:52 AM [facility] LABCalcium7.8(L)8.5 - 10.5 mg/dL01/04/2025 5:52 AM [facility] LABComment:Performed at [facility] [address] [place], [place] [address]Specimen (Source)Anatomical Location / Laterality Collection Method / VolumeCollection TimeReceived TimeBloodBLOOD SPECIMEN / Thbddmo7501/04/2025 4:50 AM EDT1 5:16 AM EDT Narrative Authorizing ProviderResult TypeResult StatusSeth Guillozet MDCHEMISTRY ORDERABLESFinal ResultPerforming OrganizationAddressCity/State/ZIP CodePhone Number [facility] [address] [place] [address] [facility] [address] [place] [address] * (ABNORMAL) Glomerular Filtration Rate, Estimated (01/03/2025 7:33 AM EDT) ComponentValueRef RangeTest MethodAnalysis TimePerformed AtPathologist SignatureEstReji Filt Rate36(A)>60 ml/min/1.92g20401/03/2025 8:28 AM [facility] LABComment: Pediatric calculator link https://www.kidney.org/professionals/kdoqi/gfr_calculatorped Effective Dec 19, 2021 These results are not intended for use in patients <18 years of age. eGFR results are calculated without a race factor using the 2020 CKD-EPI equation. ??Careful clinical correlation is recommended, particularly when comparing to results calculated using previous equations. The CKD-EPI equation is less accurate in patients with extremes of muscle mass, extra-renal metabolism of creatinine, excessive creatine ingestion, or following therapy that affects renal tubular secretion[place] [address] Specimen (Source)Anatomical Location / LateralityCollection Method / Volume Collection TimeReceived Time01/03/2025 7:33 AM EDT1 7:33 AM EDT Narrative Authorizing ProviderResult TypeResult StatusSeth Guillozet MDCHEMISTRY ORDERABLESFinal ResultPerforming OrganizationAddressCity/State/ZIP CodePhone Number [facility] [address] [place] [address], [facility] [phone] [facility] [address] [place] [address], [facility] [phone] * Anion Gap (01/03/2025 7:33 AM EDT)ComponentValueRef RangeTest MethodAnalysis TimePerformed AtPathologist SignatureAnion Gap9.08.0 - 16.0 meq/L1 8:28 AM [facility] LABComment: ANION GAP = Sodium -(Chloride + CO2) [place] [address] Specimen (Source)Anatomical Location / LateralityCollection Method / Volume Collection TimeReceived Time01/03/2025 7:33 AM EDT1 7:53 AM EDT Narrative Authorizing ProviderResult TypeResult StatusSet Guillozet MDCHEMISTRY ORDERABLESFinal ResultPerforming OrganizationAddressCity/State/ZIP CodePhone Number [facility] [address] [place] [address], [facility] [phone] [facility] [address] [place] [address], [facility] [phone] * (ABNORMAL) CBC (01/03/2025 7:33 AM EDT)ComponentValueRef RangeTest Method Analysis TimePerformed AtPathologist SignatureWBC8.14.8 - 10.8 thou/mm3 01/03/2025 7:59 AM [facility] LABRBC3.86(L) 4.20 - 5.40 mill/mm301/03/2025 7:59 AM [facility] AVOKodjhmkqds82.0(L)12.0 - 16.0 gm/dl01/03/2025 7:59 AM [facility] UKLIffhvofddr46.2(L)37.0 - 47.0 %01/03/2025 7:59 AM [facility] OUNTBE82.2(L)81.0 - 99.0 fL 01/03/2025 7:59 AM [facility] GHEKYX23.9(L) 26.0 - 33.0 pg01/03/2025 7:59 AM [facility] OLNJSQM20.132.2 - 35.5 gm/dl01/03/2025 7:59 AM [facility] LABRDW-CV16.4(H)11.5 - 14.5 %01/03/2025 7:59 AM [facility] LABRDW-SD45.8(H)35.0 - 45.0 fL01/03/2025 7:59 AM [facility] INCVyjrvnwfr788(H)130 - 400 thou/mm301/03/2025 7:59 AM [facility] LABMPV 8.9(L)9.4 - 12.4 fL01/03/2025 7:59 AM [facility] LABComment:Performed at [address] [address]Gtpschit (Source)Anatomical Location / LateralityCollection Method / VolumeCollection TimeReceived TimeBloodBLOOD SPECIMEN / Joihsmh4501/03/2025 7:33 AM EDT1 7:53 AM EDT Narrative Authorizing ProviderResult TypeResult StatusRina Fritz MDHEMATOLOGY ORDERABLESFinal ResultPerforming OrganizationAddressCity/State/ZIP CodePhone Number [facility] [address] [place] [address], [facility] [phone] [facility] [address] [place] [address], [facility] [phone] * (ABNORMAL) Basic Metabolic Panel (01/03/2025 7:33 AM EDT)ComponentValueRef RangeTest MethodAnalysis TimePerformed AtPathologist NupfdeoofWuoqyo324600 - 145 meq/L1 8:17 AM [facility] Potassium4.13.5 - 5.2 meq/L1 8:17 AM [facility] LLNJqvwlwly77522 - 111 meq/L1 8:17 AM [facility] USVGC97999 - 29 meq/L1 8:28 AM [facility] VZBIrdrqix475(H)74 - 109 mg/dL01/03/2025 8:28 AM [facility] GTBEZJ62(H)8 - 23 mg/dL 01/03/2025 8:28 AM [facility] LABCreatinine 1.6(H)0.5 - 0.9 mg/dL01/03/2025 8:28 AM [facility] LABCalcium8.2(L)8.5 - 10.5 mg/dL01/03/2025 8:28 AM [facility] LABComment:Performed at [facility] [address] [place], [place] [address]Vwrwhukh (Source)Anatomical Location / Laterality Collection Method / VolumeCollection TimeReceived TimeBloodBLOOD SPECIMEN / Mipdhaq3601/03/2025 7:33 AM EDT1 7:53 AM EDT Narrative Authorizing ProviderResult TypeResult StatusSeth Guillozet MDCHEMISTRY ORDERABLESFinal ResultPerforming OrganizationAddressCity/State/ZIP CodePhone Number [facility] [address] [place] [address], [facility] [phone] [facility] [address] [place] [address], [facility] [phone] * IR FLUORO GUIDED CVA DEVICE PLMT/REPLACE/REMOVAL (01/02/2025 10:53 AM EDT) Anatomical RegionLateralityModalityVascularX-Ray AngiographySpecimen (Source) Anatomical Location / LateralityCollection Method / VolumeCollection Time Received Time01/02/2025 11:11 AM EDT Impressions 01/02/2025 11:11 AM EDT Status post successful tunneled Dialysis catheter removal. This report has been created using voice recognition software. ??It may contain minor errors which are inherent in voice recognition technology. Electronically signed by Dr. Frederick Gonzales Narrative 01/02/2025 11:11 AM EDT TUNNELED DIALYSIS CATHETER REMOVAL: CLINICAL INFORMATION: Renal function improved. No longer needs dialysis. PERFORMED BY: Specials technologist Mima Moreland CATHETER: 15.5 Haitian Titan, tunneled dialysis catheter, 28 CM. INSERTION SITE: Right internal jugular vein ESTIMATED BLOOD LOSS: Minimal TECHNIQUE: Signed informed consent was obtained prior to performing this procedure. The exposed portion of the catheter and surrounding skin were prepped and draped in sterile fashion. Following local anesthesia and utilizing aseptic technique, the cuff of the catheter was released from the subcutaneous tunnel by blunt dissection. The catheter was then removed and hemostasis was obtained with manual pressure. A small amount of antibiotic ointment was applied to the wound site along with a sterile OpSite dressing. The patient tolerated the procedure well. Procedure Note Frederick Gonzales MD - 01/02/2025 TUNNELED DIALYSIS CATHETER REMOVAL: CLINICAL INFORMATION: Renal function improved. No longer needs dialysis. PERFORMED BY: Specials technologist Mima Cutler CATHETER: 15.5 Haitian Titan, tunneled dialysis catheter, 28 CM. INSERTION SITE: Right internal jugular vein ESTIMATED BLOOD LOSS: Minimal TECHNIQUE: Signed informed consent was obtained prior to performing this procedure. The exposed portion of the catheter and surrounding skin wereprepped and draped in sterile fashion. Following local anesthesia and utilizingaseptic technique, the cuff of the catheter was released from the subcutaneoustunnel by blunt dissection. The catheter was then removed and hemostasis wasobtained with manual pressure. A small amount of antibiotic ointment was applied to thewound site along with a sterile OpSite dressing. The patient tolerated theprocedure well. IMPRESSION: Status post successful tunneled Dialysis catheter removal. This report has been created using voice recognition software. It maycontain minor errors which are inherent in voice recognition technology. Electronically signed by Dr. Frederick [place] Authorizing ProviderResult TypeResult Francisca Kim [facility] IR ORDERABLESFinal Result * EKG Rhythm Strip (01/02/2025 7:57 AM EDT)Specimen (Source)Anatomical Location / LateralityCollection Method / VolumeCollection TimeReceived Time01/02/2025 7:57 AM EDT Narrative [facility] - 01/02/2025 11:38 AM EDT Authorizing ProviderResult TypeResult StatusUnknown Provider ResultECG ORDERABLESFinal ResultPerforming OrganizationAddressCity/State/ZIP CodePhone Number [facility] * EKG Rhythm Strip (01/02/2025 7:03 AM EDT)Specimen (Source)Anatomical Location / LateralityCollection Method / VolumeCollection TimeReceived Time01/02/2025 7:03 AM EDT Narrative [facility] - 01/02/2025 7:03 AM EDT Authorizing ProviderResult TypeResult StatusUnknown Provider ResultECG ORDERABLESFinal ResultPerforming OrganizationAddressCity/State/ZIP CodePhone Number [facility] * (ABNORMAL) Glomerular Filtration Rate, Estimated (01/02/2025 5:31 AM EDT) ComponentValueRef RangeTest MethodAnalysis TimePerformed AtPathologist SignatureEst, Glom Filt Rate29(A)>60 ml/min/1.38v663/ 6:18 AM [facility] LABComment: Pediatric calculator link https://www.kidney.org/professionals/kdoqi/gfr_calculatorped Effective Dec 19, 2021 These results are not intended for use in patients <18 years of age. eGFR results are calculated without a race factor using the 2020 CKD-EPI equation. ??Careful clinical correlation is recommended, particularly when comparing to results calculated using previous equations. The CKD-EPI equation is less accurate in patients with extremes of muscle mass, extra-renal metabolism of creatinine, excessive creatine ingestion, or following therapy that affects renal tubular secretion. Performed at [facility] [address] [place] [address] Specimen (Source)Anatomical Location / LateralityCollection Method / Volume Collection TimeReceived Time01/02/2025 5:31 AM EDT1 5:31 AM EDT Narrative Authorizing ProviderResult TypeResult StatusRina Fritz MDCHEMISTRY ORDERABLESFinal ResultPerforming OrganizationAddressCity/State/ZIP CodePhone Number [facility] [address] [place] [address] [facility] [address] [place] [address], [facility] [phone] * Anion Gap (01/02/2025 5:31 AM EDT)ComponentValueRef RangeTest MethodAnalysis TimePerformed AtPathologist SignatureAnion Gap11.08.0 - 16.0 meq/L1 6:18 AM [facility] LABComment: ANION GAP = Sodium -(Chloride + CO2) Performed at [facility] [address] [place] [address] Specimen (Source)Anatomical Location / LateralityCollection Method / Volume Collection TimeReceived Time01/02/2025 5:31 AM EDT1 5:41 AM EDT Narrative Authorizing ProviderResult TypeResult StatusRina Fritz MDCHEMISTRY ORDERABLESFinal ResultPerforming OrganizationAddressCity/State/ZIP CodePhone Number [facility] [address] [place] [address], [facility] [phone] [facility] [address] [place] [address], [facility] [phone] * Magnesium (01/02/2025 5:31 AM EDT)ComponentValueRef RangeTest MethodAnalysis TimePerformed AtPathologist SignatureMagnesium1.61.6 - 2.6 mg/dL01/02/2025 6:18 AM [facility] LABComment:Performed at [facility] [address] [place], [place] [address]Specimen (Source) Anatomical Location / LateralityCollection Method / VolumeCollection Time Received TimeBloodBLOOD SPECIMEN / Dhkkpue6601/02/2025 5:31 AM EDT1 5:41 AM EDT Narrative Authorizing ProviderResult TypeResult StatusSeth Guillozet MDCHEMISTRY ORDERABLESFinal ResultPerforming OrganizationAddressCity/State/ZIP CodePhone Number [facility] [address] [place] [address], [facility] [phone] [facility] [address] [place] [address], [facility] [phone] * (ABNORMAL) CBC (01/02/2025 5:31 AM EDT)ComponentValueRef RangeTest Method Analysis TimePerformed AtPathologist SignatureWBC8.54.8 - 10.8 thou/mm3 01/02/2025 5:56 AM [facility] LABRBC3.66(L) 4.20 - 5.40 mill/mm301/02/2025 5:56 AM [facility] LABHemoglobin9.4(L)12.0 - 16.0 gm/dl01/02/2025 5:56 AM [facility] WQIDapbltkmzq80.7(L)37.0 - 47.0 %01/02/2025 5:56 AM [facility] CTHHTP14.4(L)81.0 - 99.0 fL 01/02/2025 5:56 AM [facility] HAXFUE64.7(L) 26.0 - 33.0 pg01/02/2025 5:56 AM [facility] TCDEPEQ85.832.2 - 35.5 gm/dl01/02/2025 5:56 AM [facility] LABRDW-CV16.2(H)11.5 - 14.5 %01/02/2025 5:56 AM [facility] LABRDW-SD45.7(H)35.0 - 45.0 fL01/02/2025 5:56 AM [facility] BDSPmmislmuk055(H)130 - 400 thou/mm301/02/2025 5:56 AM [facility] LABMPV 8.6(L)9.4 - 12.4 fL01/02/2025 5:56 AM [facility] LABComment:Performed at [facility] [address] [place], [place] [address]Specimen (Source)Anatomical Location / LateralityCollection Method / VolumeCollection TimeReceived TimeBloodBLOOD SPECIMEN / Fpjvdmy7901/02/2025 5:31 AM EDT1 5:41 AM EDT Narrative Authorizing ProviderResult TypeResult StatusSetmaryann Fritz MDHEMATOLOGY ORDERABLESFinal ResultPerforming OrganizationAddressCity/State/ZIP CodePhone Number [facility] [address] [place] [address], [facility] [phone] [facility] [address] [place] [address] * (ABNORMAL) Basic Metabolic Panel (01/02/2025 5:31 AM EDT)ComponentValueRef RangeTest MethodAnalysis TimePerformed AtPathologist BhbhgpnbzJgsgcl100(L)135 - 145 meq/L1 6:04 AM [facility] Potassium3.4(L)3.5 - 5.2 meq/L1 6:04 AM [facility] FUZRhwxozjk89(L)98 - 111 meq/L1 6:04 AM [facility] WFOMM33805 - 29 meq/L1 6:18 AM EDT [facility] DVFGntmsez4499 - 109 mg/dL01/02/2025 6:18 AM [facility] NLXLAC50(H)8 - 23 mg/dL 01/02/2025 6:18 AM [facility] LABCreatinine 1.9(H)0.5 - 0.9 mg/dL01/02/2025 6:18 AM [facility] LABCalcium8.1(L)8.5 - 10.5 mg/dL01/02/2025 6:18 AM [facility] LABComment:Performed at [facility] [address] [place], [place] [address]Specimen (Source)Anatomical Location / Laterality Collection Method / VolumeCollection TimeReceived TimeBloodBLOOD SPECIMEN / Kdhubbd1001/02/2025 5:31 AM EDT1 5:41 AM EDT Narrative Authorizing ProviderResult TypeResult StatusSeth Guillozet MDCHEMISTRY ORDERABLESFinal ResultPerforming OrganizationAddressCity/State/ZIP CodePhone Number [facility] [address] [place] [address] [facility] [address] [place] [address], [facility] [phone] * (ABNORMAL) Calcium, Ionized (01/02/2025 5:31 AM EDT)ComponentValueRef Range Test MethodAnalysis TimePerformed AtPathologist SignatureCalcium, Ionized0.98 (L)1.12 - 1.32 mmol/L1 5:49 AM [facility]PRE[facility] LABComment:Performed at [facility] [address] [place], [place] [address]Specimen (Source)Anatomical Location / LateralityCollection Method / VolumeCollection TimeReceived TimeBLOOD SPECIMEN / Jthzors8201/02/2025 5:31 AM EDT1 5:41 AM EDT Narrative Authorizing ProviderResult TypeResult StatusSeth Guillozet MDCHEMISTRY ORDERABLESFinal ResultPerforming OrganizationAddressCity/State/ZIP CodePhone Number [facility] [address] [place] [address], [facility] [phone] [facility] [address] [place] [address], [facility] [phone] * EKG Rhythm Strip (01/01/2025 2:05 PM EDT)Specimen (Source)Anatomical Location / LateralityCollection Method / VolumeCollection TimeReceived Time01/01/2025 2:05 PM EDT Narrative [facility] - 01/01/2025 4:10 PM EDT Authorizing ProviderResult TypeResult StatusUnknown Provider ResultECG ORDERABLESFinal ResultPerforming OrganizationAddressCity/State/ZIP CodePhone Number [facility] * EKG Rhythm Strip (01/01/2025 8:03 AM EDT)Specimen (Source)Anatomical Location / LateralityCollection Method / VolumeCollection TimeReceived Time01/01/2025 8:03 AM EDT Narrative [facility] - 01/01/2025 11:21 AM EDT Authorizing ProviderResult TypeResult StatusUnknown Provider ResultECG ORDERABLESFinal ResultPerforming OrganizationAddressCity/State/ZIP CodePhone Number [facility] * (ABNORMAL) Glomerular Filtration Rate, Estimated (01/01/2025 5:15 AM EDT) ComponentValueRef RangeTest MethodAnalysis TimePerformed AtPathologist SignatureEst, Glom Filt Rate20(A)>60 ml/min/1.29n30701/01/2025 6:24 AM [facility] LABComment: Pediatric calculator link https://www.kidney.org/professionals/kdoqi/gfr_calculatorped Effective Dec 19, 2021 These results are not intended for use in patients <18 years of age. eGFR results are calculated without a race factor using the 2020 CKD-EPI equation. ??Careful clinical correlation is recommended, particularly when comparing to results calculated using previous equations. The CKD-EPI equation is less accurate in patients with extremes of muscle mass, extra-renal metabolism of creatinine, excessive creatine ingestion, or following therapy that affects renal tubular secretion. Performed at [facility] [address] [place] [address] Specimen (Source)Anatomical Location / LateralityCollection Method / Volume Collection TimeReceived Time01/01/2025 5:15 AM EDT1 5:15 AM EDT Narrative Authorizing ProviderResult TypeResult StatusShezDunlap Memorial Hospitalatti DOCHEMISTRY ORDERABLESFinal ResultPerforming OrganizationAddressCity/State/ZIP CodePhone Number [facility] [address] [place] [address] [facility] [address] [place] [address] * Anion Gap (01/01/2025 5:15 AM EDT)ComponentValueRef RangeTest MethodAnalysis TimePerformed AtPathologist SignatureAnion Gap15.08.0 - 16.0 meq/L1 6:22 AM [facility] LABComment: ANION GAP = Sodium -(Chloride + CO2) Performed at [facility] [address] [place] [address] Specimen (Source)Anatomical Location / LateralityCollection Method / Volume Collection TimeReceived Time01/01/2025 5:15 AM EDT1 5:46 AM EDT Narrative Authorizing ProviderResult TypeResult StatusShezf[facility] Chao DOCHEMISTRY ORDERABLESFinal ResultPerforming OrganizationAddressCity/State/ZIP CodePhone Number [facility] [address] [place] [address], [facility] [phone] [facility] [address] [place] [address], [facility] [phone] * (ABNORMAL) Basic Metabolic Panel (01/01/2025 5:15 AM EDT)ComponentValueRef RangeTest MethodAnalysis TimePerformed AtPathologist HxhmxkdzwSjtumz755(L)135 - 145 meq/L1 6:09 AM [facility] Potassium3.63.5 - 5.2 meq/L1 6:09 AM [facility] OJQMctavots56(L)98 - 111 meq/L1 6:09 AM [facility] WFTTL17785 - 29 meq/L1 6:22 AM EDT [facility] VKZQckgaoo5970 - 109 mg/dL01/01/2025 6:22 AM [facility] JOQTNG78(H)8 - 23 mg/dL 01/01/2025 6:22 AM [facility] LABCreatinine 2.6(H)0.5 - 0.9 mg/dL01/01/2025 6:22 AM [facility] LABCalcium8.1(L)8.5 - 10.5 mg/dL01/01/2025 6:22 AM [facility] LABComment:Performed at [facility] [address] [place], [place] [address]Mvxanden (Source)Anatomical Location / Laterality Collection Method / VolumeCollection TimeReceived TimeBloodBLOOD SPECIMEN / Blovznk0201/01/2025 5:15 AM EDT1 5:46 AM EDT Narrative Authorizing ProviderResult TypeResult StatusShezore Chao DOCHEMISTRY ORDERABLESFinal ResultPerforming OrganizationAddressCity/State/ZIP CodePhone Number [facility] [address] [place] [address], [facility] [phone] [facility] [address] [place] [address], [facility] [phone] * (ABNORMAL) CBC (01/01/2025 5:15 AM EDT)ComponentValueRef RangeTest Method Analysis TimePerformed AtPathologist SignatureWBC9.44.8 - 10.8 thou/mm3 01/01/2025 5:58 AM [facility] LABRBC3.68(L) 4.20 - 5.40 mill/mm301/01/2025 5:58 AM [facility] LABHemoglobin9.4(L)12.0 - 16.0 gm/dl01/01/2025 5:58 AM [facility] HNLAutsxhgogl23.4(L)37.0 - 47.0 %01/01/2025 5:58 AM [facility] FILUJM47.9(L)81.0 - 99.0 fL 01/01/2025 5:58 AM [facility] HQVDDZ05.5(L) 26.0 - 33.0 pg01/01/2025 5:58 AM [facility] PHNOGSL07.0(L)32.2 - 35.5 gm/dl01/01/2025 5:58 AM [facility] LABRDW-CV16.4(H)11.5 - 14.5 %01/01/2025 5:58 AM [facility] LABRDW-SD46.5(H)35.0 - 45.0 fL01/01/2025 5:58 AM [facility] RFCJjdgilauc952(H)130 - 400 thou/mm301/01/2025 5:58 AM [facility] MPV8.9(L)9.4 - 12.4 fL01/01/2025 5:58 AM [facility] LABComment:Performed at [facility] [address] [place], [place] [address]Specimen (Source)Anatomical Location / LateralityCollection Method / VolumeCollection TimeReceived TimeBloodBLOOD SPECIMEN / Flbwejq7501/01/2025 5:15 AM EDT1 5:46 AM EDT Narrative Authorizing ProviderResult TypeResult StatusShezore Chao DOHEMATOLOGY ORDERABLESFinal ResultPerforming OrganizationAddressCity/State/ZIP CodePhone Number [facility] [address] [place] [address] [facility] [address] [place] [address], [facility] [phone] * EKG Rhythm Strip (01/01/2025 5:04 AM EDT)Specimen (Source)Anatomical Location / LateralityCollection Method / VolumeCollection TimeReceived Time01/01/2025 5:04 AM EDT Narrative [facility] - 01/01/2025 5:04 AM EDT Authorizing ProviderResult TypeResult StatusUnknown Provider ResultECG ORDERABLESFinal ResultPerforming OrganizationAddressCity/State/ZIP CodePhone Number [facility] * XR NECK SOFT TISSUE (12/31/2024 10:38 PM EDT)Anatomical RegionLaterality ModalityNeck, C-spineComputed RadiographySpecimen (Source)Anatomical Location / LateralityCollection Method / VolumeCollection TimeReceived Time12/31/2024 10:08 PM EDT Impressions 12/31/2024 11:08 PM EDT No acute findings. This document has been electronically signed by: Noah Ricketts MD on 12/31/2024 11:08 PM Narrative 12/31/2024 11:08 PM EDT 1 views soft tissue neck Comparison: None provided Findings No acute fractures or dislocation. Normal epiglottis. Prevertebral soft tissues within normal limits. No definite radiodense foreign body identified. Presumed nasogastric tube is in place. Extensive multilevel cervical spine arthropathy. Procedure Note Noah Ricketts MD - 12/31/2024 1 views soft tissue neck Comparison: None provided Findings No acute fractures or dislocation. Normal epiglottis. Prevertebral soft tissues within normal limits. No definite radiodense foreign body identified. Presumed nasogastric tube is in place. Extensive multilevel cervical spine arthropathy. IMPRESSION: No acute findings. This document has been electronically signed by: Noah Ricketts MD on 12/31/2024 11:08 PM Authorizing ProviderResult TypeResult StatusNell HUBERC[facility]AL HOSPITALPedro DIAGNOSTIC IMAGING ORDERABLESFinal Result * (ABNORMAL) Vitamin B12 & Folate (12/31/2024 2:08 PM EDT)ComponentValueRef RangeTest MethodAnalysis TimePerformed AtPathologist SignatureVitamin B-12> 2000(H)232 - 1245 pg/mL12/31/2024 3:18 PM [facility] JKMXrbkdt01.44.6 - 34.8 ng/mL12/31/2024 3:18 PM [facility] LABComment:Performed at [facility] [address] [place], [place] [address]Specimen (Source)Anatomical Location / Laterality Collection Method / VolumeCollection TimeReceived TimeBloodBLOOD SPECIMEN / Dwppasj7112/31/2024 2:08 PM EDT1 2:26 PM EDT Narrative Authorizing ProviderResult TypeResult StatusSetmaryann Fritz MDCHEMISTRY ORDERABLESFinal ResultPerforming OrganizationAddressCity/State/ZIP CodePhone Number [facility] [address] [place] [address], [facility] [phone] [facility] [address] [place] [address], [facility] [phone] * EKG Rhythm Strip (12/31/2024 2:03 PM EDT)Specimen (Source)Anatomical Location / LateralityCollection Method / VolumeCollection TimeReceived Time12/31/2024 2:03 PM EDT Narrative [facility] - 12/31/2024 5:29 PM EDT Authorizing ProviderResult TypeResult StatusUnknown Provider ResultECG ORDERABLESFinal ResultPerforming OrganizationAddressCity/State/ZIP CodePhone Number [facility] * EKG Rhythm Strip (12/31/2024 7:59 AM EDT)Specimen (Source)Anatomical Location / LateralityCollection Method / VolumeCollection TimeReceived Time12/31/2024 7:59 AM EDT Narrative [facility] - 12/31/2024 12:15 PM EDT Authorizing ProviderResult TypeResult StatusUnknown Provider ResultECG ORDERABLESFinal ResultPerforming OrganizationAddressCity/State/ZIP CodePhone Number [facility] * (ABNORMAL) Glomerular Filtration Rate, Estimated (12/31/2024 4:30 AM EDT) ComponentValueRef RangeTest MethodAnalysis TimePerformed AtPathologist SignatureEst, Glom Filt Rate16(A)>60 ml/min/1.60d54512/31/2024 5:34 AM [facility] LABComment: Pediatric calculator link https://www.kidney.org/professionals/kdoqi/gfr_calculatorped Effective Dec 19, 2021 These results are not intended for use in patients <18 years of age. eGFR results are calculated without a race factor using the 2020 CKD-EPI equation. ??Careful clinical correlation is recommended, particularly when comparing to results calculated using previous equations. The CKD-EPI equation is less accurate in patients with extremes of muscle mass, extra-renal metabolism of creatinine, excessive creatine ingestion, or following therapy that affects renal tubular secretion. Performed at [facility] [address] [place] [address] Specimen (Source)Anatomical Location / LateralityCollection Method / Volume Collection TimeReceived Time12/31/2024 4:30 AM EDT1 4:30 AM EDT Narrative Authorizing ProviderResult TypeResult StatusShezore Chao DOCHEMISTRY ORDERABLESFinal ResultPerforming OrganizationAddressCity/State/ZIP CodePhone Number [facility] [address] [place] [address], [facility] [phone] [facility] [address] [place] [address], [facility] [phone] * (ABNORMAL) Anion Gap (12/31/2024 4:30 AM EDT)ComponentValueRef RangeTest MethodAnalysis TimePerformed AtPathologist SignatureAnion Gap18.0(H)8.0 - 16.0 meq/L1 5:26 AM [facility] Comment: ANION GAP = Sodium -(Chloride + CO2) Performed at [facility] [address] [place] [address] Specimen (Source)Anatomical Location / LateralityCollection Method / Volume Collection TimeReceived Time12/31/2024 4:30 AM EDT1 4:48 AM EDT Narrative Authorizing ProviderResult TypeResult StatusShezW[facility] DOCHEMISTRY ORDERABLESFinal ResultPerforming OrganizationAddressCity/State/ZIP CodePhone Number [facility] [address] [place] [address], [facility] [phone] [facility] [address] [place] [address], [facility] [phone] * (ABNORMAL) Basic Metabolic Panel (12/31/2024 4:30 AM EDT)ComponentValueRef RangeTest MethodAnalysis TimePerformed AtPathologist YgqkvqdlrFqmxjo990990 - 145 meq/L1 5:14 AM [facility] Potassium4.73.5 - 5.2 meq/L1 5:14 AM [facility] XCODdxtltjo01540 - 111 meq/L1 5:14 AM [facility] HCVVX478(L)22 - 29 meq/L1 5:26 AM EDT [facility] VOKKjpauea04(L)74 - 109 mg/dL 12/31/2024 5:26 AM [facility] BLNWBE92(H)8 - 23 mg/dL12/31/2024 5:26 AM [facility] Creatinine3.2(HH)0.5 - 0.9 mg/dL12/31/2024 5:26 AM [facility] LABCalcium7.8(L)8.5 - 10.5 mg/dL12/31/2024 5:26 AM EDT [facility] LABComment:Performed at [facility] [address] [place], [place] [address]Specimen (Source)Anatomical Location / LateralityCollection Method / VolumeCollection TimeReceived Time BloodBLOOD SPECIMEN / Skxsyed4912/31/2024 4:30 AM EDT1 4:48 AM EDT Narrative Authorizing ProviderResult TypeResult StatusShezore Chao DOCHEMISTRY ORDERABLESFinal ResultPerforming OrganizationAddressCity/State/ZIP CodePhone Number [facility] [address] [place] [address] [facility] [address] [place] [address] * (ABNORMAL) CBC (12/31/2024 4:30 AM EDT)ComponentValueRef RangeTest Method Analysis TimePerformed AtPathologist AxcftrrqqKMS63.44.8 - 10.8 thou/mm3 12/31/2024 4:57 AM [facility] LABRBC3.58(L) 4.20 - 5.40 mill/mm312/31/2024 4:57 AM [facility] LABHemoglobin9.2(L)12.0 - 16.0 gm/dl12/31/2024 4:57 AM [facility] OIVRfckqsrgbq87.7(L)37.0 - 47.0 %12/31/2024 4:57 AM [facility] DLBFLX51.2(L)81.0 - 99.0 fL 12/31/2024 4:57 AM [facility] BXOKOU19.7(L) 26.0 - 33.0 pg12/31/2024 4:57 AM [facility] CICHEKA39.1(L)32.2 - 35.5 gm/dl12/31/2024 4:57 AM [facility] LABRDW-CV16.1(H)11.5 - 14.5 %12/31/2024 4:57 AM [facility] LABRDW-SD46.2(H)35.0 - 45.0 fL12/31/2024 4:57 AM [facility] NNIPleceietq265(H)130 - 400 thou/mm312/31/2024 4:57 AM [facility] MPV8.7(L)9.4 - 12.4 fL12/31/2024 4:57 AM [facility] LABComment:Performed at [facility] [address] [place], [place] [address]Specimen (Source)Anatomical Location / LateralityCollection Method / VolumeCollection TimeReceived TimeBloodBLOOD SPECIMEN / Mtwpiee8312/31/2024 4:30 AM EDT1 4:48 AM EDT Narrative Authorizing ProviderResult TypeResult StatusShezore Chao DOHEMATOLOGY ORDERABLESFinal ResultPerforming OrganizationAddressCity/State/ZIP CodePhone Number [facility] [address] [place] [address] [facility] [address] [place] [address] * EKG Rhythm Strip (12/30/2024 8:00 PM EDT)Specimen (Source)Anatomical Location / LateralityCollection Method / VolumeCollection TimeReceived Time12/30/2024 8:00 PM EDT Narrative LILIA - 12/30/2024 9:48 PM EDT Authorizing ProviderResult TypeResult StatusUnknown Provider ResultECG ORDERABLESFinal ResultPerforming OrganizationAddressCity/State/ZIP CodePhone Number [facility] * (ABNORMAL) Culture, Anaerobic and Aerobic (12/30/2024 1:35 PM EDT)Component ValueRef RangeTest MethodAnalysis TimePerformed AtPathologist Signature Anaerobic CultureNo anaerobes isolated- preliminary No anaerobes isolated BACTERIAL SUSCEPTIBILITY PANEL [facility] LABGram Stain ResultModerate segmented neutrophils observed. No epithelial cells observed. No bacteria seen. BACTERIAL SUSCEPTIBILITY PANEL [facility] LABOrganismPseudomonas aeruginosa(A) BACTERIAL SUSCEPTIBILITY PANEL [facility] LABAerobic Culturemoderate growth BACTERIAL SUSCEPTIBILITY PANEL [facility] LABOrganismStaphylococcus epidermidis(A) BACTERIAL SUSCEPTIBILITY PANEL [facility] LABAerobic Culturelight growth In the treatment of gram positive infections, GENTAMICIN should be CONSIDERED a SYNERGYSTIC agent ONLY. Methicillin(Oxacillin)resistant strains of staphylococci (MRSA)or(MRSE)should be considered resistant to all classes of cephalosporins, penems and beta-lactams. Ciprofloxacin and Levofloxacin, regardless of in vitro sensitivity, should not be used for staphylococcal infections other than uncomplicated lower UTIs. Moxifloxacin, regardless of in vitro sensitivity, should not be used for staphylococcal infections. BACTERIAL SUSCEPTIBILITY PANEL [facility] LABOrganismKlebsiella oxytoca(A) BACTERIAL SUSCEPTIBILITY PANEL [facility] LABAerobic Culturelight growth BACTERIAL SUSCEPTIBILITY PANEL [facility] LABSpecimen (Source)Anatomical Location / LateralityCollection Method / VolumeCollection TimeReceived TimeBody Fluid SPECIMEN FROM ABDOMINAL CAVITY / Dpgyqfr4912/30/2024 1:35 PM EDTComment:Pre-op diagnosis: Abdominal pain, unspecified abdominal location [R10.9] Narrative [facility] - 01/04/2025 1:15 PM EDT Source: pelvis Site: fluid- bottle pelvic abscess Current Antibiotics: not stated OrganismAntibioticMethodSusceptibilityPseudomonas aeruginosacefepimeBACTERIAL SUSCEPTIBILITY PANEL BY TUNG 8 mcg/mL: Sensitive Pseudomonas aeruginosatobramycinBACTERIAL SUSCEPTIBILITY PANEL BY TUNG <=1 mcg/mL: Sensitive Pseudomonas aeruginosaciprofloxacinBACTERIAL SUSCEPTIBILITY PANEL BY TUNG 0.5 mcg/mL: Sensitive Pseudomonas aeruginosalevofloxacinBACTERIAL SUSCEPTIBILITY PANEL BY TUNG 2 mcg/mL: Intermediate Pseudomonas aeruginosapiperacillin-tazobactamBACTERIAL SUSCEPTIBILITY PANEL BY TUNG 32 mcg/mL: Intermediate Staphylococcus epidermidisoxacillinBACTERIAL SUSCEPTIBILITY PANEL BY TUNG >=4 mcg/mL: Resistant Staphylococcus epidermidisgentamicinBACTERIAL SUSCEPTIBILITY PANEL BY TUNG <=0.5 mcg/mL: Sensitive Staphylococcus epidermidisclindamycinBACTERIAL SUSCEPTIBILITY PANEL BY TUNG >=8 mcg/mL: Resistant Staphylococcus epidermidistetracyclineBACTERIAL SUSCEPTIBILITY PANEL BY TUNG 2 mcg/mL: Sensitive Staphylococcus epidermidistrimethoprim-sulfamethoxazoleBACTERIAL SUSCEPTIBILITY PANEL BY TUNG 20 mcg/mL: Sensitive Klebsiella oxytocacefepimeBACTERIAL SUSCEPTIBILITY PANEL BY TUNG <=0.12 mcg/mL: Sensitive Klebsiella oxytocatobramycinBACTERIAL SUSCEPTIBILITY PANEL BY TUNG <=1 mcg/mL: Sensitive Klebsiella oxytocaciprofloxacinBACTERIAL SUSCEPTIBILITY PANEL BY TUNG <=0.06 mcg/mL: Sensitive Klebsiella oxytocalevofloxacinBACTERIAL SUSCEPTIBILITY PANEL BY TUNG <=0.12 mcg/mL: Sensitive Klebsiella oxytocagentamicinBACTERIAL SUSCEPTIBILITY PANEL BY TUNG <=1 mcg/mL: Sensitive Klebsiella oxytocapiperacillin-tazobactamBACTERIAL SUSCEPTIBILITY PANEL BY TUNG <=4 mcg/mL: Sensitive Klebsiella oxytocacefTRIAXoneBACTERIAL SUSCEPTIBILITY PANEL BY TUNG <=0.25 mcg/mL: Sensitive Klebsiella oxytocatetracyclineBACTERIAL SUSCEPTIBILITY PANEL BY TUNG <=1 mcg/mL: Sensitive Klebsiella oxytocatrimethoprim-sulfamethoxazoleBACTERIAL SUSCEPTIBILITY PANEL BY TUNG <=20 mcg/mL: Sensitive Klebsiella oxytocaampicillinBACTERIAL SUSCEPTIBILITY PANEL BY TUNG >=32 mcg/mL: Resistant Klebsiella oxytocaamoxicillin-clavulanateBACTERIAL SUSCEPTIBILITY PANEL BY TUNG <=2 mcg/mL: Sensitive Klebsiella oxytocacefOXitinBACTERIAL SUSCEPTIBILITY PANEL BY TUNG <=4 mcg/mL: Sensitive Klebsiella oxytocacefpodoxime proxetilBACTERIAL SUSCEPTIBILITY PANEL BY TUNG <=0.25 mcg/mL: Sensitive Authorizing ProviderResult TypeResult StatusAnne R Edward MDMICROBIOLOGY - GENERAL ORDERABLESFinal ResultPerforming OrganizationAddressCity/State/ZIP Code Phone Number [facility] [address] [place] [address], [facility] [phone] * (ABNORMAL) Troponin (12/30/2024 9:02 AM EDT)ComponentValueRef RangeTest Method Analysis TimePerformed AtPathologist SignatureTroponin, High Giuwaabkwlz283(H) 0 - 12 ng/L1 9:46 AM [facility] Comment: The high-sensitivity troponin T result should not be compared with other troponin methodologies. Rising or falling high-sensitivity troponin T is significant if >= 6. Performed at [facility] [address] [place] [address] Specimen (Source)Anatomical Location / LateralityCollection Method / Volume Collection TimeReceived TimeBloodBLOOD SPECIMEN / Emhqzco0112/30/2024 9:02 AM EDT 12/30/2024 9:11 AM EDT Narrative Authorizing ProviderResult TypeResult StatusShezDunlap Memorial Hospitalatti DOCHEMISTRY ORDERABLESFinal ResultPerforming OrganizationAddressCity/State/ZIP CodePhone Number [facility] [address] [place] [address], [facility] [phone] [facility] [address] [place] [address], [facility] [phone] * Anion Gap (12/30/2024 7:38 AM EDT)ComponentValueRef RangeTest MethodAnalysis TimePerformed AtPathologist SignatureAnion Gap15.08.0 - 16.0 meq/L1 8:25 AM [facility] LABComment: ANION GAP = Sodium -(Chloride + CO2) [facility] Lab [address] [place] [address] Specimen (Source)Anatomical Location / LateralityCollection Method / Volume Collection TimeReceived Time12/30/2024 7:38 AM EDT1 7:50 AM EDT Narrative Authorizing ProviderResult TypeResult StatusShezSelect Specialty Hospital - Winston-Salemi DOCHEMISTRY ORDERABLESFinal ResultPerforming OrganizationAddressCity/State/ZIP CodePhone Number [facility] [address] [place] [address], [facility] [phone] [facility] [address] [place] [address], [facility] [phone] * (ABNORMAL) Glomerular Filtration Rate, Estimated (12/30/2024 7:38 AM EDT) ComponentValueRef RangeTest MethodAnalysis TimePerformed AtPathologist SignatureEst, Glom Filt Rate13(A)>60 ml/min/1.03i86412/30/2024 8:36 AM [facility] LABComment: Pediatric calculator link https://www.kidney.org/professionals/kdoqi/gfr_calculatorped Effective Dec 19, 2021 These results are not intended for use in patients <18 years of age. eGFR results are calculated without a race factor using the 2020 CKD-EPI equation. ??Careful clinical correlation is recommended, particularly when comparing to results calculated using previous equations. The CKD-EPI equation is less accurate in patients with extremes of muscle mass, extra-renal metabolism of creatinine, excessive creatine ingestion, or following therapy that affects renal tubular secretion. Performed at [facility] [address] [place] [id number] Specimen (Source)Anatomical Location / LateralityCollection Method / Volume Collection TimeReceived Time12/30/2024 7:38 AM EDT1 7:38 AM EDT Narrative Authorizing ProviderResult TypeResult StatusShezDunlap Memorial Hospitalatti DOCHEMISTRY ORDERABLESFinal ResultPerforming OrganizationAddressCity/State/ZIP CodePhone Number [facility] [address] [place] [address], [facility] [phone] [facility] [address] [place] [address], [facility] [phone] * (ABNORMAL) Troponin (12/30/2024 7:38 AM EDT)ComponentValueRef RangeTest Method Analysis TimePerformed AtPathologist SignatureTroponin, High Ncsrvcjorzu212(H) 0 - 12 ng/L1 8:21 AM [facility] Comment: The high-sensitivity troponin T result should not be compared with other troponin methodologies. Rising or falling high-sensitivity troponin T is significant if >= 6. Performed at [facility] [address] [place] [address] Specimen (Source)Anatomical Location / LateralityCollection Method / Volume Collection TimeReceived Time12/30/2024 7:38 AM EDT1 7:50 AM EDT Narrative Authorizing ProviderResult TypeResult StatusShezore Chao DOCHEMISTRY ORDERABLESFinal ResultPerforming OrganizationAddressCity/State/ZIP CodePhone Number [facility] [address] [place] [address], [facility] [phone] [facility] [address] [place] [address], [facility] [phone] * (ABNORMAL) Basic Metabolic Panel (12/30/2024 7:38 AM EDT)ComponentValueRef RangeTest MethodAnalysis TimePerformed AtPathologist WhqrfwdcsCjpxrj930(L)135 - 145 meq/L1 8:13 AM [facility] Potassium4.73.5 - 5.2 meq/L1 8:13 AM [facility] DAAVvwcwaas71(L)98 - 111 meq/L1 8:13 AM [facility] FGGTM79157 - 29 meq/L1 8:25 AM EDT [facility] ZNUWvoiqhv5303 - 109 mg/dL12/30/2024 8:25 AM [facility] UIERKJ60(H)8 - 23 mg/dL 12/30/2024 8:25 AM [facility] LABCreatinine 3.7(HH)0.5 - 0.9 mg/dL12/30/2024 8:25 AM [facility] LABCalcium8.78.5 - 10.5 mg/dL12/30/2024 8:25 AM [facility] LABComment:Performed at [facility] [address] [place], [place] [address]Specimen (Source)Anatomical Location / Laterality Collection Method / VolumeCollection TimeReceived TimeBloodBLOOD SPECIMEN / Optmhfo4212/30/2024 7:38 AM EDT1 7:50 AM EDT Narrative Authorizing ProviderResult TypeResult StatusShezore Chao DOCHEMISTRY ORDERABLESFinal ResultPerforming OrganizationAddressCity/State/ZIP CodePhone Number [facility] [address] [place] [address] [facility] [address] [place] [address] * (ABNORMAL) CBC (12/30/2024 7:38 AM EDT)ComponentValueRef RangeTest Method Analysis TimePerformed AtPathologist SignatureWBC7.84.8 - 10.8 thou/mm3 12/30/2024 8:00 AM [facility] LABRBC3.83(L) 4.20 - 5.40 mill/mm312/30/2024 8:00 AM [facility] LABHemoglobin9.8(L)12.0 - 16.0 gm/dl12/30/2024 8:00 AM [facility] CBREbupzbhuap48.2(L)37.0 - 47.0 %12/30/2024 8:00 AM [facility] RJWRCL20.581.0 - 99.0 fL 12/30/2024 8:00 AM [facility] ABCFSH92.6(L) 26.0 - 33.0 pg12/30/2024 8:00 AM [facility] FQLICIX90.4(L)32.2 - 35.5 gm/dl12/30/2024 8:00 AM [facility] LABRDW-CV15.9(H)11.5 - 14.5 %12/30/2024 8:00 AM [facility] LABRDW-SD47.2(H)35.0 - 45.0 fL12/30/2024 8:00 AM [facility] VKSHqoxosfkh180(H)130 - 400 thou/mm312/30/2024 8:00 AM [facility] MPV9.3(L)9.4 - 12.4 fL12/30/2024 8:00 AM [facility] LABComment:Performed at [facility] [address] [place], [place] [address]Specimen (Source)Anatomical Location / LateralityCollection Method / VolumeCollection TimeReceived TimeBloodBLOOD SPECIMEN / Ylonavu9712/30/2024 7:38 AM EDT1 7:50 AM EDT Narrative Authorizing ProviderResult TypeResult StatusShezore Chao DOHEMATOLOGY ORDERABLESFinal ResultPerforming OrganizationAddressCity/State/ZIP CodePhone Number [facility] [address] [place] [address] [facility] [address] [place] [address] * Surgical Pathology (12/30/2024 7:17 AM EDT)Specimen (Source)Anatomical Location / LateralityCollection Method / VolumeCollection TimeReceived Time TissueSPECIMEN FROM ABDOMINAL CAVITY / Kwidtms8412/30/2024 1:35 PM EDTComment: Pre-op diagnosis: Abdominal pain, unspecified abdominal location [R10.9]Body tissue structure (body structure)SPECIMEN FROM ABDOMINAL CAVITY / Sxzeowm1812/30/2024 1:36 PM EDT Comment:Pre-op diagnosis: Abdominal pain, unspecified abdominal location [R10.9] Narrative [facility] - 01/02/2025 10:09 AM EDT [facility] MARIA ELENA GARNER [id number] Assoc. ?Page 1 of 1 [address] [place] [address] ?PROC: 12/30/2024 [facility] ?RECV: 12/31/[address] ?RPTD: 01/02/2025 [place] [address] ?LOC: 3B ?ACCT: [id number] ??SEX: F ?: 1960 ??AGE: 64 Y ? PATHOLOGY REPORT ?ATTN: RINA FRITZ ?REQ: EMILY LEWISRTON Copies To: ?? RINA FRITZ; OMAR MURRELL Clinical Information: ABDOMINAL PAIN, UNSPECIFIED LOCATION FINAL DIAGNOSIS: Part A: Small bowel, implant, biopsy: Benign simple cyst, compatible with mesothelial cyst. No evidence of malignancy present. Part B: Small bowel, excision: Gross findings compatible with intussusception. Benign small bowel mucosa with mild edema and focal mild acute serositis. No evidence of dysplasia or malignancy identified. Specimen: A) SMALL BOWEL BIOPSY, IMPLANT B) SMALL BOWEL EXCISION, INTUSSUSCEPTION Gross Examination: A - The container is labeled Maria Elena Garner, small bowel implant. Received in formalin are two bits of white tissue varying in size from 0.2 cm up to 0.3 cm. ??1 ns. B - The container is labeled Maria Elena Jalen, small bowel. ??Received in formalin is a short segment of small bowel measuring 6.5 cm in length. The serosal surface is dusky. ??The central region is narrowed. ??The specimen is opened to reveal a sharif mucosal surface. ??There is a somewhat pedunculated area of mucosa at the area of narrowing that measures 1.5 x 1.5 x 1.5 cm. ??The area is 4.5 cm from the nearest resection line. ??There is a very little surrounding adipose tissue. The serosal surface is inked blue. ??Sections through the pedunculated lesion reveal a whorled appearance of mucosa. ??No discrete suspicious masses. ??The serosa is focally disrupted at this region. Executive Staff Assistant sections are submitted. ??Cassette #1 - nearest resection line; cassette #2 - farthest resection line; and cassette #3, #4, and #5 - area of mucosal irregularity. ??ss. ??DKR:hal Microscopic Examination: Part A: The histologic sections show a benign simple cyst, compatible with a mesothelial cyst. ??There is no evidence of malignancy present. Correlation with clinical history is recommended. Part B: The histologic sections show benign small bowel mucosa with mild edema and focal mild acute serositis. ??There are gross findings compatible with intussusception. ??Otherwise, there are no other significant histopathologic findings. ??There is no evidence of dysplasia or malignancy identified. ??Correlation with clinical history is recommended. [id number] <Sign Out DrPoly Signature> ? VINAYAK LENTZ D.O., F.CAshley. This report has been created using voice recognition software. ??It may contain minor errors which are inherent in voice recognition technology. [facility]/ [facility] ??Printed on: ??01/02/[address] [place] [address] Original print date: 01/02/2025 Authorizing ProviderResult TypeResult Jes Whitaker MDPATHOLOGY/CYTOLOGY ORDERABLESFinal ResultPerforming OrganizationAddressCity/State/ZIP CodePhone Number [facility] [address] [place] [address], [facility] [phone] documented in this encounter Visit Diagnoses Diagnosis Intussusception of small intestine (HCC)- Primary Intussusception Abdominal pain, unspecified abdominal location Acute kidney injury superimposed on stage 3b chronic kidney disease (HCC) Essential hypertension Unspecified essential hypertension Intussusception of small intestine (HCC) Intussusception Chronic renal impairment, stage 4 (severe) Abdominal pain Abdominal pain, unspecified site Ischemic bowel disease Unspecified vascular insufficiency of intestine ATN (acute tubular necrosis) Acute kidney failure with lesion of tubular necrosis PATRICK (acute kidney injury) Acute kidney failure, unspecified Severe malnutrition 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 Enter 25 mL into dose field and piggyback rate into rate field of order. If piggyback is infusing at a rate less than 100 mL/hr, enter 25 mL into dose field and 100 mL/hr into rate field of order. 12/30/2024 2:14 PM EDTNew 12/30/2024 11:42 AM EDT 0.9 % sodium chloride infusion IntraVENous, at 75 mL/hr, CONTINUOUS, Starting on Sun01/06/25 at 0730 01/06/2025 11:10 PM EDT75 mL/hrNew 01/06/2025 8:24 AM EDT75 mL/hr albumin human 25% IV solution 25 g 25 g, IntraVENous, ONCE, 1 dose, On Sun01/10/25 at 1000, Administer over 60 Minutes, at 100 mL/hr,Infusion rate depends on indication and clinical situation. In emergencies, may administer as rapidly as necessary to improve clinical condition. After initial volume replacement: 5%: Do not exceed 2to 4 mL/minute in patients with normal plasma volume; 5 to 10 mL/minute in patients with hypoproteinemia 25%: Do not exceed 1 mL/minute in patients with normal plasma volume; 2 to 3 mL/minute in patients with hypoproteinemia 01/10/2025 11:46 AM EDT25 g100 mL/hr albuterol (PROVENTIL) (2.5 MG/3ML) 0.083% nebulizer solution 2.5 mg 2.5 mg, Nebulization, 3 TIMES DAILY, First dose on Sun12/30/24 at 0900, Until Discontinued, Initiate RT Bronchodilator Protocol: No Given01/12/2025 1:51 PM EDT2.5 zoYhpip1701/12/2025 9:43 AM EDT2.5 mgGiven 01/11/2025 9:58 PM EDT2.5 mg amLODIPine (NORVASC) tablet 10 mg 10 mg, Oral, DAILY, First dose on Sun12/30/24 at 0900, Until Discontinued, Hold if SBP <110 or HR <60 Given01/12/2025 8:19 AM EDT10 xqHmyff1001/11/2025 8:55 AM EDT10 ziEudwr4701/10/2025 9:36 AM EDT10 mg atorvastatin (LIPITOR) tablet 20 mg 20 mg, Oral, DAILY, First dose on Sun12/30/24 at 0900, Until Discontinued Given01/12/2025 8:19 AM EDT20 iaKbgaf5001/11/2025 8:55 AM EDT20 kiSqllb2601/10/2025 9:36 AM EDT20 mg budesonide-formoterol (SYMBICORT) 160-4.5 MCG/ACT inhaler 2 puff 2 puff, Inhalation, 2 TIMES DAILY, First dose on Sun12/30/24 at 0900, Until Discontinued, Rinse mouth out with water (without swallowing) after every dose. Given01/12/2025 9:43 AM EDT2 vaxqeAdlxz66/26/2025 9:58 PM EDT2 puffsGiven 01/11/2025 9:36 AM EDT2 puffs bumetanide (BUMEX) injection 1 mg 1 mg, IntraVENous, ONCE, 1 dose, On 12/31/24 at 0745 Given12/31/2024 8:22 AM EDT1 mg bumetanide (BUMEX) injection 1 mg 1 mg, IntraVENous, ONCE, 1 dose, On Lida 01/01/25 at 1200 Given01/01/2025 11:50 AM EDT1 mg bumetanide (BUMEX) injection 1 mg 1 mg, IntraVENous, ONCE, 1 dose, On 01/05/25 at 0800 Given01/05/2025 9:41 AM EDT1 mg bumetanide (BUMEX) injection 1 mg 1 mg, IntraVENous, ONCE, 1 dose, On 01/10/25 at 1000, Please give albumin 30 mins prior to bumex dose Given01/10/2025 11:33 AM EDT1 mg capsaicin (ZOSTRIX) 0.025 % cream Topical, 2 TIMES DAILY PRN, pain, Starting on 01/11/25 at 1823, Apply to abd. Do not apply to wounds, damaged,broken or irritated skin. Do not cover with bandage. Do not use in combination with external heat source (eg. heating pad) Given01/11/2025 9:39 PM EDTOther carvedilol (COREG) tablet 12.5 mg 12.5 mg, Oral, 2 TIMES DAILY WITH MEALS, First dose on Sun12/30/24 at 0800, Until Discontinued, Hold if SBP <110 or HR <60 Administer with food to minimize the risk of orthostatic hypotension Given12/31/2024 8:22 AM EDT12.5 leGjpuq0012/30/2024 5:48 PM EDT12.5 mgGiven 12/30/2024 9:17 AM EDT12.5 mg carvedilol (COREG) tablet 25 mg 25 mg, Oral, 2 TIMES DAILY WITH MEALS, First dose (after last modification) on Sun12/31/24 at 1700, Until Discontinued, Hold if SBP <110 or HR <60 Administer with food to minimize the risk of orthostatic hypotension Given01/12/2025 8:19 AM EDT25 tpHlird8801/11/2025 5:18 PM EDT25 lfVmqza6201/11/2025 8:55 AM EDT25 mg cefepime (MAXIPIME) 1,000 mg in sodium chloride 0.9 % 50 mL IVPB (addEASE) 1,000 mg, IntraVENous, at 12.5 mL/hr, Administer over 240 Minutes, EVERY 24 HOURS, First dose (after last modification) on Sun01/05/25 at 1600, When scheduled dose falls on a dialysis day, administer dose after dialysis. Use 20mm (GREEN) addEASE Adapter Prep Instructions: Attach medication vial toone 20mm (GREEN) addEASE adapter. Kameron fluid bag with adapter, mix, and administer per order. Rate/Dose Rnifzf6801/08/2025 5:50 PM EDT12.5 mL/hrRate/Dose Ljaemf5101/08/2025 4:27 PM EDT12.5 mL/hrNew Bag01/08/2025 4:27 PM EDT1,000 mg12.5 mL/hr ceFEPIme (MAXIPIME) 2,000 mg in sodium chloride 0.9 % 100 mL IVPB (addEASE) 2,000 mg, IntraVENous, at 200 mL/hr, Administer over 30 Minutes, Once, On Sun01/02/25 at 1645, For1 dose, Use 20mm (GREEN) addEASE Adapter Prep Instructions: Attach medication vial to one 20mm (GREEN) addEASE adapter. Kameron fluid bag with adapter, mix, and administer per order. New Bag01/02/2025 6:34 PM EDT2,000 mg200 mL/hr cefepime (MAXIPIME) 500 mg in sodium chloride 0.9 % 50 mL IVPB 500 mg, IntraVENous, at 12.5 mL/hr, Administer over 240 Minutes, EVERY 24 HOURS, First dose on Sun01/03/25 at 1600, When scheduled dose falls on a dialysis day, administer dose after dialysis. New Bag01/04/2025 4:23 PM ALR170 mg12.5 mL/hrNew Bag01/03/2025 5:38 PM UDE345 mg 12.5 mL/hr chlorthalidone (HYGROTON) tablet 25 mg 25 mg, Oral, DAILY, First dose on Sun01/09/25 at 1000, Until Discontinued, Hold for SBP < 110 mmHg Hold for Na <130 Given01/10/2025 9:35 AM EDT25 kaBbjjf4501/09/2025 10:55 AM EDT25 mg chlorthalidone (HYGROTON) tablet 50 mg 50 mg, Oral, DAILY, First dose (after last modification) on Sun01/11/25 at 0930, Until Discontinued, Hold for SBP < 110 mmHg Hold for Na <130 Given01/12/2025 8:18 AM EDT50 kcFctjs5601/11/2025 1:04 PM EDT50 mg ciprofloxacin (CIPRO) tablet 500 mg 500 mg, Oral, EVERY 24 HOURS SCHEDULED (Daily), 3 doses, First dose (after last modification) on Sun01/09/25 at 1000, Last dose on Sun01/11/25 at 0900, Antimicrobial Indications: Intra-Abdominal Infection, Do not take with dairy products or calcium-fortified juices. Tube feeding (TF) interaction,obtain physician order to manage. Recommend holding TF for 1 hr before and 1 hr after dose. Due to decreased absorption do not give by J tube. Given01/11/2025 8:55 AM WHZ406 mxKrcob2601/10/2025 9:35 AM BER581 mgGiven 01/09/2025 10:55 AM WJM998 mg cloNIDine (CATAPRES) tablet 0.3 mg 0.3 mg, Oral, 3 TIMES DAILY, First dose on Lida 01/01/25 at 0615, Until Discontinued, Hold for: SBP<100, DBP<60 If beta thony, also hold for: HR<60 Given01/12/2025 2:25 PM EDT0.3 xyTzquc2501/12/2025 8:19 AM EDT0.3 mgGiven 01/11/2025 9:35 PM EDT0.3 mg doxazosin (CARDURA) tablet 1 mg 1 mg, Oral, DAILY, First dose on Sun01/01/25 at 0900, Until Discontinued 01/04/2025 8:18 AM EDT1 hfGvfpt1201/03/2025 8:38 AM EDT1 wvWqfvf3801/02/2025 9:14 AM EDT1 mg doxazosin (CARDURA) tablet 1 mg 1 mg, Oral, NOW, 1 dose, On Sun01/04/25 at 1215 Given01/04/2025 3:20 PM EDT1 mg doxazosin (CARDURA) tablet 2 mg 2 mg, Oral, DAILY, First dose (after last modification) on Sun01/05/25 at 0900, Until Discontinued, Hold for: SBP<100, DBP<60 If beta thony, also hold for: HR<60 Given01/06/2025 8:11 AM EDT2 nhEsmpt0301/05/2025 12:15 PM EDT2 mg doxazosin (CARDURA) tablet 3 mg 3 mg, Oral, DAILY, First dose (after last modification) on Sun01/07/25 at 0900, Until Discontinued, Hold for: SBP<100, DBP<60 If beta thony, also hold for: HR<60 Given01/08/2025 8:18 AM EDT3 jkZahjw5301/07/2025 8:52 AM EDT3 mg doxazosin (CARDURA) tablet 3 mg 3 mg, Oral, DAILY, 1 dose, First dose on Sun01/08/25 at 1230 Given01/08/2025 1:18 PM EDT3 mg doxazosin (CARDURA) tablet 4 mg 4 mg, Oral, EVERY 12 HOURS SCHEDULED (2 times per day), First dose (after last modification) on Sun01/09/25 at 2100, Until Discontinued, Hold for: SBP<100, DBP<60 If beta thony, also hold for: HR<60 Given01/09/2025 7:57 PM EDT4 mg doxazosin (CARDURA) tablet 6 mg 6 mg, Oral, DAILY, First dose (after last modification) on Sun01/09/25 at 0900, Until Discontinued, Hold for: SBP<100, DBP<60 If beta thony, also hold for: HR<60 Given01/09/2025 9:31 AM EDT6 mg doxazosin (CARDURA) tablet 8 mg 8 mg, Oral, EVERY 12 HOURS SCHEDULED (2 times per day), First dose (after last modification) on Sun01/10/25 at 0900, Until Discontinued, Hold for: SBP<100, DBP<60 If beta thony, also hold for: HR<60 Given01/12/2025 8:18 AM EDT8 uqCfecu0501/11/2025 9:35 PM EDT8 vaVhnyt6001/11/2025 8:55 AM EDT8 mg doxycycline hyclate (VIBRA-TABS) tablet 100 mg 100 mg, Oral, EVERY 12 HOURS SCHEDULED (2 times per day), 14 doses, First dose on Sun01/05/25 at 1000, Last dose on Sun01/11/25 at 2100, Antimicrobial Indications: Intra-Abdominal Infection, This medication can interact with tube feedings (TF)- obtain MD order to manage. Recommend holding TF for 1 h before and 2 h after dose. Take 1 h before or 2 h after dairy, calcium, iron, magnesium, aluminum or zinc. Given01/11/2025 9:35 PM HNF473 ayMseio8301/11/2025 8:55 AM MKQ562 mgGiven 01/10/2025 9:24 PM AQL461 mg droPERidol (INAPSINE) 2.5 MG/ML injection 1 dose, Starting on Sun12/30/24 at 1439, Until Sun12/30/24 at 1440, Debby Garza: cabinet override droPERidol (INAPSINE) injection 0.625 mg 0.625 mg, IntraVENous, ONCE, 1 dose, On Sun12/30/24 at 1500, PACU only Given12/30/2024 2:40 PM EDT0.625 mg epoetin kamryn-epbx (RETACRIT) 6,000 Units combo injection 6,000 Units, SubCUTAneous, EVERY MWF (Once per day on Sunday), First dose on Sun12/31/24 at 1700, Start or continue erythropoietin kamryn-epbx (RETACRIT) therapy only if the hemoglobin is less than 10 g/dL. Given01/09/2025 6:12 PM EDT6,000 UnitsAbdomen RLQ (Right Lower Quadrant)Given 01/07/2025 5:25 PM EDT6,000 UnitsAbdomen LLQ (Left Lower Quadrant)Given 01/05/2025 7:44 PM EDT6,000 UnitsAbdomen RLQ (Right Lower Quadrant) famotidine (PEPCID) tablet 20 mg 20 mg, Oral, DAILY, First dose on Sun12/30/24 at 0900, Until Discontinued Given01/12/2025 8:19 AM EDT20 ycBtupa5101/11/2025 8:55 AM EDT20 riEbmvo1901/10/2025 9:36 AM EDT20 mg fentaNYL (SUBLIMAZE) 100 MCG/2ML injection 1 dose, Starting on Sun12/30/24 at 1450, Until Sun12/30/24 at 1450, Debby Garza: kimberlyinet override fentaNYL (SUBLIMAZE) injection 50 mcg 50 mcg, IntraVENous, EVERY 5 MIN PRN, 2 doses, Starting on Sun12/30/24 at 1452, Until Sun12/30/24at 1455, Pain Severe (7-10), secondary therapy for severe pain, If oral and IV narcotics ordered, use oral first and only use IV if oral is ineffective or cannot take oral. Do Not give oral and IV within 1 hour of each other unless specifically ordered., PACU only Given12/30/2024 2:55 PM EDT50 nzrBstfx42/14/2025 2:50 PM EDT50 mcg heparin (porcine) injection 5,000 Units 5,000 Units, SubCUTAneous, 2 TIMES DAILY, First dose on Sun12/30/24 at 2100, Until Discontinued, Post-op Given01/12/2025 8:19 AM EDT5,000 UnitsAbdomen RUQ (Right Upper Quadrant)Given 01/11/2025 9:35 PM EDT5,000 UnitsAbdomen LLQ (Left Lower Quadrant)Given 01/11/2025 8:55 AM EDT5,000 UnitsAbdomen RLQ (Right Lower Quadrant) hydrALAZINE (APRESOLINE) tablet 100 mg 100 mg, Oral, EVERY 8 HOURS SCHEDULED (3 times per day), First dose (after last modification) on Sun01/07/25 at 1400, Until Discontinued, Hold for: SBP<100, DBP<60 If beta thony, also hold for: HR<60 Given01/12/2025 2:25 PM DXJ404 xcFqibl7401/12/2025 5:34 AM KCY236 mgGiven 01/11/2025 9:35 PM YVR289 mg hydrALAZINE (APRESOLINE) tablet 25 mg 25 mg, Oral, EVERY 8 HOURS SCHEDULED (3 times per day), First dose on Sun01/01/25 at 0700, Until Discontinued Given01/02/2025 5:47 AM EDT25 tyOwcec7401/01/2025 9:57 PM EDT25 deSxvii9301/01/2025 1:32 PM EDT25 mg hydrALAZINE (APRESOLINE) tablet 50 mg 50 mg, Oral, EVERY 8 HOURS SCHEDULED (3 times per day), First dose (after last modification) on Sun01/02/25 at 1400, Until Discontinued, Hold for: SBP<100, DBP<60 If beta thony, also hold for: HR<60 Given01/05/2025 4:18 AM EDT50 yoJutok7901/04/2025 8:32 PM EDT50 zpHmxad1601/04/2025 3:36 PM EDT50 mg hydrALAZINE (APRESOLINE) tablet 75 mg 75 mg, Oral, EVERY 8 HOURS SCHEDULED (3 times per day), First dose (after last modification) on Sun01/05/25 at 1400, Until Discontinued, Hold for: SBP<100, DBP<60 If beta thony, also hold for: HR<60 Given01/07/2025 4:47 AM EDT75 nkHnaco4601/06/2025 8:35 PM EDT75 foBaugt2001/06/2025 2:24 PM EDT75 mg HYDROmorphone (DILAUDID) 1 MG/ML injection 1 dose, Starting on Sun12/30/24 at 1415, Until Sun12/30/24 at 1415, Debby Garza: cabinet override HYDROmorphone (DILAUDID) injection 0.25 mg 0.25 mg, IntraVENous, EVERY 4 HOURS PRN, Starting on Lida 01/08/25 at 1240, Until Sun01/09/25 at 1113, Pain Severe (7-10), If oral and IV narcotics ordered, use oral first and only use IV if oral is ineffective or cannot take oral. Do Not give oral and IV within 1 hour of each other unless specifically ordered. Given01/09/2025 9:32 AM EDT0.25 hlLljnb8301/09/2025 3:21 AM EDT0.25 mgGiven 01/08/2025 10:05 PM EDT0.25 mg HYDROmorphone (DILAUDID) injection 0.25 mg 0.25 mg, IntraVENous, EVERY 6 HOURS PRN, Starting on Sun01/09/25 at 1112, Until Sun01/11/25 at 0943, Pain Severe (7-10), If oral and IV narcotics ordered, use oral first and only use IV if oral is ineffective or cannot take oral. Do Not give oral and IV within 1 hour of each other unless specifically ordered. Given01/11/2025 2:09 AM EDT0.25 kbVqgkb0101/10/2025 5:52 PM EDT0.25 mgGiven 01/10/2025 11:33 AM EDT0.25 mg HYDROmorphone (DILAUDID) injection 0.5 mg 0.5 mg, IntraVENous, EVERY 3 HOURS PRN, Starting on Sun12/30/24 at 0449, Until Sun12/30/24 at 1956, Pain Severe (7-10), If oral and IV narcotics ordered, use oral first and only use IV if oral is ineffective or cannot take oral. Do Not give oral and IV within 1 hour of each other unless specifically ordered. Given12/30/2024 5:48 PM EDT0.5 jmDxhdq5912/30/2024 8:24 AM EDT0.5 mgGiven 12/30/2024 5:11 AM EDT0.5 mg HYDROmorphone (DILAUDID) injection 0.5 mg 0.5 mg, IntraVENous, EVERY 5 MIN PRN, 4 doses, Starting on Sun12/30/24 at 1440, Until Sun12/30/24at 1430, Pain Severe (7-10), If oral and IV narcotics ordered, use oral first and only use IV if oral is ineffective or cannot take oral. Do Not give oral and IV within 1 hour of each other unless specifically ordered., PACU only Given12/30/2024 2:30 PM EDT0.5 zeCiinn5212/30/2024 2:25 PM EDT0.5 mgGiven 12/30/2024 2:20 PM EDT0.5 mg HYDROmorphone (DILAUDID) injection 0.5 mg 0.5 mg, IntraVENous, EVERY 3 HOURS PRN, Starting on Sun12/30/24 at 1956, Until 01/04/25 at 1500, Pain Moderate (4-6) OR per patient request for pain score (7-10), If oral and IV narcotics ordered, use oral first and only use IV if oral is ineffective or cannot take oral. Do Not give oral and IV within 1 hour of each other unless specifically ordered. Given01/02/2025 3:06 AM EDT0.5 moQsgrh0201/01/2025 1:33 PM EDT0.5 mgGiven 01/01/2025 10:16 AM EDT0.5 mg HYDROmorphone (DILAUDID) injection 1 mg 1 mg, IntraVENous, EVERY 3 HOURS PRN, Starting on Sun12/30/24 at 1956, Until 01/04/25 at 1500,Pain Severe (7-10), If oral and IV narcotics ordered, use oral first and only use IV if oral is ineffective or cannot take oral. Do Not give oral and IV within 1 hour of each other unless specifically ordered. Given01/04/2025 11:57 AM EDT1 fqXpwfn7701/04/2025 6:54 AM EDT1 xkHnwst4001/04/2025 4:00 AM EDT1 mg HYDROmorphone (DILAUDID) injection 1 mg 1 mg, IntraVENous, EVERY 2 HOURS PRN, Starting on Sun01/04/25 at 1500, Until Lida 01/08/25 at 1241,Pain Severe (7-10), If oral and IV narcotics ordered, use oral first and only use IV if oral is ineffective or cannot take oral. Do Not give oral and IV within 1 hour of each other unless specifically ordered. Given01/07/2025 3:32 PM EDT1 euQspsx6901/07/2025 1:24 PM EDT1 tfOfdgt2801/07/2025 10:10 AM EDT1 mg linezolid (ZYVOX) IVPB 600 mg 600 mg, IntraVENous, at 300 mL/hr, Administer over 60 Minutes, EVERY 12 HOURS, First dose on Sun01/03/25 at 1100, Avoid aged, smoked, or fermented foods including cheese, sour cream, soy sauce, sauerkraut, yogurt, sausage, pepperoni, salami, and dried fruit. Limit caffeine. New Bag01/04/2025 10:38 PM [id number] mg300 mL/hrNew Bag01/04/2025 10:51 AM [id number] mg300 mL/hrNew Bag01/03/2025 9:27 PM [id number] mg300 mL/hr mupirocin (BACTROBAN) 2 % ointment PRN, Starting on Sun01/02/25 at 1043, Intra-op Given01/02/2025 10:43 AM EDT1 eachChest Right naloxegol (MOVANTIK) tablet 12.5 mg 12.5 mg, Oral, DAILY BEFORE BREAKFAST, First dose on Sun12/31/24 at 0700, Until Discontinued, Notify provider prior to administration if patient having diarrhea. Administer on an empty stomach at least 1 hour prior to or 2 hours after the first meal of the day. Avoid consumption of grapefruit or grapefruit juice during treatment., Post-op Given01/12/2025 5:34 AM EDT12.5 fjCvmfx8101/11/2025 5:30 AM EDT12.5 mgGiven 01/10/2025 5:14 AM EDT12.5 mg nicotine (NICODERM CQ) 21 MG/24HR 1 patch 1 patch, TransDERmal, Administer over 24 Hours, EVERY 24 HOURS, First dose on Sun01/01/25 at 2100,Apply new patch to nonhairy, clean, dry skin on the upper body or upper outer arm. Rotate patch sites. Notify pharmacy if patient or provider prefers patch to be removed at bedtime and replaced in the morning. Hazardous Medication -- Refer to facility policy for handling and disposal. Patch Afiandx7601/12/2025 8:18 AM EDT1 patchArm LeftPatch Gpjvazf9001/11/2025 8:55 AM EDT1 patchArm RightPatch Rmlcnrx0401/10/2025 9:34 AM EDT1 patchArm Left ondansetron (ZOFRAN) injection 4 mg 4 mg, IntraVENous, EVERY 6 HOURS PRN, Starting on Sun12/30/24 at 0436, Until Sun01/12/25 at 2000,Nausea, Vomiting, Administer if oral route cannot be used. Given01/04/2025 5:21 AM EDT4 mtWvnek7312/31/2024 3:16 PM EDT4 puIlpht6712/30/2024 8:24 AM EDT4 mg ondansetron (ZOFRAN-ODT) disintegrating tablet 4 mg 4 mg, Oral, EVERY 8 HOURS PRN, Starting on Sun12/30/24 at 0436, Until Sun01/12/25 at 2000, Nausea, Vomiting oxyCODONE-acetaminophen (PERCOCET) 5-325 MG per tablet 1 tablet 1 tablet, Oral, EVERY 4 HOURS PRN, Starting on Sun01/04/25 at 0838, Until Sun01/12/25 at 2000, Pain Moderate (4-6) OR per patient request for pain score (7- 10), Pain Severe (7-10), Maximum dose of acetaminophen is 4000 mg from all sources in 24 hours. Given01/12/2025 2:24 PM EDT1 faabgkNdkjb11/27/2025 10:10 AM EDT1 tabletGiven 01/12/2025 5:34 AM EDT1 tablet oxyCODONE-acetaminophen (PERCOCET) 5-325 MG per tablet 2 tablet 2 tablet, Oral, EVERY 4 HOURS PRN, Starting on Sun12/31/24 at 1502, Until 01/03/25 at 1256, Pain Severe (7-10), Maximum dose of acetaminophen is 4000 mg from all sources in 24 hours. Given01/03/2025 8:38 AM EDT2 npzcabgMasvw93/18/2025 3:42 AM EDT2 tabletsGiven 01/02/2025 10:43 PM EDT2 tablets piperacillin-tazobactam (ZOSYN) 3,375 mg in sodium chloride 0.9 % 50 mL IVPB (addEASE) 3,375 mg, IntraVENous, at 12.5 mL/hr, Administer over 240 Minutes, EVERY 12 HOURS, First dose (after last reorder) on Sun12/30/24 at 1800, Use 20mm (GREEN) addEASE Adapter Prep Instructions: Attach medication vial to one 20mm (GREEN) addEASE adapter. Kameron fluid bag with adapter, mix, and administer per order. Rate/Dose Tikvxj7901/02/2025 6:27 AM EDT12.5 mL/hrNew Bag01/02/2025 5:43 AM EDT 3,375 mg12.5 mL/hrRate/Dose Kurgje7201/01/2025 6:17 PM EDT12.5 mL/hr piperacillin-tazobactam (ZOSYN) 4,500 mg in sodium chloride 0.9 % 100 mL IVPB (addEASE) 4,500 mg, IntraVENous, at 200 mL/hr, Administer over 30 Minutes, ONCE, On Sun12/30/24 at 0600, For1 dose, Use 20mm (GREEN) addEASE Adapter Prep Instructions: Attach medication vial to one 20mm (GREEN) addEASE adapter. Kameron fluid bag with adapter, mix, and administer per order. New Bag12/30/2024 6:26 AM EDT4,500 mg200 mL/hr polyethylene glycol (GLYCOLAX) packet 17 g 17 g, Oral, DAILY PRN, Starting on Sun12/30/24 at 0436, Until Sun01/12/25 at 2001, Constipation, First line therapy for constipation polyethylene glycol (GLYCOLAX) packet 17 g 17 g, Oral, DAILY, First dose on Sun01/06/25 at 0900, Until Discontinued Given01/12/2025 8:19 AM EDT17 oYyint9601/09/2025 9:32 AM EDT17 wYckfg5101/08/2025 8:18 AM EDT17 g potassium chloride (KLOR-CON M) extended release tablet 20 mEq 20 mEq, Oral, ONCE, 1 dose, On Sun01/01/25 at 1200, Do not crush, chew, or suck on tablet. Tablet may also be broken in half and each half swallowed separately. Given01/01/2025 11:50 AM EDT20 mEq potassium chloride (KLOR-CON M) extended release tablet 40 mEq 40 mEq, Oral, ONCE, 1 dose, On Sun01/02/25 at 0715, Do not crush, chew, or suck on tablet. Tablet may also be broken in half and each half swallowed separately. Given01/02/2025 9:14 AM EDT40 mEq sodium bicarbonate tablet 1,300 mg 1,300 mg, Oral, 2 TIMES DAILY, First dose on Sun12/31/24 at 0900, Until Discontinued Given01/01/2025 8:35 AM EDT1,300 muBektc1412/31/2024 9:21 PM EDT1,300 mgGiven 12/31/2024 9:37 AM EDT1,300 mg sodium bicarbonate tablet 650 mg 650 mg, Oral, 2 TIMES DAILY, First dose (after last modification) on Sun01/01/25 at 2100, Until Discontinued Given01/01/2025 8:33 PM [id number] mg sodium chloride flush 0.9 % injection 5-40 mL 5-40 mL, IntraVENous, EVERY 12 HOURS SCHEDULED (2 times per day), First dose on Sun12/30/24 at 0900, Until Discontinued, For Line Patency: Peripheral IV = 5 mL; Midline or Central Line = 10 mL/lumen. If following IV push medication, administer flush at same rate as the IV push. Flush volume is determined by type of infusion therapy being given. For non-viscous solutions use: Peripheral IV = 5 mLMidline or Central Line = 10 mL/lumen For viscous solutions (i.e. blood components, parenteral nutrition, contrast media, or after obtaining blood sample) use: Peripheral IV = 10 mL Midline or Central Line = 20 mL/lumen Given01/12/2025 8:19 AM EDT10 iReWphde87/26/2025 9:36 PM EDT10 mLsGiven 01/11/2025 8:55 AM EDT10 mLs sodium chloride flush 0.9 % injection 5-40 mL 5-40 mL, IntraVENous, PRN, Starting on Sun12/30/24 at 0436, Until Sun01/12/25 at 2001, Line Care,After every IV line use, For Line Patency: Peripheral IV = 5 mL; Midline or Central Line = 10 mL/lumen. If following IV push medication, administer flush at same rate as the IV push. Flush volume is determined by type of infusion therapy being given. For non-viscous solutions use: Peripheral IV = 5mL Midline or Central Line = 10 mL/lumen For viscous solutions (i.e. blood components, parenteral nutrition, contrast media, or after obtaining blood sample) use: Peripheral IV = 10 mL Midline or Central Line = 20 mL/lumen sodium chloride flush 0.9 % injection 5-40 mL 5-40 mL, IntraVENous, EVERY 12 HOURS SCHEDULED (2 times per day), First dose on Sun12/30/24 at 2100, Until Discontinued, For Line Patency: Peripheral IV = 5 mL; Midline or Central Line = 10 mL/lumen. If following IV push medication, administer flush at same rate as the IV push. Flush volume is determined by type of infusion therapy being given. For non-viscous solutions use: Peripheral IV = 5 mLMidline or Central Line = 10 mL/lumen For viscous solutions (i.e. blood components, parenteral nutrition, contrast media, or after obtaining blood sample) use: Peripheral IV = 10 mL Midline or Central Line = 20 mL/lumen, Post-op Given01/01/2025 8:36 AM EDT10 dNrVtjfx87/15/2025 9:20 PM EDT10 mLsGiven 12/31/2024 8:23 AM EDT10 mLs tiotropium (SPIRIVA RESPIMAT) 2.5 MCG/ACT inhaler 2 puff 2 puff, Inhalation, DAILY RESP, First dose on Sun12/30/24 at 0800, Until Discontinued Given01/12/2025 9:46 AM EDT2 wkjwsYtlpr06/26/2025 9:39 AM EDT2 puffsGiven 01/10/2025 10:01 AM EDT2 puffsdocumented in this encounter Active and Recently Administered Medications Times are shown in EDT.Medication Order/ albumin human 25% IV solution 25 g (COMPLETED) 25 g, IntraVENous, ONCE, 1 dose, On Sun01/10/25 at 1000, Administer over 60 Minutes, at 100 mL/hr,Infusion rate depends on indication and clinical situation. In emergencies, may administer as rapidly as necessary to improve clinical condition. After initial volume replacement: 5%: Do not exceed 2to 4 mL/minute in patients with normal plasma volume; 5 to 10 mL/minute in patients with hypoproteinemia 25%: Do not exceed 1 mL/minute in patients with normal plasma volume; 2 to 3 mL/minute in patients with hypoproteinemia * 1146 (New Bag - Provider: Lupillo Velasquez RN) * 1253 (Stopped - Provider: Lupillo Velasquez RN) albuterol (PROVENTIL) (2.5 MG/3ML) 0.083% nebulizer solution 2.5 mg 2.5 mg, Nebulization, 3 TIMES DAILY, First dose on Sun12/30/24 at 0900, Until Discontinued, Initiate RT Bronchodilator Protocol: No * 1000 (Given - Provider: Mima Wilks [facility]) * 1505 (Given - Provider: Tacos Peralta [facility]) * 2052 (Given - Provider: Lilia Luis [facility]) * 0936 (Given - Provider: Sofya Aguayo [facility]) * 1412 (Given - Provider: Nimisha Ochoa [facility]) * 2158 (Given - Provider: Deepika Hancock [facility]) * 0943 (Given - Provider: Lauren Stauffer [facility]) * 1351 (Given - Provider: Lauren Stauffer [facility]) amLODIPine (NORVASC) tablet 10 mg 10 mg, Oral, DAILY, First dose on Sun12/30/24 at 0900, Until Discontinued, Hold if SBP <110 or HR <60 * 0936 (Given - Provider: Lupillo Velasquez RN) * 0855 (Given - Provider: Lupillo Velasquez, LADONNA) * 0819 (Given - Provider: Fallon Mack, RN) atorvastatin (LIPITOR) tablet 20 mg 20 mg, Oral, DAILY, First dose on Sun12/30/24 at 0900, Until Discontinued * 0936 (Given - Provider: Lupillo Velasquez RN) * 0855 (Given - Provider: Lupillo Velasquez, LADONNA) * 0819 (Given - Provider: Fallon Mack, RN) budesonide-formoterol (SYMBICORT) 160-4.5 MCG/ACT inhaler 2 puff 2 puff, Inhalation, 2 TIMES DAILY, First dose on Sun12/30/24 at 0900, Until Discontinued, Rinse mouth out with water (without swallowing) after every dose. * 1000 (Given - Provider: Mima Wilks [facility]) * 2051 (Given - Provider: Lilia Luis [facility]) * 0936 (Given - Provider: Sofya Aguayo, [facility]) * 2158 (Given - Provider: Deepika Hancock [facility]) * 0943 (Given - Provider: Lauren Stauffer, [facility]) bumetanide (BUMEX) injection 1 mg (COMPLETED) 1 mg, IntraVENous, ONCE, 1 dose, On Sun01/10/25 at 1000, Please give albumin 30 mins prior to bumex dose * 1133 (Given - Provider: Lupillo Velasquez RN) carvedilol (COREG) tablet 25 mg 25 mg, Oral, 2 TIMES DAILY WITH MEALS, First dose (after last modification) on Sun12/31/24 at 1700, Until Discontinued, Hold if SBP <110 or HR <60 Administer with food to minimize the risk of orthostatic hypotension * 0935 (Given - Provider: Lupillo Velasquez RN) * 1752 (Given - Provider: Lupillo Velasquez, LADONNA) * 0855 (Given - Provider: Lupillo Velasquez, LADONNA) * 1718 (Given - Provider: Lupillo Velasquez, LADONNA) * 0819 (Given - Provider: Fallon Mack, RN) * 1700 (Due) chlorthalidone (HYGROTON) tablet 25 mg (CANCELED) 25 mg, Oral, DAILY, First dose on Sun01/09/25 at 1000, Until Discontinued, Hold for SBP < 110 mmHg Hold for Na <130 * 0935 (Given - Provider: Lupillo Velasquez, LADONNA) chlorthalidone (HYGROTON) tablet 50 mg 50 mg, Oral, DAILY, First dose (after last modification) on Sun01/11/25 at 0930, Until Discontinued, Hold for SBP < 110 mmHg Hold for Na <130 * 1304 (Given - Provider: Lupillo Velasquez RN) * 0818 (Given - Provider: Fallon Mack RN) ciprofloxacin (CIPRO) tablet 500 mg (COMPLETED) 500 mg, Oral, EVERY 24 HOURS SCHEDULED (Daily), 3 doses, First dose (after last modification) on Sun01/09/25 at 1000, Last dose on Sun01/11/25 at 0900, Antimicrobial Indications: Intra-Abdominal Infection, Do not take with dairy products or calcium-fortified juices. Tube feeding (TF) interaction,obtain physician order to manage. Recommend holding TF for 1 hr before and 1 hr after dose. Due to decreased absorption do not give by J tube. * 0935 (Given - Provider: Lupillo Velasquez RN) * 0855 (Given - Provider: Lupillo Velasquez, LADONNA) cloNIDine (CATAPRES) tablet 0.3 mg 0.3 mg, Oral, 3 TIMES DAILY, First dose on Lida 01/01/25 at 0615, Until Discontinued, Hold for: SBP<100, DBP<60 If beta thony, also hold for: HR<60 * 0935 (Given - Provider: Lupillo Velasquez RN) * 1428 (Given - Provider: Lupillo Velasquez RN) * 2123 (Given - Provider: Shara Huddleston, LADONNA) * 0855 (Given - Provider: Lupillo Velasquez, LADONNA) * 1556 (Given - Provider: Lupillo Velasquez, LADONNA) * 2135 (Given - Provider: Silvia Recinos RN) * 0819 (Given - Provider: Fallon Mack, RN) * 1425 (Given - Provider: Fallon Mack, RN) doxazosin (CARDURA) tablet 8 mg 8 mg, Oral, EVERY 12 HOURS SCHEDULED (2 times per day), First dose (after last modification) on Sun01/10/25 at 0900, Until Discontinued, Hold for: SBP<100, DBP<60 If beta thony, also hold for: HR<60 * 0935 (Given - Provider: Lupillo Velasquez RN) * 2123 (Given - Provider: Shara Huddleston RN) * 0855 (Given - Provider: Lupillo Velasquez RN) * 2135 (Given - Provider: Silvia Recinos RN) * 0818 (Given - Provider: Fallon Mack, RN) doxycycline hyclate (VIBRA-TABS) tablet 100 mg (COMPLETED) 100 mg, Oral, EVERY 12 HOURS SCHEDULED (2 times per day), 14 doses, First dose on Sun01/05/25 at 1000, Last dose on Sun01/11/25 at 2100, Antimicrobial Indications: Intra-Abdominal Infection, This medication can interact with tube feedings (TF)- obtain MD order to manage. Recommend holding TF for 1 h before and 2 h after dose. Take 1 h before or 2 h after dairy, calcium, iron, magnesium, aluminum or zinc. * 0935 (Given - Provider: Lupillo Velasquez RN) * 2123 (Given - Provider: Shara Huddleston, RN) * 0855 (Given - Provider: Lupillo Velasquez, LADONNA) * 2134 (Given - Provider: Silvia Recinos RN) epoetin kamryn-epbx (RETACRIT) 6,000 Units combo injection 6,000 Units, SubCUTAneous, EVERY MWF (Once per day on Sunday), First dose on Sun12/31/24 at 1700, Start or continue erythropoietin kamryn-epbx (RETACRIT) therapy only if the hemoglobin is less than 10 g/dL. * 1700 (Due) famotidine (PEPCID) tablet 20 mg 20 mg, Oral, DAILY, First dose on Sun12/30/24 at 0900, Until Discontinued * 0936 (Given - Provider: Lupillo Velasquez RN) * 0855 (Given - Provider: Lupillo Velasquez RN) * 0819 (Given - Provider: Fallon Mack, RN) heparin (porcine) injection 5,000 Units 5,000 Units, SubCUTAneous, 2 TIMES DAILY, First dose on Sun12/30/24 at 2100, Until Discontinued, Post-op * 0934 (Given - Provider: Lupillo Velasquez RN) * 2123 (Given - Provider: Shara Huddleston, LADONNA) * 0855 (Given - Provider: Lupillo Velasquez, LADONNA) * 2135 (Given - Provider: Silvia Recinos, LADONNA) * 0819 (Given - Provider: Fallon Mack, RN) hydrALAZINE (APRESOLINE) tablet 100 mg 100 mg, Oral, EVERY 8 HOURS SCHEDULED (3 times per day), First dose (after last modification) on Sun01/07/25 at 1400, Until Discontinued, Hold for: SBP<100, DBP<60 If beta thony, also hold for: HR<60 * 0400 (Given - Provider: Shara Huddleston RN) * 1442 (Given - Provider: Lupillo Velasquez, LADONNA) * 2123 (Given - Provider: Shara Huddleston RN) * 0530 (Given - Provider: Shara Huddleston RN) * 1557 (Given - Provider: Lupillo Velsaquez RN) * 2135 (Given - Provider: Silvia Recinos RN) * 0534 (Given - Provider: Silvia Recinos RN) * 1425 (Given - Provider: Fallon Mack, RN) naloxegol (MOVANTIK) tablet 12.5 mg 12.5 mg, Oral, DAILY BEFORE BREAKFAST, First dose on Sun12/31/24 at 0700, Until Discontinued, Notify provider prior to administration if patient having diarrhea. Administer on an empty stomach at least 1 hour prior to or 2 hours after the first meal of the day. Avoid consumption of grapefruit or grapefruit juice during treatment., Post-op * 0514 (Given - Provider: Shara Huddleston RN) * 0530 (Given - Provider: Shara Huddleston RN) * 0534 (Given - Provider: Silvia Recinos, LADONNA) nicotine (NICODERM CQ) 21 MG/24HR 1 patch 1 patch, TransDERmal, Administer over 24 Hours, EVERY 24 HOURS, First dose on Sun01/01/25 at 2100,Apply new patch to nonhairy, clean, dry skin on the upper body or upper outer arm. Rotate patch sites. Notify pharmacy if patient or provider prefers patch to be removed at bedtime and replaced in the morning. Hazardous Medication -- Refer to facility policy for handling and disposal. * 0932 (Patch Removed - Provider: Lupillo Velasquez RN) * 0934 (Patch Applied - Provider: Lupillo Velasquez RN) * 0853 (Patch Removed - Provider: Lupillo Velasquez RN) * 0855 (Patch Applied - Provider: Lupillo Velasquez, LADONNA) * 0813 (Patch Removed - Provider: Fallon Mack, RN) * 0818 (Patch Applied - Provider: Fallon Mack, RN) * 1801 (Due: Patch Removed - Provider: Automatic Discharge Provider - Comment: Time automatically adjusted from order being discontinued) polyethylene glycol (GLYCOLAX) packet 17 g 17 g, Oral, DAILY, First dose on Sun01/06/25 at 0900, Until Discontinued * 0932 (Not Given - Provider: Lupillo Velasquez RN - Reason: Patient/family refused) * 0856 (Not Given - Provider: Lupillo Velasquez RN - Reason: Patient/family refused) * 0819 (Given - Provider: Fallon Mack RN) sodium chloride flush 0.9 % injection 5-40 mL 5-40 mL, IntraVENous, EVERY 12 HOURS SCHEDULED (2 times per day), First dose on Sun12/30/24 at 0900, Until Discontinued, For Line Patency: Peripheral IV = 5 mL; Midline or Central Line = 10 mL/lumen. If following IV push medication, administer flush at same rate as the IV push. Flush volume is determined by type of infusion therapy being given. For non-viscous solutions use: Peripheral IV = 5 mLMidline or Central Line = 10 mL/lumen For viscous solutions (i.e. blood components, parenteral nutrition, contrast media, or after obtaining blood sample) use: Peripheral IV = 10 mL Midline or Central Line = 20 mL/lumen * 0934 (Given - Provider: Lupillo Velasquez RN) * 2124 (Given - Provider: Shara Huddleston RN) * 0855 (Given - Provider: Lupillo Velasquez, LADONNA) * 2136 (Given - Provider: Silvia Recinos RN) * 0819 (Given - Provider: Fallon Mack RN) tiotropium (SPIRIVA RESPIMAT) 2.5 MCG/ACT inhaler 2 puff 2 puff, Inhalation, DAILY RESP, First dose on Sun12/30/24 at 0800, Until Discontinued * 1001 (Given - Provider: Mima Wilks RCP) * 0939 (Given - Provider: Sofya Aguayo RCP) * 0946 (Given - Provider: Lauren Stauffer RCP) Medication Order01/10/// 0.9 % sodium chloride infusion IntraVENous, at 5-250 mL/hr, PRN, if patient receiving piggyback infusions and maintenance fluids are not ordered, Starting on Sun12/30/24 at 0436, For piggyback infusion, administer at same rate aspiggyback for a total of 25 mL. Enter 25 mL into dose field and piggyback rate into rate field of order. If piggyback is infusing at a rate less than 100 mL/hr, enter 25 mL into dose field and 100 mL/hr into rate field of order. capsaicin (ZOSTRIX) 0.025 % cream Topical, 2 TIMES DAILY PRN, pain, Starting on Sun01/11/25 at 1823, Apply to abd. Do not apply to wounds, damaged,broken or irritated skin. Do not cover with bandage. Do not use in combination with external heat source (eg. heating pad) * 2139 (Given - Provider: Silvia Recinos RN - Comment: abdomen) HYDROmorphone (DILAUDID) injection 0.25 mg (CANCELED) 0.25 mg, IntraVENous, EVERY 6 HOURS PRN, Starting on Sun01/09/25 at 1112, Until Sun01/11/25 at 0943, Pain Severe (7-10), If oral and IV narcotics ordered, use oral first and only use IV if oral is ineffective or cannot take oral. Do Not give oral and IV within 1 hour of each other unless specifically ordered. * 0514 (Given - Provider: Shara Huddleston RN) * 1133 (Given - Provider: Lupillo Velasquez, LADONNA) * 1752 (Given - Provider: Lupillo Velasquez RN) * 0209 (Given - Provider: Shara Huddleston RN) mupirocin (BACTROBAN) 2 % ointment PRN, Starting on Sun01/02/25 at 1043, Intra-op ondansetron (ZOFRAN) injection 4 mg(Linked Group 1) 4 mg, IntraVENous, EVERY 6 HOURS PRN, Starting on Sun12/30/24 at 0436, Until Sun01/12/25 at 2000,Nausea, Vomiting, Administer if oral route cannot be used. ondansetron (ZOFRAN-ODT) disintegrating tablet 4 mg(Linked Group 1) 4 mg, Oral, EVERY 8 HOURS PRN, Starting on Sun12/30/24 at 0436, Until Sun01/12/25 at 2000, Nausea, Vomiting oxyCODONE-acetaminophen (PERCOCET) 5-325 MG per tablet 1 tablet 1 tablet, Oral, EVERY 4 HOURS PRN, Starting on Sun01/04/25 at 0838, Until Sun01/12/25 at 2000, Pain Moderate (4-6) OR per patient request for pain score (7- 10), Pain Severe (7-10), Maximum dose of acetaminophen is 4000 mg from all sources in 24 hours. * 0354 (Given - Provider: Shara Huddleston RN) * 0934 (Given - Provider: Lupillo Velasquez RN) * 1428 (Given - Provider: Lupillo Velasquez, LADONNA) * 1936 (Given - Provider: Lupillo Velasquez, LADONNA) * 2333 (Given - Provider: Shara Huddleston RN) * 0336 (Given - Provider: Shara Huddleston RN) * 0854 (Given - Provider: Lupillo Velasquez, LADONNA) * 1305 (Given - Provider: Lupillo Velasquez, LADONNA) * 1718 (Given - Provider: Lupillo Velasquez, LADONNA) * 2136 (Given - Provider: Silvia Recinos, LADONNA) * 0143 (Given - Provider: Silvia Recinos, LADONNA) * 0534 (Given - Provider: Silvia Recinos, LADONNA) * 1010 (Given - Provider: Fallon Mack RN) * 1424 (Given - Provider: Fallon Mack RN) polyethylene glycol (GLYCOLAX) packet 17 g 17 g, Oral, DAILY PRN, Starting on Sun12/30/24 at 0436, Until Sun01/12/25 at 2000, Constipation, First line therapy for constipation sodium chloride flush 0.9 % injection 5-40 mL 5-40 mL, IntraVENous, PRN, Starting on Sun12/30/24 at 0436, Until Sun01/12/25 at 2000, Line Care,After every IV line use, For Line Patency: Peripheral IV = 5 mL; Midline or Central Line = 10 mL/lumen. If following IV push medication, administer flush at same rate as the IV push. Flush volume is determined by type of infusion therapy being given. For non-viscous solutions use: Peripheral IV = 5mL Midline or Central Line = 10 mL/lumen For viscous solutions (i.e. blood components, parenteral nutrition, contrast media, or after obtaining blood sample) use: Peripheral IV = 10 mL Midline or Central Line = 20 mL/lumen traZODone (DESYREL) tablet 50 mg 50 mg, Oral, NIGHTLY PRN, Starting on Sun12/30/24 at 0552, Until Sun01/12/25 at 2000, Sleep Order Group 1: ondansetron (ZOFRAN-ODT) disintegrating tablet 4 mgJump to med 4 mg, Oral, EVERY 8 HOURS PRN, Starting on Sun12/30/24 at 0436, Until Sun01/12/25 at 2000, Nausea, Vomiting Or ondansetron (ZOFRAN) injection 4 mgJump to med 4 mg, IntraVENous, EVERY 6 HOURS PRN, Starting on Sun12/30/24 at 0436, Until Sun01/12/25 at 2000,Nausea, Vomiting, Administer if oral route cannot be used. documented in this encounter Care Teams Team MemberRelationshipSpecialtyStart DateEnd Date Omar Murrell, ADVERTISING OPERATIONS COORDINATOR - SHEEP [employer]ORTER [address] [phone] PCP - GeneralFamily Medicine09/17/24documented as of this encounter
--- OUTSIDE RECORDS SUMMARY | 2025-01-16 10:59 | XMS_ITS ---
Author Organization [facility] Address [address], [address] [place] [address] Care Team Providers Care Body Former Name Role Phone Gilbert Crandall HOME CARE RN - FORESTRY AIDE Primary Care Provider Care Transitions Status:Closed (Closed) Start date:01/13/2025 Enrollment date:01/13/2025 Enrollment reason:Discharged from inpatient End date:01/13/2025 Related social drivers of health:Social Connections, Financial Resource Strain, Depression Overview Annamarie Chen RN CTN [phone] RARS 30% Start date 01/13/25 end date 02/12/25 travel ticketing reviewer completed Continued Care and Services Coordination
--- OUTSIDE RECORDS SUMMARY | 2025-01-16 10:59 | XMS_ITS | Encounter Summary ---
Author Organization [facility] Address [address], [address] [place] [address] Care Team Providers Care Business Consultant Name Role Phone Gilbert Crandall SALES REPRESENTATIVE FACILITY SERVICES - ELECTRIC HOIST OPERATOR Primary Care Provider Encounter Details DateTypeDepartmentCare Team (Latest Contact Info)Sohnscrpxhn99/28/2025are Coordination [facility] Retail Sales Vitamin Consultant Bronwyn Weller RN Episode status: Closed (Care Transitions) Social History Tobacco UseTypesPacks/DayYears UsedDateSmoking Tobacco: Every YrfSnodyveqzl853.8 Started: 03/19/1979mokeless Tobacco: NeverAlcohol UseStandard Drinks/Week CommentsNot Currently0 (1 standard drink = 0.6 oz pure alcohol)AUDIT-CAnswerDate RecordedQ1: How often do you have a drink containing alcohol?Never09/29/2024Q2: How many drinks containing alcohol do you have on a typical day when you are drinking?Patient does not drink09/29/2024Q3: How often do you have six or more drinks on one occasion?Never09/29/2024PHQ-2AnswerDate RecordedPHQ-9 Total Score 13010/30/2024PRAPARE - TransportationAnswerDate RecordedIn the past 12 months, [...] were you homeless or living in a residential (including now)?No12/30/2024UDIT-CAnswerDate RecordedQ1: How often do you [...] RecordedIn the past 12 months has the electric, gas, oil, or water company threatened to shut off services in your home?No12/30/2024 Interpersonal Safety Domain Source: IP Abuse ScreeningAnswerDate Recorded Physical pdyewEehtfy11/14/2025Verbal tutorWzfask26/14/2025Emotional abuseDenies 12/30/2024Financial jtkmdCjmqlr44/14/2025Sexual ghlfgTesbnw70/14/2025 CommentsNoSex and Gender InformationValueDate RecordedSex Assigned at BirthNot on fileLegal LbnRqboci15/10/2013 4:15 PM ESTGender IdentityNot on fileSexual OrientationNot on filedocumented as of this encounter Plan of Treatment DateTypeDepartmentCare Team (Latest Contact Info)Kovrujuiiwe88/04/2025 2:40 PM ESTOffice Visit [facility] [address] [place] [address] [address] [place] [address] Gilbert Crandall APRN - ELECTRIC HOIST OPERATOR [address] [facility] [place] [address] d/c Phillip 10:00 AM ESTHospital Encounter [facility] [address] [place] [address] Emily Silva, SALES REPRESENTATIVE FACILITY SERVICES - ELECTRIC HOIST OPERATOR [address] [place] [address] 01/27/2025 11:20 AM ESTOffice Visit [facility] Part of [address] [phone] Mae Membreno SALES REPRESENTATIVE FACILITY SERVICES - ELECTRIC HOIST OPERATOR [address] [place] [address], [place] [address] 6 week02/05/2025 11:00 AM ESTOffice Visit [facility] [address] [place] [address] Trish Kim, [address] [place] [address] Hospital follow up per Dr Kim10/29/2025 2:00 PM EDTOffice Visit [facility] [address] [place] [address] [address] [place] [address] Gilbert Crandall APRN - ELECTRIC HOIST OPERATOR [address] [place] [address], [place] [address] follow updocumented as of this encounter Visit Diagnoses Diagnosis Intussusception of small intestine (HCC)- Primary Intussusception PATRICK (acute kidney injury) Acute kidney failure, unspecified Acute abdominal pain Abdominal pain, unspecified site documented in this encounter Care Teams Team MemberRelationshipSpecialtyStart DateEnd Date Gilbert Crandall APRN - [place] [address] PCP - GeneralFacristina Medicine09/17/24documented as of this encounter
--- OUTSIDE RECORDS SUMMARY | 2025-01-16 10:59 | XMS_ITS | Clinical Summary ---
Author Organization [facility] Address [address], [address] [place] [address] Care Team Providers Care Band Sawing Machine Operator Name Role Phone Omar Crandall MARKETING MANAGER HEALTH COMMUNICATIONS - DAMAGE ASSESSOR Primary Care Provider Allergies Active AllergyReactionsCriticalityNoted DateCommentsEnvironmental/SeasonalCough Low08/14/2021 Medications MedicationSigDispense QuantityRefillsLast FilledStart DateEnd DateStatus Handicap Placard MISC by Does not apply route Trouble walking more than 200ft. Need- 5 years 1 each 03/17/2024ctive Nebulizers (COMPRESSOR/NEBULIZER) MISC Indications:COPD, mild (HCC)Use to give medication as directed 1 each 4Active Acetaminophen Extra Strength 500 MG TABS TAKE 1 TABLET BY MOUTH EVERY 6 HOURS NEEDED FOR PAIN 120 tablet 5Active hydrALAZINE (APRESOLINE) 100 MG tablet Take 1 tablet by mouth every 8 hours 90 tablet 5Active tiotropium (SPIRIVA RESPIMAT) 2.5 MCG/ACT AERS inhaler Indications:COPD, mild (HCC)Inhale 2 puffs into the lungs daily 4 g 5Active SYMBICORT 160-4.5 MCG/ACT AERO Indications:COPD, mild (HCC)Inhale 2 puffs into the lungs 2 times daily 10.2 g 5Active traZODone (DESYREL) 100 MG tablet Take 0.5 tablets by mouth nightly as needed for Sleep 30 tablet 5Active cloNIDine (CATAPRES) 0.3 MG tablet Take 1 tablet by mouth 3 times daily 60 tablet 5Active docusate (COLACE, DULCOLAX) 100 MG CAPS Indications:Constipation, unspecified constipation typeTake 100 mg by mouth 2 times daily 60 capsule 5Active furosemide (LASIX) 40 MG tablet Take 1 tablet by mouth daily 90 tablet 5Active senna (SENOKOT) 8.6 MG TABS tablet Indications:Constipation, unspecified constipation typeTAKE 2 TABLETS BY MOUTH NIGHTLY 60 tablet 5Active losartan (COZAAR) 50 MG tablet Indications:Chronic obstructive pulmonary disease, unspecified COPD type (HCC), Shortness of breathTake 1 tablet by mouth daily 90 tablet 5Active lactulose (CHRONULAC) 10 GM/15ML solution Indications:Slow transit constipationTake 15 mLs by mouth every evening 473 mL 5Active albuterol sulfate HFA (PROVENTIL;VENTOLIN;PROAIR) 108 (90 Base) MCG/ACT inhaler Indications:COPD, mild (HCC),Dyspnea on exertionInhale 2 puffs into the lungs every 6 hours as needed for Wheezing 18 g 1005Active amLODIPine (NORVASC) 10 MG tablet Indications:Essential hypertensionTake 1 tablet by mouth daily 90 tablet 5Active aspirin (ASPIRIN LOW DOSE) 81 MG EC tablet Indications:Essential hypertensionTake 1 tablet by mouth daily 90 tablet 5Active atorvastatin (LIPITOR) 20 MG tablet Indications:DyslipidemiaTake 1 tablet by mouth daily 90 tablet 5Active buPROPion (WELLBUTRIN XL) 150 MG extended release tablet Indications:Chronic anxietyTake 1 tablet by mouth every morning 90 tablet 5Active famotidine (PEPCID) 20 MG tablet Indications:Gastroesophageal reflux disease, unspecified whether esophagitis presentTake 1 tablet by mouth 2 times daily 180 tablet 5Active polyethylene glycol (GLYCOLAX) 17 g packet Indications:Constipation, unspecified constipation typeTake 1 packet by mouth daily 527 g 5Active simethicone (MYLICON) 80 MG chewable tablet Indications:Abdominal distensionTake 1 tablet by mouth 4 times daily as needed for Flatulence 180 tablet 5Active ondansetron (ZOFRAN-ODT) 4 MG disintegrating tablet Indications:Abdominal distensionTake 1 tablet by mouth 3 times daily as needed for Nausea or Vomiting 21 tablet 5Active doxazosin (CARDURA) 2 MG tablet Indications:Essential hypertensionTake 4 tablets by mouth 2 times daily Hold if BP <110mmHg or HR <65 720 tablet 5Active carvedilol (COREG) 25 MG tablet Take 1 tablet by mouth 2 times daily (with meals) 60 tablet 5Active chlorthalidone (HYGROTEN) 50 MG tablet Take 1 tablet by mouth daily 30 tablet 5Active oxyCODONE-acetaminophen (PERCOCET) 5-325 MG per tablet Indications:Intussusception of small intestine (HCC)Take 1 tablet by mouth every 6 hours as needed for Pain for up to 5 days. Max Daily Amount: 4 tablets 20 tablet 5Active carvedilol (COREG) 25 MG tablet Take 1 tablet by mouth 2 times daily (with meals) 60 tablet Discontinued albuterol (PROVENTIL) (2.5 MG/3ML) 0.083% nebulizer solution Indications:COPD, mild (HCC),Pulmonary emphysema, unspecified emphysema typeTake 3 mLs by nebulization 3 times daily 120 each Discontinued(Stop Taking at Discharge) pantoprazole (PROTONIX) 40 MG tablet Take 1 tablet by mouth every morning (before breakfast) 30 tablet Discontinued(Stop Taking at Discharge) sodium phosphate (FLEET) Indications:Constipation, unspecified constipation typePlace 1 enema rectally once as needed (constipation)Discontinued(Stop Taking at Discharge) polyethylene glycol (GLYCOLAX) 17 g packet Indications:Constipation, unspecified constipation typeTake 1 packet by mouth daily 527 g Discontinued nicotine (NICODERM CQ) 21 MG/24HR Indications:Smoking greater than 30 pack yearsPlace 1 patch onto the skin daily 30 patch Discontinued(Stop Taking at Discharge) potassium chloride (KLOR-CON M) 10 MEQ extended release tablet Indications:HypokalemiaTake 1 tablet by mouth daily 90 tablet /05/2024Discontinued(Stop Taking at Discharge) potassium chloride (KLOR-CON M) 20 MEQ extended release tablet Indications:HypokalemiaTake 1 tablet by mouth 2 times daily 180 tablet /05/2024Discontinued(Stop Taking at Discharge) doxazosin (CARDURA) 2 MG tablet Indications:Essential hypertensionTake 1 tablet by mouth every 12 hours 180 tablet /05/2024Discontinued clotrimazole (MYCELEX) 10 MG yamil Take 1 tablet by mouth 5 times daily for 10 days 50 tablet Discontinued carvedilol (COREG) 25 MG tablet Take 0.5 tablets by mouth 2 times daily (with meals) 30 tablet /Discontinued oxyCODONE (ROXICODONE) 5 MG immediate release tablet Indications:Ischemic colitisTake 1 tablet by mouth 3 times daily for 3 days. Max Daily Amount: 15 mg 9 tablet /05/2024Discontinued doxazosin (CARDURA) 2 MG tablet Indications:Essential hypertensionTake 0.5 tablets by mouth every 12 hours 90 tablet /05/2024Discontinued clotrimazole (MYCELEX) 10 MG yamil Take 1 tablet by mouth 5 times daily for 10 days 50 tablet /Expired Additional Information Patient not taking.Reported on 12/29/2024 oxyCODONE (ROXICODONE) 5 MG immediate release tablet Indications:Ischemic colitisTake 1 tablet by mouth 3 times daily for 3 days. Max Daily Amount: 15 mg 9 tablet /05/2024Discontinued oxyCODONE (ROXICODONE) 5 MG immediate release tablet Indications:Ischemic colitisTake 1 tablet by mouth 3 times daily for 3 days. Max Daily Amount: 15 mg 9 tablet /06/2025Discontinued(REORDER) doxazosin (CARDURA) 2 MG tablet Indications:Essential hypertensionTake 0.5 tablets by mouth daily 45 tablet Discontinued oxyCODONE (ROXICODONE) 5 MG immediate release tablet Indications:Ischemic colitisTake 1 tablet by mouth 3 times daily for 3 days. Max Daily Amount: 15 mg 9 tablet /11/2024Discontinued(REORDER) oxyCODONE (ROXICODONE) 5 MG immediate release tablet Indications:Ischemic colitisTake 1 tablet by mouth 3 times daily for 3 days. Max Daily Amount: 15 mg 9 tablet /02/2025Expired chlorthalidone (HYGROTEN) 50 MG tablet Take 1 tablet by mouth daily 30 tablet Discontinued oxyCODONE-acetaminophen (PERCOCET) 5-325 MG per tablet Indications:Intussusception of small intestine (HCC)Take 1 tablet by mouth every 6 hours as needed for Pain for up to 5 days. Max Daily Amount: 4 tablets 20 tablet /Discontinued oxyCODONE-acetaminophen (PERCOCET) 5-325 MG per tablet Indications:Intussusception of small intestine (HCC)Take 1 tablet by mouth every 6 hours as needed for Pain for up to 5 days. Max Daily Amount: 4 tablets 20 tablet Discontinued Active Problems ProblemNoted DateDiagnosed DateIntussusception of small lyxovjdfx84/15/2025 Abdominal pain12/30/2024olostomy care12/17/2024S/P zwehwswtny47/29/2025S/P left omzutgqyn45/29/2025ute respiratory failure with fbmibgn5012/15/2024TN (acute tubular necrosis)12/14/2024ute kidney injury superimposed on stage 3b chronic kidney dtatfbo4512/13/2024Ischemic bowel yptowxt1612/11/20249846Exwsqarwqoed17/25/2025 Gznotk9212/11/2024KI (acute kidney injury)12/11/2024ute ischemic colitis 12/11/2024ute abdominal pain12/11/2024Intractable abdominal pain12/09/2024 Congestive heart mjppcwg1510/15/20242904Myfzirfbrttk45/22/2025bdominal discomfort 10/07/20240954Iffwibtfsbwn50/22/2025bdominal afuenxgxqa27/22/2025Generalized vcrfoqho47/22/2177Zstnubfjdfgp57/14/2025Gastroesophageal reflux disease 09/22/2024Pericardial effusion, acute09/16/2024Uncontrolled hypertension 09/15/2024hronic renal mwlgfnitox81/30/2025Severe kjsklpafixsr99/30/2025 01/07/2025Hypertensive evcvpyy1309/15/2024Right otitis media09/11/2024ute renal nuqsycjgekmtl61/26/2025hronic diastolic HF (heart failure), NYHA class 3 09/11/2024Hypertensive becqlbfwq09/25/2025Localized enlarged lymph nodes 06/29/2022xillary wrumqnzhcjmoobo45/22/2022ersonal history of breast implant vqkcoai4910/19/2021Left upper arm pain2Chest wall pain08/14/2021uptured left breast bfpqzpl4608/14/2021Neuropathic pain07/24/2018Chronic hip pain, yeezzaeea01/08/2019Positive FIT (fecal immunochemical test)07/20/2018 Rkileqxqljtr70/29/2018Osteoarthritis of cervical spine01/01/2017COPD (chronic obstructive pulmonary disease)11/18/2015Smoking greater than 30 pack years 11/18/20154901Lxhrmnnaj62/15/4483Zpysloms54/10/2015PAD (peripheral artery disease) 01/13/2014Chronic dzlihtc6601/13/2014Essential bsfvkwacmezf63/28/2014Fibromyalgia Hypertension Resolved Problems ProblemNoted DateDiagnosed DateResolved DateHospital discharge follow-up Epigastric painChest pain, non-cardiac Angina pectoris, rhgxllojtio69/03/201901/1Chest wall painPleuritic chest painCarpal tunnel yhztejwg56Special screening for malignant neoplasm of colon /Necrotizing bsndmvfbt59Incontinence of urineEx-icymhv45 Encounters DateTypeDepartmentCare PiuhAxhwnhvtpzx56/31/2025[facility] Care [address] [place] [address] Dr [address] [facility] [address] Abhijit Ugarte MD 01/15/2025[facility] Care [address] [place] [address] Dr [address] [facility] [address] Omar Crandall, MARKETING MANAGER HEALTH COMMUNICATIONS - DAMAGE ASSESSOR Home Visit (/)01/14/20[address] [facility] [place] [address] Omar Crandall, MARKETING MANAGER HEALTH COMMUNICATIONS - DAMAGE ASSESSOR 01/14/2025[facility] Care [address] [place] [address] Dr [address] [place] [address] Omar Crandall, MARKETING MANAGER HEALTH COMMUNICATIONS - DAMAGE ASSESSOR REGARDING BLOOD PRESSURE MEDS1are Coordination [facility] Refinery Operator Bronwyn Weller RN Episode status: Closed (Care Transitions)01/12/2025[facility] Care [address] [place] [address] Dr [address] [facility] [place] [address] Omar Crandall, MARKETING MANAGER HEALTH COMMUNICATIONS - DAMAGE ASSESSOR 01/08/2025Orders Only [facility] Kidney and Hypertension [address] [facility] [address] [place] [address] Trish Kim DO PATRICK (acute kidney injury) (Primary Dx)12/31/2024[facility] Care [address] [place] [place] [address] Dr [address] [facility] [place] [address] Omar Crandall, MARKETING MANAGER HEALTH COMMUNICATIONS - DAMAGE ASSESSOR 12/30/2024 12:24 PM EDTAnesthesia Event [facility] OR [address] [place] [facility] [place] [address] Romulo Rondon MD Combs, Juanita M, MARKETING MANAGER HEALTH COMMUNICATIONS - ALBERTO 12/30/2024 11:45 AM EDT - 12/30/2024 1:45 PM EDTSurgery [facility] OR [address] [place] [address] Emily Whitaker MD EXPLORATORY LAPAROTOMY SMALL BOWEL AIBSGUYTX21/14/2025 3:36 AM EDT - 01/12/2025 6:01 PM EDTHospital Encounter [facility] Med 5K [address] [place] [address] Benton Edouard MD Singh, Dilpreet, MD Guillozet, Seth, MD Gad, MD Kenton Hernandez Eric B, MD Mariam, Alaha, MD Acute kidney injury superimposed on stage 3b chronic kidney disease (HCC) (Primary Dx); Abdominal pain, unspecified abdominal location; Essential hypertension; Intussusception of small intestine (HCC); Chronic renal impairment, stage 4 (severe) Discharge Disposition: Home or Self Care12/30/20244002Wahthh19/13/2025 8:08 PM EDT - 12/30/2024 2:45 AM EDTEKPC [facility] [address] [place] [address] Mariah Dalton MD Pneumatosis intestinalis (Primary Dx); End stage renal disease on dialysis (HCC); Abdominal pain, unspecified abdominal location Discharge Disposition: Another [facility]12/29/20242373Pjmdja30/13/[address] [place] [address], [place] [address] Omar Crandall APRN - ULICES 12/29/2024Te[address] [place] [address] Omar Crandall APRN - DAMAGE ASSESSOR REGARDING ADDITIONAL QEAIHDL3212/26/20[address] [place] [address] Omar Crandall MARKETING MANAGER HEALTH COMMUNICATIONS - DAMAGE ASSESSOR Results (XR results )12/25/2024 4:27 PM EDT - 12/27/2024 11:59 PM EDTHospital Encounter [facility] Radiology [address] [place] [address] Abdominal distension Discharge Disposition: Home or Self Care12/25/2024[facility] Care [address] [place] [address] Dr [address] [place] [address] Omar Crandall, MARKETING MANAGER HEALTH COMMUNICATIONS - DAMAGE ASSESSOR 12/25/20[address] [place] [address] Omar Crandall, MARKETING MANAGER HEALTH COMMUNICATIONS - DAMAGE ASSESSOR 12/25/20[address] [place] [address] Omar Crandall, MARKETING MANAGER HEALTH COMMUNICATIONS - DAMAGE ASSESSOR Medication Qdwbob0312/23/2024 10:00 AM EDTOffice Visit [address] [place] [address] Omar Crandall, MARKETING MANAGER HEALTH COMMUNICATIONS - DAMAGE ASSESSOR Ischemic colitis (Primary Dx); Slow transit constipation; Abdominal distension; Hospital discharge follow-up5Care Coordination [facility] Refinery Operator Bronwyn Weller, RN Episode status: Closed (Care Transitions)12/22/20[address] [place] [address] Omar Crandall, MARKETING MANAGER HEALTH COMMUNICATIONS - DAMAGE ASSESSOR 12/22/20[address] [place] [address] Omar Crandall, MARKETING MANAGER HEALTH COMMUNICATIONS - DAMAGE ASSESSOR Medication Dtphvm7212/22/2024[facility] Part of [address] [facility] [place] [address] Aleshia Jefferson I, DO Abdominal Pain12/22/20[address] [place] [address] Omar Crandall, MARKETING MANAGER HEALTH COMMUNICATIONS - DAMAGE ASSESSOR Follow-Up from Bshokoya43/06/2025Care Coordination [facility] Refinery Operator Bronwyn Weller, RN Episode status: Closed (Care Transitions)12/14/2024 1:15 AM EDT - 12/19/2024 6:28 PM EDTHospital Encounter [facility] ICU STEPDOWN TELEMETRY 4K [address] [place] [id number] Narciso Weiss MD Taylor, Brian J, DO Ball, Kyle B, DO Fisher, Eric B, MD Colostomy care ([facility]) (Primary Dx); Constipation, unspecified constipation type; Acute ischemic colitis; Essential hypertension; Hypertensive urgency; Ischemic colitis Discharge Disposition: Home or Self Care12/14/20249688Ucrupm53/25/2025 5:12 PM EDT Anesthesia Event [facility] OR [address] [place] [address] Kacy Chacon, MARKETING MANAGER HEALTH COMMUNICATIONS - MITOCHONDRIAL DISORDERS COUNSELOR Deepika Jones APRN - MITOCHONDRIAL DISORDERS COUNSELOR 12/11/2024 4:40 PM EDT - 12/11/2024 6:30 PM EDTSurgery [facility] OR [address] [place] [address] Aleshia Jefferson DO LAPAROTOMY EXPLORATORY-open, EXTENDED LEFT COLECTOMY, SPLENIC FLEXURE MOBILIZATION, END QRIRVJJZP34/24/4160Zflvfh72/23/2025 7:08 PM EDT - 12/13/2024 11:37 PM EDTHospital Encounter [facility] ICU [address] [place], [place] [id number] Efrain Hemphill MD Iacob, Stefan, MD Constipation, unspecified constipation type (Primary Dx); Acute abdominal pain Discharge Disposition: Another Acute Care Yikaczrt00/23/2025 1:00 PM EDTOffice Visit [facility] GI Part [address] [place] [phone] Lindsey Chappell, MARKETING MANAGER HEALTH COMMUNICATIONS - DAMAGE ASSESSOR Constipation, unspecified constipation type (Primary Dx); Abdominal distention; Positive FIT (fecal immunochemical test); Family history of colon uqxcxd6412/09/2024 11:00 AM EDTOffice Visit [facility] CARDIOLOGY [address] [phone] Diego Santso MD Pericardial effusion (Primary Dx)12/09/20241930Tvwori56/23/2025Results Follow-Up [address] [place] [address] Omar Crandall APRN - DAMAGE ASSESSOR 12/09/2024Telephone [address] [place] [address] Omar Crandall, MARKETING MANAGER HEALTH COMMUNICATIONS - DAMAGE ASSESSOR Med Refill Ylopgtio32/22/2025 12:56 PM EDT - 12/10/2024 11:59 PM EDTHospital Encounter [facility] Radiology [address] [place] [address] Slow transit constipation Discharge Disposition: Home or Self Care12/08/2024 12:55 PM EDTHospital Encounter [facility] LAB [address] [place] [address] Chronic obstructive pulmonary disease, unspecified COPD type (HCC); Shortness of breath Discharge Disposition: Home or Self Care12/04/2024 11:00 AM EDTOffice Visit [address] [place] [address] Omar Crandall, MARKETING MANAGER HEALTH COMMUNICATIONS - DAMAGE ASSESSOR Chronic diastolic HF (heart failure), NYHA class 3 (HCC) (Primary Dx); Slow transit constipation; Acute left ankle pain; Koacfyhkwbb80/18/2025Orders Only [address] [place] [address] Olivia Baker MA COPD, mild (HCC); Dyspnea on uohvgnmt44/15/2025 9:21 AM EDT - 12/03/2024 11:59 PM EDTHospital Encounter [facility] Non-Invasive Cardiology [address] [place] [address] Chronic obstructive pulmonary disease, unspecified COPD type (HCC); Shortness of breath Discharge Disposition: Home or Self Care12/01/2024 9:19 AM EDT - 12/03/2024 11:59 PM EDTHospital Encounter [facility] Non-Invasive Cardiology [address] [place] [address] Chronic obstructive pulmonary disease, unspecified COPD type (HCC); Shortness of breath Discharge Disposition: Home or Self Care11/26/2024Results Follow-Up [facility] CARDIOLOGY Part [address] [phone] Amparo Carver APRN - CNP Results (Labs and chest xray )11/24/2024 12:24 PM EDT - 11/26/2024 11:59 PM EDT Hospital Encounter [facility] Radiology [address] [place], [place] [phone] Palpitations; Chronic diastolic HF (heart failure), NYHA class 3 (HCC); Hypertensive urgency; Pericardial effusion, acute; Chest wall pain; Essential hypertension; Chronic obstructive pulmonary disease, unspecified COPD type (HCC); Shortness of breath Discharge Disposition: Home or Self Care11/24/2024 12:22 PM EDT - 11/24/2024 12:23 PM EDTHospital Encounter [facility] LAB [address] [place] [address] Palpitations; Chronic diastolic HF (heart failure), NYHA class 3 (HCC); Hypertensive urgency; Pericardial effusion, acute; Chest wall pain; Essential hypertension; Chronic obstructive pulmonary disease, unspecified COPD type (HCC); Shortness of breath Discharge Disposition: Home or Self Care11/24/2024 11:00 AM EDTOffice Visit [facility] CARDIOLOGY [address] [phone] Amparo Carver APRN - ULICES Pericardial effusion (Primary Dx); Uncontrolled hypertension; Intermittent palpitations; Shortness of breath; Chronic obstructive pulmonary disease, unspecified COPD type (HCC); Lightheadedness; Uqzldwitn67/08/2025Refill [address] [place] [address] Omar Crandall, PARAMJIT - DAMAGE ASSESSOR Medication Rnrtxv5411/19/2024 12:45 PM EDTOffice Visit [facility] VASCULAR [address] [place] [address] Abad Fisher MD Leg swelling (Primary Dx)11/17/2024Results Follow-Up [address] [place] [address] Omar Crandall APRN - DAMAGE ASSESSOR 11/16/2024[facility] Care [address] [place] [address] Dr [address] [facility] [place] [address] Trip Valera MD Medication Fkplys5911/14/2024 9:53 AM EDT - 11/14/2024 11:59 PM EDTHospital Encounter [facility] LAB [address] [place] [address] Chronic kidney disease, stage 3a (HCC); Hypertensive renal disease, stage 1 through stage 4 or unspecified chronic kidney disease; Hypokalemia Discharge Disposition: Home or Self Care11/09/2024[facility] Care [address] [place] [address] [place] [address], [place] [address] Trip Valera MD Medication Lfnxxk8911/03/2024Orders Only [facility] [address] [facility] [address] [place] [address] Brian Rodriguez MD 11/03/2024Telephone [facility] [address] [place] [address] Alfonso Shen MD Ejguojc1911/03/2024[address] [place] [address] Omar Crandall, MARKETING MANAGER HEALTH COMMUNICATIONS - DAMAGE ASSESSOR Medication Ywqbfx2610/31/2024 12:00 PM EDTOffice Visit [facility] Kidney and Hypertension [address] [place] [address] Alfonso Shen MD Chronic kidney disease, stage 3a (HCC) (Primary Dx); Hypertensive renal disease, stage 1 through stage 4 or unspecified chronic kidney disease; Fntshliwprg40/14/2025 2:00 PM EDTOffice Visit [address] [place] [address] Omar Crandall, MARKETING MANAGER HEALTH COMMUNICATIONS - DAMAGE ASSESSOR Hypokalemia (Primary Dx); Ileus (HCC); Primary hypertension; Abdominal owdhzaaocu80/14/20[address] [place] [address] Omar Crandall, MARKETING MANAGER HEALTH COMMUNICATIONS - DAMAGE ASSESSOR Advice Only10/28/2024Refill [address] [place] [address] Trip Valrea MD Medication Gjjjxs0710/27/2024 2:13 PM EDT - 10/29/2024 11:59 PM EDTHospital Encounter [facility] Radiology [address] [place] [address] Constipation, unspecified constipation type Discharge Disposition: Home or Self Care10/27/2024 2:12 PM EDTHospital Encounter [facility] LAB [address] [place] [address] Congestive heart failure, unspecified HF chronicity, unspecified heart failure type (HCC) Discharge Disposition: Home or Self Care10/20/2024 1:00 PM EDTOffice Visit [address] [place] [address] Omar Crandall, MARKETING MANAGER HEALTH COMMUNICATIONS - DAMAGE ASSESSOR Constipation, unspecified constipation type (Primary Dx); Congestive heart failure, unspecified HF chronicity, unspecified heart failure type (HCC)10/20/20[address] [address] Trip Valera MD DME clarification tfckzeelzu82/31/2025bstract [address] [place] [address] Omar Crandall MARKETING MANAGER HEALTH COMMUNICATIONS - ULICES 10/16/20[address] [address] Trip Valera MD from Last 3 Months Immunizations ImmunizationAdministration DatesNext DueInfluenza Vaccine, unspecified iqeoyvlyclo28/28/2016Influenza Virus Euimjva7001/01/2016,12/02/2014Influenza, AFLURIA (age 3 y+), FLUZONE, (age 6 mo+), Quadv MDV, 0.5mL01/06/2021Influenza, FLUARIX, FLULAVAL, FLUZONE (age 6 mo+) and AFLURIA, (age 3 y+), Quadv PF, 0.5mL 02/15/2022,12/29/2016Pneumococcal, PPSV23, PNEUMOVAX 23, (age 2y+), SC/IM, 0.5mL 02/15/2022,01/01/2016Zoster Live (Zostavax)12/29/2016 Family History Medical HistoryRelationNameCommentsCancerBrothercolon cancerHeart DiseaseFather RichardHigh CholesterolFatherRichardStrokeFatherRichardHeart DiseaseMaternal GrandfatherCancerMaternal GrandmotherHeart DiseaseMaternal GrandmotherCancer MotherJeanetteDepressionMotherJeanetteHeart DiseaseMotherJeanetteHigh CholesterolMotherJeanetteMigrainesMotherJeanetteOsteoporosisMotherJeanetteStroke MotherJeanetteRelationNameStatusCommentsBrotherDeceasedFatherRichardDeceased Maternal GrandfatherMaternal GrandmotherMotherJeanetteDeceased Social History Tobacco UseTypesPacks/DayYears UsedDateSmoking Tobacco: Every OrhHhormafjsj399.8 Started: 03/19/1979mokeless Tobacco: Never Tobacco Cessation:Ready to Q uit: Not Asked; Counseling Given: No Alcohol UseStandard Drinks/WeekCommentsNot Currently0 (1 standard drink = 0.6 oz pure alcohol)AUDIT-CAnswerDate RecordedQ1: How often do you have a drink containing alcohol?Never09/29/2024Q2: How many drinks containing alcohol do you have on a typical day when you are drinking?Patient does not drink09/29/2024Q3: How often do you have six or more drinks on one occasion?Never09/29/2024PHQ-2 AnswerDate RecordedPHQ-9 Total Ukazi9710/14/2025PRAPARE - TransportationAnswer Date RecordedIn the past 12 months, has lack of transportation kept you from medical appointments or from getting medications?No09/29/2024In the past 12 months, has lack of transportation kept you from meetings, work, or from getting things needed for daily living?No09/29/2024Housing Stability Vital SignAnswer Date RecordedIn the last 12 months, was there a time when you were not able to pay the mortgage or rent on time?No12/30/2024In the past 12 months, how many times have you moved where you were living?t any time in the past 12 months, were you homeless or living in a nursing home (including now)?No12/30/2024 AUDIT-CAnswerDate RecordedQ1: How often do you have a drink containing alcohol? Never12/10/2024Q2: How many drinks containing alcohol do you have on a typical day when you are drinking?Patient does not drink12/10/2024Q3: How often do you have six or more drinks on one occasion?Never12/10/2024Hunger Vital SignAnswer Date RecordedWithin the past 12 months, you worried that your food would run out before you got the money to buymore.Never true12/30/2024Within the past 12 months, the food you bought just didn't last and you didn't have money to get more.Never true12/30/2024PRAPARE - TransportationAnswerDate RecordedIn the past 12 months, has lack of transportation kept you from medical appointments or from getting medications?No12/30/2024In the past 12 months, has lack of transportation kept you from meetings, work, or from getting things needed for daily living?No12/30/2024HC UtilitiesAnswerDate RecordedIn the past 12 months has the [employer]are[employer], gas, oil, or water [employer] threatened to shut off services in your home?No12/30/2024Interpersonal Safety Domain Source: IP Abuse Screening AnswerDate RecordedPhysical jtadmJsfblg23/14/2025Verbal nyhysRyloqr81/14/2025 Emotional bhwqxVacfyc17/14/2025Financial jbypcOoqkew80/14/2025Sexual abuseDenies 12/30/2024CommentsNoSex and Gender InformationValueDate RecordedSex Assigned at BirthNot on fileLegal BncGexqjx23/10/2013 4:15 PM ESTGender Identity Not on fileSexual OrientationNot on file Last Filed Vital Signs Vital SignReadingTime TakenCommentsBlood Whxinjhs487/8210 2:15 PM EDT Jyohp312301/12/2025 2:15 PM LRDJavusfoxrco33.7 ??C (98 ??F)01/12/2025 2:15 PM EDT Respiratory Balb7134 2:15 PM EDTOxygen Oquiiilvml16%01/12/2025 2:15 PM EDTInhaled Oxygen Concentration--Gqyohg21 kg (94 lb 12.8 oz)01/12/2025 5:37 AM NBSWalrvg467.6 cm (5' 4 )12/30/2024 3:30 AM EDTBody Mass Index16.271 3:30 AM EDT Plan of Treatment DateTypeDepartmentCare Team (Latest Contact Info)Kierjhllqxg43/04/2025 2:40 PM ESTOffice Visit [facility] [address] [facility] [address] [place] [address] Omar Crandall, MARKETING MANAGER HEALTH COMMUNICATIONS - DAMAGE ASSESSOR [address] [facility] [address] [place] [address] d/c [facility] 10:00 AM ESTHospital Encounter [facility] [address] [facility] [address] [place] [id number] Emily Silva, MARKETING MANAGER HEALTH COMMUNICATIONS - DAMAGE ASSESSOR [address] [place] [address] [place] [id number] 01/27/2025 11:20 AM ESTOffice Visit [facility] of [facility] [address] [facility] [place] [phone] Mae Membreno, MARKETING MANAGER HEALTH COMMUNICATIONS - DAMAGE ASSESSOR [address] [facility] [place] [address] 6 week02/05/2025 11:00 AM ESTOffice Visit [facility] [address] [facility], [place] [phone] Trish Kim, DO [address] [facility] [address] [place] [address] Hospital follow up per Dr Kim10/29/2025 2:00 PM EDTOffice Visit [facility] [address] [place] [address] [address] [place] [address] Omar Crandall, MARKETING MANAGER HEALTH COMMUNICATIONS - DAMAGE ASSESSOR [address] [facility] [address] [place] [address] follow upHealth MaintenanceDue DateLast DoneCommentsHIV wwxenf1308/02/1976 DTaP/Tdap/Td vaccine (1 - Tdap)1980Hepatitis B vaccine (1 of 3 - Risk Dialysis 4-dose series)08/02/19812102Gmjavngngaj18/17/2007Fecal-DNA (Cologuard): Average risk2006Sigmoidoscopy/CT gsowpkutblhp35/17/2007Shingles vaccine (2 of 3)Colorectal Cancer Nsbybg9307/20/2019FIT/FOBT: Average riskRespiratory Syncytial Virus (RSV) or age 60 yrs+ (1 - Risk 60-74 years 1-dose series)2021reast cancer screen /06/2019, 07/25/2018A1C test (Diabetic or Prediabetic)08/15/2022 08/15/2021, 11/17/20159110Jcqdht75, 03/15/2020, 06/20/2018, Additional history existsPneumococcal 50+ years Vaccine (3 of 3 - PCV)02/15/2023 02/15/2022, 01/01/2016Flu vaccine (#1), 03/24/2020, 12/29/2016, Additional history existsCOVID-19 Vaccine (1 - season) 2024Lung Cancer Screening &/or Ufhphunsoh94/02/202607/04/2024, 04/29/2020, 06/19/2018, Additional history existsDepression Vnlovdfqdn69/14/99884810/30/2024, 10/30/2024GFR test (Diabetes, CKD 3-4, OR last GFR 15-59)61, 01/11/2025, 01/10/2025, Additional history existsCervical cancer screen DiscontinuedPap wgoiuEsrzvvfpvnsr22/30/2014Hepatitis C pmnpxoFdjhguhdp25/16/2015 Pneumococcal 0-49 years CnawgnuQzmodejkywnr10/30/2022, 01/01/2016HPV (without or with Pap)DiscontinuedHepatitis A vaccineAged OutNo longer eligible based on patient's age to complete this topicHib vaccineAged OutNo longer eligible based on patient's age to complete this topicMeningococcal (ACWY) vaccineAged OutNo longer eligible based on patient's age to complete this topicMeningococcal B vaccineAged OutNo longer eligible based on patient's age to complete this topic Polio vaccineAged OutNo longer eligible based on patient's age to complete this topic Medical Devices ImplantedTypeAreaManufacturerDevice IdentifierShelf Expiration DateModel / Serial / LotBarrier Adh Sht 6x5 In Sodium Hyaluronate Cmc Seprafilm - [id number] Implanted:Qty: 2 on 12/11/2024 by [facility]-[id number] / / [id number] Hum Tiss Sht 12x2 Cm Plcnta Membrn Amnioeffect - [id number] Implanted:Qty: 1 on 12/30/2024 by [facility]-WD06/17/2029LS-5212 / [id number] / Procedures Procedure NamePriorityDate/TimeAssociated DiagnosisCommentsGLOMERULAR FILTRATION RATE, FGBVGRYCKUamxmlk60/27/2025 6:18 AM EDT ANION JZYTeygwkx17/27/2025 6:18 AM EDT WSWXxhfrtr19/27/2025 6:18 AM EDT BASIC METABOLIC KRCZEQzdcmwg90/27/2025 6:18 AM EDT IP WOUND CARE/OSTOMY NURSE EVAL AND ITCUBVcnkrib12/26/2025 9:46 PM EDTGLOMERULAR FILTRATION RATE, XYVGCARJUAaunlwm22/26/2025 5:47 AM EDT ANION DIJNqxoghx84/26/2025 5:47 AM EDT ACJYyjuuvq23/26/2025 5:47 AM EDT BASIC METABOLIC HZZQEHgtrwxe94/26/2025 5:47 AM EDT XR CHEST KKDMGPAADfekdcr21/25/2025 10:06 AM EDT GLOMERULAR FILTRATION RATE, IKMWFAFUWVrufloy53/25/2025 5:33 AM EDT ANION UPNYqrftpj95/25/2025 5:33 AM EDT BASIC METABOLIC YECRDVcqpcif70/25/2025 5:33 AM EDT XR ABDOMEN (KUB) (SINGLE AP VIEW)Xvklnqn9401/09/2025 3:57 PM EDT IP WOUND CARE/OSTOMY NURSE EVAL AND GYOAPNptdeuz97/24/2025 9:23 AM EDTGLOMERULAR FILTRATION RATE, FQLXUFNWUXwpphzs66/24/2025 7:22 AM EDT ANION TJOSjkdvji40/24/2025 7:22 AM EDT BASIC METABOLIC BQLCYHpslbyj07/24/2025 7:22 AM EDT EKG 12-APYCEpbtakr95/23/2025 10:10 PM EDT XR CHEST ISKQVHZVPsswopk32/23/2025 12:43 PM EDT GLOMERULAR FILTRATION RATE, JNTOPLXJPMujnudi81/23/2025 4:56 AM EDT ANION XRQPfpdcyz34/23/2025 4:56 AM EDT GLGFhhznmt80/23/2025 4:56 AM EDT BASIC METABOLIC DARODOkgugtl57/23/2025 4:56 AM EDT US AOWDOLKWLYOGXTcfagnj28/22/2025 4:35 PM EDT XR CHEST 1 QUGTZPJV49/22/2025 4:32 PM EDT GLUCOSE, BODY AMRARLojkrpz36/22/2025 4:05 PM EDT ALBUMIN, FBZZFFwsfjsj97/22/2025 4:05 PM EDT CELL COUNT WITH DIFFERENTIAL, BODY OKUQXBewzhvy41/22/2025 4:05 PM EDT PROTEIN, BODY HLSRPHhssebq05/22/2025 4:05 PM EDT LACTATE DEHYDROGENASE, BODY CTAJDHhdzxki72/22/2025 4:05 PM EDT PH, BODY ZFGWDMertyqh72/22/2025 4:05 PM EDT CULTURE, BODY FLUID (WITH GRAM STAIN)Scejyvz9301/07/2025 4:05 PM EDT GLOMERULAR FILTRATION RATE, SUXTCLPVIJwxdyft58/22/2025 5:26 AM EDT ANION PQFYydgerz95/22/2025 5:26 AM EDT SAWAjetfyv54/22/2025 5:26 AM EDT HEPATIC FUNCTION HXZPBMerxcks12/22/2025 5:26 AM EDT BASIC METABOLIC ZQFEWJbdzwbx05/22/2025 5:26 AM EDT PROTEIN, AVTVGIymyspn25/21/2025 5:40 AM EDT DGIWCSOJgnmznw49/21/2025 5:40 AM EDT LACTATE DEHYDROGENASEAdd-On01/06/2025 5:40 AM EDT GLOMERULAR FILTRATION RATE, AZUBZUVPIRrmvewb00/21/2025 5:40 AM EDT ANION JWMPemtxjv60/21/2025 5:40 AM EDT CBC WITH AUTO JNKADPVFBCPZZuzgwip46/21/2025 5:40 AM EDT BASIC METABOLIC FAIWXDwakdjs42/21/2025 5:40 AM EDT US RENAL EVFVCTGSodkroe45/20/2025 11:38 AM EDT GLOMERULAR FILTRATION RATE, PNGEFWIEMLnyymhr75/20/2025 6:22 AM EDT ANION BUWKajfkgc24/20/2025 6:22 AM EDT BASIC METABOLIC DCIUFRybgb34/20/2025 6:22 AM EDT PHDVmwhgwx57/20/2025 6:22 AM EDT LACTIC ICMSIjadeea94/20/2025 6:22 AM EDT EKG RHYTHM RPZMZUyuofui03/19/2025 9:20 PM EDT LACTIC ESYTElqfq21/19/2025 8:59 PM EDT QYIXwbmu33/19/2025 8:59 PM EDT LACTIC WDKTLTZW46/19/2025 3:12 PM EDT URINE WITH REFLEXED AHWKXNscosxb12/19/2025 1:15 PM EDT CULTURE, REFLEXED, VLQTVTcrwygt30/19/2025 1:[address] ABDOMEN PELVIS WO KTVUEPQEZiejual44/19/2025 10:14 AM EDT GLOMERULAR FILTRATION RATE, IKZWDTAANUyordrq80/19/2025 4:50 AM EDT ANION UMNTkkomti31/19/2025 4:50 AM EDT MNQBobanbb67/19/2025 4:50 AM EDT BASIC METABOLIC JXXTWVyyvtxs53/19/2025 4:50 AM EDT GLOMERULAR FILTRATION RATE, QGXWRRJPXOcpzanr55/18/2025 7:33 AM EDT ANION UMTTkjzwnc67/18/2025 7:33 AM EDT VZKHgbkrhp20/18/2025 7:33 AM EDT BASIC METABOLIC HZYKBPnooqis76/18/2025 7:33 AM EDT IR FLUORO GUIDED CVA DEVICE PLACEMENT (AKA CVAD)Lgwabes5001/02/2025 10:53 AM EDT EKG RHYTHM CLFPWJtvslgm02/17/2025 7:57 AM EDT EKG RHYTHM RUGQDRpjtcbb84/17/2025 7:03 AM EDT GLOMERULAR FILTRATION RATE, RNHRWJRWXUcfxhyf97/17/2025 5:31 AM EDT ANION BREDlfnyxm30/17/2025 5:31 AM EDT PLDLITBFIGkfoubl81/17/2025 5:31 AM EDT SCTUmarexr30/17/2025 5:31 AM EDT BASIC METABOLIC BXJPACuwbxxk58/17/2025 5:31 AM EDT CALCIUM, MYEPYRKOfutqoe92/17/2025 5:31 AM EDT EKG RHYTHM AEULMJdgibna25/16/2025 2:05 PM EDT EKG RHYTHM RLJXHXoldqle45/16/2025 8:03 AM EDT GLOMERULAR FILTRATION RATE, XKBQDHDLFGfpaiml62/16/2025 5:15 AM EDT ANION FNRDnhvhzz07/16/2025 5:15 AM EDT BASIC METABOLIC WFCFZZxceasp85/16/2025 5:15 AM EDT BJUFdfqgoe37/16/2025 5:15 AM EDT EKG RHYTHM FDFEJYaielaj66/16/2025 5:04 AM EDT XR NECK SOFT UQDZDKAZZY30/15/2025 10:38 PM EDT VITAMIN B12 & FOLATEAdd-On12/31/2024 2:08 PM EDT EKG RHYTHM PBUJEGjprzba72/15/2025 2:03 PM EDT EKG RHYTHM AONSFQxuopvx12/15/2025 7:59 AM EDT GLOMERULAR FILTRATION RATE, GSYHRXUCSGwznuft62/15/2025 4:30 AM EDT ANION FFKJpmzcyg57/15/2025 4:30 AM EDT BASIC METABOLIC DFBUVLgjxhdp04/15/2025 4:30 AM EDT FXUPeebhas25/15/2025 4:30 AM EDT EKG RHYTHM CCSYEJfdylbs10/14/2025 8:00 PM EDT CULTURE, ANAEROBIC AND PLZRHMNYybhnwd46/14/2025 1:35 PM EDT Abdominal pain, unspecified abdominal location LAPAROTOMY YFICXAYSLDL39/14/2025 12:24 PM EDT Abdominal pain, unspecified abdominal location HKICESUZQzsrr04/14/2025 9:02 AM EDT ANION EVGJgdsawz04/14/2025 7:38 AM EDT GLOMERULAR FILTRATION RATE, IEVEPPMZSZjujyqs67/14/2025 7:38 AM EDT PCAFCNGUZgcqvkg13/14/2025 7:38 AM EDT BASIC METABOLIC IQOPTDylfujk93/14/2025 7:38 AM EDT EBCYumflnh96/14/2025 7:38 AM EDT SURGICAL AAAICCXHESkfszxt38/14/2025 7:17 AM EDT Abdominal pain, unspecified abdominal location TMEDQATXFPET90/14/2025 1:57 AM EDT GMRDFEOBSUYI37/13/2025 10:00 PM EDT QFFUHYKWPM76/13/2025 10:00 PM EDT LACTIC WGLKXFUF79/13/2025 10:00 PM EDT PROTIME-JCLMVGP4012/29/2024 10:00 PM EDT COMPREHENSIVE METABOLIC UCDYCLVQK56/13/2025 10:00 PM EDT CBC WITH AUTO QUFCIOGKJZLRPHMA48/13/2025 10:[address] ABDOMEN PELVIS WO DXDPMZUZNLKQ45/13/2025 9:34 PM EDT XR CHEST 1 LQHVJXHS79/13/2025 9:33 PM EDT EKG 12-CQSJIYBY53/13/2025 9:07 PM EDT XR ACUTE ABD SERIES CHEST 1 PONRVR7312/25/2024 5:18 PM EDT Abdominal distension EKG RHYTHM MKSJKOcnwxub58/03/2025 2:00 PM EDT HOME O2 EVAL (DESATURATION SCREEN)Mkwjxex7112/19/2024 11:01 AM EDTPREPARE RBC (CROSSMATCH)Vkzlwle2612/19/2024 8:31 AM EDT TYPE AND CHZWRXIftzbmm15/03/2025 8:31 AM EDT EKG RHYTHM FVXMAIpczcaj44/03/2025 8:00 AM EDT HEMOGLOBIN AND FLSLJENCQBEQAU53/03/2025 7:21 AM EDT GLOMERULAR FILTRATION RATE, PCEGYFQZYTsoriid53/03/2025 5:39 AM EDT ANION YJRJjwixqh26/03/2025 5:39 AM EDT SCAN OF BLOOD ISJSBMvdczvy25/03/2025 5:39 AM EDT VGRJsvimyi08/03/2025 5:39 AM EDT BASIC METABOLIC YRINCCcmswzg72/03/2025 5:39 AM EDT EKG RHYTHM JLVUORmeroup70/03/2025 2:00 AM EDT EKG RHYTHM IBEWUTwxggdf16/02/2025 8:00 PM EDT IR FLUORO GUIDED CVA DEVICE PLACEMENT (AKA CVAD)Yzogepg5912/18/2024 3:43 PM EDT GLOMERULAR FILTRATION RATE, DYXCSFJUCUuwpwyy38/02/2025 10:52 AM EDT ANION PRIWfuzkpv09/02/2025 10:52 AM EDT BASIC METABOLIC MCDLIRntcitf72/02/2025 10:52 AM EDT IP WOUND CARE/OSTOMY NURSE EVAL AND UEFCOUyeencq94/02/2025 9:12 AM EDTEKG RHYTHM OBHTPQwbkbnv63/02/2025 8:00 AM EDT GLOMERULAR FILTRATION RATE, VBEJSASTQZgdtodv12/02/2025 5:58 AM EDT ANION RJBOvfhhla44/02/2025 5:58 AM EDT ZWCPmitykw58/02/2025 5:58 AM EDT BASIC METABOLIC JLFLVWiwnxhn81/02/2025 5:58 AM EDT EKG RHYTHM UXXONPpohwue95/01/2025 3:12 PM EDT EKG RHYTHM OCJIJNltzmvn31/01/2025 10:17 AM EDT GLOMERULAR FILTRATION RATE, USASRBDEQChglyan73/01/2025 4:44 AM EDT ANION PDPQcifhsl03/01/2025 4:44 AM EDT SFZSkyrctg84/01/2025 4:44 AM EDT BASIC METABOLIC JYQNUWozhxvc93/01/2025 4:44 AM EDT TRANSFERRINAdd-On12/16/2024 2:15 PM EDT HAPTOGLOBINAdd-12/16/2024 2:15 PM EDT EKG RHYTHM MYBFKGkevhhw86/30/2025 2:00 PM EDT HEMOGLOBIN AND CEDWVFYKMKQtovvny17/30/2025 11:34 AM EDT EKG RHYTHM EGETHJudxbjz67/30/2025 10:04 AM EDT EKG RHYTHM LZUOGIltryhx02/30/2025 8:00 AM EDT BHJDUKIJDhkupge01/30/2025 5:38 AM EDT IRON BINDING MZDGKKRRIaairum49/30/2025 5:38 AM EDT IRON XMKGAPJQJIHkwlpyx81/30/2025 5:38 AM EDT LACTATE MNCTQHATGBLCWEvujqqt54/30/2025 5:38 AM EDT WWZENmwpvxp04/30/2025 5:38 AM EDT RETICULOCYTESAdd-On12/16/2024 5:38 AM EDT PERIPHERAL BLOOD SMEAR, PATH REVIEWAdd-On12/16/2024 5:38 AM EDT GLOMERULAR FILTRATION RATE, CXTBIUHKFXcdhxza31/30/2025 5:38 AM EDT ANION XTTGephaag90/30/2025 5:38 AM EDT AVZIrbbgkx79/30/2025 5:38 AM EDT BASIC METABOLIC IHHWBCinarws51/30/2025 5:38 AM EDT LLQRNWAFNMsrlm33/29/2025 4:28 PM EDT EKG RHYTHM JXKKCCnmvndh81/29/2025 2:13 PM EDT IP WOUND CARE/OSTOMY NURSE EVAL AND LLMZDNreguck44/29/2025 10:58 AM EDTEKG RHYTHM HMGHWHtrszts25/29/2025 10:27 AM EDT GLOMERULAR FILTRATION RATE, HIPEZTGSZUeyxztl94/29/2025 5:44 AM EDT ANION ZZQYyqzhak83/29/2025 5:44 AM EDT HEPATIC FUNCTION FWDYKXfonjsg67/29/2025 5:44 AM EDT OUXDjbkibl83/29/2025 5:44 AM EDT BASIC METABOLIC KPHJMJznhgnp79/29/2025 5:44 AM EDT EKG RHYTHM SUVXQVflhuvj54/29/2025 2:00 AM EDT EKG RHYTHM DOICVBcztibp48/28/2025 10:15 PM EDT EKG RHYTHM BPHZNLcyritr43/28/2025 8:06 PM EDT EKG RHYTHM DMZMVWcvcsww26/28/2025 2:38 PM EDT IR FLUORO GUIDED CVA DEVICE PLACEMENT (AKA CVAD)Naopauu3612/14/2024 12:35 PM EDT XR ABDOMEN (KUB) (SINGLE AP VIEW)Ibpumgu3612/14/2024 11:43 AM EDT XR CHEST ROUELNWWZnvemot72/28/2025 11:43 AM EDT EKG RHYTHM RPCGUQsdyikm71/28/2025 9:28 AM EDT HEPATITIS B SURFACE BAVVVXPNdfvwjg36/28/2025 9:16 AM EDT HEPATITIS B SURFACE PXMEVZKRZhmbokz18/28/2025 9:16 AM EDT HEPATITIS B CORE ANTIBODY, KZJRnhjjgp48/28/2025 9:16 AM EDT ANION JUTXyqlptp37/28/2025 6:35 AM EDT GLOMERULAR FILTRATION RATE, ITADCWBQMGahexts61/28/2025 6:35 AM EDT BASIC METABOLIC LFQEYDqlcibl71/28/2025 6:35 AM EDT CULTURE, DZWXCGfdokbi38/28/2025 3:00 AM EDT CULTURE, MRSA, GVRBMLGBVYcniieg80/28/2025 2:30 AM EDT EKG RHYTHM UPPARYnrpuri69/28/2025 2:29 AM EDT EKG RHYTHM AKJBSLpvxqbj52/27/2025 3:00 PM EDT BASIC METABOLIC XWOBCYmbcy07/27/2025 2:47 PM EDT MICROSCOPIC AWOEJJNOCNPgxzkud79/27/2025 10:08 AM EDT URINALYSIS WITH REFLEX TO CULTURESunquest Label 12/13/2024 10:08 AM EDT ELECTROLYTES URINE RANDOMSunquest Label 12/13/2024 10:08 AM EDT EKG RHYTHM VWGGQSdzxwvh07/27/2025 6:00 AM EDT COMPREHENSIVE METABOLIC PANEL W/ REFLEX TO MG FOR LOW KZheeosh33/27/2025 5:35 AM EDT CBC WITH AUTO BRHPZPUGHCNDZdhegjt73/27/2025 5:35 AM EDT HEMOGLOBIN AND FUKKFOWLSBIlerifu54/27/2025 3:30 AM EDT EKG RHYTHM GCFNAYoddzkc73/27/2025 12:[address] ABDOMEN PELVIS WO XUTOLHEFAJGO22/26/2025 8:53 PM EDT HEMOGLOBIN AND CHQGGEFFLADESK27/26/2025 8:29 PM EDT US RENAL FEOQNYZZokqmvs98/26/2025 5:46 PM EDT BLOOD GAS, SLYKKQFogfrdh04/26/2025 4:05 PM EDT EKG RHYTHM HELVOIwiqlyi97/26/2025 3:00 PM EDT BASIC METABOLIC YJHEKQcyedsf93/26/2025 2:55 PM EDT EKG RHYTHM OUWTRAwttjhl86/26/2025 6:00 AM EDT COMPREHENSIVE METABOLIC PANEL W/ REFLEX TO MG FOR LOW OBsgrkum89/26/2025 5:15 AM EDT CBC WITH AUTO POIUNBEWTOHSVfmycih30/26/2025 5:15 AM EDT EKG RHYTHM EBRSOBsxywsp64/25/2025 9:55 PM EDT XR ABDOMEN FOR NG/OG/NE TUBE XZLGKTDZJUBPW01/25/2025 9:36 PM EDT LAPAROTOMY ELTIUHDWDVP64/25/2025 5:10 PM EDT Acute abdominal pain Special Needs Patient in Room 324 EKG RHYTHM HFNCSVvnsdjj43/25/2025 6:00 AM EDT COMPREHENSIVE METABOLIC PANEL W/ REFLEX TO MG FOR LOW SAxelzoo01/25/2025 5:35 AM EDT CBC WITH AUTO GSSNUTQIQDIEUuxmire13/25/2025 5:35 AM EDT XR ABDOMEN (KUB) (SINGLE AP VIEW)STAT12/11/2024 2:26 AM EDT SURGICAL PATHOLOGY ADEATBUpaecal25/25/2025 12:00 AM EDT BASIC METABOLIC PANEL W/ REFLEX TO MG FOR LOW UMzycskt70/24/2025 10:13 PM EDT XR ABDOMEN (2 VIEWS)STAT12/10/2024 9:24 AM EDT LACTIC EMGLXUPX35/24/2025 8:03 AM EDT COMPREHENSIVE METABOLIC PANEL W/ REFLEX TO MG FOR LOW WFjdngzu26/24/2025 6:30 AM EDT CBC WITH AUTO VFKKKPZMLDLQPdtkrzb72/24/2025 6:30 AM EDT EKG RHYTHM GTPQAMofnvum94/24/2025 6:27 AM EDT LACTIC KMTQQQBG64/23/2025 10:46 PM EDT AFATKSWUHNOMN20/23/2025 10:[address] ABDOMEN PELVIS WO TRFXFMPJHWVD32/23/2025 9:24 PM EDT COMPREHENSIVE METABOLIC RYWHNBMCL66/23/2025 8:30 PM EDT CBC WITH AUTO CXGYCFTEAHNPCUKZ16/23/2025 8:30 PM EDT XR ABDOMEN (KUB) (SINGLE AP VIEW)Lgjhzil7712/08/2024 1:13 PM EDT Slow transit constipation BASIC METABOLIC ENJCXNcgvowh08/22/2025 1:04 PM EDT Chronic obstructive pulmonary disease, unspecified COPD type (HCC) Shortness of breath ECHO (TTE) NSWMSHBQClfqmsi10/15/2025 10:30 AM EDT Chronic obstructive pulmonary disease, unspecified COPD type (HCC) Shortness of breath EXTENDED CARDIAC HOLTER MONITOR 3D-7D (OFFICE HOOKUP & IN-HOUSE ANALYSIS)Routine 12/01/2024 9:44 AM EDT Chronic obstructive pulmonary disease, unspecified COPD type (HCC) Shortness of breath XR CHEST (2 VW)Bqatnsi7411/24/2024 12:45 PM EDT Palpitations Chronic diastolic HF (heart failure), NYHA class 3 (HCC) Hypertensive urgency Pericardial effusion, acute Chest wall pain Essential hypertension Chronic obstructive pulmonary disease, unspecified COPD type (HCC) Shortness of breath BASIC METABOLIC BBVBQUwlxkny84/08/2025 12:26 PM EDT Palpitations Chronic diastolic HF (heart failure), NYHA class 3 (HCC) Hypertensive urgency Pericardial effusion, acute Chest wall pain Essential hypertension Chronic obstructive pulmonary disease, unspecified COPD type (HCC) Shortness of breath BRAIN NATRIURETIC KQMBTMCOfqqzhc61/08/2025 12:26 PM EDT Palpitations Chronic diastolic HF (heart failure), NYHA class 3 (HCC) Hypertensive urgency Pericardial effusion, acute Chest wall pain Essential hypertension Chronic obstructive pulmonary disease, unspecified COPD type (HCC) Shortness of breath AWISakmqbo59/08/2025 12:26 PM EDT Palpitations Chronic diastolic HF (heart failure), NYHA class 3 (HCC) Hypertensive urgency Pericardial effusion, acute Chest wall pain Essential hypertension Chronic obstructive pulmonary disease, unspecified COPD type (HCC) Shortness of breath COMPREHENSIVE METABOLIC BHVHLTjzekgn79/29/2025 10:32 AM EDT Hypokalemia XR ABDOMEN (KUB) (SINGLE AP VIEW)STAT10/27/2024 2:33 PM EDT Constipation, unspecified constipation type COMPREHENSIVE METABOLIC EVACJSXNX73/11/2025 2:16 PM EDT Congestive heart failure, unspecified HF chronicity, unspecified heart failure type (HCC) CT CHEST ABDOMEN PELVIS W FXACGKGLBDFM83/02/2025 8:15 AM EDT LIPID TZJWHQhbjgxt87/30/2022 6:30 AM EDT HEMOGLOBIN G2WCocmlpn27/30/2022 6:30 AM EDT MIGUEL A JOSE DIGITAL DIAGNOSTIC AUGMENTED EYOSBNQSDANJB92/04/2020 2:05 PM EST Axillary adenopathy Breast mass, left POCT FECAL IMMUNOCHEMICAL TEST (FIT)Uyanjot0607/19/2018 8:00 AM EDT Screening for colon cancer HEPATITIS PANEL, UHRTQCegqmic32/16/2015 4:58 PM EDT 1ST [employer] TWODJHSSSpouxyg84/30/2014 9:06 AM EDT from Last 3 Months or Most Recently Relevant to Health Maintenance Results * Anion Gap (01/12/2025 6:18 AM EDT) Only the most recent of21 resultswithin the time period is included. ComponentValueRef RangeTest MethodAnalysis TimePerformed AtPathologist Signature Anion Gap11.08.0 - 16.0 meq/L1 7:29 AM ED[facility] LABComment: ANION GAP = Sodium -(Chloride + CO2) Performed at [facility] [address] [place] [id number] Specimen (Source)Anatomical Location / LateralityCollection Method / Volume Collection TimeReceived Time01/12/2025 6:18 AM EDT1 6:56 AM EDT Narrative Authorizing ProviderResult TypeResult StatusNassim L Louail MDCHEMISTRY ORDERABLESFinal ResultPerforming OrganizationAddressCity/State/ZIP CodePhone Number [facility] [address] [place] [phone], [facility] [phone] [facility] [address] [place] [address], [facility] [phone] * (ABNORMAL) Glomerular Filtration Rate, Estimated (01/12/2025 6:18 AM EDT) Only the most recent of21 resultswithin the time period is included. ComponentValueRef RangeTest MethodAnalysis TimePerformed AtPathologist Signature Est, Glom Filt Rate29(A)>60 ml/min/1.36a99901/12/2025 7:29 AM EDPROM[facility] LABComment: Pediatric calculator link https://www.kidney.org/professionals/kdoqi/gfr_calculatorped Effective [...] that affects renal tubular secretion. Performed at [facility] [address] [place] [address] Specimen (Source)Anatomical Location / LateralityCollection Method / Volume Collection TimeReceived Time01/12/2025 6:18 AM EDT1 6:18 AM EDT Narrative Authorizing ProviderResult TypeResult StatusNassim Jody Mancini MDCHEMISTRY ORDERABLESFinal ResultPerforming OrganizationAddressCity/State/ZIP CodePhone Number [facility] [address] [place] [phone], [facility] [phone] [facility] [address] [place] [address], [facility] [phone] * (ABNORMAL) CBC (01/12/2025 6:18 AM EDT) Only the most recent of18 resultswithin the time period is included. ComponentValueRef RangeTest MethodAnalysis TimePerformed AtPathologist Signature WBC10.74.8 - 10.8 thou/mm301/12/2025 7:01 AM [facility] LABRBC3.29(L)4.20 - 5.40 mill/mm301/12/2025 7:01 AM [facility] LABHemoglobin8.7(L)12.0 - 16.0 gm/dl 01/12/2025 7:01 AM [facility] IFPJgxydshest57.8 (L)37.0 - 47.0 %01/12/2025 7:01 AM [facility] WIZICU14.581.0 - 99.0 fL01/12/2025 7:01 AM [facility] PIVSLM54.426.0 - 33.0 pg01/12/2025 7:01 AM [facility] RIZTHDE40.532.2 - 35.5 gm/dl01/12/2025 7:01 AM [facility] LABRDW-CV21.0(H)11.5 - 14.5 %01/12/2025 7:01 AM [facility] LABRDW-SD50.4(H)35.0 - 45.0 fL 01/12/2025 7:01 AM [facility] QZGCtgoawcce712 130 - 400 thou/mm301/12/2025 7:01 AM [facility] LABMPV8.7(L)9.4 - 12.4 fL01/12/2025 7:01 AM [facility] LABComment:Performed at [facility] [address] [place] [address] [id number] (Source)Anatomical Location / LateralityCollection Method / Volume Collection TimeReceived TimeBloodBLOOD SPECIMEN / Sycxqta2601/12/2025 6:18 AM EDT 01/12/2025 6:56 AM EDT Narrative Authorizing ProviderResult TypeResult StatusJavier Mancini MDHEMATOLOGY ORDERABLESFinal ResultPerforming OrganizationAddressCity/State/ZIP CodePhone Number [facility] [address] [place] [address], [facility] [phone] [facility] [address] [place] [address], [facility] [phone] * (ABNORMAL) Basic Metabolic Panel (01/12/2025 6:18 AM EDT) Only the most recent of25 resultswithin the time period is included. ComponentValueRef RangeTest MethodAnalysis TimePerformed AtPathologist Signature Qfihfs466918 - 145 meq/L1 7:17 AM [facility] LABPotassium3.63.5 - 5.2 meq/L1 7:17 AM [facility] RLRIhvglnly45414 - 111 meq/L1 7:17 AM [facility] FISPV47671 - 29 meq/L1 7:29 AM EDT [facility] ILMIldovgi91316 - 109 mg/dL01/12/2025 7:29 AM [facility] JEQTGD12(H)8 - 23 mg/dL 01/12/2025 7:29 AM [facility] LABCreatinine1.9 (H)0.5 - 0.9 mg/dL01/12/2025 7:29 AM [facility] LABCalcium8.88.5 - 10.5 mg/dL01/12/2025 7:29 AM [facility] LABComment:Performed at [facility] [address] [place], [place] [address]Specimen (Source)Anatomical Location / LateralityCollection Method / VolumeCollection TimeReceived TimeBloodBLOOD SPECIMEN / Hkimynk6601/12/2025 6:18 AM EDT1 6:56 AM EDT Narrative Authorizing ProviderResult TypeResult StatusNassim L Lvie MDCHEMISTRY ORDERABLESFinal ResultPerforming OrganizationAddressCity/State/ZIP CodePhone Number [facility] [address] [place] [address], [facility] [phone] [facility] [address] [place] [address], [facility] [phone] * XR CHEST PORTABLE (01/10/2025 10:06 AM EDT) Only the most recent of3 resultswithin the time period is included. Anatomical RegionLateralityModalityChestComputed RadiographySpecimen (Source) Anatomical Location / LateralityCollection Method / VolumeCollection Time Received Time01/10/2025 12:20 PM EDT Impressions 01/10/2025 12:21 [...] by Dr. Bertha Montgomery Authorizing ProviderResult TypeResult StatusNasrichardson Mancini [facility] DIAGNOSTIC IMAGING ORDERABLESFinal Result * XR ABDOMEN (KUB) (SINGLE AP VIEW) (01/09/2025 3:57 PM EDT) Only the most recent of5 resultswithin the time period is included. Anatomical RegionLateralityModalityAbdomenComputed RadiographySpecimen (Source) Anatomical Location / LateralityCollection Method / VolumeCollection Time Received Time01/09/2025 4:24 PM EDT Impressions 01/09/2025 4:25 PM [...] Frederick Gonzales Authorizing ProviderResult TypeResult StatusKiara Harper MDIMG DIAGNOSTIC IMAGING ORDERABLESFinal Result * EKG 12 Lead (01/08/2025 10:10 PM EDT) Only the most recent of2 resultswithin the time period is included. ComponentValueRef RangeTest MethodAnalysis TimePerformed AtPathologist Signature Ventricular Szef14KXSLGIU STR MUSEAtrial Ewlq89PYMWTER STR MUSEP-R Ekttwovt822gt [facility] STR MUSEQRS Rawdmulf518tvDUBO STR MUSEQ-T Dviotkvm101ecRJJV STR MUSEQTc Calculation (Bazett)444msWCOH STR MUSEP Cshq81qyxfuitKYQL STR MUSER Axis45 degreesWCOH STR MUSET Auqg12gjmgdupGWBE STR MUSESpecimen (Source)Anatomical Location / LateralityCollection Method / VolumeCollection TimeReceived Time 01/08/2025 10:10 PM EDT1 5:15 PM EDT Narrative [facility]USE - 01/09/2025 5:15 PM EDT Normal sinus rhythm Minimal voltage criteria for LVH, may be normal variant ( Troy product ) Anteroseptal infarct , age undetermined Abnormal ECG No previous ECGs available Confirmed by DAMARI RONDON ([id number]) on 01/09/2025 5:15:39 PM Procedure Note Unknown, Provider - 01/09/2025 Normal sinus rhythm Minimal voltage criteria for LVH, may be normal variant ( Troy product) Anteroseptal infarct , age undetermined Abnormal ECG No previous ECGs available Confirmed by DAMARI RONDON ([id number]) on 01/09/2025 5:15:39 PM Authorizing ProviderResult TypeResult StatusJules Lemos Kenton WILLIAMSONG ORDERABLESFinal ResultPerforming OrganizationAddressCity/State/ZIP CodePhone Number [facility] MUSE * US THORACENTESIS Which side should the [...] anesthesia and utilizing aseptic technique, a 5 Indian one-step catheter was successfully inserted into the [...] volume: 73 ml Catheter: 10 cm 5 Indian catheter Aspirated pleural fluid volume: 0.3 liters [...] volume: 73 ml Catheter: 10 cm 5 Indian catheter Aspirated pleural fluid volume: 0.3 liters Aspirated pleural fluid color: yellow IMPRESSION: Status post right thoracentesis This report has been created using voice recognition software. It maycontain minor errors which are inherent in voice recognition technology. Electronically signed by Dr. Pedro Diallo Authorizing ProviderResult TypeResult StatusNayegaudencio Christiansen MDG ORDERABLES Final Result * XR CHEST 1 VIEW (01/07/2025 4:32 PM EDT) Only the most recent of2 resultswithin the time period is included. Anatomical RegionLateralityModalityChestComputed RadiographySpecimen (Source) Anatomical Location / LateralityCollection Method / VolumeCollection Time Received Time01/07/2025 4:33 PM EDT Impressions 01/07/2025 4:35 [...] by Dr. Pedro Diallo Authorizing ProviderResult TypeResult StatusRaymamna Diallo MDIMG DIAGNOSTIC IMAGING ORDERABLESFinal Result * Culture, Body Fluid (with Gram Stain) (01/07/2025 4:05 PM EDT)ComponentValue Ref RangeTest MethodAnalysis TimePerformed AtPathologist SignatureBody Fluid Culture, SterileNo growth-preliminary No growth BACTERIAL SUSCEPTIBILITY PANEL [facility] LABAnaerobic CultureNo growth-preliminary No growth BACTERIAL SUSCEPTIBILITY PANEL [facility] LABGram Stain ResultRare segmented neutrophils observed. No bacteria seen. performed on cytospun specimen BACTERIAL SUSCEPTIBILITY PANEL [facility] LABSpecimen (Source)Anatomical Location / LateralityCollection Method / VolumeCollection TimeReceived TimeBody Fluid PLEURAL FLUID SPECIMEN / Ibqxhep2201/07/2025 4:05 PM EDT1 6:28 PM EDT Narrative [facility] - 01/12/2025 9:31 AM EDT Source: pleural fluid Site: Current Antibiotics: not stated Authorizing ProviderResult TypeResult StatusNayegaudencio Christiansen MDMICROBIOLOGY - GENERAL ORDERABLESFinal ResultPerforming OrganizationAddressCity/State/ZIP Code Phone Number [facility] [address] [place] [address], [facility] [phone] * Cell Count with Differential, Body Fluid (01/07/2025 4:05 PM EDT)Component ValueRef RangeTest MethodAnalysis TimePerformed AtPathologist Signature ZbuiiqvoHEUJQMZ46/22/2025 6:42 PM [facility] LABColor, QJRAREYU86/22/2025 6:42 PM [facility] LABCharacter, Body FluidSL.HAZY1 6:42 PM [facility] LABTotal Volume Received Body Fluid70.0ml01/07/2025 6:42 PM [facility] LABTotal Nucleated cells Body Etvni565 - 500 /cum 7:05 PM [facility] LABComment: Pleural Fluid with <1000 Nucleated cells/uL has been associated with transudates while >1000 Nucleated cells/uL may be seen in exudates. Body Fluid RBC< 2000/cumm1 7:09 PM [facility] LABPolymorphonuclear Cells Body Fluid0.0%01/07/2025 7:49 PM [facility] LABComment: POLYMORPHONUCLEAR CELLS = NEUTROPHILS + EOSINOPHILS + BASOPHILS Mononuclear Cells Body Fluid0.0%01/07/2025 7:49 PM [facility] LABComment:MONONUCLEAR CELLS = LYMPHOCYTES + MONOCYTESMesothelial Cells Body Fluid1+01/07/2025 7:49 PM [facility] LABPathologist UkxxzoTBO27/23/2025 7:52 AM [facility] LABComment:No malignant cells seen.Lymphocytes, Body Fluid21%01/07/2025 7:49 PM [facility] LABSEGMENTED NEUTROPHILS, BODY FLUID20%01/07/2025 7:49 PM [facility] Monocyte Count, Fluid58%01/07/2025 7:49 PM [facility] LABEos, Fluid1%01/07/2025 7:49 PM [facility] LABComment:Performed at [facility] [address] [place], [place] [address]Specimen (Source)Anatomical Location / LateralityCollection Method / Volume Collection TimeReceived TimeSPECIMEN FROM PLEURA OBTAINED BY THORACENTESIS / Alacegl2801/07/2025 4:05 PM EDT1 6:27 PM EDT Narrative Authorizing ProviderResult TypeResult StatusBianka Christiansen MDBODY FLUIDS AND STOOLS ORDERABLESFinal ResultPerforming OrganizationAddressCity/State/ZIP Code Phone Number [facility] [address] [place] [address], [facility] [phone] [facility] [address] [place] [address], [facility] [phone] * Protein, Body Fluid (01/07/2025 4:05 PM EDT)ComponentValueRef RangeTest Method Analysis TimePerformed AtPathologist SignatureProtein, Fluid1.6gm/dl01/07/2025 6:54 PM [facility] LABComment: The reference range and the method performance specifications have not been established for body fluids. The test result must be integrated into the clinical context for interpretation. Performed at [facility] [address] [place] [address] Specimen (Source)Anatomical Location / LateralityCollection Method / Volume Collection TimeReceived TimeSPECIMEN FROM PLEURA OBTAINED BY THORACENTESIS / Fsyntxd8801/07/2025 4:05 PM EDT1 6:27 PM EDT Narrative Authorizing ProviderResult TypeResult StatusBianka Christiansen MDBODY FLUIDS AND STOOLS ORDERABLESFinal ResultPerforming OrganizationAddressCity/State/ZIP Code Phone Number [facility] [address] [place] [address], [facility] [phone] [facility] [address] [place] [address], [facility] [phone] * Lactate Dehydrogenase, Body Fluid (01/07/2025 4:05 PM EDT)ComponentValueRef RangeTest MethodAnalysis TimePerformed AtPathologist SignatureLD, Kluiu32J/L 01/07/2025 6:54 PM [facility] LABComment: The reference range and the method performance specifications have not been established for body fluids. The test result must be integrated into the clinical context for interpretation[place] [address] Specimen (Source)Anatomical Location / LateralityCollection Method / Volume Collection TimeReceived TimeSPECIMEN FROM PLEURA OBTAINED BY THORACENTESIS / Crtxdpf2601/07/2025 4:05 PM EDT1 6:27 PM EDT Narrative Authorizing ProviderResult TypeResult StatusNadebi Christiansen MDBODY FLUIDS AND STOOLS ORDERABLESFinal ResultPerforming OrganizationAddressCity/State/ZIP Code Phone Number [facility] [address] [place] [address], [facility] [phone] [facility] [address] [place] [address], [facility] [phone] * Glucose, Body Fluid (01/07/2025 4:05 PM EDT)ComponentValueRef RangeTest Method Analysis TimePerformed AtPathologist SignatureGlucose, Vrkii628or/dl01/07/2025 6:54 PM [facility] LABComment: The reference range and the method performance specifications have not been established for body fluids. The test result must be integrated into the clinical context for interpretation. [place] [address] Specimen (Source)Anatomical Location / LateralityCollection Method / Volume Collection TimeReceived TimeSPECIMEN FROM PLEURA OBTAINED BY THORACENTESIS / Kxruzqs1901/07/2025 4:05 PM EDT1 6:27 PM EDT Narrative Authorizing ProviderResult TypeResult StatusBianka Christiansen MDBODY FLUIDS AND STOOLS ORDERABLESFinal ResultPerforming OrganizationAddressCity/State/ZIP Code Phone Number [facility] [address] [place] [address], [facility] [phone] [facility] [address] [place] [address], [facility] [phone] * Albumin, Body Fluid (01/07/2025 4:05 PM EDT)ComponentValueRef RangeTest Method Analysis TimePerformed AtPathologist SignatureAlbumin, Fluid1.0gm/dl01/07/2025 6:54 PM [facility] LABComment: The reference range and the method performance specifications have not been established for body fluids. The test result must be integrated into the clinical context for interpretation. Performed at [facility] [address] [place] [address] Specimen (Source)Anatomical Location / LateralityCollection Method / Volume Collection TimeReceived TimeSPECIMEN FROM PLEURA OBTAINED BY THORACENTESIS / Wcovugm5701/07/2025 4:05 PM EDT1 6:27 PM EDT Narrative Authorizing ProviderResult TypeResult StatusBianka Christiansen MDBODY FLUIDS AND STOOLS ORDERABLESFinal ResultPerforming OrganizationAddressCity/State/ZIP Code Phone Number [facility] [address] [place] [address], [facility] [phone] [facility] [address] [place] [address], [facility] [phone] * pH, Body Fluid (01/07/2025 4:05 PM EDT)ComponentValueRef RangeTest Method Analysis TimePerformed AtPathologist SignaturepH, Fluid7.6101/07/2025 6:45 PM [facility] LABComment: The reference range and the method performance specifications have not been established for body fluids. The test result must be integrated into the clinical context for interpretation. Performed at [facility] [address] [place], [place] [address] Specimen (Source)Anatomical Location / LateralityCollection Method / Volume Collection TimeReceived TimeSPECIMEN FROM PLEURA OBTAINED BY THORACENTESIS / Pgtniil4701/07/2025 4:05 PM EDT1 6:27 PM EDT Narrative Authorizing ProviderResult TypeResult StatusNayegaudencio Christiansen MDBODY FLUIDS AND STOOLS ORDERABLESFinal ResultPerforming OrganizationAddressCity/State/ZIP Code Phone Number [facility] [address] [place] [address], [facility] [phone] [facility] [address] [place] [address], [facility] [phone] * (ABNORMAL) Hepatic Function Panel (01/07/2025 5:26 AM EDT) Only the most recent of2 resultswithin the time period is included. ComponentValueRef RangeTest MethodAnalysis TimePerformed AtPathologist Signature Albumin2.8(L)3.4 - 4.9 g/dL01/07/2025 6:41 AM [facility] LABTotal Bilirubin<0.2(L)0.3 - 1.2 mg/dL01/07/2025 6:41 AM EDT [facility] LABBilirubin, Direct<0.10.0 - 0.2 mg/dL 01/07/2025 6:40 AM [facility] LABAlkaline Igawmrvxrzc6384 - 126 U/L1 6:41 AM [facility] KNJNPV7547 - 35 U/L1 6:41 AM [facility] LBOVMO8887 - 35 U/L1 6:41 AM [facility] LABTotal Protein5.7(L)6.4 - 8.3 g/dL01/07/2025 6:41 AM EDT [facility] LABComment:Performed at [facility] [address] [place], [place] [address]Pltycdwc (Source)Anatomical Location / LateralityCollection Method / VolumeCollection TimeReceived TimeBloodBLOOD SPECIMEN / Knvvala2401/07/2025 5:26 AM EDT1 6:02 AM EDT Narrative Authorizing ProviderResult TypeResult StatusNayeem Z Moulana MDCHEMISTRY ORDERABLESFinal ResultPerforming OrganizationAddressCity/State/ZIP CodePhone Number [facility] [address] [place] [address], [facility] [phone] [facility] [address] [place] [address], [facility] [phone] * (ABNORMAL) CBC with Auto Differential (01/06/2025 5:40 AM EDT) Only the most recent of7 resultswithin the time period is included. ComponentValueRef RangeTest MethodAnalysis TimePerformed AtPathologist Signature WBC10.14.8 - 10.8 thou/mm301/06/2025 6:25 AM [facility] LABRBC3.62(L)4.20 - 5.40 mill/mm301/06/2025 6:25 AM [facility] LABHemoglobin9.4(L)12.0 - 16.0 gm/dl 01/06/2025 6:25 AM [facility] YYHPfmpypzfrc07.0 (L)37.0 - 47.0 %01/06/2025 6:25 AM [facility] HNMNFH59.1(L)81.0 - 99.0 fL01/06/2025 6:25 AM [facility] ZHQLVZ89.026.0 - 33.0 pg01/06/2025 6:25 AM [facility] FXQDEQU26.432.2 - 35.5 gm/dl01/06/2025 6:25 AM [facility] LABRDW-CV17.0(H)11.5 - 14.5 %01/06/2025 6:25 AM [facility] LABRDW-SD47.3(H)35.0 - 45.0 fL 01/06/2025 6:25 AM [facility] BFNAzrkujnkq441 (H)130 - 400 thou/mm301/06/2025 6:25 AM [facility] LABMPV8.8(L)9.4 - 12.4 fL01/06/2025 6:25 AM [facility] LABSeg Eifgoskbvsv85.2%01/06/2025 6:25 AM [facility] LABLymphocytes7.8%01/06/2025 6:25 AM [facility] LABMonocytes %8.1%01/06/2025 6:25 AM [facility] LABEosinophils4.3%01/06/2025 6:25 AM [facility] LABBasophils0.8%01/06/2025 6:25 AM [facility] LABImmature Granulocytes %2.8%01/06/2025 6:25 AM [facility] LABNeutrophils Absolute7.71.8 - 7.7 thou/mm3 01/06/2025 6:25 AM [facility] LABLymphocytes Absolute0.8(L)1.0 - 4.8 thou/mm301/06/2025 6:25 AM [facility] LABMonocytes Absolute0.80.4 - 1.3 thou/mm301/06/2025 6:25 AM [facility] LABEosinophils Absolute0.40.0 - 0.4 thou/mm301/06/2025 6:25 AM [facility] Basophils Absolute0.10.0 - 0.1 thou/mm301/06/2025 6:25 AM [facility] LABImmature Grans (Abs)0.28(H)0.00 - 0.07 thou/mm3 01/06/2025 6:25 AM [facility] LABnRBC0/100 wbc 01/06/2025 6:25 AM [facility] LABComment: Performed at [place] [address]Specimen (Source)Anatomical Location / LateralityCollection Method / VolumeCollection TimeReceived TimeBLOOD SPECIMEN / Bhpzqdi9801/06/2025 5:40 AM EDT1 6:02 AM EDT Narrative Authorizing ProviderResult TypeResult StatusKavin N Vrid DOHEMATOLOGY ORDERABLES Final ResultPerforming OrganizationAddressCity/State/ZIP CodePhone Number [facility] [address] [place] [address] [facility] [address] [place] [address] * (ABNORMAL) Protein, Total (01/06/2025 5:40 AM EDT)ComponentValueRef RangeTest MethodAnalysis TimePerformed AtPathologist SignatureTotal Protein5.8(L)6.4 - 8.3 g/dL01/06/2025 2:58 PM [facility] Comment:[place] [address] Specimen (Source)Anatomical Location / LateralityCollection Method / Volume Collection TimeReceived Time01/06/2025 5:40 AM EDT1 2:37 PM EDT Narrative Authorizing ProviderResult TypeResult StatusNayeem Z Moulana MDCHEMISTRY ORDERABLESFinal ResultPerforming OrganizationAddressCity/State/ZIP CodePhone Number [facility] [address] [place] [address], [facility] [phone] [facility] [address] [place] [address], [facility] [phone] * Lactate Dehydrogenase (01/06/2025 5:40 AM EDT) Only the most recent of2 resultswithin the time period is included. ComponentValueRef RangeTest MethodAnalysis TimePerformed AtPathologist Signature VP182624 - 214 U/L1 3:09 PM [facility] LABComment:Performed at [facility] [address] [place] [address] Specimen (Source)Anatomical Location / LateralityCollection Method / Volume Collection TimeReceived TimeBLOOD SPECIMEN / Xjcmytw9201/06/2025 5:40 AM EDT 01/06/2025 2:37 PM EDT Narrative Authorizing ProviderResult TypeResult StatusNadebi Christiansen MDCHEMISTRY ORDERABLESFinal ResultPerforming OrganizationAddressCity/State/ZIP CodePhone Number [facility] [address] [place] [address], [facility] [phone] [facility] [address] [place] [address], [facility] [phone] * (ABNORMAL) Albumin (01/06/2025 5:40 AM EDT)ComponentValueRef RangeTest Method Analysis TimePerformed AtPathologist SignatureAlbumin3.0(L)3.4 - 4.9 g/dL 01/06/2025 2:58 PM [facility] LABComment: Performed at [facility] [address] [place], [place] [address]Specimen (Source)Anatomical Location / LateralityCollection Method / VolumeCollection TimeReceived Time01/06/2025 5:40 AM EDT1 2:37 PM EDT Narrative Authorizing ProviderResult TypeResult StatusNayeem Cande Christiansen MDCHEMISTRY ORDERABLESFinal ResultPerforming OrganizationAddressCity/State/ZIP CodePhone Number [facility] [address] [place] [address], [facility] [phone] [facility] [address] [place] [address], [facility] [phone] * US RENAL LIMITED (01/05/2025 11:38 AM EDT) Only the most recent of2 resultswithin the time period is included. Anatomical RegionLateralityModalityAbdomenUltrasoundSpecimen (Source)Anatomical Location / LateralityCollection Method / VolumeCollection TimeReceived Time 01/05/2025 1:02 PM EDT Impressions 01/05/2025 1:06 PM EDT 1. Minimal pelviectasis on the right which appears improved from prior CT examination dated 01/04/2025 allowing for differences in imaging modality. This report has been created using voice recognition software. ??It may contain minor errors which are inherent in voice recognition technology. Electronically signed by Dr. Pedro Diallo Narrative 01/05/2025 1:06 PM EDT PROCEDURE: US RENAL [...] by Dr. Pedro Diallo Authorizing ProviderResult TypeResult StatusTrish Kim [facility] ORDERABLESFinal Result * Lactic Acid (01/05/2025 6:22 AM EDT) Only the most recent of6 resultswithin the time period is included. ComponentValueRef RangeTest MethodAnalysis TimePerformed AtPathologist Signature Lactic Acid0.60.5 - 2.2 mmol/L1 7:30 AM [facility] LABComment:Performed at [facility] [address] [place], [place] [address]Specimen (Source)Anatomical Location / LateralityCollection Method / VolumeCollection TimeReceived TimeBloodBLOOD SPECIMEN / Nfqfwmy7901/05/2025 6:22 AM EDT1 6:38 AM EDT Narrative Authorizing ProviderResult TypeResult StatusEvon Cardenas [employer] - CNPCHEMISTRY ORDERABLESFinal ResultPerforming OrganizationAddressCity/State/ZIP CodePhone Number [facility] [address] [place] [address], [facility] [phone] [facility] [address] [place] [address], [facility] [phone] * EKG Rhythm Strip (01/04/2025 9:20 PM EDT) Only the most recent of35 resultswithin the time period is included. Specimen (Source)Anatomical Location / LateralityCollection Method / Volume Collection TimeReceived Time01/04/2025 9:20 PM EDT Narrative [facility] - 01/04/2025 9:30 PM EDT Authorizing ProviderResult TypeResult StatusUnknown Provider ResultECG ORDERABLESFinal ResultPerforming OrganizationAddressCity/State/ZIP CodePhone Number [facility] * Culture, Reflexed, Urine (01/04/2025 1:15 PM EDT)ComponentValueRef RangeTest MethodAnalysis TimePerformed AtPathologist SignatureUrine Culture ReflexNo growth-preliminary No growth BACTERIAL SUSCEPTIBILITY PANEL [facility] LABSpecimen (Source)Anatomical Location / LateralityCollection Method / VolumeCollection TimeReceived TimeURINE SPECIMEN / Krrypod6101/04/2025 1:15 PM EDT1 2:30 PM EDT Narrative [facility] - 01/06/2025 6:35 AM EDT Source: urine, clean catch Site: clean void Current Antibiotics: not stated Authorizing ProviderResult TypeResult StatusMohammad A Abhishek MDMICROBIOLOGY - GENERAL ORDERABLESFinal ResultPerforming OrganizationAddressCity/State/ZIP Code Phone Number [facility] [address] [place] [address], [facility] [phone] * (ABNORMAL) Urine with Reflexed Micro (01/04/2025 1:15 PM EDT)ComponentValueRef RangeTest MethodAnalysis TimePerformed AtPathologist SignatureGlucose, Ur100 (A)NEGATIVE mg/dl01/04/2025 2:11 PM [facility] LABBilirubin, PetjaTNZLYPUUWUQLQJNX52/19/2025 2:11 PM [facility] LABKetones, AzezaEZNUXPMISDPWASEU46/19/2025 2:11 PM [facility] LABSpecific Garrett, UA1.0091.002 - 1.6116801/04/2025 2:11 PM [facility] LAB Blood, UrineTRACE(A)EWMFXWNY72/19/2025 2:11 PM [facility] LABpH, Urine8.05.0 - 9.010 2:11 PM [facility] LABProtein, UA300(A)QEHPJXBB64/19/2025 2:11 PM [facility] LABUrobilinogen, Urine0.20.0 - 1.0 eu/dl01/04/2025 2:11 PM [facility] LAB Nitrite, TrswoYKIPKAUKQXSBLPFE08/19/2025 2:11 PM [facility] LABLeukocyte Esterase, UrineTRACE(A)EGGOLMIE51/19/2025 2:11 PM [facility] LABColor, UAYELLOWSTRAW-YELLOW 01/04/2025 2:11 PM [facility] LABCharacter, UrineCLEARCLEAR-SL CLOUD01/04/2025 2:11 PM [facility] LABRBC, UA6-10(A)0-2/hpf /hpf01/04/2025 2:27 PM [facility] LABWBC, UA21-50(A)0-4/hpf /hpf01/04/2025 2:27 PM [facility] LABEpithelial Cells, UA6-10(A)0- 5/hpf /hpf01/04/2025 3:03 PM [facility] Bacteria, UANone SeenFEW/NONE SEEN /hpf01/04/2025 2:27 PM [facility] LABCasts UANONE SEEN0-5/lpf /lpf10 3:03 PM [facility] LABComment:Performed at [facility] [address] [place], [place] [address]Lphodaxp (Source)Anatomical Location / LateralityCollection Method / VolumeCollection TimeReceived Time 01/04/2025 1:15 PM EDT1 1:29 PM EDT Narrative Authorizing ProviderResult TypeResult StatusMohammad A Abhishek MDCHEMISTRY ORDERABLESFinal ResultPerforming OrganizationAddressCity/State/ZIP CodePhone Number [facility] [address] [place] [address], [facility] [phone] [facility] [address] [place] [address], [facility] [phone] * CT ABDOMEN PELVIS WO CONTRAST Additional Contrast? Radiologist Recommendation (01/04/2025 10:14 AM EDT) Only the most recent of4 resultswithin the time period is included. Anatomical RegionLateralityModalityAbdomen, Pelvis, HipComputed Tomography Specimen (Source)Anatomical Location / LateralityCollection Method / Volume Collection TimeReceived Time01/04/2025 2:00 PM EDT Impressions 01/04/2025 [...] by Dr. Nerissa Gil Authorizing ProviderResult TypeResult StatusMohammad A Abhishek MDG CT ORDERABLES Final Result * IR FLUORO GUIDED CVA DEVICE PLMT/REPLACE/REMOVAL (01/02/2025 10:53 AM EDT) Only the most recent of3 resultswithin the time period is included. Anatomical RegionLateralityModalityVascularX-Ray AngiographySpecimen (Source) Anatomical Location / [...] BY: Specials technologist Mima Cutler CATHETER: 15.5 Indian Titan, tunneled dialysis catheter, 28 CM. INSERTION [...] needs dialysis. PERFORMED BY: Specials technologist Mima Omayra CATHETER: 15.5 Indian Titan, tunneled dialysis catheter, 28 CM. INSERTION [...] by Dr. Frederick Gonzales Authorizing ProviderResult TypeResult StatusJill E Hemmelgarn DOIMG IR ORDERABLESFinal Result * Magnesium (01/02/2025 5:31 AM EDT)ComponentValueRef RangeTest MethodAnalysis TimePerformed AtPathologist SignatureMagnesium1.61.6 - 2.6 mg/dL01/02/2025 6:18 AM [facility] LABComment:Performed at [facility] [address] [place], [place] [address]Zlnqdgyt (Source) Anatomical Location / LateralityCollection Method / VolumeCollection Time Received TimeBloodBLOOD SPECIMEN / Kdlifiy8101/02/2025 5:31 AM EDT1 5:41 AM EDT Narrative Authorizing ProviderResult TypeResult StatusSeth Guillozet MDCHEMISTRY ORDERABLESFinal ResultPerforming OrganizationAddressCity/State/ZIP CodePhone Number [facility] [address] [place] [address], [facility] [phone] [facility] [address] [place] [address] * (ABNORMAL) Calcium, Ionized (01/02/2025 5:31 AM EDT)ComponentValueRef Range Test MethodAnalysis TimePerformed AtPathologist SignatureCalcium, Ionized0.98 (L)1.12 - 1.32 mmol/L1 5:49 AM EDPROM[facility]FI[facility] LABComment:Performed at [facility] [address] [place], [place] [address]Specimen (Source)Anatomical Location / LateralityCollection Method / VolumeCollection TimeReceived TimeBLOOD SPECIMEN / Cikthla3801/02/2025 5:31 AM EDT1 5:41 AM EDT Narrative Authorizing ProviderResult TypeResult StatusSeth Guillozet MDCHEMISTRY ORDERABLESFinal ResultPerforming OrganizationAddressCity/State/ZIP CodePhone Number [facility] [address] [place] [address], [facility] [phone] [facility] [address] [place] [address] * XR NECK SOFT TISSUE (12/31/2024 10:38 [...] Extensive multilevel cervical spine arthropathy. Procedure Note Turcer, Noah, MD - 12/31/2024 1 views soft tissue [...] 12/31/2024 11:08 PM Authorizing ProviderResult TypeResult StatusNell [facility] DI[facility]AG[facility] ORDERABLESFinal Result * (ABNORMAL) Vitamin B12 & Folate (12/31/2024 2:08 PM EDT)ComponentValueRef RangeTest MethodAnalysis TimePerformed AtPathologist SignatureVitamin B-12> 2000(H)232 - 1245 pg/mL12/31/2024 3:18 PM [facility] IDXPaszvo31.44.6 - 34.8 ng/mL12/31/2024 3:18 PM [facility] LABComment:Performed at [facility] [address] [place], [place] [address]Specimen (Source)Anatomical Location / Laterality Collection Method / VolumeCollection TimeReceived TimeBloodBLOOD SPECIMEN / Overaxv2512/31/2024 2:08 PM EDT1 2:26 PM EDT Narrative Authorizing ProviderResult TypeResult StatusSetHCA Florida JFK North Hospitallozerafael MDCHEMISTRY ORDERABLESFinal ResultPerforming OrganizationAddressCity/State/ZIP CodePhone Number [facility] [address] [place] [address], [facility] [phone] [facility] [address] [place] [address], [facility] [phone] * (ABNORMAL) Culture, Anaerobic and Aerobic (12/30/2024 1:35 PM EDT)Component ValueRef RangeTest MethodAnalysis TimePerformed AtPathologist Signature Anaerobic CultureNo anaerobes isolated- preliminary No anaerobes isolated BACTERIAL SUSCEPTIBILITY PANEL [facility] LABGram Stain ResultModerate segmented neutrophils observed. No epithelial cells observed. No bacteria seen. BACTERIAL SUSCEPTIBILITY PANEL [facility] LABOrganismPseudomonas aeruginosa(A) BACTERIAL SUSCEPTIBILITY PANEL [facility] LABAerobic Culturemoderate growth BACTERIAL SUSCEPTIBILITY PANEL [facility] LABOrganismStaphylococcus epidermidis(A) BACTERIAL SUSCEPTIBILITY PANEL [facility] LABAerobic Culturelight growth In the treatment [...] used for staphylococcal infections. BACTERIAL SUSCEPTIBILITY PANEL [facility] LABOrganismKlebsiella oxytoca(A) BACTERIAL SUSCEPTIBILITY PANEL [facility] LABAerobic Culturelight growth BACTERIAL SUSCEPTIBILITY PANEL [facility] LABSpecimen (Source)Anatomical Location / LateralityCollection Method / VolumeCollection TimeReceived TimeBody Fluid SPECIMEN FROM ABDOMINAL CAVITY / Jjqbxyl2912/30/2024 1:35 PM EDTComment:Pre-op diagnosis: Abdominal pain, unspecified abdominal location [R10.9] Narrative [facility] - 01/04/2025 1:15 PM EDT Source: [...] mcg/mL: Sensitive Authorizing ProviderResult TypeResult StatusAnne R Sherman MDMICROBIOLOGY - GENERAL ORDERABLESFinal ResultPerforming OrganizationAddressCity/State/ZIP Code Phone Number [facility] [address] [place] [address] * (ABNORMAL) Troponin (12/30/2024 9:02 AM EDT) Only the most recent of4 resultswithin the time period is included. ComponentValueRef RangeTest MethodAnalysis TimePerformed AtPathologist Signature Troponin, High Lrsoiwaawtu120(H)0 - 12 ng/L1 9:46 AM [facility] LABComment: The high-sensitivity troponin T result should not be compared with other troponin methodologies. Rising or falling high-sensitivity troponin T is significant if >= 6. Performed at [facility] [address] [place] [address] Specimen (Source)Anatomical Location / LateralityCollection Method / Volume Collection TimeReceived TimeBloodBLOOD SPECIMEN / Obsweti2812/30/2024 9:02 AM EDT 12/30/2024 9:11 AM EDT Narrative Authorizing ProviderResult TypeResult StatusShezore Chao DOCHEMISTRY ORDERABLESFinal ResultPerforming OrganizationAddressCity/State/ZIP CodePhone Number [facility] [address] [place] [address], [facility] [phone] [facility] [address] [place] [address], [facility] [phone] * Surgical Pathology (12/30/2024 7:17 AM EDT)Specimen (Source)Anatomical Location / LateralityCollection Method / VolumeCollection TimeReceived Time TissueSPECIMEN FROM ABDOMINAL CAVITY / Hzvgdky7812/30/2024 1:35 PM EDTComment: Pre-op diagnosis: Abdominal pain, unspecified abdominal location [R10.9]Body tissue structure (body structure)SPECIMEN FROM ABDOMINAL CAVITY / Ofhyltk3612/30/2024 1:36 PM EDT Comment:Pre-op diagnosis: Abdominal pain, unspecified abdominal location [R10.9] Narrative [facility] - 01/02/2025 10:09 AM EDT [facility] MARIA ELENA GARNER [id number] Assoc. ?Page 1 [address] [place] [address] ?PROC: 12/30/2024 [facility] ?RECV: 12/31/[address] ?RPTD: 01/02/2025 [place] [address] ?LOC: 3B ?ACCT: [id number] ??SEX: F ?: 1960 ??AGE: 64 Y ? PATHOLOGY REPORT ?ATTN: RINA FRITZ ?REQ: EMILY WHITAKER Copies To: ?? RINA FRITZ; OMAR CRANDALL Clinical Information: ABDOMINAL PAIN, UNSPECIFIED LOCATION FINAL [...] container is labeled Maria Elena Garner, small bowel. ??Received in formalin is a [...] serosa is focally disrupted at this region. Hospice Superintendent sections are submitted. ??Cassette #1 - nearest resection line; cassette #2 - farthest resection line; and cassette #3, #4, and #5 - area of mucosal irregularity. ??ss. ??DKR:jt Microscopic Examination: Part A: The histologic sections [...] identified. ??Correlation with clinical history is recommended. [phone] [id number] <Sign Out DrPoly Signature> ? VINAYAK LENTZ D.O., F.C.A.P. This report has been created using voice recognition software. ??It may contain minor errors which are inherent in voice recognition technology. [facility]/ [facility] ??Printed on: ??01/02/[address] [place] [address] Original print date: 01/02/2025 Authorizing ProviderResult TypeResult Jes Whitaker MDPATHOLOGY/CYTOLOGY ORDERABLESFinal ResultPerforming OrganizationAddressCity/State/ZIP CodePhone Number [facility] [address] [place] [address], [facility] [phone] * Protime-INR (12/29/2024 10:00 PM EDT)ComponentValueRef RangeTest Method Analysis TimePerformed AtPathologist HfgudonytTprmxph25.312.0 - 15.0 sec 12/29/2024 10:00 PM [facility] LABINR1. 10:00 PM [facility] LABComment: ? Therapeutic Range: Moderate Anticoagulant Intensity: INR = 2.0-3.0 High Anticoagulant Intensity: INR = 2.5-3.5 Specimen (Source)Anatomical Location / LateralityCollection Method / Volume Collection TimeReceived TimeBloodBLOOD SPECIMEN / Zygprlb9712/29/2024 10:00 PM EDT 12/29/2024 9:37 PM EDT Narrative Authorizing ProviderResult TypeResult StatusMariah Dalton MDHEMATOLOGY ORDERABLES Final ResultPerforming OrganizationAddressCity/State/ZIP CodePhone Number [facility] [address] [place] [address], [facility] [phone] * Lipase (12/29/2024 10:00 PM EDT)ComponentValueRef RangeTest MethodAnalysis TimePerformed AtPathologist IkpnkekxbSppekj5674 - 60 U/L1 10:00 PM [facility] LABSpecimen (Source)Anatomical Location / LateralityCollection Method / VolumeCollection TimeReceived TimeBloodBLOOD SPECIMEN / Obcjwre5812/29/2024 10:00 PM EDT1 9:37 PM EDT Narrative Authorizing ProviderResult TypeResult StatusMariah Dalton MDCHEMISTRY ORDERABLES Final ResultPerforming OrganizationAddressCity/State/ZIP CodePhone Number [facility] [address] [place] [address], [facility] [phone] * (ABNORMAL) CMP (12/29/2024 10:00 PM EDT) Only the most recent of4 resultswithin the time period is included. ComponentValueRef RangeTest MethodAnalysis TimePerformed AtPathologist Signature Snwazc828(L)136 - 145 mmol/L1 10:00 PM [facility] LABPotassium4.43.7 - 5.3 mmol/L1 10:00 PM [facility] LABComment: Specimen hemolysis has exceeded the interference as defined by Светлана. Value may be falsely increased. Suggest recollection if clinically indicated. Hpcxzfie30(L)98 - 107 mmol/L1 10:00 PM [facility] RIPKN25261 - 31 mmol/L1 10:00 PM [facility] Anion Ugg281 - 16 mmol/L1 10:00 PM [facility] Bvdpyhm3798 - 99 mg/dL12/29/2024 10:00 PM [facility] LABBUN 238 - 23 mg/dL12/29/2024 10:00 PM [facility] LABCreatinine 3.5(H)0.50 - 0.90 mg/dL12/29/2024 10:00 PM [facility] Est, Glom Filt Rate14(L)>60 mL/min/1.76o20312/29/2024 10:00 PM [facility] LABComment: ? These results are not intended for use in patients <18 years of age. ? eGFR results are calculated without a race factor using the 2020 CKD-EPI equation. Careful clinical correlation is recommended, particularly when comparing to results calculated using previous equations. The CKD-EPI equation is less accurate in patients with extremes of muscle mass, extra-renal metabolism of creatine, excessive creatine ingestion, or following therapy that affects renal tubular secretion. BUN/Creatinine Ratio7(L) 10:00 PM [facility] LABCalcium9.28.6 - 10.4 mg/dL12/29/2024 10:00 PM [facility] LABTotal Protein6.86.6 - 8.7 g/dL12/29/2024 10:00 PM [facility] LABAlbumin3.3(L)3.5 - 5.2 g/dL12/29/2024 10:00 PM [facility] LABAlbumin/Globulin Ratio0.9(L)1.0 - 2. 10:00 PM [facility] LABTotal Bilirubin0.40.00 - 1.20 mg/dL 12/29/2024 10:00 PM [facility] LABAlkaline Nshcbstsjny12635 - 104 U/L1 10:00 PM [facility] MJQEIL7013 - 35 U/L1 10:00 PM [facility] MJWZSS8430 - 35 U/L 12/29/2024 10:00 PM [facility] LABSpecimen (Source) Anatomical Location / LateralityCollection Method / VolumeCollection Time Received TimeBloodBLOOD SPECIMEN / Iyhjwmd9012/29/2024 10:00 PM EDT1 9:37 PM EDT Narrative Authorizing ProviderResult TypeResult StatusMelissa Sha MDCHEMISTRY ORDERABLES Final ResultPerforming OrganizationAddressCity/State/ZIP CodePhone Number [facility] [address] [phone] * XR ACUTE ABD SERIES CHEST 1 VW (12/25/2024 5:18 PM EDT)Anatomical Region LateralityModalityAbdomen, ChestComputed RadiographySpecimen (Source) Anatomical Location / LateralityCollection Method / VolumeCollection Time Received Time12/25/2024 7:25 PM EDT Impressions 12/25/2024 7:26 PM EDT 1. Small bowel obstruction. 2. Small bilateral pleural effusions. Narrative 12/25/2024 7:26 PM EDT EXAM: UPRIGHT AND SUPINE XRAY VIEWS OF THE ABDOMEN AND SUPINE AND ERECT VIEW(S) OF THE CHEST 12/25/2024 05:18:42 PM COMPARISON: None available. CLINICAL HISTORY: Abdominal distension. FINDINGS: LUNGS AND PLEURA: Small bilateral pleural effusions. No consolidation or pulmonary edema. No pneumothorax. HEART AND MEDIASTINUM: Right-sided dual-lumen central venous catheter. No acute abnormality of the cardiac and mediastinalsilhouettes. BOWEL: Dilated small bowel with multiple air-fluid levels. No bowel obstruction. PERITONEUM AND SOFT TISSUES: Right axillary surgical clips. Cholecystectomy clips. No abnormal calcifications. No free air. BONES: No acute osseous abnormality. Procedure Note Adolfo Boyd MD - 12/25/2024 EXAM: UPRIGHT AND SUPINE XRAY VIEWS OF THE ABDOMEN AND SUPINE AND ERECT VIEW(S)OF THE CHEST 12/25/2024 05:18:42 PM COMPARISON: None available. CLINICAL HISTORY: Abdominal distension. FINDINGS: LUNGS AND PLEURA: Small bilateral pleural effusions. No consolidation or pulmonary edema. No pneumothorax. HEART AND MEDIASTINUM: Right-sided dual-lumen central venous catheter. No acute abnormality ofthe cardiac and mediastinal silhouettes. BOWEL: Dilated small bowel with multiple air-fluid levels. No bowel obstruction. PERITONEUM AND SOFT TISSUES: Right axillary surgical clips. Cholecystectomy clips. No abnormalcalcifications. No free air. BONES: No acute osseous abnormality. IMPRESSION: 1. Small bowel obstruction. 2. Small bilateral pleural effusions. 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[employer] COMMUNICATIONS - CNPIMG DIAGNOSTIC IMAGING ORDERABLESFinal Result * PREPARE RBC (CROSSMATCH), 1 Units (12/19/2024 8:31 AM EDT)Specimen (Source) Anatomical Location / LateralityCollection Method / VolumeCollection Time Received TimeBLOOD SPECIMEN / Jhwzxwo2812/19/2024 8:31 AM EDT1 8:58 AM EDT Narrative [facility] - 12/19/2024 1:27 PM EDT [id number] transfused Authorizing ProviderResult TypeResult StatusKavin N Vrid DOBLOOD BANK PRODUCT ORDERABLESFinal ResultPerforming OrganizationAddressCity/State/ZIP CodePhone Number [facility] [address] [place] [address], [facility] [phone] * TYPE AND SCREEN (12/19/2024 8:31 AM EDT)ComponentValueRef RangeTest Method Analysis TimePerformed AtPathologist NfohzybynNUBR46/03/2025 9:42 AM [facility] LABRh FdwvEFG6112/19/2024 9:42 AM [facility] LABAntibody KolkhxLRO85/03/2025 9:42 AM EDT [facility] LABComment:Performed at [facility] [address] [place] [id number] (Source)Anatomical Location / LateralityCollection Method / VolumeCollection TimeReceived Time BloodBLOOD SPECIMEN / Kyrjpkx0012/19/2024 8:31 AM EDT1 8:58 AM EDT Narrative Authorizing ProviderResult TypeResult StatusKavin N Vrid DOBLOOD BANK TEST ORDERABLESFinal ResultPerforming OrganizationAddressCity/State/ZIP CodePhone Number [facility] [address] [place] [address] [facility] [address] [place] [address] * (ABNORMAL) Hemoglobin and Hematocrit (12/19/2024 7:21 AM EDT) Only the most recent of4 resultswithin the time period is included. ComponentValueRef RangeTest MethodAnalysis TimePerformed AtPathologist Signature Hemoglobin6.9(LL)12.0 - 16.0 gm/dl12/19/2024 7:30 AM [facility] POTBhnjatqwra38.2(L)37.0 - 47.0 %12/19/2024 7:30 AM EDT [facility] LABComment:Performed at [facility] [address] [place] [id number] (Source)Anatomical Location / LateralityCollection Method / VolumeCollection TimeReceived TimeBloodBLOOD SPECIMEN / Jsgwiii0712/19/2024 7:21 AM EDT1 7:27 AM EDT Narrative Authorizing ProviderResult TypeResult StatusKavin N Vrid DOHEMATOLOGY ORDERABLES Final ResultPerforming OrganizationAddressCity/State/ZIP CodePhone Number [facility] [address] [place] [address], [facility] [phone] [facility] [address] [place] [address], [facility] [phone] * Scan of Blood Smear (12/19/2024 5:39 AM EDT)ComponentValueRef RangeTest Method Analysis TimePerformed AtPathologist SignatureSCAN OF BLOOD SMEARsee below 12/19/2024 6:57 AM [facility] LABComment: Criteria Exceeded; Scan of Differential Slide Performed Performed at [facility] [address] [place] [address] Specimen (Source)Anatomical Location / LateralityCollection Method / Volume Collection TimeReceived Time12/19/2024 5:39 AM EDT1 6:17 AM EDT Narrative Authorizing ProviderResult TypeResult StatusKavin N Vrid DOHEMATOLOGY ORDERABLES Final ResultPerforming OrganizationAddressCity/State/ZIP CodePhone Number [facility] [address] [place] [address], [facility] [phone] [facility] [address] [place] [address], [facility] [phone] * (ABNORMAL) Transferrin (12/16/2024 2:15 PM EDT)ComponentValueRef RangeTest MethodAnalysis TimePerformed AtPathologist AlabptnfoGdhstnhmcln351(L)200 - 360 mg/dL12/16/2024 11:05 PM EDTMERCY LABORATORIESComment: [facility]formed at [facility], [address] [place] [address] ??. Specimen (Source)Anatomical Location / LateralityCollection Method / Volume Collection TimeReceived TimeBloodBLOOD SPECIMEN / Zwyeflo0712/16/2024 2:15 PM EDT 12/16/2024 3:07 PM EDT Narrative Authorizing ProviderResult TypeResult StatusKavin N Vrid DOCHEMISTRY ORDERABLES Final ResultPerforming OrganizationAddressCity/State/ZIP CodePhone Number [facility] [address] [place] [address], [facility] [phone] [address], [facility] [phone] * (ABNORMAL) Haptoglobin (12/16/2024 2:15 PM EDT)ComponentValueRef RangeTest MethodAnalysis TimePerformed AtPathologist ApcljoudqRsbdbdkgziy587(H)30 - 200 mg/dL12/16/2024 11:05 PM EDPOMERENE HOSPITAL LABORATORIESComment: Performed at [facility], [address] [place] [address] ??. Specimen (Source)Anatomical Location / LateralityCollection Method / Volume Collection TimeReceived TimeBloodBLOOD SPECIMEN / Hscstru4112/16/2024 2:15 PM EDT 12/16/2024 3:06 PM EDT Narrative Authorizing ProviderResult TypeResult StatusRuel Almanzar Vrid DOCHEMISTRY ORDERABLES Final ResultPerforming OrganizationAddressCity/State/ZIP CodePhone Number [facility] [address] [place] [address], [facility] [phone] [address], [facility] [phone] * (ABNORMAL) Iron Binding Capacity (12/16/2024 5:38 AM EDT)ComponentValueRef RangeTest MethodAnalysis TimePerformed AtPathologist AyywpwmomEFFH070(L)171 - 450 ug/dL12/16/2024 7:03 PM [facility] Comment:Performed at [facility] [address] [place] [address] Specimen (Source)Anatomical Location / LateralityCollection Method / Volume Collection TimeReceived Time12/16/2024 5:38 AM EDT12/16/2024 5:43 AM EDT Narrative Authorizing ProviderResult TypeResult StatusRuel Almanzar Vrid DOCHEMISTRY ORDERABLES Final ResultPerforming OrganizationAddressCity/State/ZIP CodePhone Number [facility] [address] [place] [address], [facility] [phone] [facility] [address] [place] [address], [facility] [phone] * (ABNORMAL) IRON SATURATION (12/16/2024 5:38 AM EDT)ComponentValueRef RangeTest MethodAnalysis TimePerformed AtPathologist SignatureIron % Nhbkibfvlc89(L)20 - 50 %12/16/2024 7:03 PM [facility] Comment:[place] [address] Specimen (Source)Anatomical Location / LateralityCollection Method / Volume Collection TimeReceived Time12/16/2024 5:38 AM EDT12/16/2024 5:43 AM EDT Narrative Authorizing ProviderResult TypeResult StatusKavin N Vrid DOCHEMISTRY ORDERABLES Final ResultPerforming OrganizationAddressCity/State/ZIP CodePhone Number [facility] [address] [place] [address], [facility] [phone] [facility] [address] [place] [address], [facility] [phone] * Path Review, Smear (12/16/2024 5:38 AM EDT)ComponentValueRef RangeTest Method Analysis TimePerformed AtPathologist SignatureSmear Reviewsee below12/17/2024 8:11 AM [facility] LABComment:See Below REVIEWED BYVimal DURHAM12/17/2024 8:11 AM [facility] LABComment: Mild leukopenia present with no significant morphologic abnormality seen on peripheral smear review. ??No circulating blasts, lymphoma cells, or dysplastic neutrophils are seen. ??Clinical correlation is necessary to ascertain the etiology of the mild leukopenia. Please disregard 'mild leukopenia' comment above. No significant WBC abnormality is seen. ??There is a hypochromic anemia noted with microcytes. ??Iron deficiency is the most common cause of microcytic anemia. Other causes include anemia of chronic disease, thalassemia, and sideroblastic anemia. Performed at [facility] [address] [place] [address] Specimen (Source)Anatomical Location / LateralityCollection Method / Volume Collection TimeReceived TimeBLOOD SPECIMEN / Abkwsom7312/16/2024 5:38 AM EDT 12/16/2024 2:21 PM EDT Narrative Authorizing ProviderResult TypeResult StatusKavin N Vrid DOHEMATOLOGY ORDERABLES Edited Result - FinalPerforming OrganizationAddressCity/State/ZIP CodePhone Number [facility] [address] [place] [address], [facility] [phone] [facility] [address] [place] [address], [facility] [phone] * (ABNORMAL) Reticulocytes (12/16/2024 5:38 AM EDT)ComponentValueRef RangeTest MethodAnalysis TimePerformed AtPathologist SignatureRetic Ct Abs1.00.5 - 2.0 % 12/16/2024 2:36 PM [facility] LABAbsolute Retic #28.020.0 - 115.0 thou/mm312/16/2024 2:36 PM [facility] LABImmature Retic Fract18.3(H)3.0 - 15.9 %12/16/2024 2:36 PM [facility] LABRetic Rgloppmmuq11.0(L) 28.2 - 35.7 pg12/16/2024 2:36 PM [facility] LABComment:Performed at [facility] [address] [place] [address] Specimen (Source)Anatomical Location / LateralityCollection Method / Volume Collection TimeReceived TimeBloodBLOOD SPECIMEN / Vluburq9312/16/2024 5:38 AM EDT12/16/2024 2:21 PM EDT Narrative Authorizing ProviderResult TypeResult StatusTrentvin N Vrid DOHEMATOLOGY ORDERABLES Final ResultPerforming OrganizationAddressCity/State/ZIP CodePhone Number [facility] [address] [place] [address], [facility] [phone] [facility] [address] [place] [address], [facility] [phone] * (ABNORMAL) Iron (12/16/2024 5:38 AM EDT)ComponentValueRef RangeTest Method Analysis TimePerformed AtPathologist PihujbjnwClji85(L)37 - 145 ug/dL 12/16/2024 6:56 PM [facility] LABComment: Performed at [facility] [address] [place], [place] [address]Bxfgcpui (Source)Anatomical Location / LateralityCollection Method / VolumeCollection TimeReceived Time12/16/2024 5:38 AM EDT12/16/2024 5:43 AM EDT Narrative Authorizing ProviderResult TypeResult StatusKavin N Vrid DOCHEMISTRY ORDERABLES Final ResultPerforming OrganizationAddressCity/State/ZIP CodePhone Number [facility] [address] [place] [address], [facility] [phone] [facility] [address] [place] [address], [facility] [phone] * (ABNORMAL) Ferritin (12/16/2024 5:38 AM EDT)ComponentValueRef RangeTest Method Analysis TimePerformed AtPathologist VaeyrcemsYelgfhlh721(H)13 - 150 ng/mL 12/16/2024 7:03 PM [facility] LABComment: Performed at [facility] [address] [place], [place] [address]Xmwoihke (Source)Anatomical Location / LateralityCollection Method / VolumeCollection TimeReceived Time12/16/2024 5:38 AM EDT12/16/2024 5:43 AM EDT Narrative Authorizing ProviderResult TypeResult StatusKavin N Vrid DOCHEMISTRY ORDERABLES Final ResultPerforming OrganizationAddressCity/State/ZIP CodePhone Number [facility] [address] [place] [address], [facility] [phone] [facility] [address] [place] [address], [facility] [phone] * Potassium (12/15/2024 4:28 PM EDT) Only the most recent of2 resultswithin the time period is included. ComponentValueRef RangeTest MethodAnalysis TimePerformed AtPathologist Signature Potassium3.93.5 - 5.2 meq/L12/15/2024 5:00 PM [facility] LABComment:Performed at [facility] [address] [place], [place] [address]Dtabxpkv (Source)Anatomical Location / LateralityCollection Method / VolumeCollection TimeReceived TimeBloodBLOOD SPECIMEN / Mydgklp0412/15/2024 4:28 PM EDT12/15/2024 4:35 PM EDT Narrative Authorizing ProviderResult TypeResult StatusJill E Hemmelgarn DOCHEMISTRY ORDERABLESFinal ResultPerforming OrganizationAddressCity/State/ZIP CodePhone Number [facility] [address] [place] [address], [facility] [phone] [facility] [address] [place] [address], [facility] [phone] * Hepatitis B Core Antibody, IgM (12/14/2024 9:16 AM EDT)ComponentValueRef Range Test MethodAnalysis TimePerformed AtPathologist SignatureHep B Core Ab, IgM Njmallynokr66/28/2025 10:09 AM [facility] Comment:Performed at [facility] [address] [place] [address] Specimen (Source)Anatomical Location / LateralityCollection Method / Volume Collection TimeReceived TimeBLOOD SPECIMEN / Ziejfsd6412/14/2024 9:16 AM EDT 12/14/2024 9:29 AM EDT Narrative Authorizing ProviderResult TypeResult StatusJill E Hemmelgarn DOIMMUNOLOGY ORDERABLESFinal ResultPerforming OrganizationAddressCity/State/ZIP CodePhone Number [facility] [address] [place] [address], [facility] [phone] [facility] [address] [place] [address], [facility] [phone] * (ABNORMAL) Hepatitis B Surface Antibody (12/14/2024 9:16 AM EDT)ComponentValue Ref RangeTest MethodAnalysis TimePerformed AtPathologist SignatureHep B S Ab< 3.5(A)mIU/mL12/14/2024 10:09 AM [facility] LABComment: <8.5 Negative Considered not be immune to infection with HBV 8.5<= Indeterminate Unable to determine immune status with HBV >=11.5 Positive Considered to be immune to infection with HBV Performed at [facility] [address] [place] [address] Specimen (Source)Anatomical Location / LateralityCollection Method / Volume Collection TimeReceived TimeBLOOD SPECIMEN / Malwgdj9912/14/2024 9:16 AM EDT 12/14/2024 9:29 AM EDT Narrative Authorizing ProviderResult TypeResult StatusTrish Kim DOIMMUNOLOGY ORDERABLESFinal ResultPerforming OrganizationAddressCity/State/ZIP CodePhone Number [facility] [address] [place] [address], [facility] [phone] [facility] [address] [place] [address], [facility] [phone] * Hepatitis B Surface Antigen (12/14/2024 9:16 AM EDT)ComponentValueRef Range Test MethodAnalysis TimePerformed AtPathologist SignatureHepatitis B Surface TpRvpdfeoouss58/28/2025 10:10 AM [facility] LABComment:Performed at [facility] [address] [place] [address] Specimen (Source)Anatomical Location / LateralityCollection Method / Volume Collection TimeReceived TimeBLOOD SPECIMEN / Uzkzdgc3112/14/2024 9:16 AM EDT 12/14/2024 9:29 AM EDT Narrative Authorizing ProviderResult TypeResult StatusBoonell Helena Hemmelgarn DOIMMUNOLOGY ORDERABLESFinal ResultPerforming OrganizationAddressCity/State/ZIP CodePhone Number [facility] [address] [place] [address], [facility] [phone] [facility] [address] [place] [address], [facility] [phone] * Culture, Urine (12/14/2024 3:00 AM EDT)ComponentValueRef RangeTest Method Analysis TimePerformed AtPathologist SignatureUrine Culture, RoutineNo growth- preliminary No growth BACTERIAL SUSCEPTIBILITY PANEL [facility] LABSpecimen (Source)Anatomical Location / LateralityCollection Method / VolumeCollection TimeReceived TimeUrineURINE SPECIMEN / Btareiy0012/14/2024 3:00 AM EDT12/14/2024 3:17 AM EDT [facility] - 12/16/2024 5:56 AM EDT Source: urine, clean catch Site: Current Antibiotics: not stated Authorizing ProviderResult TypeResult StatusStanislav GOLDENROBIOLOGY - GENERAL ORDERABLESFinal ResultPerforming OrganizationAddressty/State/ZIP Code Phone Number [facility] [address] [place] [address], [facility] [phone] * Culture, MRSA, Screening (12/14/2024 2:30 AM EDT)ComponentValueRef RangeTest MethodAnalysis TimePerformed AtPathologist SignatureMRSA SCREENNo MRSA isolated BACTERIAL SUSCEPTIBILITY PANEL [facility] LABSpecimen (Source)Anatomical Location / LateralityCollection Method / VolumeCollection TimeReceived TimeANTERIOR NARES SWAB / Yzqweti5412/14/2024 2:30 AM EDT12/14/2024 2:45 AM EDT [facility] - 12/15/2024 6:59 AM EDT Source: nares/nasal Site: Current Antibiotics: not stated Authorizing ProviderResult TypeResult StatusStanislav GOLDENROBT[facility] - GENERAL ORDERABLESFinal ResultPerforming OrganizationAddressCity/State/ZIP Code Phone Number [facility] [address] [place] [address], [facility] [phone] * (ABNORMAL) Urinalysis with Reflex to Culture (12/13/2024 10:08 AM EDT) ComponentValueRef RangeTest MethodAnalysis TimePerformed AtPathologist SignatureColor, AGGbkeldYzbxil97/27/2025 10:08 AM [facility] LABTurbidity BUVfwbpVxyya24/27/2025 10:08 AM [facility] LABGlucose, UrNEGATIVENEGATIVE mg/dL12/13/2024 10:08 AM [facility] LABBilirubin, VaeacHTUDZDRRKMQGLRTE17/27/2025 10:08 AM [facility] LABKetones, UrineNEGATIVENEGATIVE mg/dL 12/13/2024 10:08 AM [facility] LABSpecific Garrett, UA 1.0151.010 - 1.0787312/13/2024 10:08 AM [facility] LABUrine Hgb3+(A)JUCTQUVQ95/27/2025 10:08 AM [facility] LABpH, Urine5.55.0 - 9.009 10:08 AM [facility] LAB Protein, UA2+(A)NEGATIVE mg/dL12/13/2024 10:08 AM [facility] LABUrobilinogen, UrineNormal0.0 - 1.0 EU/dL12/13/2024 10:08 AM EDT [facility] LABNitrite, UwocmKETPIGDAFNYCZCEK84/27/2025 10:08 AM [facility] LABLeukocyte Esterase, UrineNEGATIVE FXLNDRYB90/27/2025 10:08 AM [facility] LABSpecimen (Source)Anatomical Location / LateralityCollection Method / VolumeCollection TimeReceived UztyPxaqq27/27/2025 10:08 AM EDT12/13/2024 10:31 AM EDT Narrative Authorizing ProviderResult TypeResult StatusJill E Hemmelgarn DOURINE ORDERABLES Final ResultPerforming OrganizationAddressCity/State/ZIP CodePhone Number [facility] [address] [place] [phone], [facility] [phone] * Electrolytes urine random (12/13/2024 10:08 AM EDT)ComponentValueRef RangeTest MethodAnalysis TimePerformed AtPathologist SignatureChloride, Tb46kvza/L 12/13/2024 10:08 AM [facility] LABComment:No normal range established.Potassium, Ur30.2mmol/L12/13/2024 10:08 AM [facility] LABComment:No normal range established.Sodium, Sh51zcuy/L12/13/2024 10:08 AM [facility] LABComment:No normal range established.Specimen (Source)Anatomical Location / LateralityCollection Method / VolumeCollection TimeReceived TimeUrineURINE SPECIMEN / Hfsxbqd8012/13/2024 10:08 AM EDT12/13/2024 10:31 AM EDT Narrative Authorizing ProviderResult TypeResult StatusJill E Hemmelgarn DOURINE ORDERABLES Final ResultPerforming OrganizationAddressCity/State/ZIP CodePhone Number [facility] [address] [phone] [phone] * (ABNORMAL) Microscopic Urinalysis (12/13/2024 10:08 AM EDT)ComponentValueRef RangeTest MethodAnalysis TimePerformed AtPathologist SignatureWBC, UA0 TO 20 - 5 /HPF12/13/2024 10:08 AM [facility] LABRBC, UA10 TO 200 - 2 /HPF12/13/2024 10:08 AM [facility] LABEpithelial Cells, UA0 TO 20 - 25 /HPF12/13/2024 10:08 AM [facility] LABBacteria, UA2+(A)None12/13/2024 10:08 AM [facility] LABAmorphous, UA1+(A)None12/13/2024 10:08 AM [facility] LABOther Observations UAQuantity not sufficient.(A)NOT REQ.12/13/2024 10:08 AM [facility] LABOther Observations UAMICROSCOPIC PERFORMED ON UNSPUN URINE(A)NOT REQ.12/13/2024 10:08 AM [facility] LABSpecimen (Source)Anatomical Location / LateralityCollection Method / VolumeCollection TimeReceived Time12/13/2024 10:08 AM EDT12/13/2024 10:31 AM EDT Narrative Authorizing ProviderResult TypeResult StatusTrish Kim DOURINE ORDERABLES Final ResultPerforming OrganizationAddressCity/State/ZIP CodePhone Number [facility] [address] [phone], [facility] [phone] * (ABNORMAL) Comprehensive Metabolic Panel w/ Reflex to MG (12/13/2024 5:35 AM EDT) Only the most recent of4 resultswithin the time period is included. ComponentValueRef RangeTest MethodAnalysis TimePerformed AtPathologist Signature Fivxyo111862 - 145 mmol/L12/13/2024 5:35 AM [facility] Potassium4.13.7 - 5.3 mmol/L12/13/2024 5:35 AM [facility] CRMHeqcsxoo98725 - 107 mmol/L12/13/2024 5:35 AM [facility] ZYOBD437(L)20 - 31 mmol/L12/13/2024 5:35 AM [facility] LAB Anion Gap17(H)9 - 16 mmol/L12/13/2024 5:35 AM [facility] CFGIoldplq837(H)74 - 99 mg/dL12/13/2024 5:35 AM [facility] ACCXAO44(H)8 - 23 mg/dL12/13/2024 5:35 AM [facility] Creatinine3.7(H)0.50 - 0.90 mg/dL12/13/2024 5:35 AM [facility] LABEst, Glom Filt Rate13(L)>60 mL/min/1.98v98212/13/2024 5:35 AM [facility] LABComment: ? These results are not intended for use in patients <18 years of age. ? eGFR results are calculated without a race factor using the 2020 CKD-EPI equation. Careful clinical correlation is recommended, particularly when comparing to results calculated using previous equations. The CKD-EPI equation is less accurate in patients with extremes of muscle mass, extra-renal metabolism of creatine, excessive creatine ingestion, or following therapy that affects renal tubular secretion. BUN/Creatinine Ratio22(H)9 - 5:35 AM [facility] LABCalcium8.1(L)8.6 - 10.4 mg/dL12/13/2024 5:35 AM [facility] LABTotal Protein5.4(L)6.6 - 8.7 g/dL12/13/2024 5:35 AM [facility] LABAlbumin3.0(L)3.5 - 5.2 g/dL12/13/2024 5:35 AM [facility] LABAlbumin/Globulin Ratio1.21.0 - 2. 5:35 AM [facility] LABTotal Bilirubin0.20.00 - 1.20 mg/dL12/13/2024 5:35 AM [facility] LABAlkaline Kntcbvrnsuc6573 - 104 U/L 12/13/2024 5:35 AM [facility] HVYJSJ3402 - 35 U/L12/13/2024 5:35 AM [facility] WYLCMV1617 - 35 U/L12/13/2024 5:35 AM [facility] LABSpecimen (Source)Anatomical Location / LateralityCollection Method / VolumeCollection TimeReceived TimeBLOOD SPECIMEN / Egtbxkg6212/13/2024 5:35 AM EDT12/13/2024 5:50 AM EDT Narrative Authorizing ProviderResult TypeResult StatusBettina Li I, DOCHEMISTRY ORDERABLESFinal ResultPerforming OrganizationAddressCity/State/ZIP CodePhone Number [facility] [address] [phone] * (ABNORMAL) Blood Gas, Venous (12/12/2024 4:05 PM EDT)ComponentValueRef Range Test MethodAnalysis TimePerformed AtPathologist SignaturepH, Ven7.250(L)7.32 - 7.4209 4:05 PM [facility] LABpCO2, Ven34.8(L)39 - 55 mm Hg12/12/2024 4:05 PM [facility] LABPO2, Ven93.1 (H)30.0 - 50.0 mm Hg12/12/2024 4:05 PM [facility] LAB HCO3, Jflifh29.9(L)24.0 - 30.0 mmol/L12/12/2024 4:05 PM [facility] LABNegative Base Excess, Ven11.3(H)0.0 - 2.0 mmol/L12/12/2024 4:05 PM [facility] LABO2 Sat, Ven96.0(H)60.0 - 85.0 % 12/12/2024 4:05 PM [facility] LABPt Temp37. 4:05 PM [facility] LABpH, Sebastian, Temp Adj7.250(L)7.320 - 7.1969112/12/2024 4:05 PM [facility] LABpCO2, Sebastian, Temp Adj 34.8(L)39.0 - 55.0 mmHg12/12/2024 4:05 PM [facility] LAB pO2, Sebastian, Temp Adj93.1(H)30.0 - 50.0 mmHg12/12/2024 4:05 PM [facility] LABO2 Device/Flow/%ROOM AIR12/12/2024 4:05 PM [facility] LABAllen TestNOT CITIALMKPN13/26/2025 4:05 PM [facility] NGZTBI81117/26/2025 4:05 PM [facility] LABText for RespiratoryCalled to RN on 12/12/2024 at 16:0812/12/2024 4:05 PM [facility] LABSpecimen (Source)Anatomical Location / LateralityCollection Method / VolumeCollection TimeReceived Time12/12/2024 4:05 PM EDT12/12/2024 4:08 PM EDT Narrative Authorizing ProviderResult TypeResult StatusStefan Iacob MDCHEMISTRY ORDERABLES Final ResultPerforming OrganizationAddressCity/State/ZIP CodePhone Number [facility] [address] [place] [address], [facility] [phone] * XR ABDOMEN FOR NG/OG/NE TUBE PLACEMENT (12/11/2024 9:36 PM EDT)Anatomical RegionLateralityModalityAbdomen, ChestComputed RadiographySpecimen (Source) Anatomical Location / LateralityCollection Method / VolumeCollection Time Received Time12/11/2024 10:51 PM EDT Impressions 12/11/2024 10:51 PM EDT The tip and side port of the enteric tube are in the gastric body. Narrative 12/11/2024 10:51 PM EDT EXAMINATION: ONE SUPINE XRAY VIEW(S) OF THE ABDOMEN 12/11/2024 9:36 pm COMPARISON: KUB 12/11/2024. HISTORY: ORDERING SYSTEM PROVIDED HISTORY: NG PLACEMENT, PATIENT IN RECOVERY TECHNOLOGIST PROVIDED HISTORY: NG PLACEMENT, PATIENT IN RECOVERY Portable?->Yes FINDINGS: The tip and side port of the enteric tube are in the gastric body. ??Status post cholecystectomy. ??Interval laparotomy. ??Mild bibasilar atelectasis. ??No acute osseous abnormality identified. Procedure Note Brody Membreno MD - 12/11/2024 EXAMINATION: ONE SUPINE XRAY VIEW(S) OF THE ABDOMEN 12/11/2024 9:36 pm COMPARISON: KUB 12/11/2024. HISTORY: ORDERING SYSTEM PROVIDED HISTORY: NG PLACEMENT, PATIENT IN RECOVERY TECHNOLOGIST PROVIDED HISTORY: NG PLACEMENT, PATIENT IN RECOVERY Portable?->Yes FINDINGS: The tip and side port of the enteric tube are in the gastric body.Status post cholecystectomy. Interval laparotomy. Mild bibasilar atelectasis.No acute osseous abnormality identified. IMPRESSION: The tip and side port of the enteric tube are in the gastric body. Authorizing ProviderResult TypeResult StatusBettdania Jefferson I [facility] DIAGNOSTIC IMAGING ORDERABLESFinal Result * SURGICAL PATHOLOGY REPORT (12/11/2024 12:00 AM EDT)ComponentValueRef RangeTest MethodAnalysis TimePerformed AtPathologist SignatureSurgical Pathology Report Path Number: [id number] -- Diagnosis -- Left colon-partial transverse colon, resection: - Benign colon with ischemic colitis with ulceration and transmural acute inflammation with acute serositis. - The resection margins are viable. - Melanosis coli. - Tubular adenoma. - Separate hyperplastic polyp. - Sixteen (16) benign lymph nodes. - Benign omentum with patchy mild acute inflammation. Javon Ferris M.D. Electronically Signed Out ? pan12/16/2024 Clinical Information Pre-Op Diagnosis: ??ACUTE ABDOMINAL PAIN Operative Findings: ??LEFT COLON ??PARTIAL TRANSVERSE COLON Operation Performed: ??LAPAROTOMY EXPLORATORY mj Source of Specimen A: LEFT COLON - PARTIAL TRANSVERSE COLON Gross Description MARIA ELENA GARNER, LEFT COLON ??PARTIAL TRANSVERSE COLON Received in formalin is an unoriented segment of partial transverse colon and left colon (55.0 cm in length x 3.6 to 5.8 cm in diameter). ??The serosa is sharif-pink and smooth with scant adherent pericolonic fat and moderate omentum. ??No perforations or tears are identified. ??The presumed mesenteric margin is inked black. ??The specimen is opened to reveal markedly granular mucosa with slight luminal stricturing at the distal colon. ??Approximately 50% of the specimen is lined by red-sharif, granular probable exudate and granularity measuring up to 25.6 cm in length. ??This mucosa clears the presumed distal margin by 8.0 cm and the proximal margin by > 10.0 cm. The proximal and distal margins are grossly viable. ??The remainder of the colon is lined by sharif, folded to flattened mucosa. ??The mid colon shows a 0.8 cm mucosal polyp that clears all margins by > 5.0 cm. This polyp is superficially attached and does not grossly extend into the underlying muscularis. ??The wall is fibrotic at the regions of mucosal irregularity with a wall thickness up to 0.9 cm. ??Sectioning of the omentum reveals yellow-red, lobulated mucosa with no masses or lesions identified. ??Upon palpation and dissection, of the attached fat, multiple lymph nodes are identified ranging from 0.2 to 0.6 cm. ??Hospice Superintendent sections are submitted in 13c as follows: ?? 1-2 presumed proximal margin 3 presumed distal margin 4 b2b sales representative proximal 25.0 cm of colon 5 mid colon mucosal polyp 6-9 b2b sales representative remainder of colon with irregular mucosa and distal normal appearing mucosa 10 0.2 cm mucosal polyp 11 b2b sales representative omentum 12 nine lymph nodes, whole and intact 13 eight lymph nodes, whole and intact. ??tm ?? Danika Ramirez/mj:12/12/2024 Microscopic Description Microscopic examination performed. ?? Processing Lab: ??[facility] [address] [place] [phone] Interpretation Performed at [facility] [address] [place] [address] SURGICAL PATHOLOGY CONSULTATION Patient Name: MARIA ELENA GARNER [facility] Rec: [id number] [facility] ??[facility] ANATOMIC PATHOLOGY [address] [place] [address]. ??[place], [place] [address] [facility] LABSSpecimen (Source)Anatomical Location / LateralityCollection Method / VolumeCollection TimeReceived Time 7:45 AM EDT Narrative Authorizing ProviderResult TypeResult StatusBettdania Jefferson I, DO PATHOLOGY/CYTOLOGY ORDERABLESFinal ResultPerforming OrganizationAddress City/State/ZIP CodePhone Number [facility] [address] [id number] [phone] [facility] * (ABNORMAL) Basic Metabolic Panel w/ Reflex to MG (12/10/2024 10:13 PM EDT) ComponentValueRef RangeTest MethodAnalysis TimePerformed AtPathologist QlikeiyguRktadf603487 - 145 mmol/L12/10/2024 10:13 PM [facility] LABPotassium4.63.7 - 5.3 mmol/L12/10/2024 10:13 PM [facility] XXTYzvbbtka09047 - 107 mmol/L12/10/2024 10:13 PM [facility] AERRF239(L)20 - 31 mmol/L12/10/2024 10:13 PM [facility] LABAnion Cre683 - 16 mmol/L12/10/2024 10:13 PM [facility] IZLYildval9870 - 99 mg/dL12/10/2024 10:13 PM [facility] OLKKGR78(H)8 - 23 mg/dL12/10/2024 10:13 PM [facility] LABCreatinine3.0(H)0.50 - 0.90 mg/dL12/10/2024 10:13 PM [facility] LABEst, Glom Filt Rate17(L)>60 mL/min/1.73m2 12/10/2024 10:13 PM [facility] LABComment: ? These results are not intended for use in patients <18 years of age. ? eGFR results are calculated without a race factor using the 2020 CKD-EPI equation. Careful clinical correlation is recommended, particularly when comparing to results calculated using previous equations. The CKD-EPI equation is less accurate in patients with extremes of muscle mass, extra-renal metabolism of creatine, excessive creatine ingestion, or following therapy that affects renal tubular secretion. BUN/Creatinine Ratio26(H) - 10:13 PM [facility] LABCalcium8.68.6 - 10.4 mg/dL12/10/2024 10:13 PM [facility] LABSpecimen (Source)Anatomical Location / LateralityCollection Method / VolumeCollection TimeReceived TimeBloodBLOOD SPECIMEN / Fcwxiog3012/10/2024 10:13 PM EDT12/10/2024 10:18 PM EDT Narrative Authorizing ProviderResult TypeResult StatusMenely Felix MARKETING MANAGER HEALTH COMMUNICATIONS - CNPCHEMISTRY ORDERABLESFinal ResultPerforming OrganizationAddressCity/State/ZIP CodePhone Number [facility] [address] [place] [address], [facility] [phone] * XR ABDOMEN (2 VIEWS) (12/10/2024 9:24 AM EDT)Anatomical RegionLaterality ModalityAbdomenComputed RadiographySpecimen (Source)Anatomical Location / LateralityCollection Method / VolumeCollection TimeReceived Time12/10/2024 11:16 AM EDT Impressions 12/10/2024 11:18 AM EDT Dilated air-filled colon of uncertain etiology. A degree of obstruction cannot be excluded. Narrative 12/10/2024 11:18 AM EDT EXAMINATION: TWO XRAY VIEWS OF THE ABDOMEN 12/10/2024 8:47 am COMPARISON: Abdominal radiographs performed 12/08/2024. HISTORY: ORDERING SYSTEM PROVIDED HISTORY: abdominal pain TECHNOLOGIST PROVIDED HISTORY: abdominal pain FINDINGS: There is a dilated air-filled colon. ??There is no free air. ??There are no suspicious calcifications. ??There is no acute osseous abnormality. ??The surrounding soft tissues are unremarkable. Procedure Note Nirav Mehta MD - 12/10/2024 EXAMINATION: TWO XRAY VIEWS OF THE ABDOMEN 12/10/2024 8:47 am COMPARISON: Abdominal radiographs performed 12/08/2024. HISTORY: ORDERING SYSTEM PROVIDED HISTORY: abdominal pain TECHNOLOGIST PROVIDED HISTORY: abdominal pain FINDINGS: There is a dilated air-filled colon. There is no free air. There areno suspicious calcifications. There is no acute osseous abnormality. The surrounding soft tissues are unremarkable. IMPRESSION: Dilated air-filled colon of uncertain etiology. A degree of obstruction cannot be excluded. Authorizing ProviderResult TypeResult StatusZachary D [facility] DIAGNOSTIC [facility]AGING ORDERABLESFinal Result * (ABNORMAL) ECHO (TTE) COMPLETE (12/01/2024 10:30 AM EDT)ComponentValueRef RangeTest MethodAnalysis TimePerformed AtPathologist SignatureLV EDV E1R77sN [facility] CV CPACSLV EDV [id number] CV CPACSLV ESV H0T28hTDDYW CV CPACSLV ESV A4C 30mLBSMH CV CPACSIVSd1.2(A)0.6 - 0.9 cmBSMH CV CPACSLVIDd4.63.9 - 5.3 cmBSMH CV CPACSLVIDs2.7cmBSMH CV CPACSLVOT Mean Hcozlxcn1qqVmZXTL CV CPACSLVOT VTI 24.5cmBSMH CV CPACSLVOT Peak Velocity1.0m/sBSMH CV CPACSLVOT Peak Gradient4 mmHgBSMH CV CPACSLVPWd1.2(A)0.6 - 0.9 cmBSMH CV CPACSLV E' Lateral Velocity 7.62cm/sBSMH CV CPACSLV E' Septal Velocity5.33cm/sBSMH CV CPACSLV Ejection Fraction A2C70%[facility] CV CPACSLV Ejection Fraction A4C71%[facility] CV CPACSEF SM7108 - 100 %[facility] CV CPACSLA Minor Axis5.1cmBSMH CV CPACSLA Major Axis5.8cmBSMH CV CPACSLA Area 2C19.6zs9VTPF CV CPACSLA Area 4C21.2ps1VBRH CV CPACSLA Volume MOD A2C63(A)22 - 52 mLBSMH CV CPACSLA Volume MOD A4C62(A)22 - 52 mLBSMH CV CPACS LA Volume BP66(A)22 - 52 mLBSMH CV CPACSAV Cusp Mmode1.7cmBSMH CV CPACSAV Mean Bmcrqytp7wsMoCNQD CV CPACSAV VTI30.7cmBSMH CV CPACSAV Mean Velocity0.9m/sBSMH CV CPACSAV Peak Velocity1.4m/sBSMH CV CPACSAV Peak Rgzkerpu3heTyVUKG CV CPACS Aortic Root1.8cmBSMH CV CPACSSinotubular Junction2.1cmBSMH CV CPACSAortic Sinus Valsalva2.9cmBSMH CV CPACSMV E Wave Deceleration Ajbq581.0msBSMH CV CPACSMV A Velocity1.04m/sBSMH CV CPACSMV E Velocity0.95m/sBSMH CV CPACSPR Max Velocity0.8m/sBSMH CV CPACSPulmonary Artery UPW4spTlHICN CV CPACSPV Max Velocity1.1m/sBSMH CV CPACSPV Peak Pallkfed5ffZgYXPF CV CPACSTAPSE2.3>=1.7 cm [facility] CV CPACSTR Max Velocity2.74m/sBSMH CV CPACSTR Peak Gjxxgyse91ioPqZJKZ CV CPACSBody Surface Area1.6v1KHHF CV CPACSFractional Shortening 0P2288 - 44 % [facility] CV CPACSLV ESV Index I6O07dO/m2BSMH CV CPACSLV EDV Index A2G85hP/m2BS[facility] CV CPACSLV ESV Index I8Q75mN/m2[facility] CV CPACSLV EDV Index R3X42zB/m2[facility] CV CPACSLVIDd Index3.41cm/m2[facility] CV CPACSLVIDs Index2.00cm/m2[facility] CV CPACSLV RWT Ratio0.52BS[facility] CV CPACSLV Mass 2D205.0(A)67 - 162 gBSMH CV CPACSLV Mass 2D Xyqii475.8(A)43 - 95 g/m2[facility] CV CPACSMV E/A0.91[facility] CV CPACSE/E' Ratio (Averaged)15.15[facility] CV CPACSE/E' Lyfjgly34.47[facility] CV CPACSE/E' Hkobgc86.82BS[facility] CV CPACSLA Volume Index BP49(A)16 - 34 ml/m2BS[facility] CV CPACSLA Volume Index MOD A2C47(A)16 - 34 ml/m2[facility] CV CPACSLA Volume Index MOD A4C46(A)16 - 34 ml/m2 [facility] CV CPACSAo Root Index1.33cm/m2[facility] CV CPACSAortic Sinus Valsalva Index 2.15cm/m2[facility] CV CPACSAV Velocity Ratio0.71[facility] CV CPACSLVOT:AV VTI Index0.80 [facility] CV CPACSEst. RA Cdwcwoke1umXiENWL CV WWPMTLGAN88unFuZKBA CV CPACSEF Mbfneclaj20%[facility] CV CPACSAnatomical RegionLateralityModalityEchocardiography Specimen (Source)Anatomical Location / LateralityCollection Method / Volume Collection TimeReceived Time Narrative 12/01/2024 12:05 PM EDT Left Ventricle: Normal left ventricular systolic function with a visually estimated EF of 65 - 70%. Left ventricle size is normal. Mildly increased wall thickness. Normal wall motion. Grade II diastolic dysfunction with increased LAP. ?Right??Ventricle: Right ventricle size is normal. Normal systolic function. ?Mitral??Valve: Mild regurgitation. ?Tricuspid??Valve: Mild regurgitation. ??RVSP is 33 mmHg. ?Left??Atrium: Left atrium is severely dilated. Left atrial volume index is severely increased (>48 mL/m2) mL/m2. ?Aorta: Normal sized aortic root. ?Pericardium: Moderate (1-2 cm) pericardial effusion present. No indication of cardiac tamponade. Patient has chronic moderate pericardial effusion without echocardiographic evidence of tamponade physiology. Please consider further work up as clinically indicated. Left Ventricle Normal left ventricular systolic function with a visually estimated EF of 65 - 70%. Left ventricle size is normal. Mildly increased wall thickness. Normal wall motion. Grade II diastolic dysfunction with increased LAP. Right Ventricle Right ventricle size is normal. Normal systolic function. Left Atrium Left atrium is severely dilated. Left atrial volume index is severely increased (>48 mL/m2) mL/m2. Right Atrium Right atrium size is normal. IVC/SVC IVC diameter is normal or and decreases greater than 50% during inspiration; therefore the estimated right atrial pressure is normal (~3 mmHg). IVC size is normal. Mitral Valve Valve structure is normal. Mild regurgitation. No stenosis noted. Tricuspid Valve Valve structure is normal. Mild regurgitation. RVSP is 33 mmHg. No stenosis noted. Aortic Valve Valve structure is normal. No regurgitation. No stenosis. Pulmonic Valve The pulmonic valve visualization is suboptimal but appears to be functioning normally. Physiologically normal regurgitation. No stenosis noted. Ascending Aorta Normal sized aortic root. Pericardium Moderate (1-2 cm) pericardial effusion present. No indication of cardiac tamponade. Study Details Image quality: adequate. No contrast was given. Authorizing ProviderResult TypeResult StatusAmparo Carver MARKETING MANAGER HEALTH COMMUNICATIONS - CNPCV ECHO ORDERABLESFinal Result * EXTENDED CARDIAC HOLTER MONITOR 3D-7D (OFFICE HOOKUP & IN-HOUSE ANALYSIS) (12/01/2024 9:44 AM EDT)ComponentValueRef RangeTest MethodAnalysis Time Performed AtPathologist SignatureBody Surface Area1.1j4JXKZ CV NOWHERE Anatomical RegionLateralityModalityCardiac DiagnosticSpecimen (Source) Anatomical Location / LateralityCollection Method / VolumeCollection Time Received Time Narrative 12/09/2024 11:50 AM EDT 7 days recorded Baseline rhythm is sinus with an average heart rate of 66 bpm, ranging between 52 and 92 bpm. No significant bradycardia, severe bradycardia or pauses. Rare isolated PACs and PVCs noted with occasional short runs of ectopic atrial tachycardia, the longest being 11 beats with an average heart rate of 128 bpm. Authorizing ProviderResult TypeResult StatusBrfransisco Carver MARKETING MANAGER HEALTH COMMUNICATIONS - CNPCV CARDIAC DIAGNOSTIC ORDERABLESFinal Result * XR CHEST (2 VW) (11/24/2024 12:45 PM EDT)Anatomical RegionLateralityModality ChestComputed RadiographySpecimen (Source)Anatomical Location / Laterality Collection Method / VolumeCollection TimeReceived AiaiXrcdf86/10/2025 8:46 PM EDT Impressions 11/26/2024 8:48 PM EDT Trace left-sided pleural effusion. Narrative 11/26/2024 8:48 PM EDT EXAMINATION: TWO XRAY VIEWS OF THE CHEST 11/24/2024 12:45 pm COMPARISON: September 15, 2024 HISTORY: ORDERING SYSTEM PROVIDED HISTORY: Palpitations FINDINGS: Stable cardiomediastinal silhouette. ??Chronic interstitial changes are noted. Trace left-sided pleural effusion is noted. ??There is no focal consolidation or pneumothorax. ??The osseous structures are stable. Procedure Note Kasey Pederson MD - 11/26/2024 EXAMINATION: TWO XRAY VIEWS OF THE CHEST 11/24/2024 12:45 pm COMPARISON: September 15, 2024 HISTORY: ORDERING SYSTEM PROVIDED HISTORY: Palpitations FINDINGS: Stable cardiomediastinal silhouette. Chronic interstitial changes arenoted. Trace left-sided pleural effusion is noted. There is no focalconsolidation or pneumothorax. The osseous structures are stable. IMPRESSION: Trace left-sided pleural effusion. Authorizing ProviderResult TypeResult StatusAmparo Carver MARKETING MANAGER HEALTH COMMUNICATIONS - CNPIMG DIAGNOSTIC IMAGING ORDERABLESFinal Result * (ABNORMAL) Brain Natriuretic Peptide (11/24/2024 12:26 PM EDT)ComponentValue Ref RangeTest MethodAnalysis TimePerformed AtPathologist SignatureNT Pro-BNP 5,627(H)0 - 125 pg/mL11/24/2024 12:26 PM [facility] Specimen (Source)Anatomical Location / LateralityCollection Method / Volume Collection TimeReceived TimeBloodBLOOD SPECIMEN / Zitekeq0811/24/2024 12:26 PM EDT11/24/2024 12:27 PM EDT Narrative Authorizing ProviderResult TypeResult StatusAmparo Carver MARKETING MANAGER HEALTH COMMUNICATIONS - DAMAGE ASSESSOR CHEMISTRY ORDERABLESFinal ResultPerforming OrganizationAddressCity/State/ZIP CodePhone Number [facility] [address] [place] [address], [facility] [phone] * CT CHEST ABDOMEN PELVIS W CONTRAST Additional Contrast? None (09/17/2024 8:15 AM EDT)Anatomical RegionLateralityModalityChest, Abdomen, Pelvis, HipComputed TomographySpecimen (Source)Anatomical Location / LateralityCollection Method / VolumeCollection TimeReceived Time09/17/2024 9:25 AM EDT Impressions 09/17/2024 9:41 AM EDT 1. No acute abnormality in the chest, abdomen, or pelvis. 2. Small pericardial effusion. 3. Large colonic stool and gas burden. Narrative 09/17/2024 9:41 AM EDT EXAMINATION: CT OF THE CHEST, ABDOMEN, AND PELVIS WITH CONTRAST 09/17/2024 8:15 am TECHNIQUE: CT of the chest, abdomen and pelvis was performed with the administration of intravenous contrast. Multiplanar reformatted images are provided for review. Automated exposure control, iterative reconstruction, and/or weight based adjustment of the mA/kV was utilized to reduce the radiation dose to as low as reasonably achievable. COMPARISON: CT chest 08/14/2021 HISTORY: ORDERING SYSTEM PROVIDED HISTORY: weight loss TECHNOLOGIST PROVIDED HISTORY: weight loss FINDINGS: Chest: Mediastinum: Mildly enlarged heart size. ??Small pericardial effusion. Mild coronary calcifications.No enlarged supraclavicular, axillary, mediastinal, or hilar lymph nodes. ??No aortic aneurysm. Lungs/pleura: Bibasilar atelectasis. ??No suspicious pulmonary nodule. ??No focal consolidation. ??No pleural effusion or pneumothorax. ??Central airways are patent. Soft Tissues/Bones: No acute fracture. ??No focal osteoblastic or osteolytic lesion. Abdomen/Pelvis: Organs: Tiny sub 5 mm hepatic hypodensities, too small to characterize. Status post cholecystectomy. ??Normal spleen. Normal adrenal glands. No pancreatic mass or ductal dilatation. ??The kidneys enhance symmetrically without evidence of hydronephrosis. ??Left cortical renal cysts, for which no additional follow-up is recommended. ??Left nonobstructing renal stone. GI/Bowel: No bowel wall thickening, dilatation or obstruction. ??Large colonic stool and gas burden. ??The appendix is not visualized. ??However, there are no secondary signs of acute appendicitis. Pelvis: No bladder wall thickening or stones. Peritoneum/Retroperitoneum: No evidence of ascites or free air. No evidence of retroperitoneal lymphadenopathy. ??Severe atherosclerosis of the aorta and its branches. No aneurysm. Bones/Soft Tissues: No acute fracture. ??No focal osteoblastic or osteolytic lesion. ??Multilevel degenerative changes of the spine with levoscoliosis centered at L3. Procedure Note Samia Pressley MD - 09/17/2024 EXAMINATION: CT OF THE CHEST, ABDOMEN, AND PELVIS WITH CONTRAST 09/17/2024 8:15 am TECHNIQUE: CT of the chest, abdomen and pelvis was performed with the administrationof intravenous contrast. Multiplanar reformatted images are provided forreview. Automated exposure control, iterative reconstruction, and/or weightbased adjustment of the mA/kV was utilized to reduce the radiation dose to aslow as reasonably achievable. COMPARISON: CT chest 08/14/2021 HISTORY: ORDERING SYSTEM PROVIDED HISTORY: weight loss TECHNOLOGIST PROVIDED HISTORY: weight loss FINDINGS: Chest: Mediastinum: Mildly enlarged heart size. Small pericardial effusion.Mild coronary calcifications.No enlarged supraclavicular, axillary,mediastinal, or hilar lymph nodes. No aortic aneurysm. Lungs/pleura: Bibasilar atelectasis. No suspicious pulmonary nodule.No focal consolidation. No pleural effusion or pneumothorax. Centralairways are patent. Soft Tissues/Bones: No acute fracture. No focal osteoblastic orosteolytic lesion. Abdomen/Pelvis: Organs: Tiny sub 5 mm hepatic hypodensities, too small to characterize. Status post cholecystectomy. Normal spleen. Normal adrenal glands. No pancreatic mass or ductal dilatation. The kidneys enhance symmetrically without evidence of hydronephrosis. Left cortical renal cysts, for whichno additional follow-up is recommended. Left nonobstructing renal stone. GI/Bowel: No bowel wall thickening, dilatation or obstruction. Largecolonic stool and gas burden. The appendix is not visualized. However, there areno secondary signs of acute appendicitis. Pelvis: No bladder wall thickening or stones. Peritoneum/Retroperitoneum: No evidence of ascites or free air. Noevidence of retroperitoneal lymphadenopathy. Severe atherosclerosis of the aortaand its branches. No aneurysm. Bones/Soft Tissues: No acute fracture. No focal osteoblastic orosteolytic lesion. Multilevel degenerative changes of the spine with levoscoliosis centered at L3. IMPRESSION: 1. No acute abnormality in the chest, abdomen, or pelvis. 2. Small pericardial effusion. 3. Large colonic stool and gas burden. Authorizing ProviderResult TypeResult StatusMarcia Golden MARKETING MANAGER HEALTH COMMUNICATIONS - DAMAGE ASSESSOR IMG CT ORDERABLESFinal Result * Hemoglobin A1c (08/15/2021 6:30 AM EDT)ComponentValueRef RangeTest Method Analysis TimePerformed AtPathologist SignatureHemoglobin A1C5.74.0 - 6.0 % 08/15/2021 6:30 AM EDTMERCY LABORATORIESEstimated Avg Htvyyte567ob/dL 08/15/2021 6:30 AM EDTMERCY LABORATORIESComment: The ADA and AACC recommend providing the estimated average glucose result to permit better patient understanding of their HBA1c result. Specimen (Source)Anatomical Location / LateralityCollection Method / Volume Collection TimeReceived TimeBLOOD SPECIMEN / Bjudtox1508/15/2021 6:30 AM EDT 08/15/2021 6:54 AM EDT Narrative Authorizing ProviderResult TypeResult StatusStefan Iacob MDCHEMISTRY ORDERABLES Final ResultPerforming OrganizationAddressCity/State/ZIP CodePhone Number [facility] [address] [place] [address], [facility] [phone] [facility] [address] [place] [address], [facility] [phone] * Lipid panel - fasting (08/15/2021 6:30 AM EDT)ComponentValueRef RangeTest MethodAnalysis TimePerformed AtPathologist WaqnlgtssNsiuhrxcsmn812<200 mg/dL 08/15/2021 6:30 AM EDTMERCY LABORATORIESComment: Cholesterol Guidelines: <200 Desirable 200-240 ??Borderline >240 Undesirable HDL84>40 mg/dL08/15/2021 6:30 AM EDTMERCY LABORATORIESComment: HDL Guidelines: <40 Undesirable 40-59 ?Borderline >59 Desirable LDL Emdybppryll310 - 130 mg/dL08/15/2021 6:30 AM EDTMERCY LABORATORIESComment: LDL Guidelines: <100 Desirable 100-129 ?? Near to/above Desirable 130-159 ?? Borderline >159 Undesirable Direct (measured) LDL and calculated LDL are not interchangeable tests. Chol/HDL Ratio2.1< 6:30 AM EDTMERCY LABORATORIESComment:Triglycerides 67<150 mg/dL08/15/2021 6:30 AM EDTMERCY LABORATORIESComment: Triglyceride Guidelines: <150 Desirable 150-199 ??Borderline 200-499 ??High >499 Very high Based on AHA Guidelines for fasting triglyceride, December 2011. Specimen (Source)Anatomical Location / LateralityCollection Method / Volume Collection TimeReceived TimeBLOOD SPECIMEN / Wncxnbd2608/15/2021 6:30 AM EDT 08/15/2021 6:54 AM EDT Narrative Authorizing ProviderResult TypeResult StatusStefan Iacob MDCHEMISTRY ORDERABLES Final ResultPerforming OrganizationAddressCity/State/ZIP CodePhone Number [facility] [address] [place] [address], [facility] [phone] [facility] [address] [place] [address], [facility] [phone] * [facility] DIGITAL DIAGNOSTIC AUGMENTED BILATERAL (02/20/2020 2:05 PM EST) Anatomical RegionLateralityModalityBilateralMammographySpecimen (Source) Anatomical Location / LateralityCollection Method / VolumeCollection Time Received Time02/20/2020 2:07 PM EST Impressions 02/20/2020 2:50 PM EST Extracapsular rupture of both implants, most notable on the right where there are multiple enlarged axillary lymph nodes containing silicone. ??Recommend MRI without and with contrast using implant protocol to further evaluate these findings and to evaluate the breast parenchyma which is not well visualized due to the implants. BIRADS: BIRADS - CATEGORY 0 MRI is recommended for further evaluation. OVERALL ASSESSMENT - INCOMPLETE: ??NEED ADDITIONAL IMAGING EVALUATION. Findings were discussed with the patient at the time of the examination. Narrative 02/20/2020 2:50 PM EST EXAMINATION: DIAGNOSTIC DIGITAL BILATERAL MAMMOGRAM WITH TOMOSYNTHESIS; TARGETED ULTRASOUND OF BOTH BREASTS 02/20/2020 TECHNIQUE: Diagnostic mammography of the bilateral breasts was performed with tomosynthesis. ??2D standard and 3D tomosynthesis combination imaging performed through both breasts. ??Computer aided detection was utilized in the interpretation of this exam. Targeted ultrasound of both breasts was performed. VIEWS: Standard and implant displaced CC and MLO views bilaterally COMPARISON: 07/25/2018 HISTORY: Palpable lumps along the bilateral implants. FINDINGS: Mammogram: Bilateral retropectoral silicone implants are visualized. ??Limited visualization of breast tissue due to the implants but no suspicious mass, calcifications, or other abnormality seen. Ultrasound: Left breast: Targeted ultrasound was performed at 10:00 to 2:00. ??Several areas of extracapsular rupture visualized with a snowstorm sign. ??Mild fluid or dilated ducts noted. ??No enlarged axillary lymph nodes. Right breast: ??Corresponding to the palpable area in the axilla, there is a large snowstorm sign consistent with extracapsular silicone. ??Multiple enlarged axillary lymph nodes likely contain silicone. Procedure Note Ryan Armstrong MD - 02/20/2020 EXAMINATION: DIAGNOSTIC DIGITAL BILATERAL MAMMOGRAM WITH TOMOSYNTHESIS; TARGETED ULTRASOUND OF BOTH BREASTS 02/20/2020 TECHNIQUE: Diagnostic mammography of the bilateral breasts was performed with tomosynthesis. 2D standard and 3D tomosynthesis combination imaging performed through both breasts. Computer aided detection was utilized inthe interpretation of this exam. Targeted ultrasound of both breasts was performed. VIEWS: Standard and implant displaced CC and MLO views bilaterally COMPARISON: 07/25/2018 HISTORY: Palpable lumps along the bilateral implants. FINDINGS: Mammogram: Bilateral retropectoral silicone implants are visualized. Limited visualization of breast tissue due to the implants but no suspiciousmass, calcifications, or other abnormality seen. Ultrasound: Left breast: Targeted ultrasound was performed at 10:00 to 2:00.Several areas of extracapsular rupture visualized with a snowstorm sign. Mild fluid or dilated ducts noted. No enlarged axillary lymph nodes. Right breast: Corresponding to the palpable area in the axilla, there stewart large snowstorm sign consistent with extracapsular silicone. Multiple enlarged axillary lymph nodes likely contain silicone. IMPRESSION: Extracapsular rupture of both implants, most notable on the right wherethere are multiple enlarged axillary lymph nodes containing silicone.Recommend MRI without and with contrast using implant protocol to further evaluate these findings and to evaluate the breast parenchyma which is not well visualized due to the implants. BIRADS: BIRADS - CATEGORY 0 MRI is recommended for further evaluation. OVERALL ASSESSMENT - INCOMPLETE: NEED ADDITIONAL IMAGING EVALUATION. Findings were discussed with the patient at the time of the examination. Authorizing ProviderResult TypeResult StatusShelly Mir MDIMG MAMMOGRAPHY ORDERABLESFinal Result * (ABNORMAL) POCT Fecal Immunochemical Test (FIT) (07/19/2018 8:00 AM EDT) ComponentValueRef RangeTest MethodAnalysis TimePerformed AtPathologist SignatureOccult Blood FecalPOSITIVEControlpresentSpecimen (Source)Anatomical Location / LateralityCollection Method / VolumeCollection TimeReceived Time STOOL SPECIMEN / Bbpegaa6307/19/2018 8:00 AM EDT Narrative Authorizing ProviderResult TypeResult StatusGhanshyam Granger Dealuana MARKETING MANAGER HEALTH COMMUNICATIONS - CNPSURRY OF CARE TEST ORDERABLESFinal Result * Hepatitis Panel, Acute (12/02/2014 4:58 PM EDT)ComponentValueRef RangeTest MethodAnalysis TimePerformed AtPathologist SignatureHepatitis B Surface Ag KVILFQGFMCEWN69/16/2015 9:56 PM EDTMHPN LABHepatitis C AbNONREACTIVENR 12/02/2014 9:56 PM EDTMHPN LABComment: ? The hepatitis C procedure used in our laboratory is a Chemiluminescent test specific for three recombinant HCV antigens. ??A negative anti-HCV result indicates that the antibodies to hepatitis C virus are not present at this time. Individuals with reactive anti-HCV should be considered infected and infectious until proven otherwise. ??Confirmation of all equivocal or reactive results is recommended by ordering HCV RNA by PCR. Hep B Core Ab, KdFTPUPTAKWTFKEH39/16/2015 9:56 PM EDTMHPN LABHep A IgM FUHBGRNMSAORB54/16/2015 9:56 PM EDTMHPN LABComment:Performed at [address] [address] ([phone] (Source) Anatomical Location / LateralityCollection Method / VolumeCollection Time Received Time12/02/2014 4:58 PM EDT12/02/2014 4:59 PM EDT Narrative Authorizing ProviderResult TypeResult Ginny King MDIMMUNOLOGY ORDERABLESFinal ResultPerforming OrganizationAddressCity/State/ZIP CodePhone Number [facility] [address] [place] [address], [facility] [phone] [facility] * [address] [employer] Cytology (07/16/2013 9:06 AM EDT)ComponentValueRef RangeTest Method Analysis TimePerformed AtPathologist SignatureCytology Report(NOTE) [id number] [facility] ??LABORATORIES CONSULTING PATHOLOGISTS [facility] ANATOMIC PATHOLOGY [address] [place] [address]. ??[place], [place] [address] GYNECOLOGIC CYTOLOGY REPORT Patient Name: MARIA ELENA GARNER MR#: [id number] Specimen #[id number] Final Diagnosis VAGINAL MATERIAL, (THIN PREP VIAL): Specimen Adequacy: ?Satisfactory for evaluation. Descriptive Diagnosis: ?Negative for intraepithelial lesion or malignancy. TIFFANI Pollack(ASCP) Electronically Signed Out 07/25/2013 Source: 1: VAGINAL MATERIAL, (THIN PREP VIAL)07/25/2013 12:00 AM [facility] LABSpecimen (Source)Anatomical Location / LateralityCollection Method / VolumeCollection TimeReceived Time07/16/2013 9:06 AM EDT07/17/2013 9:06 AM EDT Narrative Authorizing ProviderResult TypeResult StatusNoel Thalia Richards MARKETING MANAGER HEALTH COMMUNICATIONS - DAMAGE ASSESSOR PATHOLOGY/CYTOLOGY ORDERABLESFinal ResultPerforming OrganizationAddress City/State/ZIP CodePhone Number [facility] [address] [phone] from Last 3 Months or Most Recently Relevant to Health Maintenance Insurance * Guarantor: Maria Elena Garnercount TypeRelation to PatientDate of BirthPhone Billing AddressPersonal/CertqaNlmm33/17/1961 [address] [phone] * Guarantor: Maria Elena Garner TypeRelation to PatientDate of BirthPhone Billing AddressPersonal/ZfwvihUvyp30/17/1961 [address] [phone] * Guarantor: Maria Elena Garnercount TypeRelation to PatientDate of BirthPhone Billing AddressPersonal/DdvjlmYmms96/17/1961 [address] [phone] Advance Directives * Full Code (Latest Code Status on File) Date ActivatedDate MksiopvrqliMsbwoqdn47/14/2025 4:38 AM01/12/2025 8:06 PM * Full Code Date ActivatedDate InactivatedComments12/14/2024 1:42 AM12/19/2024 8:33 PM * Full Code Date ActivatedDate InactivatedComments12/10/2024 2:16 AM12/14/2024 1:15 AM * Full Code Date ActivatedDate InactivatedComments09/29/2024 11:38 PM10/01/2024 11:41 AM * Full Code Date ActivatedDate InactivatedComments09/15/2024 11:42 AM09/17/2024 3:42 PM NameRelationshipHealthcare Agent RelationshipCommunicationTrish SchmidtChild Primary Decision Maker* * Care Teams Team MemberRelationshipSpecialtyStart DateEnd Date Omar Crandall, MARKETING MANAGER HEALTH COMMUNICATIONS - DAMAGE ASSESSOR [address] [facility] 103 [place] [address] PCP - GeneralFamily Medicine09/17/24
--- OUTSIDE RECORDS SUMMARY | 2025-01-16 11:00 | XMS_ITS | Encounter Summary ---
Author Organization [facility] Address [address], [address] [place] [address] Care Team Providers Care Tool Polisher Name Role Phone Gilbert Crandall TURNER IN - IT INSTRUCTOR Primary Care Provider Encounter Details DateTypeDepartmentCare Team (Latest Contact Info)Gfphrgmpfgc03/31/2025Telephone [facility] Primary Care [address] [place] [address] [place] [address] Abhijit Ugarte MD [address] [place] [address] Social History Tobacco UseTypesPacks/DayYears UsedDateSmoking Tobacco: Every LbrRdeuaqzreg432.8 Started: 03/19/1979mokeless Tobacco: NeverAlcohol UseStandard Drinks/Week CommentsNot [...] were you homeless or living in a group home (including now)?No12/30/2024UDIT-CAnswerDate RecordedQ1: How often do you [...] RecordedIn the past 12 months has the [employer], gas, oil, or water [employer] threatened to shut off services in your home?No12/30/2024 Interpersonal Safety Domain Source: IP Abuse ScreeningAnswerDate Recorded Physical solegFlhgmi17/14/2025Verbal xiundFrpyjm60/14/2025Emotional abuseDenies 12/30/2024Financial celsrKeaiyp54/14/2025Sexual teqraFixbbe33/14/2025 CommentsNoSex and Gender InformationValueDate RecordedSex Assigned at BirthNot on fileLegal MdrTsynev98/10/2013 4:15 PM ESTGender IdentityNot on fileSexual OrientationNot on filedocumented as of this encounter Plan of Treatment DateTypeDepartmentCare Team (Latest Contact Info)Ierzfuujiaf06/04/2025 2:40 PM ESTOffice Visit [facility] [address] [place] [address] 103 [place] [address] Gilbert Crandall, TURNER IN - IT INSTRUCTOR [address] [place] [address] d/[address] [facility] 10:00 AM ESTHospital Encounter [facility] [address] [facility] [address] [place] [address] Emily Silva, TURNER IN - IT INSTRUCTOR [address] [facility] [address] [place] [address] 01/27/2025 11:20 AM ESTOffice Visit [facility] Part of [facility] [address] [place] [phone] Mae Membreno, TURNER IN - IT INSTRUCTOR [address] [place] [address], [place] [address] 6 week02/05/2025 11:00 AM ESTOffice Visit [facility] Kid[facility] and Hypertension [address] [place] [address] Trish Kim, DO [address] [place] [address] Hospital follow up per Dr Kim10/29/2025 2:00 PM EDTOffice Visit [address] [place] [address] Gilbert Crandall, TURNER IN - IT INSTRUCTOR [address] [place] [address], [place] [address] follow updocumented as of this encounter Visit Diagnoses Not on filedocumented in this encounter Care Teams Team MemberRelationshipSpecialtyStart DateEnd Date Gilbert Crandall, TURNER IN - IT INSTRUCTOR 27 [place] [address] PCP - GeneralFamily Medicine09/17/24documented as of this encounter
--- OUTSIDE RECORDS SUMMARY | 2025-01-16 11:00 | XMS_ITS | Encounter Summary ---
Author Organization [facility] Elenievaristo Anna [facility] Address [address], [address] [place] [address] Care Team Providers Care Office Services Associate Name Role Phone Gilbert Crandall CARD GRINDER - SSIS SSRS DEVELOPER Primary Care Provider Encounter Details DateTypeDepartmentCare Team (Latest Contact Info)Mtmrjvnaiyv34/27/2025bstract [facility] Primary Care [address] [place] [address] [place] [address] Gilbert Crandall, CARD GRINDER - SSIS SSRS DEVELOPER [address] [address] Social History Tobacco UseTypesPacks/DayYears UsedDateSmoking Tobacco: Every OinPtvsoiixex575.8 Started: 03/19/1979mokeless Tobacco: NeverAlcohol UseStandard Drinks/Week CommentsNot [...] were you homeless or living in a mcc (including now)?No12/30/2024UDIT-CAnswerDate RecordedQ1: How often do you [...] RecordedIn the past 12 months has the [employer], gas, oil, or water [employer] threatened to shut off services in your home?No12/30/2024 Interpersonal Safety Domain Source: IP Abuse ScreeningAnswerDate Recorded Physical iolhbWipebh67/14/2025Verbal qlrqzMwqrwi96/14/2025Emotional abuseDenies 12/30/2024Financial rrppxVardrb22/14/2025Sexual ysoqwLyjaru28/14/2025 CommentsNoSex and Gender InformationValueDate RecordedSex Assigned at BirthNot on fileLegal YeiMywfcy68/10/2013 4:15 PM ESTGender IdentityNot on fileSexual OrientationNot on filedocumented as of this encounter Plan of Treatment DateTypeDepartmentCare Team (Latest Contact Info)Htnmbuvfetn57/04/2025 2:40 PM ESTOffice Visit [facility] Care [address] [place] [address] 103 [place] [address] Gilbert Crandall, CARD GRINDER - SSIS SSRS DEVELOPER [address] [place] [address] d[address] [facility] 10:00 AM ESTHospital Encounter [facility] [address] [facility] [address] [place] [address] Emily Silva, CARD GRINDER - SSIS SSRS DEVELOPER [address] [facility] [address] [place] [address] 01/27/2025 11:20 AM ESTOffice Visit [facility] C[facility] Part of [facility] 45 [place] [phone] Mae Membreno, CARD GRINDER - SSIS SSRS DEVELOPER 45 [place] [address] 6 week02/05/2025 11:00 AM ESTOffice Visit [facility] Kidney and Hypertension [address] [place] [address] Trish Kim, DO [address] [facility] 150 [place] [address] Hospital follow up per Dr Kim10/29/2025 2:00 PM EDTOffice Visit [facility] Primary Care [address] [place] [address] [address] [place] [address] Gilbert Crandall, CARD GRINDER - SSIS SSRS DEVELOPER [address] [place] [address], [place] [address] follow updocumented as of this encounter Visit Diagnoses Not on filedocumented in this encounter Care Teams Team MemberRelationshipSpecialtyStart DateEnd Gilbert Perez M, CARD GRINDER - SSIS SSRS DEVELOPER 27 [place] [address] PCP - GeneralFamily Medicine09/17/24documented as of this encounter
--- OUTSIDE RECORDS SUMMARY | 2025-01-16 11:00 | XMS_ITS | Encounter Summary ---
Author Organization [facility] Address [address] [place] [address] Care Team Providers Care Investment Associate Name Role Phone Gilbert Crandall CAR SEAT UPHOLSTERER - LAUNDRY AIDE Primary Care Provider Reason for Visit * ReasonOnset DateCommentsHome Visit01/15/2025 Encounter Details DateTypeDepartmentCare Team (Latest Contact Info)Fuxoovhunnm22/30/2025Telephone [facility] Primary Care [address] [place] [address] [place] [address] Gilbert Crandall, PARAMJIT - [address] [address] Home Visit (/) Social History Tobacco UseTypesPacks/DayYears UsedDateSmoking Tobacco: Every XdtDppldajlkm033.8 Started: 03/19/1979mokeless Tobacco: NeverAlcohol UseStandard Drinks/Week CommentsNot [...] Domain Source: IP Abuse ScreeningAnswerDate Recorded Physical otuqkTzohcm47/14/2025Verbal wekisZsufna45/14/2025Emotional abuseDenies 12/30/2024Financial tjwraIqbptr87/14/2025Sexual yrresCtwmwv22/14/2025 CommentsNoSex and Gender InformationValueDate RecordedSex Assigned at BirthNot on fileLegal FmwUgakyg34/10/2013 4:15 PM ESTGender IdentityNot on fileSexual OrientationNot on filedocumented as of this encounter Plan of Treatment DateTypeDepartmentCare Team (Latest Contact Info)Kopbyxjsjws87/04/2025 2:40 PM ESTOffice Visit [facility] Care [address] [place] [address] 103 [place] [address] Gilbert Crandall, CAR SEAT UPHOLSTERER - LAUNDRY AIDE [address] [address] d[address] [facility] 10:00 AM ESTHospital Encounter [facility] [address] [facility] [address] [place] [address] Emily Silva, CAR SEAT UPHOLSTERER - LAUNDRY AIDE [address] [facility] [address] [place] [address] 01/27/2025 11:20 AM ESTOffice Visit [facility] Part of [facility] 45 [place] [address] Mae Membreno, CAR SEAT UPHOLSTERER - LAUNDRY AIDE 45 [facility] [place] [address] 6 week02/05/2025 11:00 AM ESTOffice Visit [facility] 27 [place] [address] Trish Kim, DO [address] [place] [address] Hospital follow up per Dr Kim10/29/2025 2:00 PM EDTOffice Visit [facility] Primary Care [address] [place] [address] [address] [place] [address] Gilbert Crandall, CAR SEAT UPHOLSTERER - LAUNDRY AIDE [address] [place] [address] follow updocumented as of this encounter Visit Diagnoses Not on filedocumented in this encounter Care Teams Team MemberRelationshipSpecialtyStart DateEnd Date Gilbert Crandall, CAR SEAT UPHOLSTERER - LAUNDRY AIDE 27 [place] [address] PCP - GeneralFamily Medicine09/17/24documented as of this encounter
--- OUTSIDE RECORDS SUMMARY | 2025-01-16 11:00 | XMS_ITS | Encounter Summary ---
Author Organization [facility] Address [address] [facility] [place] [address] Care Team Providers Care Aviation Support Equipment Repairer Name Role Phone Gilbert Crandlal APRN PLASTIC CNC MACHINE OPERATOR Primary Care Provider Reason for Visit * ReasonOnset DateCommentsREGARDING BLOOD PRESSURE MEDS1 Encounter Details DateTypeDepartmentCare Team (Latest Contact Info)Xfxhpronjkj29/29/2025Telephone [facility] Primary Care [address] [place] [address] Gilbert Crandall APRN [address] [address] REGARDING BLOOD PRESSURE MEDS Social History Tobacco UseTypesPacks/DayYears UsedDateSmoking Tobacco: Every PwwZotrrbnwzg034.8 Started: 03/19/1979mokeless Tobacco: NeverAlcohol UseStandard Drinks/Week CommentsNot [...] were you homeless or living in a snf (including now)?No12/30/2024UDIT-CAnswerDate RecordedQ1: How often do you [...] Domain Source: IP Abuse ScreeningAnswerDate Recorded Physical rdlwdOmiqpv81/14/2025Verbal wiommEqxtxx00/14/2025Emotional abuseDenies 12/30/2024Financial ggewjGubids38/14/2025Sexual duhqwMgcono47/14/2025 CommentsNoSex and Gender InformationValueDate RecordedSex Assigned at BirthNot on fileLegal WvbLmeyvh81/10/2013 4:15 PM ESTGender IdentityNot on fileSexual OrientationNot on filedocumented as of this encounter Plan of Treatment DateTypeDepartmentCare Team (Latest Contact Info)Yiaaozwdpqe94/04/2025 2:40 PM ESTOffice Visit [facility] Care [address] [place] [address] 103 [place] [address] Gilbert Crandall, PRESIDENT & FOUNDER - PLASTIC CNC MACHINE OPERATOR [address] [place] [address] d/c [facility] 10:00 AM ESTHospital Encounter [facility] [address] [facility] [address] [place] [address] Emily Silva, PRESIDENT & FOUNDER - PLASTIC CNC MACHINE OPERATOR [address] [facility] [address] [place] [address] 01/27/2025 11:20 AM ESTOffice Visit [facility] CARD[facility] Part of [facility] 45 [place] [phone] Mae Membreno, PRESIDENT & FOUNDER - PLASTIC CNC MACHINE OPERATOR [address] [facility] [place] [address] 6 week02/05/2025 11:00 AM ESTOffice Visit [facility] Kidney and Hypertension 27 [place] [address] Trish Kim, DO [address] [place] [address] Hospital follow up per Dr Kim10/29/2025 2:00 PM EDTOffice Visit [address] [place] [address] Gilbert Crandall, PRESIDENT & FOUNDER - PLASTIC CNC MACHINE OPERATOR [address] [place] [address], [place] [address] follow updocumented as of this encounter Visit Diagnoses Not on filedocumented in this encounter Care Teams Team MemberRelationshipSpecialtyStart DateEnd Date Gilbert Crandall, PRESIDENT & FOUNDER - PLASTIC CNC MACHINE OPERATOR 27 [place] [address] PCP - GeneralFamily Medicine09/17/24documented as of this encounter
--- OUTSIDE RECORDS SUMMARY | 2025-01-16 11:00 | XMS_ITS | Encounter Summary ---
Author Organization [facility] Elenievaristo Anna [facility] Address [address] [place] [address] Care Team Providers Care Manager Transplant Name Role Phone Gilbert Crandall TEACHING DIETITIAN - POLICE LIEUTENANT PATROL Primary Care Provider Encounter Details DateTypeDepartmentCare Team (Latest Contact Info)Kxtimaitzpn45/15/2025bstract [facility] Primary Care [address] [place] [address] [place] [address] Gilbert Crandall, TEACHING DIETITIAN - POLICE LIEUTENANT PATROL [address] [address] Social History Tobacco UseTypesPacks/DayYears UsedDateSmoking Tobacco: Every BgmQtybcoxese510.8 Started: 03/19/1979mokeless Tobacco: NeverAlcohol UseStandard Drinks/Week CommentsNot [...] were you homeless or living in a long-term (including now)?No12/30/2024UDIT-CAnswerDate RecordedQ1: How often do you [...] RecordedIn the past 12 months has the [employer]), gas, oil, or water [employer] threatened to shut off services in your home?No12/30/2024 Interpersonal Safety Domain Source: IP Abuse ScreeningAnswerDate Recorded Physical ovvwjQhjxza28/14/2025Verbal gztyiTwjzut71/14/2025Emotional abuseDenies 12/30/2024Financial czjowHnrlzi83/14/2025Sexual bhfkaSpiayy56/14/2025 CommentsNoSex and Gender InformationValueDate RecordedSex Assigned at BirthNot on fileLegal DpjKuwgcn33/10/2013 4:15 PM ESTGender IdentityNot on fileSexual OrientationNot on filedocumented as of this encounter Plan of Treatment DateTypeDepartmentCare Team (Latest Contact Info)Oejjmlmbkgx79/04/2025 2:40 PM ESTOffice Visit [facility] Care [address] [place] [address] 103 [place] [address] Gilbert Crandall, TEACHING DIETITIAN - POLICE LIEUTENANT PATROL [address] [place] [address] d/[address] [facility] 10:00 AM ESTHospital Encounter [facility] [address] [facility] [address] [place] [address] Emily Silva, TEACHING DIETITIAN - POLICE LIEUTENANT PATROL [address] [facility] [address] [place] [address] 01/27/2025 11:20 AM ESTOffice Visit [facility] CARDIOLOGY Part of [facility] 45 [place] [phone] Mae Membreno, TEACHING DIETITIAN - POLICE LIEUTENANT PATROL 45 [place] [address] 6 week02/05/2025 11:00 AM ESTOffice Visit [facility] Kidney and Hypertension [address] [place] [address] Trish Kim, DO [address] [facility] 150 [place] [address] Hospital follow up per Dr Kim10/29/2025 2:00 PM EDTOffice Visit [facility] Primary Care [address] [place] [address] [address] [place] [address] Gilbert Crandall, TEACHING DIETITIAN - POLICE LIEUTENANT PATROL [address] [place] [address], [place] [address] follow updocumented as of this encounter Visit Diagnoses Not on filedocumented in this encounter Care Teams Team MemberRelationshipSpecialtyStart DateEnd Gilbert Perez M, TEACHING DIETITIAN - POLICE LIEUTENANT PATROL 27 [place] [address] PCP - GeneralFamily Medicine09/17/24documented as of this encounter
--- OUTSIDE RECORDS SUMMARY | 2025-01-16 11:00 | XMS_ITS | Encounter Summary ---
Author Organization Jonathon Knowlesevaristo Anna [facility] Address [address], [address] [place] [address] Care Team Providers Care Coil Finisher Name Role Phone Gilbert Crandall SET OFF PRESS OPERATOR - PIPE FITTER AMMONIA Primary Care Provider Encounter Details DateTypeDepartmentCare Team (Latest Contact Info)Qwjmbkdmldp18/29/2025bstract [facility] Primary Care [address] [place] [address] [place] [address] Gilbert Crandall, SET OFF PRESS OPERATOR - PIPE FITTER AMMONIA [address] [address] Social History Tobacco UseTypesPacks/DayYears UsedDateSmoking Tobacco: Every VylObtzzuqokk797.8 Started: 03/19/1979mokeless Tobacco: NeverAlcohol UseStandard Drinks/Week CommentsNot [...] were you homeless or living in a skilled nursing (including now)?No12/30/2024UDIT-CAnswerDate RecordedQ1: How often do you [...] RecordedIn the past 12 months has the [employer], gas, oil, or water [employer] threatened to shut off services in your home?No12/30/2024 Interpersonal Safety Domain Source: IP Abuse ScreeningAnswerDate Recorded Physical borybTjwcgp21/14/2025Verbal raftvBgayyz24/14/2025Emotional abuseDenies 12/30/2024Financial kijgyRinvcs97/14/2025Sexual qaswvOlwkse53/14/2025 CommentsNoSex and Gender InformationValueDate RecordedSex Assigned at BirthNot on fileLegal OcoAbwnbr18/10/2013 4:15 PM ESTGender IdentityNot on fileSexual OrientationNot on filedocumented as of this encounter Plan of Treatment DateTypeDepartmentCare Team (Latest Contact Info)Xtqmrouzubu84/04/2025 2:40 PM ESTOffice Visit [facility] Care [address] [place] [address] 103 [place] [address] Gilbert Crandall, SET OFF PRESS OPERATOR - PIPE FITTER AMMONIA [address] [place] [address] d/[address] [facility] 10:00 AM ESTHospital Encounter [facility] 830 [facility] [address] [place] [address] Emily Silva, SET OFF PRESS OPERATOR - PIPE FITTER AMMONIA [address] [facility] [address] [place] [address] 01/27/2025 11:20 AM ESTOffice Visit [facility] CARD[facility] Part of [facility] 45 [place] [phone] Mae Membreno, SET OFF PRESS OPERATOR - PIPE FITTER AMMONIA 45 [facility] [place] [address] 6 week02/05/2025 11:00 AM ESTOffice Visit [facility] Kidney and Hypertension [address] [place] [address] Trish Kim, DO [address] [facility] 150 [place] [address] Hospital follow up per Dr Kim10/29/2025 2:00 PM EDTOffice Visit [facility] Primary Care [address] [place] [address] [address] [place] [address] Gilbert Crandall, SET OFF PRESS OPERATOR - PIPE FITTER AMMONIA [address] [place] [address], [place] [address] follow updocumented as of this encounter Visit Diagnoses Not on filedocumented in this encounter Care Teams Team MemberRelationshipSpecialtyStart DateEnd Gilbert Perez M, SET OFF PRESS OPERATOR - PIPE FITTER AMMONIA 27 [place] [address] PCP - GeneralFamily Medicine09/17/24documented as of this encounter
--- OUTSIDE RECORDS SUMMARY | 2025-01-16 11:01 | XMS_ITS | Encounter Summary ---
Author Organization Jonathon Knowlesevaristo Anna [facility] Address [address], [address] [place] [address] Care Team Providers Care Tool Grinder Operator Surface Name Role Phone Gilbert Crandall BELL CAPTAIN - SOLAR ENERGY SPECIALIST Primary Care Provider Encounter Details DateTypeDepartmentCare Team (Latest Contact Info)Zvnnrbbgsdg44/09/2025bstract [facility] Primary Care [address] [place] [address] [place] [address] Gilbert Crandall, BELL CAPTAIN - SOLAR ENERGY SPECIALIST [address] [address] Social History Tobacco UseTypesPacks/DayYears UsedDateSmoking Tobacco: Every EiqRkzwnyrcom605.8 Started: 03/19/1979mokeless Tobacco: NeverAlcohol UseStandard Drinks/Week CommentsNot [...] were you homeless or living in a care home (including now)?No12/30/2024UDIT-CAnswerDate RecordedQ1: How often do [...] RecordedIn the past 12 months has the [employer], gas, oil, or water [employer] threatened to shut off services in your home?No12/30/2024 Interpersonal Safety Domain Source: IP Abuse ScreeningAnswerDate Recorded Physical ekqouJrxtbm88/14/2025Verbal acbiqPkeczk35/14/2025Emotional abuseDenies 12/30/2024Financial gljgaQflkme17/14/2025Sexual clpbxLyyrjd03/14/2025 CommentsNoSex and Gender InformationValueDate RecordedSex Assigned at BirthNot on fileLegal KqdGxslbk92/10/2013 4:15 PM ESTGender IdentityNot on fileSexual OrientationNot on filedocumented as of this encounter Plan of Treatment DateTypeDepartmentCare Team (Latest Contact Info)Mlmfhecjihe08/04/2025 2:40 PM ESTOffice Visit [facility] Care [address] [place] [address] 103 [place] [address] Gilbert Crandall, BELL CAPTAIN - SOLAR ENERGY SPECIALIST [address] [place] [address] d/[address] [facility] 10:00 AM ESTHospital Encounter [facility] 830 [facility] [address] [place] [address] Emily Silva, BELL CAPTAIN - SOLAR ENERGY SPECIALIST [address] [facility] [address] [place] [address] 01/27/2025 11:20 AM ESTOffice Visit [facility] CARDIOLOG[facility] Part of [facility] 45 [place] [phone] Mae Membreno, BELL CAPTAIN - SOLAR ENERGY SPECIALIST 45 [place] [address] 6 week02/05/2025 11:00 AM ESTOffice Visit [facility] Kidney and Hypertension [address] [place] [address] Trish Kim, DO [address] [facility] 150 [place] [address] Hospital follow up per Dr Kim10/29/2025 2:00 PM EDTOffice Visit [facility] Primary Care [address] [place] [address] [address] [place] [address] Gilbert Crandall, BELL CAPTAIN - SOLAR ENERGY SPECIALIST [address] [place] [address], [place] [address] follow updocumented as of this encounter Visit Diagnoses Not on filedocumented in this encounter Care Teams Team MemberRelationshipSpecialtyStart DateEnd Gilbert Perez M, BELL CAPTAIN - SOLAR ENERGY SPECIALIST 27 [place] [address] PCP - GeneralFamily Medicine09/17/24documented as of this encounter
--- OUTSIDE RECORDS SUMMARY | 2025-01-16 11:01 | XMS_ITS | Encounter Summary ---
Author Organization [facility] Elenievaristo Anna [facility] Address [address] [facility], [address] [place] [address] Care Team Providers Care Pipe Coverer And Insulator Name Role Phone Gilbert Crandall DRAGLINE ENGINEER - PLASTIC PRESS OPERATOR Primary Care Provider Encounter Details DateTypeDepartmentCare Team (Latest Contact Info)Uhigbahusqd82/13/2025bstract [facility] Primary Care [address] [place] [address] [place] [address] Gilbert Crandall, DRAGLINE ENGINEER - PLASTIC PRESS OPERATOR [address] [address] Social History Tobacco UseTypesPacks/DayYears UsedDateSmoking Tobacco: Every PbzXgrhrkutmt778.8 Started: 03/19/1979mokeless Tobacco: NeverAlcohol UseStandard Drinks/Week CommentsNot [...] were you homeless or living in a penitentiary (including now)?No12/30/2024UDIT-CAnswerDate RecordedQ1: How often do you [...] RecordedIn the past 12 months has the [employer], gas, oil, or water [employer] threatened to shut off services in your home?No12/30/2024 Interpersonal Safety Domain Source: IP Abuse ScreeningAnswerDate Recorded Physical xhtbqRgvzgv02/14/2025Verbal urqbwHbakeq25/14/2025Emotional abuseDenies 12/30/2024Financial lmjfnQegxqd50/14/2025Sexual vlmwfNrjsnd98/14/2025 CommentsNoSex and Gender InformationValueDate RecordedSex Assigned at BirthNot on fileLegal RklOlkmpz82/10/2013 4:15 PM ESTGender IdentityNot on fileSexual OrientationNot on filedocumented as of this encounter Plan of Treatment DateTypeDepartmentCare Team (Latest Contact Info)Jilavtrxuha70/04/2025 2:40 PM ESTOffice Visit [facility] [address] [place] [address] [address] [place] [address] Gilbert Crandall, DRAGLINE ENGINEER - PLASTIC PRESS OPERATOR [address] [place] [address] d/c [facility] 10:00 AM ESTHospital Encounter [facility] [address] [facility] [address] [place] [address] Emily Silva, DRAGLINE ENGINEER - PLASTIC PRESS OPERATOR [address] [facility] [address] [place] [address] 01/27/2025 11:20 AM ESTOffice Visit [facility] Part of [facility] [address] [place] [phone] Mae Membreno, DRAGLINE ENGINEER - PLASTIC PRESS OPERATOR [address] [place] [address] 6 week02/05/2025 11:00 AM ESTOffice Visit [facility] Kidney and Hypertension [address] [place] [address] Trish Kim, DO [address] [facility] 150 [place] [address] Hospital follow up per Dr Kim10/29/2025 2:00 PM EDTOffice Visit [facility] Primary Care [address] [place] [address] [address] [place] [address] Gilbert Crandall, DRAGLINE ENGINEER - PLASTIC PRESS OPERATOR [address] [place] [address], [place] [address] follow updocumented as of this encounter Visit Diagnoses Not on filedocumented in this encounter Care Teams Team MemberRelationshipSpecialtyStart DateEnd Gilbert Perez M, DRAGLINE ENGINEER - PLASTIC PRESS OPERATOR 27 [place] [address] PCP - GeneralFamily Medicine09/17/24documented as of this encounter
--- OUTSIDE RECORDS SUMMARY | 2025-01-16 11:01 | XMS_ITS ---
Author Organization [facility]) Address [address] [place] [address] Care Team Providers Care Home Health Travel Ot Name Role Phone Unavailable Unavailable Unavailable Allergies, Adverse Reactions, Alerts Allergy Name Allergy Type Status Severity Reaction(s) Onset Date Inactive Date Treating Clinician Comments No Known Allergies Allergy Active 2024-12-24 16:39:45 Medications Ordered Medication Name Filled Medication Name Start Date Stop Date Current Medication? Ordering Clinician Indication Dosage Frequency Signature (SIG) Comments Components Tubersol 2025-01-05 04:00:184437-67-84 03:59:[id number] of Repeats Allowed: Frequency: One time hiyoAmwayunw8005-98-59 16:41:053561-75-20 03:59:59 [id number] of Repeats Allowed: Frequency: One time only Problems This patient has no known problems. Procedures Procedure Date / Time Performed Performing Clinician Lacey ce Details Central Venous Catheter (CVC) 2024-12-14 04:00:0 0 Access SiteSubclavian (Right)Access Use Start Npas2869-81-04 04:00:00 DIALYSIS TREATMENT INFORMATION Conventional Hemodialysis Date Type Treatment Start Date Treatment End Date Pre-Treatment Vitals Post-Treatment Vitals Weight Gain BFR DFR Actual UF Dialysis Access December 26, 2024 In-Center Hemodialysis Treatment 4876-50-93J94:45:21.000Z 6318-54-99U08:18:21.000Z BP Sitting (Pre-Dialysis) 169/85 mmHg BP Sitting (Post-Dialysis) 175/89 mmHg * Concurrent Access: false * Central Venous Catheter (CVC) Subclavian (Right) Arterial Sitting Heart Rate Pre-Yuclaedh94 BPMSitting Heart Rate Post-Urutrcky13 BPM Temperature Pre-Xzwnrbpa90.6 degFTemperature Post-Cqjvfqdv70.5 degFOctober 08, 2025In-Center Hemodialysis Pnakllavb4691-52-53F79:29:49.000Z 7176-77-94M14:59:49.000ZBP Sitting (Pre-Dialysis)162/93 mmHgBP Sitting (Post-Dialysis)179/87 mmHg* Concurrent Access: false * Central Venous Catheter (CVC) Subclavian (Right) Arterial Sitting Heart Rate Pre-Wstcuqxw89 BPMSitting Heart Rate Post-Vcbkrnmt94 BPM Temperature Pre-Cvsjdzro76.3 degFTemperature Post-Fuwgjixr25.4 degF DIALYSIS ORDER Dialysis Procedure Orders Type of Dialysis Procedure Order Order Date/Time Observations In-Center Hemodialysis Treatment December 24, 2024 Target Weight 40.8 kg Dialysate Flow Rate 700 mL/min Blood Flow Rate 350 mL/min Treatment Time 210 min(total) Max UF Rate 13 mL/kg/hr Base Sodium Dialysate Base Sodium 138 mE q/L dialysate_temp 36 C BiCarb Dialysate BiCarbonate 33 mEq/L Access Concurrent No Arterial Access Central Venous [address] ter (CVC) (Subclavian (Right)) Venous Access Central Venous [address] ter (CVC) (Subclavian (Right)) Dialyzer Nipro Elisio 17H 145 5 treatment_bath_code_id Dialysate Bath PotassiumPotassium 3 mEq/LDialysate Bath CalciumCalcium 2.5 mEq/L Results Adequacy Description Draw Date Result/Unit Status Ref Range Result Comments WEIGHT (KG) 2024-12-26 04:11:34 41.6 kg F HEIGHT IN CQTYMJ1643-34-51 04:11:3464 InchesFVM (KT/V MEAN VOL)2024-12-26 04:11:3433.5FTotal Kt/Z8235-04-61 04:11:341.7FspKt/M2986-43-48 04:11:341.7F stdKt/V (DIAL)2024-12-26 04:11:34N/AFVT (KT/V TX VOL)2024-12-26 04:11:3433.5 LF BLOOD IGXI-RJD2194-09-10 04:11:00028BezkAH/V Mbsbh9119-35-28 04:11:34N/AFBSA KINEGM7067-78-33 04:11:341.4 sq mFURR%2024-12-26 04:11:3480 %FDialyzer MARCELLUS 2024-12-26 04:11:957638 CalcFPATIENT MKG4440-85-15 04:11:3463 YearsFKT/V BSSZGQFXPE6761-43-42 04:11:342.66FLENGTH OF UTQTOWHS7704-55-00 04:11:31602 minF Residual kt/c8973-16-35 04:11:34FStd Renal KT/F4065-87-47 04:11:34N/AFPRESCRIBED DAYS/ILBX4433-93-82 04:11:343 Day/IhTcCAO2985-22-85 04:11:340.39 G/KG/DFDIALYZER PUYS-UQ5038-80-10 04:11:58669 mL/minFAMPUTATE KWYUYD8185-66-51 04:11:340FTBW (Glez)2024-12-26 04:11:3425.34 LitersFWEIGHT - POST DAY 04:11:34 40.8 kgFCURRENT LHJ9800-30-82 04:11:34FTOTAL HOURS/WEEK WQXCEOTA1392-43-33 04:11:343 hrsFeKt/F0912-47-55 04:11:341.44FWEIGHT - PRE DAY 04:11:34 41.7 kgFBUN/WMQZI1896-00-66 04:10:2312.2 CalcF8.2-46.0Urea nitrogen [Mass/volume] in Serum or Skxxkj7175-23-37 04:09:2145 mg/dLF9.0-23.0Creatinine [Mass/volume] in Serum or Abtmxm3676-77-21 04:09:213.68 mg/dLF0.5-1.1Urea nitrogen [Mass/volume] in Serum or Plasma --post bcnnxtil9641-57-83 22:51:239 mg/dLF9.0-23.0AnemiaDescriptionDraw DateResult/UnitStatusRef RangeResult CommentsHCT CALC YLEL70038-89-16 17:23:1327.3 %F37.0-47.0Hemoglobin [Mass/volume] in Medog8040-48-18 17:22:169.1 g/dLF12.0-16.0HCT CALC HGBX3 2024-12-25 18:00:0930 %F37.0-47.0Platelets [#/volume] in Blood by Automated dpqpp6228-55-72 16:40:28521 x 10^3 cells/oSM572.0-450.0Hemoglobin [Mass/volume] in Bcbdu0404-93-59 16:40:1010 g/dLF12.0-16.0MCHC [Mass/volume] by Automated rxwre9483-54-00 16:40:1033.8 g/dLF29.6-35.3Erythrocytes [#/volume] in Blood by Automated lagfi3654-70-60 16:40:103.69 x 10^6 cells/uLF3.85-5.2Erythrocyte distribution width [Ratio] by Automated btize5456-43-34 16:40:1016.6 %F11.0-15.0 Reticulocytes/100 erythrocytes in Blood by Automated jrjwm1991-12-50 16:40:091.9 %F0.7-2.5Hematocrit [Volume Fraction] of Blood by Automated ufyyo2326-42-48 16:40:0929.4 %F37.0-47.0MCV [Entitic volume] by Automated qqnka3098-18-25 16:40:0979.9 fLF80.0-100.0ABSOLUTE RETIC RXTMG4607-78-95 16:40:090.07 x 10^6 cells/uLF0.035-0.127MCH [Entitic mass] by Automated vmgjf5559-66-99 16:40:0927 pgF25.9-34.2FluidBPDescriptionDraw DateResult/UnitStatusRef RangeResult Comments Sodium [Moles/volume] in Serum or Qipexh8483-38-80 06:46:78403 mEq/LF132.0-146.0 GeneralDescriptionDraw DateResult/UnitStatusRef RangeResult CommentsChloride [Moles/volume] in Serum or Mwszve1647-45-30 06:46:4197 mEq/LF99.0-109.0Aspartate aminotransferase [Enzymatic activity/volume] in Serum or Orojrb6757-85-21 04:09:2118 U/LF0.0-33.0Aluminum [Mass/volume] in Serum or Ipjrrp2855-09-81 17:10:3710 ug/LF0.0-9.0InfectionVaccinationDescriptionDraw DateResult/UnitStatus Ref RangeResult CommentsBasophils/100 leukocytes in Blood by Automated count 2024-12-25 16:40:100.2 %FEosinophils/100 leukocytes in Blood by Automated count 2024-12-25 16:40:102.1 %FLeukocytes [#/volume] in Blood by Automated count 2024-12-25 16:40:107.6 x 10^3 cells/uLF4.0-11.0Neutrophils/100 leukocytes in Blood by Automated hjsbj7096-30-22 16:40:1079.8 %FLymphocytes [#/volume] in Blood by Automated larlv4613-87-31 16:40:88332 Cells/cIC174.0-3660.0 Monocytes/100 leukocytes in Blood by Automated rbwuy5230-61-65 16:40:1010.4 %F Neutrophils [#/volume] in Blood by Automated thqub2200-14-04 16:40:960018 Cells/yNE1094.0-8800.0Lymphocytes/100 leukocytes in Blood by Automated count 2024-12-25 16:40:097.5 %FBasophils [#/volume] in Blood by Automated count 2024-12-25 16:40:0915 Cells/uLF0.0-400.0Monocytes [#/volume] in Blood by Automated ilrya0624-41-68 16:40:00377 Cells/uLF0.0-1100.0Eosinophils [#/volume] in Blood by Automated sdhqv4349-08-38 16:40:75598 Cells/uLF0.0-700.0MineralBone DisorderDescriptionDraw DateResult/UnitStatusRef RangeResult CommentsCA JIIFJHREV9261-46-96 01:41:108.7 mg/dLFCA/PHOS BEMZZXQ6944-43-31 01:38:0736.5 CalcF21.0-53.0CA*PO4 PNCUCFR0793-53-88 01:38:0738.3 CalcF21.0-53.0Calcium [Mass/volume] in Serum or Lkghoh4507-01-08 01:25:278.3 mg/dLF8.7-10.4 Parathyrin.intact [Mass/volume] in Serum or Ydpoun2799-13-89 17:47:1827 pg/mLF 18.0-80.0Phosphate [Mass/volume] in Serum or Hcujyx1252-27-59 15:47:234.4 mg/dLF 2.4-5.1Alkaline phosphatase [Enzymatic activity/volume] in Serum or Plasma 2024-12-26 04:09:2197 U/LF46.0-116.0NutritionDescriptionDraw DateResult/Unit StatusRef RangeResult CommentsPotassium [Moles/volume] in Serum or Plasma 2024-12-26 06:46:414 mEq/LF3.5-5.9UPEZJSMD9001-88-84 04:10:232.6 g/dLF0.9-5.0A/G LMVCH8000-07-90 04:10:231.3 CalcF1.0-2.5Protein [Mass/volume] in Serum or Bphcxi4166-12-26 04:09:216.1 g/dLF5.7-8.2Albumin [Mass/volume] in Serum or Plasma by Bromocresol green (BCG) dye binding sjmvfa0208-90-38 04:09:213.5 g/dLF 3.4-4.8Lactate dehydrogenase [Enzymatic activity/volume] in Serum or Plasma 2024-12-26 04:09:63091 U/LF120.0-246.0Bicarbonate [Moles/volume] in Serum or Mmlabx1079-66-04 04:09:2125 mEq/LF20.0-31.0 Encounters No encounter information to report Immunizations Ordered Immunization Name Filled Immunization Name Date Status Comments Refusal Reason TST-PPD intradermal 2024-12-26 16:38:00 Plan of Treatment Planned Activity Provider Planned Date Details Commen ts Diagnostic Test Pending Trish sandhu 2024-12-23 05:38:05Ferritin [Mass/volume] in Serum or Plasma [code = 2276-4] [facility] 2024-12-22 14:00:53Reticulocytes/100 erythrocytes in Blood by Automated count [code = 63535-5]Diagnostic Test [facility] 2024-12-22 14:01:10ABSL. RETIC CT. [code = 2265]Diagnostic Test [facility] 2024-12-22 13:56:35Aluminum [Mass/volume] in Serum or Plasma [code = 5574-9] Diagnostic Test [facility] 2024-12-22 13:58:41Creatinine [Mass/volume] in Serum or Plasma [code = 2160-0] Diagnostic Test [facility] 2024-12-22 13:59:22Sodium [Moles/volume] in Serum or Plasma [code = 2951-2] [facility] 2024-12-23 05:41:07Alanine aminotransferase [Enzymatic activity/volume] in Serum or Plasma [code = 1742-6]Diagnostic Test [facility] 2024-12-23 05:40:19Parathyrin.intact [Mass/volume] in Serum or Plasma [code = 2731-8]Diagnostic Test [facility] 2024-12-23 05:39:55Hemoglobin [Mass/volume] in Blood [code = 718-7]Diagnostic Test [facility]Tr[facility] Kim Soboba Ttinqong3040-85-81 19:43:28In-Center Hemodialysis Treatment [code = REJ705]
--- OUTSIDE RECORDS SUMMARY | 2025-01-16 11:01 | XMS_ITS | Clinical Summary ---
Author Organization [facility] Address [id number] [place] [address] Care Team Providers Care Hull Molder Name Role Phone Unavailable Primary Care Provider Unavailabl e Social History Tobacco UseTypesPacks/DayYears UsedDateSmoking Tobacco: Never AssessedChildcare AnswerDate NurfrbgwPjvnjoohiKcngmyh86/12/2019EmploymentAnswerDate Recorded HuqrobotghKgmytyc05/12/2019CommentsUnknownSex and Gender Information ValueDate RecordedSex Assigned at BirthNot on fileLegal MftRawece53/06/2015 11:55 AM EDTGender IdentityNot on fileSexual OrientationNot on file Last Filed Vital Signs Vital SignReadingTime TakenCommentsBlood Lpxmsaeu48/6203 12:00 AM EDT Yuzmw3440 12:00 AM EDTTemperature--Respiratory Rate--Oxygen Saturation-- Inhaled Oxygen Concentration--Rmkqzr63.3 kg (113 lb)06/16/2015 12:00 AM EDT Rarymq652.6 cm (5' 4 )06/16/2015 12:00 AM EDTBody Mass Index19.403 12:00 AM EDT Plan of Treatment Not on file Medical Devices Not on file
--- OUTSIDE RECORDS SUMMARY | 2025-01-16 11:01 | XMS_ITS | Encounter Summary ---
[facility] Address [address], [address] [place] [address] Care Team Providers Care Head Of Advertising Name Role Phone Gilbert Crandall OTHER SALES SUPPORT WORKER - RAISIN SEPARATOR OPERATOR Primary Care Provider Encounter Details DateTypeDepartmentCare Team (Latest Contact Info)Tnmrlnzcbcf84/23/2025Orders Only [facility] Kidney and Hypertension [address] [place] [address] HemTrish nelson E, DO [address] [place] [address] PATRICK (acute kidney injury) (Primary Dx) Social History Tobacco UseTypesPacks/DayYears UsedDateSmoking Tobacco: Every QiuTfusbtgxrj882.8 Started: 03/19/1979mokeless Tobacco: NeverAlcohol UseStandard Drinks/Week CommentsNot [...] RecordedIn the past 12 months has the [employer], gas, oil, or water [employer] threatened to shut off services in your home?No12/30/2024 Interpersonal Safety Domain Source: IP Abuse ScreeningAnswerDate Recorded Physical tlarhZcgfmb62/14/2025Verbal zopotVxqfjh34/14/2025Emotional abuseDenies 12/30/2024Financial surrdJqovan38/14/2025Sexual tputnUvqoqw77/14/2025 CommentsNoSex and Gender InformationValueDate RecordedSex Assigned at BirthNot on fileLegal KfsAljlox46/12/2012 4:15 PM ESTGender IdentityNot on fileSexual OrientationNot on filedocumented as of this encounter Plan of Treatment DateTypeDepartmentCare Team (Latest Contact Info)Zsiajzbmdba38/04/2025 2:40 PM ESTOffice Visit [facility] [address] [place] [address] [address] [place] [address] Gilbert Crandall, OTHER SALES SUPPORT WORKER - RAISIN SEPARATOR OPERATOR [address] [place] [address] d/c [facility] 10:00 AM ESTHospital Encounter [facility] [address] [facility] [address] [place] [address] Emily Silva, OTHER SALES SUPPORT WORKER - RAISIN SEPARATOR OPERATOR [address] [facility] [facility] [address] [place] [address] 01/27/2025 11:20 AM ESTOffice Visit [facility] Part of [facility] [address] [place] [address] Mae Membreno OTHER SALES SUPPORT WORKER - RAISIN SEPARATOR OPERATOR [address] [place] [address] [place] [address] 6 week02/05/2025 11:00 AM ESTOffice Visit [facility] Kid[facility] [address] [place] [address] Trish Kim, DO [address] [place] [address] Hospital follow up per Dr Kim10/29/2025 2:00 PM EDTOffice Visit [facility] Primary [address] [place] [address] Gilbert Crandall, OTHER SALES SUPPORT WORKER - RAISIN SEPARATOR OPERATOR [address] [place] [address] follow upNameTypePriorityAssociated DiagnosesOrder ScheduleBasic Metabolic Panel LabRoutine PATRICK (acute kidney injury) Once a week for 6 Occurrences starting 01/08/2025 until 01/08/2026documented as of this encounter Visit Diagnoses Diagnosis PATRICK (acute kidney injury)- Primary Acute kidney failure, unspecified documented in this encounter Care Teams Team MemberRelationshipSpecialtyStart DateEnd Date Gilbert Crandall, OTHER SALES SUPPORT WORKER - RAISIN SEPARATOR OPERATOR [address] [place] [address] PCP - GeneralFamily Medicine09/17/24documented as of this encounter
--- OUTSIDE RECORDS SUMMARY | 2025-01-16 11:01 | XMS_ITS | Encounter Summary ---
Author Organization Jonathon Knowlesevaristo [facility] Address [address], [address] [place] [address] Care Team Providers Care Grain Trimmer Name Role Phone Gilbert Crandall HOOK UP - IMPORT CUSTOMS CLEARING AGENT Primary Care Provider Encounter Details DateTypeDepartmentCare Team (Latest Contact Info)Knwxziatcvt33/09/2025bstract [facility] Care [address] [place] [address] [place] [address] Gilbert Crandall, HOOK UP - IMPORT CUSTOMS CLEARING AGENT [address] [address] Social History Tobacco UseTypesPacks/DayYears UsedDateSmoking Tobacco: Every AvzBfziwiydxz409.8 Started: 03/19/1979mokeless Tobacco: NeverAlcohol UseStandard Drinks/Week CommentsNot [...] RecordedIn the past 12 months has the [employer], gas, oil, or water [employer] threatened to shut off services in your home?No12/30/2024 Interpersonal Safety Domain Source: IP Abuse ScreeningAnswerDate Recorded Physical cglfrQpeqsl76/14/2025Verbal yaeutXxgbai69/14/2025Emotional abuseDenies 12/30/2024Financial rimsyKizepr79/14/2025Sexual luabcJneonl27/14/2025 CommentsNoSex and Gender InformationValueDate RecordedSex Assigned at BirthNot on fileLegal BhiIoustc30/10/2013 4:15 PM ESTGender IdentityNot on fileSexual OrientationNot on filedocumented as of this encounter Plan of Treatment DateTypeDepartmentCare Team (Latest Contact Info)Vldeatwgitc08/04/2025 2:40 PM ESTOffice Visit [facility] [address] [place] [address] [address] [place] [address] Gilbert Crandall, HOOK UP - IMPORT CUSTOMS CLEARING AGENT [address] [place] [address] d/c [facility] 10:00 AM ESTHospital Encounter [facility] [address] [facility] [address] [place] [address] Emily Silva, HOOK UP - IMPORT CUSTOMS CLEARING AGENT [address] [facility] [address] [place] [address] 01/27/2025 11:20 AM ESTOffice Visit [facility] Part of [facility] [address] [place] [phone] Mae Membreno, HOOK UP - IMPORT CUSTOMS CLEARING AGENT [address] [place] [address] 6 week02/05/2025 11:00 AM ESTOffice Visit [facility] Kid[facility] [address] [place] [address] Trish Kim, DO [address] [facility] [address] [place] [address] Hospital follow up per Dr Kim10/29/2025 2:00 PM EDTOffice Visit [facility] Care [address] [place] [address] [address] [place] [address] Gilbert Crandall, HOOK UP - IMPORT CUSTOMS CLEARING AGENT [address] [place] [address], [place] [address] follow updocumented as of this encounter Visit Diagnoses Not on filedocumented in this encounter Care Teams Team MemberRelationshipSpecialtyStart DateEnd Gilbert Perez M, HOOK UP - IMPORT CUSTOMS CLEARING AGENT [address] [place] [address] PCP - GeneralFamily Medicine09/17/24documented as of this encounter
[2025-01-16 11:15] LABS: Hematocrit 32.2 % (36.0-48.0); Hemoglobin 10.3 g/dL (12.0-16.0); Mean Corpuscular HGB Conc 32.0 g/dL (29.9-35.2); Mean Corpuscular Hemoglobin 26.6 pg (26.7-34.0); Mean Corpuscular Volume 83.2 fL (81.0-99.0); Platelet Count 322 10^3/uL (150-450); Red Blood Count 3.87 10^6/uL (4.20-5.40); White Blood Count 7.7 10^3/uL (4.0-11.0)
[2025-01-16 11:32] LABS: Anion Gap 17.6; Blood Urea Nitrogen 67.0 mg/dL (7.0-18.0); Calcium 8.7 mg/dL (8.5-10.1); Carbon Dioxide 23.7 mmol/L (21.0-32.0); Chloride 102 mmol/L (98-107); Estimated GFR (African America 23 (>=60 mL/min/1.73m^2); Estimated GFR (Non-African Ame 19 (>=60 mL/min/1.73m^2); Glucose 104 mg/dL (74-106); Potassium 4.3 mmol/L (3.5-5.1); Sodium 139 mmol/L (136-145)
[2025-01-16 11:39] LABS: Band Neutrophils Absolute 0.1 10^3/uL (0.0-0.3); Lymphocytes Absolute Manual 0.30 10^3/uL (1.20-3.80); Lymphocytes Percent Manual 4.0 % (20.5-60.0); Monocytes Absolute Manual 0.84 10^3/uL (0.30-0.80); Monocytes Percent Manual 11.0 % (1.7-12.0); Segmented Neut Absolute Manual 6.08 10^3/uL (1.4-6.5); Segmented Neutrophils % Manual 79.0 (43.0-75.0)
[2025-01-16 11:40] LABS: Basophils Abs Manual 0.00 10^3/uL (0.00-0.10); Basophils Percent Manual 0.0 % (0.2-2.0); Eosinophils Absolute Manual 0.38 10^3/uL (0.00-0.70); Eosinophils Percent Manual 5.0 % (0.9-7.0)
[2025-01-16 11:41] LABS: Iron 19.0 ug/dL (50.0-170.0)
[2025-01-16 14:53] LABS: Ferritin 420.0 ng/mL (8.0-252.0)
--- OUTSIDE RECORDS SUMMARY | 2025-02-18 20:00 | XMS_ITS | Clinical Summary ---
Author Organization Unknown Care Team Providers Care Dairy Management Specialist Name Role Phone NYASIA FIELD TRAINER, OMAR Unavailable Unavailable LIBORIO RN, EMMY Unavailable Unavailable LEONCIO FILE CLERK, NELL Unavailable Unavailable ALESSANDRO WOOL SAMPLER, FUNMILAYO Unavailable Unavailable GOSCHE OT, NYASIA Unavailable Unavailable JEFFERY PT, JEFFERY Unavailable Unavailable CATIA FILE CLERK, JITENDRA Unavailable Unavailabl e RENEE OT, RUSTY Unavailable Unavailable GILBERT PT, CLEVE Unavailable Unavailable JUDITH WOOL SAMPLER, BEBA Unavailable Unavailabl leonid MCKEON FILE CLERK, CHIKI Unavailable Unavailable GAVIN DOUGHERTY, MARYLOU Unavailable Unavaillubna BEST RN, NENA Unavailable Unavailable KHALIDA DOUGHERTY, FELIPE Unavailable Unavailable Payers Payer Name Policy Type Policy Number Effective Date Expira tion Date [facility] [id number] Problems Condition Name Condition Details Condition Category Status Onset Date Resolution Date Last Treatment Date Treating Clinician Comments ENCNTR FOR SURGICAL AFTCR FOLLOWING SURG MARIA ON THE DGSTV SYS Gkaahd5843-06-03 00:00:00ACQUIRED ABSENCE OF OTHER SPECIFIED PARTS OF DIGESTIVE MKZIFZbkwul9638-27-85 00:00:00ENCOUNTER FOR ATTENTION TO COLOSTOMYActive 2024-12-22 00:00:00SLOW TRANSIT JKNFNBLLBSHAKkffcn8093-14-37 00:00:00ACUTE KIDNEY FAILURE, PGWYQGZUWCSCirgfy5493-20-43 00:00:00HYP HRT AND CHR KDNY DIS W HRT FAIL AND STG 1-4/UNSP CHR XZKTQsygpe9799-94-52 00:00:00CHRONIC DIASTOLIC (CONGESTIVE) HEART XWPPPBKEbnwto8720-59-27 00:00:00CHRONIC KIDNEY DISEASE, STAGE 7QRadmim2323-15-36 00:00:00PERIPHERAL VASCULAR DISEASE, UNSPECIFIEDActive 2024-12-22 00:00:00CHRONIC OBSTRUCTIVE PULMONARY DISEASE, UNSPECIFIEDActive 2024-12-22 00:00:00ACUTE RESPIRATORY FAILURE WITH VZIKAMROebdbr4020-48-71 00:00:00OTHER CHRONIC CKNYDjyjff4895-07-81 00:00:00PAIN IN RIGHT HIPActive 2024-12-22 00:00:00PAIN IN LEFT VPBEsyhvx1874-79-74 00:00:00FIBROMYALGIAActive 2024-12-22 00:00:00DEPRESSION, KMKVHFTKRUXRasegs6602-18-35 00:00:00EPILEPSY, UNSP, NOT INTRACTABLE, WITHOUT STATUS TQAXMGETOAMJzvtjf6279-03-83 00:00:00PURE HYPERCHOLESTEROLEMIA, ZEHPLTXZLNXGjuclt4774-45-09 00:00:00RHEUMATOID ARTHRITIS, DCVUVTSPATPRmhpfi5843-98-22 00:00:00INSOMNIA, EXSVLCDDXWYIoxzvi8060-20-18 00:00:00SPONDYLOSIS, NGQODIGSWCXQvavmm1108-88-31 00:00:00LONG TERM (CURRENT) USE OF KVCPIIVGmburh2021-38-85 00:00:00DEPENDENCE ON SUPPLEMENTAL OXYGENActive 2024-12-22 00:00:00LONG TERM (CURRENT) USE OF INHALED TFRTETXBUchggh1891-67-83 00:00:00PERSONAL HISTORY OF NICOTINE EREOHKOHERNkusct3258-99-03 00:00:00 ESSENTIAL (PRIMARY) BXGSNSGMNSMVVkvuma6796-35-07 03:36:00INTUSSUSCEPTIONActive 2024-12-30 03:36:00OTHER SPECIFIED DISORDERS OF KIDNEY AND URETERActive 2024-12-30 03:36:00UNSPECIFIED ABDOMINAL QFRZQmlppg0045-89-26 03:36:00VASCULAR DISORDER OF INTESTINE, JQLHSAQJNIVWabphn1088-13-22 03:36:00ACUTE KIDNEY FAILURE WITH TUBULAR QZJZRPSREgdtdh3343-74-96 03:36:00UNSPECIFIED SEVERE PROTEIN-CALORIE FUMWVJCTJSCIBlumev7223-02-29 03:36:00 Allergies, Adverse Reactions, Alerts Allergy Name Allergy Type Status Severity Reaction(s) Onset Date Inactive Date Treating Clinician Comments NKA Propensity to adverse reactions Active 2024-12-22 16:08:06 Medications Ordered Medication Name Filled Medication Name Start Date Stop Date Current Medication? Ordering Clinician Indication Dosage Frequency Signature (SIG) Comments Components acetaminophen 500 mg tablet 2024-12-22 00:00:[id number] NEEDED FOR MILD TO MODERATE PAIN1 tabletEVERY 6 HOURS1 tablet EVERY 6 HOURS (route: oral)Med Classification: Analgesic, Anti- inflammatory or Antipyreticalbuterol sulfate 2.5 mg/3 mL (0.083 %) solution for tpuhhucxzvjs3630-44-45 00:00:[id number] NEEDED FOR INCREASED SOB AND WHEEZING3 mLAS NEEDED3 mL NEEDED (route: inhalation)Med Classification: Respiratory Therapy Agentsalbuterol sulfate HFA 90 mcg/actuation aerosol inhaler 2024-12-22 00:00:[id number] NEEDED FIRST FOR WHEEZING2 puffEVERY 6 HOURS2 puff EVERY 6 HOURS (route: inhalation)Med Classification: Respiratory Therapy Agentsamlodipine 10 mg dzdxwe2047-57-89 00:00:[id number] tabletDAILY1 tablet DAILY (route: oral)Med Classification: Cardiovascular Therapy Agents aspirin 81 mg gcawph0581-31-15 00:00:[id number] BLOOD CLOT1 tablet DAILY1 tablet DAILY (route: oral)Med Classification: Hematological Agents atorvastatin 20 mg hxdjvp9413-63-19 00:00:[id number] tabletDAILY1 tablet DAILY (route: oral)Med Classification: Cardiovascular Therapy Agents bupropion HCl XL 150 mg 24 hr tablet, extended qegilmy7143-86-99 00:00:00Yes [id number] tabletEVERY AM1 tablet EVERY AM (route: oral)Med Classification: Central Nervous System Agentscarvedilol 25 mg zrwoaj3239-78-32 00:00:[id number] FAILURE0.5 tablet2 TIMES DAILY0.5 tablet 2 TIMES DAILY (route: oral)Med Classification: Cardiovascular Therapy Agentsclonidine HCl 0.3 mg adzhgo8768-36-29 00:00:[id number] tablet3 TIMES DAILY1 tablet 3 TIMES DAILY (route: oral)Med Classification: Cardiovascular Therapy Agentsclotrimazole 10 mg cdxewl6401-93-71 00:00:190596-49-01 23:59:00No [id number] trocheAS DIRECTED1 yamil DIRECTED (route: mucous membrane) Med Classification: Hejim-Gznsgk-Fpqwrv - Preparationsdocusate sodium 100 mg efubkbi2580-18-27 00:00:[id number] capsule2 TIMES DAILY1 capsule 2 TIMES DAILY (route: oral)Med Classification: Gastrointestinal Therapy Agentsdoxazosin 2 mg mgckpy1047-49-88 00:00:62Uqu7325723074MJX2.5 tabletEVERY 12 HOURS0.5 tablet EVERY 12 HOURS (route: oral)Med Classification: Cardiovascular Therapy Agentsfamotidine 20 mg eqwxgp7837-59-01 00:00:[id number] tablet2 TIMES DAILY1 tablet 2 TIMES DAILY (route: oral)Med Classification: Gastrointestinal Therapy Agentslactulose 10 gram/15 mL (15 mL) oral solution 2024-12-22 00:00:[id number] gEVERY PM10 g EVERY PM (route: oral)Med Classification: Gastrointestinal Therapy Agentsnebulizer and compressor 2024-12-22 00:00:68Idz5278837172TW NEEDED FOR WHEEZINGPer instructionsAS NEEDED Per instructions NEEDED (route: miscellaneous)Med Classification: Medical Supplies and Durable Medical Equipment (DME)nicotine 21 mg/24 hr daily transdermal mkdtp7762-49-62 00:00:[id number] SMOKING1 patch, transdermal 24 hoursDAILY1 patch, transdermal 24 hours DAILY (route: transdermal)Med Classification: Chemical Dependency, Agents to Treatoxycodone 5 mg dfzdzu8875-33-76 00:00:[id number] NEEDED FOR SEVERE PAIN1 tablet3 TIMES DAILY1 tablet 3 TIMES DAILY (route: oral)Med Classification: Analgesic, Anti-inflammatory or Antipyreticoxygen gas for umlvigltdp7473-34-09 00:00:00Yes [id number] LiterO2 - CONTINUOUS1 Liter O2 - CONTINUOUS (route: inhalation)Med Classification: Medical Supplies and Durable Medical Equipment (DME)polyethylene glycol 3350 17 gram oral powder gtdvqj6389-11-26 00:00:00Yes [id number] NEEDED FOR CONSTIPATION1 packetAS NEEDED1 packet NEEDED (route: oral)Med Classification: Gastrointestinal Therapy AgentsSenna Lax 8.6 mg tablet 2024-12-22 00:00:[id number] tabletEVERY PM2 tablet EVERY PM (route: oral)Med Classification: Gastrointestinal Therapy AgentsSymbicort 160 mcg-4.5 mcg/actuation HFA aerosol mhurfdd3109-36-03 00:00:99Eqi9998686203PALK4 puff2 TIMES DAILY2 puff 2 TIMES DAILY (route: inhalation)Med Classification: Respiratory Therapy AgentsSpiriva Respimat 2.5 mcg/actuation solution for gsebcgkxbs2920-59-05 00:00:32Gbh0583290892OQMB8 puffDAILY2 puff DAILY (route: inhalation)Med Classification: Respiratory Therapy Agentstrazodone 100 mg tablet 2024-12-22 00:00:[id number] mgEVERY PM50 mg EVERY PM (route: oral) Med Classification: Central Nervous System Agents Vital Signs Vital Name Observation Time Observation Value Commen ts Temperature 2025-01-14 10:14:00.000 97.5 [degF] Bzsvvpgnvdq5943-30-89 09:06:00.02171.3 [degF]Gebovtfybrl3387-89-06 16:53:00.000 97.4 [degF]BMI (%)2025-01-14 10:14:00.08921 kg/m2BMI (%)2024-12-22 16:53:00.000 16 kg/h8Wfyoex9843-49-90 10:14:00.99434 [in_us]Gcoxeb1750-03-92 16:53:00.12871 [in_us]Nhppp5899-51-47 10:14:00.71023 /osfFnfcy8403-40-31 09:06:00.00607 /min Nxaiy6054-49-93 16:53:00.20007 /minO2 Saturation (%)2025-01-14 10:14:00.99158 % O2 Saturation (%)2024-12-25 09:06:00.21697 %O2 Saturation (%)2024-12-22 16:53:00.75509 %Hdwpckzszqsw0507-32-01 10:14:00.33465 /rzdOyzupfkjdycf7789-29-55 09:06:00.83625 /cmkRydtncuskpme0541-85-13 16:53:00.88978 /minWeight (lbs) 2025-01-14 10:14:00.30433 [lb_av]Weight (lbs)2024-12-22 16:53:00.04323 [lb_av] Systolic Blood Lfwsxucy3479-58-45 10:14:00.863990 mm[Hg]Systolic Blood Pressure 2024-12-25 09:06:00.496047 mm[Hg]Systolic Blood Whrcyzml4820-64-79 16:53:00.000 162 mm[Hg]Diastolic Blood Joornjon2137-02-60 10:14:00.17140 mm[Hg]Diastolic Blood Fyzmzmku0185-74-25 09:06:00.23046 mm[Hg]Diastolic Blood Rwjaaxez4959-76-50 16:53:00.39969 mm[Hg] Plan of Treatment Planned Activity Planned Date Details Comments Future Scheduled Test SKILLED NURSE TO PROVIDE INSTRUCTIONS REGARDING MEASURES TO CONTROL CONSTIPATION. [code = SKILLED NURSE TO PROVIDE INSTRUCTIONS REGARDING MEASURES TO CONTROL CONSTIPATION.]Future Scheduled TestALL CONSULTING/COVERING PHYSICIANS MAY SIGN/ISSUE ORDERS. [code = ALL CONSULTING/COVERING PHYSICIANS MAY SIGN/ISSUE ORDERS.]Future Scheduled TestSKILLED NURSE TO INSTRUCT PATIENT / CAREGIVER ON COLOSTOMY MANAGEMENT INCLUDING APPLIANCE TYPE AND USAGE, STOMAL CARE, AND IRRIGATION. SKILLED NURSE MAY PERFORM COLOSTOMY APPLIANCE CHANGE AND STOMA CARE EACH VISIT NEEDED. [code = SKILLED NURSE TO INSTRUCT PATIENT / CAREGIVER ON COLOSTOMY MANAGEMENT INCLUDING APPLIANCE TYPE AND USAGE, STOMAL CARE, AND IRRIGATION. SKILLED NURSE MAY PERFORM COLOSTOMY APPLIANCE CHANGE AND STOMA CARE EACH VISIT NEEDED.]Future Scheduled TestSKILLED NURSE TO REVIEW MEDICATION PROFILE AND RECONCILE MEDICATIONS NEEDED. SKILLED NURSE MAY INSTRUCT AND REINFORCE MEDICATION TEACHING RELATED TO USE OF MEDICATIONS TO TREAT DISEASE PROCESSES. [code = SKILLED NURSE TO REVIEW MEDICATION PROFILE AND RECONCILE MEDICATIONS NEEDED. SKILLED NURSE MAY INSTRUCT AND REINFORCE MEDICATION TEACHING RELATED TO USE OF MEDICATIONS TO TREAT DISEASE PROCESSES.]Future Scheduled TestSKILLED NURSE TO PERFORM/TEACH WOUND CARE USING CLEAN/ASEPTIC TECHNIQUE TO WOUND #1 LWR ABDOMINAL, MIDLINE, SURGICAL INC. CLEANSE WITH SOAP AND WATER. OPEN TO AIR PATIENT/CAREGIVER MAY PERFORM AFTER ADEQUATE RETURN DEMONSTRATION. DISCONTINUE WOUND CARE AND WOUND SUPPLIES ONCE WOUND IS FULLY EPITHELIALIZED. [code = SKILLED NURSE TO PERFORM/TEACH WOUND CARE USING CLEAN/ASEPTIC TECHNIQUE TO WOUND #1LWR ABDOMINAL, MIDLINE, SURGICAL INC. CLEANSE WITH SOAP AND WATER. OPEN TO AIR PATIENT/CAREGIVER MAY PERFORM AFTER ADEQUATE RETURN DEMONSTRATION. DISCONTINUE WOUND CARE AND WOUND SUPPLIES ONCE WOUND IS FULLY EPITHELIALIZED.]Future Scheduled TestPHYSICAL THERAPIST TO EVALUATE/ASSESS AND DEVELOP PHYSICAL THERAPY PLAN OF CARE TO BE SIGNED BY THEPHYSICIAN. [code = PHYSICAL THERAPIST TO EVALUATE/ASSESS AND DEVELOP PHYSICAL THERAPY PLAN OF CARE TO BE SIGNED BY THE PHYSICIAN.]Future Scheduled TestOCCUPATIONAL THERAPIST TO EVALUATE/ASSESS AND DEVELOP OCCUPATIONAL THERAPY PLAN OF CARE TO BE SIGNED BY THE PHYSICIAN. [code = OCCUPATIONAL THERAPIST TO EVALUATE/ASSESS AND DEVELOP OCCUPATIONAL THERAPY PLAN OF CARE TO BE SIGNED BY THE PHYSICIAN.]Future Scheduled TestSKILLED NURSE TO EVALUATE AND DEVELOP PLAN OF CARE TO BE COUNTERSIGNED BY PHYSICIAN. SKILLED NURSE TO ASSESS/EVALUATE ACUTE ISCHEMIA OF LARGE INTESTINE, EXTENT UNSPECIFIED AND CO-MORBID CONDITIONS INCLUDING COPD AND OTHER CONDITIONS THAT PRESENT THEMSELVES DURING THE COURSE OF THIS EPISODE TO IDENTIFY CHANGES AND INTERVENE TO MINIMIZE COMPLICATIONS. [code = SKILLED NURSE TO EVALUATE AND DEVELOP PLAN OF CARE TO BE COUNTERSIGNED BY PHYSICIAN. SKILLED NURSE TO ASSESS/EVALUATE ACUTE ISCHEMIA OF LARGE INTESTINE, EXTENT UNSPECIFIED AND CO-MORBID CONDITIONS INCLUDING COPD AND OTHER CONDITIONS THAT PRESENT THEMSELVES DURING THE COURSE OF THIS EPISODE TO IDENTIFY CHANGES AND INTERVENE TO MINIMIZE COMPLICATIONS.]Future Scheduled TestSKILLED NURSE TO INSTRUCT REGARDING OXYGEN MANAGEMENT INCLUDING ADMINISTRATION, CARE OF EQUIPMENT AND SAFETY. [code = SKILLED NURSE TO INSTRUCT REGARDING OXYGEN MANAGEMENT INCLUDING ADMINISTRATION, CARE OF EQUIPMENT AND SAFETY.]Future Scheduled TestSKILLED NURSE TO PROVIDE AND INSTRUCT REGARDING FALL PREVENTION INTERVENTIONS. [code = SKILLED NURSE TO PROVIDE AND INSTRUCT REGARDING FALL PREVENTION INTERVENTIONS.]Future Scheduled TestSKILLED NURSE TO MONITOR PLAN FOR CURRENT TREATMENT OF DEPRESSION SUCH EFFECTS OF MEDICATION AND/OR NEED FOR REFERRAL FOR OTHER TREATMENT. [code = SKILLED NURSE TO MONITOR PLAN FOR CURRENT TREATMENT OF DEPRESSION SUCH EFFECTS OF MEDICATION AND/OR NEED FOR REFERRAL FOR OTHER TREATMENT.]Future Scheduled TestSKILLED NURSE TO PROVIDE/INSTRUCT REGARDING INTERVENTION(S) TO MONITOR AND MITIGATE PAIN. [code = SKILLED NURSE TO PROVIDE/INSTRUCT REGARDING INTERVENTION(S) TO MONITOR AND MITIGATE PAIN.]Future Scheduled TestSKILLED NURSE TO PROVIDE AND INSTRUCT REGARDING INTERVENTION(S) TO PREVENT PRESSURE ULCERS. [code =SKILLED NURSE TO PROVIDE AND INSTRUCT REGARDING INTERVENTION(S) TO PREVENT PRESSURE ULCERS.]Future Scheduled TestSKILLED NURSE TO INSTRUCT ON ADMINISTRATION OF INHALATION THERAPY PER NEBULIZER. INSTRUCT PATIENT/CAREGIVER INDICATED. [code = SKILLED NURSE TO INSTRUCT ON ADMINISTRATION OF INHALATION THERAPY PERNEBULIZER. INSTRUCT PATIENT/CAREGIVER INDICATED.]Future Scheduled TestINSTRUCT ON COPD AND RELATED CONDITIONS, MANAGEMENT TECHNIQUES TO INCLUDE MEASURES TO PREVENT EXACERBATION, SIGNS AND SYMPTOMS, AND POTENTIAL COMPLICATIONS, AND TREATMENT GOALS. [code = INSTRUCT ON COPD AND RELATED CONDITIONS, MANAGEMENT TECHNIQUES TO INCLUDE MEASURES TO PREVENT EXACERBATION, SIGNSAND SYMPTOMS, AND POTENTIAL COMPLICATIONS, AND TREATMENT GOALS.]Future Scheduled TestDISCHARGE HOME HEALTH SERVICES WHEN GOALS ARE MET OR SKILLED CARE NO LONGER REQUIRED. [code = DISCHARGE HOME HEALTH SERVICES WHEN GOALS ARE MET OR SKILLED CARE NO LONGER REQUIRED.]Future Scheduled TestPATIENT IS AT RISK FOR HOSPITALIZATION OR EMERGENCY DEPARTMENT USE DUE TO INFECTION. TEACH PATIENT/C AREGIVER TO ?CALL US FIRST? . INFORM ON WHO AND WHEN TO CALL FOR SYMPTOMS BASED ON ZONE TOOLS. INSTRUCT ON MITIGATION OF IDENTIFIED HOSPITAL OR EMERGENCY DEPARTMENT RISK FACTORS. [code = PATIENT IS AT RISK FOR HOSPITALIZATION OR EMERGENCY DEPARTMENT USE DUE TO INFECTION. TEACH PATIENT/CAREGIVER TO ?CALL US FIRST? . INFORM ON WHO AND WHEN TO CALL FOR SYMPTOMS BASED ON ZONE TOOLS.INSTRUCT ON MITIGATION OF IDENTIFIED HOSPITAL OR EMERGENCY DEPARTMENT RISK FACTORS.]Future Scheduled TestSKILLED NURSE MAY PERFORM 2 PRN VISITS FOR PAIN OR INFECTION [code = SKILLED NURSE MAY PERFORM 2 PRN VISITS FOR PAIN OR INFECTION]Future Scheduled TestSKILLED NURSE FOR OASIS DATA COLLECTION/COMPREHENSIVE ASSESSMENT TO DETERMINE SKILLED NEED. THIS MAY INCLUDE RESUMPTION OF CARE ASSESSMENT (TERRI) TO DETERMINE SKILLED NEED FOLLOWING INPATIENT DISCHARGE SHOULD PATIENT TRANSFER AND ADMIT TO AN INPATIENT FACILITY DURING CURRENT 60-DAY CERTIFICATION PERIOD. ADDITIONAL VISITS MAY BE REQUIRED FOR RECERT, FOLLOW UP, SIGNIFICANT CHANGE IN CONDITION (SCIC)AND DISCHARGE. HOME HEALTH DISTANCE EDUCATION COORDINATOR MAY PROVIDE CARE RECOMMENDATIONS NEEDED ON NEW, EXISTING OR CHANGED WOUND OR INTEGUMENTARY CONDITIONS. [code = SKILLED NURSE FOR OASIS DATA COLLECTION/COMPREHENSIVE ASSESSMENT TO DETERMINE SKILLED NEED. THIS MAY INCLUDE RESUMPTION OF CARE ASSESSMENT (TERRI) TO DETERMINE SKILLED NEED FOLLOWING INPATIENT DISCHARGE SHOULD PATIENT TRANSFER AND ADMIT TO AN INPATIENT FACILITY DURING CURRENT 60-DAY CERTIFICATION PERIOD. ADDITIONAL VISITS MAY BE REQUIRED FOR RECERT, FOLLOW UP, SIGNIFICANT CHANGE IN CONDITION (SCIC) AND DISCHARGE. HOME HEALTH DISTANCE EDUCATION COORDINATOR MAY PROVIDE CARE RECOMMENDATIONS NEEDED ON NEW, EXISTING OR CHANGED WOUND OR INTEGUMENTARY CONDITIONS.]Goal [id number] Goal - TO GET STRONGER AND WALK BETTERGoalPatient Goal - TO GET STRONGER AND WALK BETTERGoalProvider Goal - PATIENT/CAREGIVER WILL VERBALIZE BOWEL PROGRAM STEPS TO PREVENT CONSTIPATION COMPLICATIONS BY 01/17/25 , AND PATIENT WILL HAVE A REGULAR BM EVERY DAY.GoalProvider Goal -GoalProvider Goal - PATIENT / CAREGIVER WILL BE ABLE TO VERBALIZE/DEMONSTRATE APPROPRIATE COLOSTOMY MANAGEMENT EVIDENCED BY CONSISTENT RETURN DEMONSTRATIONS USING PROPER TECHNIQUE AND ABSENCE OF SKIN BREAKDOWN BY 01/28/25.GoalProvider Goal - PATIENT WILL DEMONSTRATE COMPLIANCE WITH MEDICATIONS PRESCRIBED. PATIENT/CAREGIVER WILL VERBALIZE/DEMONSTRATE UNDERSTANDING OF MEDICATION SCHEDULE, PURPOSE, SIDE EFFECTS AND AND ANY SPECIAL PRECAUTIONS RELATED TO MEDICATION REGIMEN BY 01/25/25.GoalProvider Goal - PATIENT / CAREGIVER WILL VERBALIZE / DEMONSTRATE ABILITY TO PERFORM WOUND CARE. WOUND STATUS WILL IMPROVE EVIDENCED BY A DECREASE IN SIZE, DRAINAGE, ABSENCE OF INFECTION, AND DECREASED PAIN BY 01/26/25.GoalProvider Goal - PHYSICAL THERAPIST TO EVALUATE/ASSESS AND DEVELOP PHYSICAL THERAPY PLAN OF CARE TO BE SIGNED BY THE PHYSICIAN.GoalProvider Goal - OCCUPATIONAL THERAPY PLAN OF CARE WILL BE ORDERED BY PHYSICIAN AND PROVIDED BY OCCUPATIONAL THERAPY. ALL GOALS TO BE MET BY END OF CURRENTLY APPROVED PLAN OF CARE.GoalProvider Goal - A PLAN OF CARE WILL BE ESTABLISHED THAT MEETS THE PATIENT'S NURSING NEEDS AND COUNTERSIGNED BY PHYSICIAN.GoalProvider Goal - PATIENT/CAREGIVER WILL DEMONSTRATE ABILITY TO SAFELY MANAGE OXYGEN THERAPY IN THE HOME SETTING BY 01/20/2025GoalProvider Goal - CHANGES IN PATIENT CO-MORBID STATUS WILL BE PROMPTLY IDENTIFIED AND REPORTED TO THEPHYSICIAN. PATIENT/CAREGIVER VERBALIZE/DEMONSTRATE MEASURES TO PREVENT FALLS BY 01/22/25. GoalProvider Goal - CHANGES IN PATIENT CO-MORBID STATUS WILL BE PROMPTLY IDENTIFIED AND REPORTED TO THEPHYSICIAN. PATIENT/CAREGIVER VERBALIZE/DEMONSTRATE ABILITY TO PROPERLY MANAGE DEPRESSION BY 01/20/2025GoalProvider Goal - CHANGES IN PATIENT CO-MORBID STATUS WILL BE PROMPTLY IDENTIFIED AND REPORTED TO THE PHYSICIAN. PATIENT/CAREGIVER VERBALIZE/DEMONSTRATE ABILITY TO PROPERLY MANAGE PAIN BY 01/23/25.GoalProvider Goal - CHANGES IN PATIENT CO-MORBID STATUS WILL BE PROMPTLY IDENTIFIED AND REPORTED TO THEPHYSICIAN. PATIENT/CAREGIVER VERBALIZE/DEMONSTRATE MEASURES TO PREVENT PRESSURE ULCERS BY 01/20/2025Goal Provider Goal - PATIENT/CAREGIVER WILL DEMONSTRATE INDEPENDENCE IN ADMINISTRATION OF NEBULIZER THERAPY AND CARE FOR EQUIPMENT A RESULT OF SKILLED TEACHING.GoalProvider Goal - PATIENT/CAREGIVER WILL VERBALIZE/DEMONSTRATE INDEPENDENCE WITH SELF-CARE MANAGEMENTSTRATEGIES WITHIN 60 DAYS.GoalProvider Goal -GoalProvider Goal - PATIENT/CAREGIVER WILL VERBALIZE/DEMONSTRATE UNDERSTANDING OF SYMPTOM MANAGEMENT, RESOURCE UTILIZATION, AND MEDICATION MANAGEMENT TO REDUCE UNPLANNED HOSPITAL OR EMERGENCY DEPARTMENT V ISITS BY 01/24/25.GoalProvider Goal -GoalProvider Goal - Progress Notes Progress Notes <paragraph>[Visit Date: 2024 by MARYLOU ALONSO RN]:</paragraph><paragraph> ADDITIONAL DETAILS: ALERT AND ORIENTED BUT FORGETFUL. PLEASANT AND COOPERATIVE. SHORTNESS OF BREATH NOTED WITH MINIMAL EXERTION. SURGICAL INCISION HAS NON- REMOVABLE DRESSING. COLOSTOMY BAG NOT NEEDING CHANGED DURING VISIT. </paragraph><paragraph> CHANGES SINCE LAST IN-HOME VISIT: DISCHARGED FROM [facility] ON 01/12/25, NO LONGER ON DIALYSIS, PORT REMOVED. NO FALLS. NO INSURANCE CHANGES </paragraph><paragraph> WHY IS SKILLED CARE NEEDED: NURSING FOR CARDIOPULMONARY ASSESSMENT, OSTOMY AND MEDICATION EDUCATION. PT/OT STRENGTHING AND ENDURANCE </paragraph><paragraph> RESPONSE TO TODAY'S VISIT: TOLERATED WITHOUT ANY COMPLICATIONS OR DIFFICULTIES </paragraph><paragraph> PLAN FOR NEXT VISIT: CARDIOPULMONARY ASSESSMENT, LAB WORK, OSTOMY AND MEDICATION EDUCATION </paragraph><paragraph> UPCOMING APPOINTMENTS: [facility] ON 01/19/25, NEPHROLOGY ON 02/05/25</paragraph><paragraph> ATTEMPTED TO CALL [facility] OFFICE, BUT WAS CLOSED FOR LUNCH. WILL ATTEMPT TO CALL AGAIN.</paragraph> Encounters Start Date/Time End Date/Time Encounter Type Admission Type Attending Clinicians Care Facility Care Department Encounter ID Discharge Date Discharge Status Discharge Condition Discharge Reason Percent Goals Met 2024-12-22 00:00:00 2025-02-19 00:00:00 Outpatient NEW ADMIS FELIPE MARTIN [id number]
== END 2025-01-16 10:45 | disposition home or self-care (01) ==
LOC: LAB 10:44
PROVIDERS: PCP Nurse Practitioner
DX: N17.9 Acute kidney failure, unspecified (principal); N18.30 Chronic kidney disease, stage 3 unspecified
CPT/HCPCS: 36415; 80048; 82728; 83540; 83550; 85007; 85027